=== PATIENT | female | born 1965 | race Caucasian/White ===

== ENCOUNTER 2019-10-29 13:00 | Inpatient (IN) | payer OTHER ==
[~2019-10-29] VITALS: Ht 154.9 cm; Wt 38.6 kg
--- NOTE | 2019-11-10 22:15 | Pre-op HX & Phy Repo 2 SIG ---
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 The patient has a past history of ulcerative colitis in 1986. She underwent a total abdominal colectomy with a pull-through procedure. In 1989, she underwent creation of a Mullen Continent Intestinal [place] as well as abdominal-perineal proctectomy. She developed recurrent fistulas and in 1998 underwent resection of her Mullen pouch with creation of a new Mullen continent ileostomy. In 2006, the Mullen pouch was repaired because of fistula involving the access segment and the pouch. The patient in recent years intubates 10 to 12 times a day, but has incontinence despite the frequent intubations. She has no difficulty inserting her 30-Frisian Medena catheter. Last year, she had bleeding from the pouch with intubation, blood and clots and hemoglobin of 5.0. She was transfused. She underwent a pouch endoscopy in September 2018 revealing no inflammation, but there was no evidence of a nipple valve. The patient underwent upper GI endoscopy in June 2019 revealing gastritis, but she was placed on no medications. The most recent hemoglobin was 7.9 in July 2019 with iron of 16 and ferritin of 5. Her local doctors are not able to care for her because of her Mullen Continent ileostomy. MEDICATIONS: Metoprolol for hypertension. Sodium bicarbonate. ALLERGIES: Sulfa, Pentothal, Floxin, but Cipro is okay and she tolerates it. OPERATIONS: In addition to the above, tonsillectomy. REVIEW OF SYSTEMS: The patient has hypertension and she states she has been told she has mild chronic renal failure. PHYSICAL EXAMINATION: GENERAL: The patient is 5 feet 1 inch, 95 pounds. [place] and will be examined upon arrival and dictated separately. IMPRESSION: 1. Malfunctioning Mullen Continent Intestinal [place] continent ileostomy with incontinence and bleeding. 2. History of ulcerative colitis. 3. History of gastritis. 4. Hypertension. 5. Mild chronic renal failure. 6. History of ulcerative colitis. 7. STATUS POST MULTIPLE ABDOMINAL OPERATIONS: 7.1. Total colectomy with pull-through procedure in 1986. 7.2. Creation of Mullen continent ileostomy and abdominal-perineal proctectomy in 1989. 7.3. Resection of recurring fistulas involving Mullen pouch with creation of new Mullen pouch in 1998. 7.4. Repair of Mullen continent ileostomy fistulas involving the pouch and access segment 2006. DISCUSSION: The patient will be admitted to undergo bowel prep, insertion of a dual lumen PICC line, intravenous hydration during her bowel prep, and she will undergo pouch endoscopy and be prepared for surgery. Most likely, surgery will involve revision of the existing pouch as this is her second pouch, with creation of a new valve and stoma. I will have a full discussion again in person with the patient when she arrives from out of town regarding the nature of the surgery, indications, alternatives, options, and risks. Imtiaz Mcconnell M.D. DR: TYE JOB#: [id number] CC: MERY
[2019-11-12] MEDS ORDERED: Heparin1,000 units/500ml Premix(Conc:2 units/ml) ONE (06:00)
[2019-11-12] MEDS ORDERED: Lidocaine 1% Plain 30 ml INJ ONE (06:00)
--- NOTE | 2019-11-12 06:15 | NUR ---
NURSE NOTES: Received pt from ED. Pt ambulatory, a&ox4, in room air. No s/s of acute distress & no c/o pain at this time. Oriented pt to hospital room. All questions answered. VSS. Skin intact. Pt belongings signed & accounted for. Will have pt sign consents for procedures. Bed in lowest position, call light within reach. Will continue to monitor.
[2019-11-12] MEDS ORDERED: METOPROLOL SUCC50 MG ORAL (06:27)
[2019-11-12] MEDS ORDERED: CALCITRIOL0.25 MCG PO (06:27)
[2019-11-12 06:45] VITALS: BP 131/74
[2019-11-12] MEDS ORDERED: Zolpidem 5mg tab ORAL PRN (06:45)
[2019-11-12] MEDS ORDERED: Heparin1,000 units/500ml Premix(Conc:2 units/ml) IV PRN (06:45)
[2019-11-12] MEDS ORDERED: Lidocaine 1% Plain 30 ml INJ PRN (06:45)
--- NOTE | 2019-11-12 07:12 | NUR ---
NURSE NOTES: Pt taken down via wheelchair for chest x-ray. Pt in stable condition.
[2019-11-12 07:28] LABS: ANION GAP 14 mmol/L (5-15); BLOOD UREA NITROGEN 20 mg/dL (7-18); CALCIUM 9.1 MG/DL (8.5-10.1); CARBON DIOXIDE 19 MMOL/L (21-32); CHLORIDE 105 MMOL/L (98-107); CREATININE 1.9 MG/DL (0.55-1.30); POTASSIUM 4.1 MMOL/L (3.5-5.1); SODIUM 138 MMOL/L (136-145)
[2019-11-12 07:30] LABS: BASOPHILS % (AUTO) 0.9 % (0.0-2.0); EOSINOPHILS % (AUTO) 1.8 % (0.0-3.0); HEMATOCRIT 28.2 % (37.0-47.0); HEMOGLOBIN 8.7 G/DL (12.0-16.0); LYMPHOCYTES % (AUTO) 24.5 % (20.0-45.0); MEAN CORPUSCULAR VOLUME 72 FL (80-99); MONOCYTES % (AUTO) 7.4 % (1.0-10.0); NEUTROPHILS % (AUTO) 65.4 % (45.0-75.0); PLATELET COUNT 234 K/UL (150-450); RED CELL DISTRIBUTION WIDTH 14.7 % (11.6-14.8)
--- NOTE | 2019-11-12 07:32 | NUR ---
NURSE NOTES: Pt is back from chest xray.
--- NOTE | 2019-11-12 07:35 | NUR ---
HAND-OFF: Report given to CHUCK Roper. Rounds done. Endorsed to AM shift to have pt sign all of the consents. Pt aware of today's procedure @ 1300
[2019-11-12 07:38] LABS: ALANINE AMINOTRANSFERASE 55 U/L (12-78); ALBUMIN 4.3 G/DL (3.4-5.0); ALBUMIN/GLOBULIN RATIO 0.8 (1.0-2.7); ALKALINE PHOSPHATASE 104 U/L (46-116); ASPARTATE AMINO TRANSFERASE 55 U/L (15-37); BILIRUBIN,TOTAL 2.4 MG/DL (0.2-1.0)
[2019-11-12 07:39] LABS: BILIRUBIN,DIRECT 0.4 MG/DL (0.0-0.3)
[2019-11-12 08:00] VITALS: BP 112/64
--- NOTE | 2019-11-12 08:00 | NUR ---
NURSE NOTES: Received report from Guillermina WOODS, pt is a/a/o x4 laying in bed with no signs of distress or other issues at this time. call light within reach, bed in lowest position, side rales up x2. I will f/u as needed. pt's at bed side. I will f/u as needed - RN will review new admission orders and will carryon as indicated by .
--- NOTE | 2019-11-12 10:45 | Diagnostic Imaging Report ---
Indication: Cough Technique: 2 views of the chest Comparison: none Findings: Lungs and pleural spaces are clear. Heart size is normal. Impression: No acute process
--- NOTE | 2019-11-12 11:31 | General Progress Note ---
Progress Note Progress Note H&P dictated. For Mullen pouch endoscopy this afternoon. Hgb 8.7 - will need 1 unit PRBC pre-op after PIC line inserted Imtiaz Mcconnell MD Nov 12, 2019 11:31
--- NOTE | 2019-11-12 11:34 | Pre-Procedure Note/Attestation ---
Pre-Procedure Note/Attestation Complete Prior to Procedure Planned Procedure: not applicable Procedure Narrative: Mullen continent ileostomy pouch endoscopy Indications for Procedure Pre-Operative Diagnosis: malfunctioning Mullen continent ileostomy Attestation I attest that I discussed the nature of the procedure; its benefits; risks and complications; and alternatives (and the risks and benefits of such alternatives ), prior to the procedure, with the patient (or the patient's legal insurance account representative). I attest that, if there was a reasonable possibility of needing a blood transfusion, the patient (or the patient's legal insurance account representative) was given the [facility] standardized written summary, pursuant to the [place] Blood Safety Act ([place] Health and Safety Code # 1645, as amended). I attest that I re-evaluated the patient just prior to the surgery and that there has been no change in the patient's H&P, except as documented below: none Imtiaz Mcconnell MD Nov 12, 2019 11:34
--- NOTE | 2019-11-12 11:47 | Anethesia Preoperative Eval ---
Anesthesia Pre-op PMH/ROS General Date of Evaluation: Nov 12, 2019 Time of Evaluation: 11:09 Anesthesiologist: Corie ASA Score: ASA 3 Mallampati Score Class I : Soft palate, uvula, fauces, pillars visible Class II: Soft palate, uvula, fauces visible Class III: Soft palate, base of uvula visible Class IV: Only hard plate visible Mallampati Classification: Class II Surgeon: Enedina Diagnosis: Malfunctiong Mullen Continent Ileostomy Surgical Procedure: Revison Mullen Continent Ileostomy Anesthesia History: none Family History: no anesthesia problems Allergies: Coded Allergies: CEFACLOR (Verified Allergy, Unknown, 11/12/19) OFLOXACIN (Verified Allergy, Unknown, 11/12/19) SULFA (SULFONAMIDE ANTIBIOTICS) (Verified Allergy, Unknown, 11/12/19) Uncoded Allergies: sodium pentothal (Allergy, Unknown, 11/12/19) Medications: see eMAR Patient NPO?: Yes Past Medical History Cardiovascular: Reports: HTN Gastrointestinal/Genitourinary: Reports: CRI, other - Ulcerative Colitis Hematology/Immune: Reports: anemia, other - Lymphohistiocytosis PSxH Narrative: 1. Malfunctioning Mullen Continent Intestinal [place] continent ileostomy with incontinence and bleeding. 2. History of ulcerative colitis. 3. History of gastritis. 4. Hypertension. 5. Mild chronic renal failure. 6. History of ulcerative colitis. 7. STATUS POST MULTIPLE ABDOMINAL OPERATIONS: 7.1. Total colectomy with pull-through procedure in 1986. 7.2. Creation of Mullen continent ileostomy and abdominal-perineal proctectomy in 1989. 7.3. Resection of recurring fistulas involving Mullen pouch with creation of new Mullen pouch in 1998. 7.4. Repair of Mullen continent ileostomy fistulas involving the pouch and access segment 2006. Anesthesia Pre-op Phys. Exam Physician Exam Last Vital Signs Date Time Temp Pulse Resp B/P (MAP) Pulse Ox O2 Delivery O2 Flow Rate FiO2 11/12/19 08:00 97.7 62 15 112/64 (80) 99 11/12/19 07:09 Room Air Constitutional: NAD Neurologic: CN 2-12 intact Cardiovascular: RRR Respiratory: CTA Gastrointestinal: S/NT/ND Airway Exam Mallampati Score: Class II MO: full ROM: full Teeth: missing, intact Anesthesia Pre-op A/P Labs Hematology Test 1/6/20 07:05 White Blood Count 8.0 K/UL (4.8-10.8) Red Blood Count 3.90 M/UL (4.20-5.40) L Hemoglobin 8.7 G/DL (12.0-16.0) L Hematocrit 28.2 % (37.0-47.0) L Mean Corpuscular Volume 72 FL (80-99) L Mean Corpuscular Hemoglobin 22.4 PG (27.0-31.0) L Mean Corpuscular Hemoglobin Concent 30.9 G/DL (32.0-36.0) L Red Cell Distribution Width 14.7 % (11.6-14.8) Platelet Count 234 K/UL (150-450) Mean Platelet Volume 6.3 FL (6.5-10.1) L Neutrophils (%) (Auto) 65.4 % (45.0-75.0) Lymphocytes (%) (Auto) 24.5 % (20.0-45.0) Monocytes (%) (Auto) 7.4 % (1.0-10.0) Eosinophils (%) (Auto) 1.8 % (0.0-3.0) Basophils (%) (Auto) 0.9 % (0.0-2.0) Coagulation Test 11/12/19 07:05 Prothrombin Time 11.1 SEC (9.30-11.50) Prothromb Time International Ratio 1.0 (0.9-1.1) Activated Partial Thromboplast Time 27 SEC (23-33) Chemistry Test 11/12/19 07:05 Sodium Level 138 MMOL/L (136-145) Potassium Level 4.1 MMOL/L (3.5-5.1) Chloride Level 105 MMOL/L (98-107) Carbon Dioxide Level 19 MMOL/L (21-32) L Anion Gap 14 mmol/L (5-15) Blood Urea Nitrogen 20 mg/dL (7-18) H Creatinine 1.9 MG/DL (0.55-1.30) H Estimat Glomerular Filtration Rate 27.5 mL/min (>60) Glucose Level 99 MG/DL (74-106) Calcium Level 9.1 MG/DL (8.5-10.1) Total Bilirubin 2.4 MG/DL (0.2-1.0) H Direct Bilirubin 0.4 MG/DL (0.0-0.3) H Aspartate Amino Transf (AST/SGOT) 55 U/L (15-37) H Alanine Aminotransferase (ALT/SGPT) 55 U/L (12-78) Alkaline Phosphatase 104 U/L (46-116) Total Protein 9.8 G/DL (6.4-8.2) H Albumin 4.3 G/DL (3.4-5.0) Globulin 5.5 g/dL Albumin/Globulin Ratio 0.8 (1.0-2.7) L Risk Assessment & Plan Assessment: ASA 3 Plan: GA Status Change Before Surgery: No Pre-Antibiotics Drug: Guy Bangura MD Nov 12, 2019 11:47
[2019-11-12 12:00] VITALS: BP 119/73
--- NOTE | 2019-11-12 12:04 | NUR ---
*-* NO INSURANCE INFORMATION INT [facility] UNABLE TO SEND CLINCALS OR REVIEWS *-*
[2019-11-12 12:28] LABS: APPEARANCE,URINE CLEAR; BILIRUBIN, URINE NEGATIVE (NEGATIVE); COLOR,URINE PALE YELLOW; GLUCOSE, URINE (UA) NEGATIVE (NEGATIVE); KETONES,URINE NEGATIVE (NEGATIVE); LEUKOCYTE ESTERASE ,URINE NEGATIVE (NEGATIVE); NITRITE,URINE NEGATIVE (NEGATIVE); PH,URINE 6 (4.5-8.0); PROTEIN,URINE NEGATIVE (NEGATIVE); UROBILINOGEN,URINE NORMAL MG/DL (0.0-1.0)
--- NOTE | 2019-11-12 13:21 | Brief Operative Note ---
Immediate Post Operative Note Operative Note Pre-op Diagnosis: malfunctioning Mullen continent ileostomy Procedure: Mullen pouch endoscopy Post-op Diagnosis: same Post-op Diagnosis: same as pre-op Findings: consistent w/pre-op dx studies Surgeon: bola Anesthesia: other - none Specimen: none Complications: none Condition: stable Fluids: none Estimated Blood Loss: none Drains: other - 28 muse to Mullen pouch Implant(s) used?: No Imtiaz Mcconnell MD Nov 12, 2019 13:21
--- NOTE | 2019-11-12 13:40 | NUR ---
RADIOLOGY NOTE: LEFT UPPER EXTREMITY PICC PLACED.
[2019-11-12] MEDS: Neomycin Sulfate 500mg Tab ORAL SCH ×3 (13:59→20:35)
--- NOTE | 2019-11-12 14:48 | Diagnostic Imaging Report ---
. Indications: Needs long-term IV access Technique: Ultrasound confirms patent compressible left basilic vein. Total sterile technique, including sterile probe cover and sterile gel, hat, mask, sterile gown, large sterile drape, and preparation with 2% chlorhexidine utilized. Local anesthesia with 1% lidocaine. Under real-time ultrasound guidance, puncture basilic vein using 21-gauge needle, documented and archived, passage 0.018 guidewire under direct fluoroscopy, which was used to determine appropriate catheter length, exchange for 4 Swedish peel-away sheath. 4 Swedish Bard dual-lumen power PICC cut to 39 cm. It was inserted through the peel-away sheath. Peel-away sheath and guidewire removed. Catheter fixed to the skin. Both catheter ports aspirated and flushed. Patient tolerated procedure well, without immediate complication. Digital radiograph documents satisfactory catheter tip position, at the cavoatrial junction. Total fluoroscopy time 9.7 seconds. Total dose area product [id number] mGym2 Total number of images: One Impression: Successful placement of left arm PICC under sonographic and fluoroscopic guidance, as described above.
--- NOTE | 2019-11-12 15:15 | Pre-op HX & Phy Repo 2 SIG ---
DATE OF ADMISSION: 11/12/2019 DATE OF EXAMINATION: 11/12/2019. The [place]. Please see previously dictated history. PHYSICAL EXAMINATION: GENERAL: She is well developed well and nourished, 5 feet 1 inch, 95 pounds. VITAL SIGNS: Within normal limits. HEENT: Within normal limits. LUNGS: Clear. HEART: Regular rhythm. BREASTS: Without masses. ABDOMEN: Soft. There are multiple scars including a wide, long midline scar. The stoma of her Mullen pouch is in the right groin area with surrounding subcutaneous ectatic veins giving the skin a bluish discoloration and consistent with her intermittent forceful bleeding coming out of the stoma. There is a small parastomal hernia, but no incisional hernia. PELVIC: Per primary care recently. RECTAL: Status post proctectomy. EXTREMITIES: Without edema. Pulses 2+ femoral to pedal bilaterally. NEUROLOGIC: Physiologic. IMPRESSION: 1. Malfunctioning Mullen continent intestinal [place] continent ileostomy with incontinence and stoma bleeding. 2. History of ulcerative colitis. 3. Hypertension. 4. Mild chronic renal failure. 5. History of gastritis. 6. STATUS POST MULTIPLE ABDOMINAL OPERATIONS: 6.1. Total colectomy with pull-through procedure in 1986. 6.2. Creation of Mullen continent ileostomy and abdominal-perineal proctectomy in 1989. 6.3. Resection of Mullen pouch due to recurring fistula with creation of a new Mullen continent ileostomy pouch in 1998. 6.4. Repair of Mullen continent ileostomy fistula involving the pouch and access segment in 2006. PLAN: The patient will undergo bowel prep, insertion of a dual lumen PICC line, intravenous hydration during her prep, pouch endoscopy and continuous drainage of her Mullen pouch leading to surgery. Hemoglobin of 8.7 will require one unit of blood transfusion preoperatively, as her hemoglobin has been as low as 5.9 in the past. I have had a full discussion with the patient regarding the nature of her condition, the nature of surgery, indications, alternatives, options, and risks. I have discussed the general risks of surgery including bleeding, infection, injury to adjacent structures or organs, hernia formation, bowel obstructions, deep vein thrombosis despite prophylaxis, etc. I have had a full discussion regarding the specific risks of Mullen pouch revision including recurrent fistula or slipped valve or other issues with the pouch structure or function, and the potential ultimately for conventional ileostomy which she has never had. All questions have been answered. She understands and agrees to proceed. Imtiaz Mcconnell M.D. DR: BARBARA JOB#: [id number] CC:
[2019-11-12 16:00] VITALS: BP 124/73
--- NOTE | 2019-11-12 16:00 | Procedure Note ---
DATE OF PROCEDURE: 11/12/2019 ENDOSCOPY PROCEDURE REPORT ENDOSCOPIST: Imtiaz Mcconnell M.D. PROCEDURE: Endoscopy. ANESTHESIA: None. SEDATION: None. PRE-ENDOSCOPIC DIAGNOSES: 1. Malfunctioning Mullen continent ileostomy with incontinence and bleeding from the stoma. 2. History of ulcerative colitis. 3. Status post proctocolectomy and Mullen pouch with resection of prior Mullen pouch due to fistula and revision of current Mullen pouch in the past because of fistula. POST-ENDOSCOPIC DIAGNOSIS: 1. Malfunctioning Mullen continent ileostomy with incontinence and bleeding from the stoma. 2. History of ulcerative colitis. 3. Status post proctocolectomy and Mullen pouch with resection of prior Mullen pouch due to fistula and revision of current Mullen pouch in the past because of fistula. ENDOSCOPY PERFORMED: Mullen continent ileostomy pouch endoscopy. FINDINGS: The endoscope was seen to enter the pouch adjacent to the base of the nipple valve indicating likely that there is a large fistula from the access segment directly into the pouch. The pouch itself was distensible and has no sign of inflammation. DESCRIPTION OF PROCEDURE: The patient was positioned supine in the GI lab without any anesthesia or sedation given or required. Using a GIF-P140 endoscope, the stoma in the right lower quadrant was entered. The pouch was distensible. Retroflexed revealed the above stated findings, withdrawal views confirmed them. After removing the endoscope, I readily inserted a 28-Tamazight Erazo catheter into the pouch, confirmed by irrigation and connected it to gravity drainage bag and taped it to the skin with a dressing over the stoma. She will be prepared for surgical revision and she tolerated the endoscopy well. Imtiaz Mcconnell M.D. DR: FOSTER JOB#: [id number] CC:
--- NOTE | 2019-11-12 17:17 | NUR ---
CASE MANAGEMENT: INITIAL REVIEW 54YR OLD FEMALE HERE FOR ELECTIVE SURGERY CC: MALFUNCTION OF NELSON ILEOSTOMY AND BLEEDING FROM STOMA SI: MALFUNCTION OF NELSON ILEOSTOMY AND BLEEDING FROM STOMA 97.3 73 15 131/74 96% ON RA H/H 8.7/28.2 BUN 20 CREAT 1.9 CO2 19 TBIL/DBIL 2.4/0.4 AST 55 T.PROTEIN 9.8 IS: IN SURGERY NOW \:3E MED SURG UNIT
[2019-11-12] MEDS: D5 1/2NS w/KCl 20mEq 1,000 ML IV SCH (19:05)
--- NOTE | 2019-11-12 19:45 | NUR ---
NURSE NOTES: Received a report from CHUCK Roper. Pt is in stable condition. AAOX4. Able to make needs known. On room air. at the bedside. No c/o pain/discomfort. PICC line 2 lumen on the L upper arm, is patent and intact. Ileostomy on the R side, is draining. Bed in lowest position. Bed alarm is on. Call light within reach. Will continue to monitor.
[2019-11-12 20:00] VITALS: BP 143/84
--- NOTE | 2019-11-12 20:02 | NUR ---
HAND-OFF: Report given to Amanda WOODS, pt in stable condition. - During my shift pt received one of PRBC with no signs of any adverse reaction. - consents are signed by PT I&O's Ileostomy: 600-40= 560ml urine: 300ml
[2019-11-12] MEDS: Metoprolol Succinate XL 50mg tab ORAL SCH (20:35)
[2019-11-12] MEDS: Dyna-Hex 2% Top Sol 2oz TOPIC SCH (20:35)
[2019-11-12 23:55] VITALS: BP 134/75
[2019-11-13] MEDS: Ampicillin/Sulbactam Sod 3 GM in NS 110 ML IVPB SCH ×2 (01:29→05:03)
[2019-11-13 04:00] VITALS: BP 125/77
[2019-11-13 05:50] LABS: BASOPHILS % (AUTO) 0.4 % (0.0-2.0); EOSINOPHILS % (AUTO) 1.6 % (0.0-3.0); HEMATOCRIT 27.1 % (37.0-47.0); HEMOGLOBIN 8.4 G/DL (12.0-16.0); LYMPHOCYTES % (AUTO) 17.4 % (20.0-45.0); MEAN CORPUSCULAR VOLUME 75 FL (80-99); MONOCYTES % (AUTO) 9.7 % (1.0-10.0); NEUTROPHILS % (AUTO) 70.9 % (45.0-75.0); PLATELET COUNT 157 K/UL (150-450); RED CELL DISTRIBUTION WIDTH 15.2 % (11.6-14.8); WHITE BLOOD COUNT 5.3 K/UL (4.8-10.8)
[2019-11-13 06:32] LABS: ALANINE AMINOTRANSFERASE 40 U/L (12-78); ALBUMIN 3.3 G/DL (3.4-5.0); ALBUMIN/GLOBULIN RATIO 0.8 (1.0-2.7); ALKALINE PHOSPHATASE 78 U/L (46-116); ANION GAP 13 mmol/L (5-15); ASPARTATE AMINO TRANSFERASE 44 U/L (15-37); BILIRUBIN,TOTAL 2.8 MG/DL (0.2-1.0); BLOOD UREA NITROGEN 19 mg/dL (7-18); CALCIUM 8.4 MG/DL (8.5-10.1); CARBON DIOXIDE 17 MMOL/L (21-32); CHLORIDE 110 MMOL/L (98-107); CREATININE 1.7 MG/DL (0.55-1.30); FERRITIN 8 NG/ML (8-388); POTASSIUM 3.6 MMOL/L (3.5-5.1); SODIUM 140 MMOL/L (136-145)
[2019-11-13 06:38] LABS: BILIRUBIN,DIRECT 0.3 MG/DL (0.0-0.3)
[2019-11-13 06:43] LABS: IRON 29 ug/dL (50-175)
--- NOTE | 2019-11-13 07:23 | NUR ---
HAND-OFF: Report given to CHUCK Roper.
--- NOTE | 2019-11-13 07:31 | NUR ---
NURSE NOTES: Received report from Amanda WOODS, pt a/a/o x4 laying in bed with no signs of distress or other issues at this time. Ileostomy draining to gravity, total geophysical prospecting surveyor out put: 360ml, total urine out put: 1200ml. plan to OR today for revision of BCIR. at bed side. call light within reach, bed in lowest position. side rales up x2.
[2019-11-13 08:00] VITALS: BP 123/72
[2019-11-13] MEDS: D5 1/2NS w/KCl 20mEq 1,000 ML IV SCH ×2 (08:55→20:23)
--- NOTE | 2019-11-13 09:26 | General Progress Note ---
Progress Note Progress Note AVSS Received 1 unit blood yesterday but this AM Hgb is lower 8.4. serum iron 29 and ferritin 8. B12 389; folic acid ok Albumin 3.3 BUN down 19 Cr down 1.7 Abdomen soft, Mullen pouch catheter draining well Imp: Severe anemia with severe iron deficiency and history recurrent stoma bleeding Plan: Transfuse second unit; start Venofer; postpone surgery to 11/15; start TPN; B12 x 1 clear liquid diet Imtiaz Mcconnell MD Nov 13, 2019 09:26
[2019-11-13] MEDS ORDERED: Vitamin B12 1000mcg/ml Inj IM SCH (09:30)
[2019-11-13] MEDS ORDERED: Heparin 5000 units/ml inj SUBQ SCH (09:30)
[2019-11-13] MEDS ORDERED: Iron Sucrose 200 MG in NS 110 ML IV SCH (10:00)
--- NOTE | 2019-11-13 11:07 | NUR ---
RD ASSESSMENT & RECOMMENDATIONS SEE CARE ACTIVITY FOR COMPLETE ASSESSMENT DAILY ESTIMATED NEEDS: Needs based on Underweight, pending surgery, CKD/ 44kg 30-35 kcals/kg 4488-8497 total kcals 1-1.5 g protein/kg 44-66 g total protein 30-35 mL/kg 3387-1397 total fluid mLs NUTRITION DIAGNOSIS: * Altered GI function R/T h/o UC, BCIR as evidenced by admitted w/ malfunctioning BICR w/ incontinence and stoma bleeding, surgery pending, w/ an order for TPN + CLD. CURRENT DIET:CLEAR LIQUID DIET PO DIET RECOMMENDATIONS: Diet per MD PARENTERAL NUTRITION RECOMMENDATIONS: D/AA Rate: 53 IL Rate: 7 Total Rate: 60 Volume: 1440 % Dextrose: 16 % AA: 5.0 Energy (kcals/kg): 1282 Protein (g/kg protein): 63.6 Nonprotein KCALS: 1028 GIR (mg CHO/kg/min): 3.2 % Fat KCALS: 26 NCP: N Ratio: 100.4 TPN Comment: * D16% AA 5.0% @ 53ml/hr + IL20% @ 7ml/hr -> total of 60ml/hr, all 3:1 * Start rate per MD * Will provide 97% est kcal/ 100% est prot needs ADDITIONAL RECOMMENDATIONS: * Standing wt for accurate CBW, weekly wt monitoring * Monitor LFTs and T bili closely w/ TPN -> AST (44) and T bili (2.8) already elevated prior to TPN initiation * Monitor BGs and lytes w/ TPN
--- NOTE | 2019-11-13 11:22 | NUR ---
*-* NO INSURANCE INFORMATION IN THE BAR UNABLE TO SEND CLINICALS OR REVIEWS *-*
[2019-11-13 12:00] VITALS: BP 135/74
--- NOTE | 2019-11-13 12:29 | NUR ---
CASE MANAGEMENT: REVIEW 11/13/2019 SI: MALFUNCTION OF NELSON ILEOSTOMY AND BLEEDING FROM STOMA 98.4 80 18 123/72 97% ON RA H/H 8.4/27.1 CL-110 CO2 17 CA+ 8.4 BUN 19 CREAT 1.7 FE 29 IS: IV FE SUCROSE X1 VIT B12 IM X1 HEPARIN SQ X1 IVF D5@75ML/HR IV FLAGYL Q6HR IV AMPICILLIN Q6HR NEOMYCIN PO TID ERYTHTOMYCIN PO TID TOPROL PO QHS \:3E MED SURG UNIT PLAN: TRANSFUSE 2ND UNIT PRBC POSTPONE SURG TILL 11/15/2019 START TPN CLEAR LIQ DIET
--- NOTE | 2019-11-13 13:28 | NUR ---
NURSE NOTES: Received order to transfuse 1 unit of PRBC. - Infusion started at 12:40. pts VS prior to start infusion: VS: Temp: 97.7, BP: 135/76, HR: 87. RN though patient of possible side effects of Blood transfusion. pt was able to verbalized understanding. - VS 15 min after transfusion: 97.8, BP: 138/78, HR:88. Patient stated that she is "feeling well, with no side effects notes until now". RN will continue to monitor. I will f/u as needed.
[2019-11-13 16:00] VITALS: BP 138/78
--- NOTE | 2019-11-13 16:00 | NUR ---
NURSE NOTES: blood transfusion finalized. VS: 98.5, 85, 18, 138/78, 97% RA. pt was able to tolerated with no signs of adverse reaction at this time. I will f/u as needed.
--- NOTE | 2019-11-13 17:30 | NUR ---
NURSE NOTES: During rounds pt complained of HERNANDEZ, RN will contact MD for orders. I will f/u as needed.
[2019-11-13] MEDS ORDERED: Acetaminophen 500mg (ES) tab ORAL PRN (18:00)
[2019-11-13 19:40] VITALS: BP 139/76
--- NOTE | 2019-11-13 19:50 | NUR ---
HAND-OFF: Report given to Amanda WOODS, pt in stable condition. - during my shift pt was able to ambulate around the room with steady gait. I&O's ileostomy: 600-90=769fv urine: 1300 ml intake: 708 ml
[2019-11-13] MEDS: Dyna-Hex 2% Top Sol 2oz TOPIC SCH (20:23)
[2019-11-13] MEDS: Metoprolol Succinate XL 50mg tab ORAL SCH (20:23)
[2019-11-13] MEDS: FAT EMULSION 20% IV SCH (20:25)
[2019-11-13] MEDS: TPN IV SCH (20:25)
[2019-11-13] MEDS ORDERED: Dextrose 10% 1,000 ML IV PRN (21:00)
[2019-11-14] VITALS: BP 131/74
[2019-11-14 04:00] VITALS: BP 133/77
--- NOTE | 2019-11-14 04:37 | NUR ---
HAND-OFF: Report given to CHUCK Perez.
--- NOTE | 2019-11-14 04:40 | NUR ---
NURSE NOTES: received report from CHUCK Patel. patient asleep. Breathing unlabored on room air without distress. No s/s of pain or discomfort noted at this time. Left upper arm PICC line site patent with clean and dry dressing intact. Right Ileostomy intact and draining. Bed placed at the lowest with brake and siderails up for safety. Call light within reach. Will continue to monitor the patient and provide care as ordered.
[2019-11-14 05:32] LABS: HEMATOCRIT 29.5 % (37.0-47.0); HEMOGLOBIN 9.3 G/DL (12.0-16.0); MEAN CORPUSCULAR VOLUME 76 FL (80-99); PLATELET COUNT 117 K/UL (150-450); WHITE BLOOD COUNT 3.3 K/UL (4.8-10.8)
[2019-11-14 05:46] LABS: ALANINE AMINOTRANSFERASE 32 U/L (12-78); ALBUMIN 2.8 G/DL (3.4-5.0); ALBUMIN/GLOBULIN RATIO 0.7 (1.0-2.7); ALKALINE PHOSPHATASE 66 U/L (46-116); ANION GAP 9 mmol/L (5-15); ASPARTATE AMINO TRANSFERASE 35 U/L (15-37); BILIRUBIN,DIRECT 0.2 MG/DL (0.0-0.3); BLOOD UREA NITROGEN 12 mg/dL (7-18); CALCIUM 7.9 MG/DL (8.5-10.1); CARBON DIOXIDE 19 MMOL/L (21-32); CHLORIDE 114 MMOL/L (98-107); CREATININE 1.5 MG/DL (0.55-1.30); POTASSIUM 4.3 MMOL/L (3.5-5.1); SODIUM 142 MMOL/L (136-145)
[2019-11-14] MEDS: NovoLOG Insulin Flexpen SUBQ SCH ×4 (06:00→18:00)
--- NOTE | 2019-11-14 06:30 | NUR ---
NURSE NOTES: abdominal dressing intact, dry, and clean. will continue to monitor.
--- NOTE | 2019-11-14 07:28 | NUR ---
HAND-OFF: Report given to CHUCK Roper. Patient in stable condition. Endorsed plan of care. Output for 12hr shift Ileostomy 525ml - 80ml flush = 445 ml Urine 1000 ml
--- NOTE | 2019-11-14 07:59 | NUR ---
NURSE NOTES: Received report from Minsu RN, pt a/a/o x4 laying in bed with no signs of distress or other issues at this time. ileostomy bag draining to gravity, total mine shifter out put: 445ml. Total urine: 1000ml. PICC line in place running TPN@60ml/hr. at bed side. call light within reach, bed in lowest position. side rales up x2. I will f/u as needed.
[2019-11-14 08:00] VITALS: BP 145/71
[2019-11-14] MEDS ORDERED: D5 1/2NS w/KCl 20mEq 1,000 ML IV SCH (08:00)
--- NOTE | 2019-11-14 10:00 | NUR ---
*-* NO INSURANCE INFORMATION IN THE BAR UNABLE TO SEND CLINICALS OR REVIEWS *-*
[2019-11-14 12:00] VITALS: BP 165/78
--- NOTE | 2019-11-14 15:07 | General Progress Note ---
Progress Note Progress Note AVSS Hgb 9.3 after IV hydration and 2 units PRBC. WBC 3300 Platelets 117,000 BU"N down 12 Cr down 1.5 albumin 2.8 Abdomen sof BCIR catheter draining well Imp. Malnutrition Severe anemia Malfunctioning Mullen Pouch with fistula to access segment/stoma Plan: Prepare for surgery tomorrow Full discussion with patient re possible need to resect her Mullen pouch and create conventional Ana ileostomy Imtiaz Mcconnell MD Nov 14, 2019 15:07
[2019-11-14 16:00] VITALS: BP 153/80
--- NOTE | 2019-11-14 19:30 | NUR ---
NURSE NOTES: Receive a report from CHUCK Roper. Round is done. Pt is awake and alert. No acute distress noted. No abdominal discomfort noted. Ileostomy is on RLQ and drained in a natural gravity with brownish drainage. Site kept clean with gauze dressing. TPN is running on AME via PICC. Noted discoloration around PICC and marked with pen to check. No pain or swelling noted. Pt is planning on surgery tomorrow. Call light within reach. Will continue to monitor.
--- NOTE | 2019-11-14 19:51 | NUR ---
HAND-OFF: Report given to Becky Courtney, pt in stable condition. - pt was able to walk around the room with steady gait. I&o's ileostomy: 325-828=115hj urine: 1050ml oral intake: 908ml Blood sugar: 91,110
[2019-11-14 20:00] VITALS: BP 144/83
[2019-11-14] MEDS: Metoprolol Succinate XL 50mg tab ORAL SCH (20:10)
[2019-11-14] MEDS: Dyna-Hex 2% Top Sol 2oz TOPIC SCH (20:10)
[2019-11-14] MEDS: TPN IV SCH (20:12)
[2019-11-14] MEDS: FAT EMULSION 20% IV SCH (20:12)
--- NOTE | 2019-11-14 21:00 | NUR ---
NURSE NOTES: Preop surgery education is done. Will be MNNPO. Will continue to monitor.
[2019-11-15] VITALS (26 sets, daily range): BP systolic 93–183; BP diastolic 50–92
[2019-11-15] MEDS: NovoLOG Insulin Flexpen SUBQ SCH ×4 (06:00→18:00)
--- NOTE | 2019-11-15 06:00 | NUR ---
NURSE NOTES: Denies any pain. Noted wet gauze around ileostomy catheter. Done checking ileostomy catheter with flushing and change dressing with 4x4 and ABD. Will follow up lab results. On MNNPO for surgery this afternoon. Will continue to monitor. 12hr output urine: 1350ml Ileostomy: 230ml
[2019-11-15 07:08] LABS: ALANINE AMINOTRANSFERASE 30 U/L (12-78); ALBUMIN 2.8 G/DL (3.4-5.0); ALBUMIN/GLOBULIN RATIO 0.7 (1.0-2.7); ALKALINE PHOSPHATASE 67 U/L (46-116); ANION GAP 12 mmol/L (5-15); ASPARTATE AMINO TRANSFERASE 36 U/L (15-37); BILIRUBIN,TOTAL 0.9 MG/DL (0.2-1.0); BLOOD UREA NITROGEN 16 mg/dL (7-18); CARBON DIOXIDE 19 MMOL/L (21-32); CHLORIDE 111 MMOL/L (98-107); CREATININE 1.4 MG/DL (0.55-1.30); SODIUM 142 MMOL/L (136-145)
[2019-11-15 07:11] LABS: BASOPHILS % (AUTO) 0.9 % (0.0-2.0); EOSINOPHILS % (AUTO) 3.2 % (0.0-3.0); HEMATOCRIT 29.7 % (37.0-47.0); HEMOGLOBIN 9.4 G/DL (12.0-16.0); LYMPHOCYTES % (AUTO) 25.1 % (20.0-45.0); MEAN CORPUSCULAR VOLUME 76 FL (80-99); MONOCYTES % (AUTO) 10.8 % (1.0-10.0); NEUTROPHILS % (AUTO) 60.1 % (45.0-75.0); PLATELET COUNT 119 K/UL (150-450); RED BLOOD COUNT 3.93 M/UL (4.20-5.40); RED CELL DISTRIBUTION WIDTH 15.3 % (11.6-14.8); WHITE BLOOD COUNT 3.5 K/UL (4.8-10.8)
--- NOTE | 2019-11-15 07:30 | NUR ---
HAND-OFF: Report given to CHUCK Costa.
--- NOTE | 2019-11-15 07:49 | NUR ---
NURSE NOTES: Pending surgery for this afternoon. Remains NPO . Denies discomfort and this time.
--- NOTE | 2019-11-15 08:38 | NUR ---
CASE MANAGEMENT: REVIEW 11/14/2019 SI: MALFUNCTION OF NELSON ILEOSTOMY AND BLEEDING FROM STOMA 97.6 81 21 165/78 97% ON RA WBC 3.3 H/H 9.3/29.5 PLT 119 CL-114 CO2 19 CREAT 1.5 CA+ 7.9 TBIL 2.0 IS: TPN Q24HR IV FE SUCROSE X1 TOPROL PO QHS TYLENOL PO Q6HR \:3E MED SURG UNIT PLAN: SEVERE ANEMIA SURGERY 11/15/2019
--- NOTE | 2019-11-15 08:40 | Pre-Procedure Note/Attestation ---
Pre-Procedure Note/Attestation Complete Prior to Procedure Planned Procedure: not applicable Procedure Narrative: revision of Mullen continent ileostomy Indications for Procedure Pre-Operative Diagnosis: malfunctioning Mullen continent ileostomy Attestation I attest that I discussed the nature of the procedure; its benefits; risks and complications; and alternatives (and the risks and benefits of such alternatives ), prior to the procedure, with the patient (or the patient's legal installation service representative). I attest that, if there was a reasonable possibility of needing a blood transfusion, the patient (or the patient's legal installation service representative) was given the [facility] standardized written summary, pursuant to the Miguelito Whetstone Blood Safety Act ([place] Health and Safety Code # 1645, as amended). I attest that I re-evaluated the patient just prior to the surgery and that there has been no change in the patient's H&P, except as documented below: none Imtiaz Mcconnell MD Nov 15, 2019 08:40
--- NOTE | 2019-11-15 09:32 | NUR ---
RD ASSESSMENT & RECOMMENDATIONS SEE CARE ACTIVITY FOR COMPLETE ASSESSMENT DAILY ESTIMATED NEEDS: Needs based on Underweight, pending surgery, CKD/ 44kg 30-35 kcals/kg 0343-8370 total kcals 1-2 g protein/kg 44-88 g total protein 30-35 mL/kg 0614-0415 total fluid mLs NUTRITION DIAGNOSIS: * Altered GI function R/T h/o UC, BCIR as evidenced by admitted w/ malfunctioning BICR w/ incontinence and stoma bleeding, pending surgery, now NPO, on TPN. CURRENT DIET:NPO PO DIET RECOMMENDATIONS: Diet per PARENTERAL NUTRITION RECOMMENDATIONS: D/AA Rate: 52 IL Rate: 8 Total Rate: 60 Volume: 1440 % Dextrose: 17 % AA: 5.3 Energy (kcals/kg): 1370 Protein (g/kg protein): 66 Nonprotein KCALS: 1105 GIR (mg CHO/kg/min): 3.3 % Fat KCALS: 28 NCP: N Ratio: 104.6 TPN Comment: * D17% AA 5.3% @ 52ml/hr + IL20% @ 8ml/hr -> total of 60ml/hr, all 3:1 * Will provide 100% est kcal/prot needs -> 31kcal/1.5g prot per kg actual body wt ADDITIONAL RECOMMENDATIONS: * Standing wt for accurate CBW, weekly wt monitoring * Monitor LFTs and T bili closely w/ TPN -> AST (44) and T bili (2.8) elevated prior to TPN initiation -> now wnl * Monitor BGs and lytes w/ TPN -> rec to check mag and phos
--- NOTE | 2019-11-15 09:40 | NUR ---
*-* INSURANCE *-* ALL CLINICALS AND REVIEWS HAVE BEEN FAXED TO: [facility]# [id number] (CONFIRMED) 5/DAYS APPROVED..ADMIT DATE: MARLEN: NEAL Kathleen FX: [phone] ...REVIEW/CLINICAL.
[2019-11-15] MEDS ORDERED: Heparin 5000 units/ml inj SUBQ SCH (11:00)
[2019-11-15] MEDS: Ampicillin/Sulbactam Sod 3 GM in NS 110 ML IVPB SCH ×2 (11:26→18:00)
--- NOTE | 2019-11-15 11:30 | NUR ---
NURSE NOTES: Dr Mcconnell phoned to verify if he wanted feature writer to precede with order for Heparin for post op prophylactics platelets are low , nearly half from 234 . Awaiting return phone call
[2019-11-15] MEDS ORDERED: NS Irrig 1000ml ONE ×2 (11:40→13:30)
--- NOTE | 2019-11-15 11:40 | NUR ---
NURSE NOTES: gave clearance to give Heparin here on floor. Pt informed that telegraphic typewriter operator spoke to Dr Mcconnell in regards to heparin gave instructions to give.
[2019-11-15] MEDS ORDERED: Ampicillin/Sulbactam Sod 3 GM in NS 110 ML IV SCH (12:00)
[2019-11-15] MEDS ORDERED: LR 1000ml 1,000 ML IVLG SCH (12:34)
[2019-11-15] MEDS ORDERED: fentaNYL 100 mcg/2 mL IV ONE (12:43)
[2019-11-15] MEDS ORDERED: Midazolam 2mg/2ml Inj ONE (12:43)
[2019-11-15] MEDS ORDERED: Lidocaine 1% MPF 10mg/ml 5ml ONE (12:45)
[2019-11-15] MEDS ORDERED: fentaNYL 100 mcg/2 mL IV PRN (12:45)
[2019-11-15] MEDS ORDERED: Lidocaine 1% Plain 30 ml INJ ONE (12:45)
[2019-11-15] MEDS ORDERED: Atropine Sulfate 0.4mg/ml inj IVP PRN (12:45)
[2019-11-15] MEDS ORDERED: HYDROcodone/Acetamin 5/325 tab ORAL PRN (12:45)
[2019-11-15] MEDS ORDERED: DiphenhydrAMINE 50mg/ml Inj IVP PRN ×3 (12:45→21:30)
[2019-11-15] MEDS ORDERED: Meperidine 50mg/ml Inj(FOR RIGORS ONLY) IVP PRN (12:45)
[2019-11-15] MEDS ORDERED: Labetalol 5mg/ml 20ml vial IV PRN (12:45)
[2019-11-15] MEDS ORDERED: Metoclopramide 10mg/2ml Inj IVP PRN (12:45)
[2019-11-15] MEDS ORDERED: HYDROcodone/Acetamin 7.5/325 tab ORAL PRN (12:45)
[2019-11-15] MEDS ORDERED: Hydromorphone 0.5mg/0.5ml inj IVP PRN (12:45)
[2019-11-15] MEDS ORDERED: Dexamethasone 4mg/ml vial ONE (12:45)
[2019-11-15] MEDS ORDERED: Ketorolac 30mg Inj IV PRN ×2 (12:45)
[2019-11-15] MEDS ORDERED: oxyCODONE HCL/Acetaminophen 5/325mg ORAL PRN (12:45)
[2019-11-15] MEDS ORDERED: LORazepam Inj 2mg/ml 1ml IV PRN (12:45)
[2019-11-15] MEDS ORDERED: Acetaminophen (Non formulary) 100 ML IV ONE (12:45)
[2019-11-15] MEDS ORDERED: Midazolam 2mg/2ml Inj IVP PRN (12:45)
[2019-11-15] MEDS ORDERED: Bacitracin 50000 Units Vial ONE (12:46)
[2019-11-15] MEDS ORDERED: NeoSporin Gu Irrig 1ml Amp IRRIG ONE (12:46)
[2019-11-15] MEDS ORDERED: Rocuronium Bromide 50mg/5ml Inj IV ONE (12:53)
[2019-11-15] MEDS ORDERED: LR 1000ml ONE (13:30)
[2019-11-15] MEDS ORDERED: Sterile Water Irrig 1000ml IRRIG ONE (13:30)
--- NOTE | 2019-11-15 14:06 | Immediate Post-Op Evaluation ---
Immediate Post-Op Evalulation Immediate Post-Op Evalulation Procedure: Patricia Mullen Continent Ileostomy Date of Evaluation: Nov 15, 2019 Time of Evaluation: 16:25 IV Fluids: 600 LR Blood Products: 0 Estimated Blood Loss: 100 Urinary Output: 0 Blood Pressure Systolic: 158 Blood Pressure Diastolic: 88 Pulse Rate: 91 Respiratory Rate: 16 O2 Sat by Pulse Oximetry: 100 Temperature (Fahrenheit): 97.6 Pain Score (1-10): 2 Nausea: No Vomiting: No Complications 0 Patient Status: awake, reacts, patent, extubated, none Hydration Status: adequate Dru mg Flagyl IV Given Within 1 Hr of Incision: Yes Time Given: 13:32 Guy Fontenot MD Nov 15, 2019 14:06
--- NOTE | 2019-11-15 14:16 | NUR ---
CASE MANAGEMENT: REVIEW 11/14/2019 SI: MALFUNCTION OF NELSON ILEOSTOMY AND BLEEDING FROM STOMA 98.3 93 20 107/63 95% ON RA WBC 3.5 H/H 9.4/29.7 PLT 119 CL-114 CO2 19 CREAT 1.4 CA+ 8.0 IS: IV FLAGYL Q6HR UNASYN Q6HR HEPARIN SQ X1 IV TPN Q24HR TOPROL PO QHS TYLENOL PO Q6HR \:3E MED SURG UNIT PLAN: SEVERE ANEMIA SURGERY TODAY FOR REVISION OF NELSON CONTINENT ILEOSTOMY Addendum: 11/16/19 at 1410 by JHONATAN NAILS LVN WBC 33.6 ABG: PH 6.7 pCO2 0 pO2 182.9 HCO3 0 ABG#2: pH 7.23 pO2 458.7 HCO3 15.3 PATIENT INTUBATED POST SURGERY; UNABLE TO AWAKE PATIENT
--- NOTE | 2019-11-15 15:07 | NUR ---
NURSE NOTES: Pt has not arrived from surgery. Went down roughly at 1245. remained in room. Pt informed that she will probably return with FC and MOLDING PRESS OPERATOR pump
[2019-11-15] MEDS ORDERED: Glycopyrrolate 0.2mg/ml 1ml Vial ONE (15:27)
[2019-11-15] MEDS ORDERED: Neostigmine 1mg/ml 10ml Inj ONE (15:27)
[2019-11-15] MEDS ORDERED: D5 1/4NS w/KCl 20mEq 1,000 ML IV SCH (16:11)
[2019-11-15] MEDS ORDERED: PCA Education Pamphlet MISC ONE (16:15)
[2019-11-15] MEDS ORDERED: PCA HYDROmorphone 1mg/ml 30 ML IV PRN ×2 (16:15→21:45)
[2019-11-15] MEDS ORDERED: HYDROmorphone 1mg/ml Carpuject SUBQ PRN (16:15)
[2019-11-15] MEDS ORDERED: Rate Change PCA 1 Each MISC PRN ×2 (16:15→21:30)
[2019-11-15] MEDS ORDERED: LORazepam 1mg tab SL PRN ×3 (16:15→21:30)
--- NOTE | 2019-11-15 16:18 | Brief Operative Note ---
Immediate Post Operative Note Operative Note Pre-op Diagnosis: malfunctioning Mullen continent ileostomy Procedure: resection of Mullen pouch with fistula and creation of Ana ileostomy Post-op Diagnosis: same Post-op Diagnosis: same as pre-op Findings: consistent w/pre-op dx studies Surgeon: bola Shelter Case Manager: eva Anesthesiologist: shara Anesthesia: general Specimen: yes - Mullen pouch Complications: none Condition: stable Fluids: 1 unit PRBC Estimated Blood Loss: volume - 100cc Drains: none Implant(s) used?: No Imtiaz Mcconnell MD Nov 15, 2019 16:18
--- NOTE | 2019-11-15 17:30 | NUR ---
1730-pt oral airway is out,shalow breathing rr of 30-50 saturating 98% on 6 liters via simple mask hr of 89 bp 157/72,right pupil is 4mm reactive to light, left pupil is 8mm less reactive to light,non reactive to pain stimuli,tongue is deviated to left side,notified DR. Olmedo. 1740-dr olmedo at bedside and gave reversal agent.
--- NOTE | 2019-11-15 17:46 | NUR ---
NURSE NOTES: Pt has not returned upon this writting. Dr Mcconnell seen informed property underwriter that pt will return with BCIR to drain Addendum: 11/15/19 at 1801 by Julissa Hanna RN error in entry pt did not have bcir procedure done , currently in recovery . Medical Administrative Technician spoke to recovery nurse ,
--- NOTE | 2019-11-15 18:00 | NUR ---
NURSE NOTES: Cuff Knitter phoned to recovery per Ras pt is not awake at this time , and nurse is waiting for pt to wake up before transferring back to unit. made aware of current status
[2019-11-15] MEDS: Naloxone 0.4mg/ml Inj IVP PRN ×3 (18:38→18:56)
[2019-11-15] MEDS ORDERED: PCA shift volume MISC SCH (19:00)
[2019-11-15] MEDS ORDERED: Flumazenil 0.1mg/ml 5ml Inj IV ONE (19:06)
--- NOTE | 2019-11-15 19:17 | NUR ---
NURSE NOTES: inquiring about status . High School Agriculture Teacher phoned down to recovery stated that pt is still sleeping and call will be placed to Dr Mcconnell per [facility] recovery nurse
[2019-11-15 19:19] LABS: HEMATOCRIT 41.2 % (37.0-47.0); HEMOGLOBIN 12.3 G/DL (12.0-16.0); MEAN CORPUSCULAR VOLUME 81 FL (80-99); PLATELET COUNT 260 K/UL (150-450); RED BLOOD COUNT 5.06 M/UL (4.20-5.40); RED CELL DISTRIBUTION WIDTH 14.9 % (11.6-14.8)
--- NOTE | 2019-11-15 19:33 | NUR ---
HAND-OFF: Report given to Koffi WOODS made aware that pt has not arrived from Recovery, senior technical writer spoke to Ras who stated call was placed to Dr Mcconnell for directions. Per report of recovery nurse , v/s have been stable. .
[2019-11-15 19:35] LABS: ANION GAP 3 mmol/L (5-15); BLOOD UREA NITROGEN 20 mg/dL (7-18); CALCIUM 7.6 MG/DL (8.5-10.1); CARBON DIOXIDE 29 MMOL/L (21-32); CHLORIDE 109 MMOL/L (98-107); CREATININE 1.7 MG/DL (0.55-1.30); SODIUM 141 MMOL/L (136-145)
[2019-11-15 19:39] LABS: POTASSIUM 6.2 MMOL/L (3.5-5.1)
[2019-11-15] MEDS ORDERED: FAT EMULSION 20% IV SCH ×4 (20:00)
[2019-11-15] MEDS ORDERED: TPN IV SCH ×4 (20:00)
[2019-11-15 20:11] LABS: HEMATOCRIT 41.5 % (37.0-47.0); HEMOGLOBIN 12.4 G/DL (12.0-16.0); MEAN CORPUSCULAR VOLUME 82 FL (80-99); PLATELET COUNT 281 K/UL (150-450); RED BLOOD COUNT 5.06 M/UL (4.20-5.40); RED CELL DISTRIBUTION WIDTH 15.2 % (11.6-14.8)
[2019-11-15 20:14] LABS: ANION GAP 1 mmol/L (5-15); BLOOD UREA NITROGEN 21 mg/dL (7-18); CALCIUM 7.7 MG/DL (8.5-10.1); CARBON DIOXIDE 30 MMOL/L (21-32); CHLORIDE 110 MMOL/L (98-107); CREATININE 1.8 MG/DL (0.55-1.30); SODIUM 140 MMOL/L (136-145)
[2019-11-15 20:18] LABS: POTASSIUM 6.5 MMOL/L (3.5-5.1)
[2019-11-15 20:19] LABS: BASOPHILS % (AUTO) 1.1 % (0.0-2.0); EOSINOPHILS % (AUTO) 0.6 % (0.0-3.0); LYMPHOCYTES % (AUTO) 15.1 % (20.0-45.0); MONOCYTES % (AUTO) 4.3 % (1.0-10.0); NEUTROPHILS % (AUTO) 78.9 % (45.0-75.0); WHITE BLOOD COUNT 33.6 K/UL (4.8-10.8)
[2019-11-15] MEDS ORDERED: Dextrose 10% 1,000 ML IV STA (20:26)
--- NOTE | 2019-11-15 20:40 | NUR ---
NURSE NOTES: Received report and pt from Eren Mancini RN from recovery. Pt's is obtunded at this time, non-verbal, unresponsive, unable to be aroused after sx, per CHUCK Jason, 2 doses of Narcan was given. Pt's agonal breathing with RR<10, SpO2 100% on Simple mask with 6L of O2. SR on hotel service supervisor. BP 119/49. HR 89. Afebrile. Bilateral pupils stay dilated. BS 293. Resp team was called. Noted ileostomy bag draining serous drainage, sx site dressing dry, no active bleeding at this time. LEFT arm PICC running D10W at 100ml/hr. Per CHUCK Mancini, results of current CBC, CMP was related to Dr Mcconnell. Noted Erazo 16Fr with 100ml of yellow urine. No belongings were transferred to ICU. Pt's at bedside. Dr Mcconnell was paged. Call light with reach. Bed in low and locked position. Will continue to monitor.
--- NOTE | 2019-11-15 20:47 | NUR ---
NURSE NOTES: Paged MD Mcconnell at this time, patient noted to be unarousable. Respirations <10 min. No ABG done on the patient. ABG ordered and MD Mcconnell ordered to all MD Freeman, he had just spoken to him 15 min ago. Orders read back and confirmed by MD. Addendum: 11/16/19 at 0216 by SAPPHIRE ESTEVEZ RN Wrong time entry: Message left for MD Mcconnell at this time. awaiting call back.
--- NOTE | 2019-11-15 20:51 | NUR ---
Late Entry: NURSE NOTES: MD Mcconnell called back. LANCE ordered and MD Mcconnell ordered to all MD Freeman, he had just spoken to him 15 min ago. Orders read back and confirmed by .
--- NOTE | 2019-11-15 20:52 | NUR ---
NURSE NOTES: Late entry: MD Freeman over head paged to ICU, Recovery Nurse called back. He left 5pm this afternoon.
--- NOTE | 2019-11-15 20:55 | NUR ---
NURSE NOTES: Spoke with 3E for MD Pete christopher, Nursing tube room supervisor Will call me back with number.
[2019-11-15] MEDS: Metoprolol Succinate XL 50mg tab ORAL SCH (21:00)
[2019-11-15] MEDS ORDERED: Dextrose 10% 1,000 ML IV PRN (21:00)
--- NOTE | 2019-11-15 21:05 | NUR ---
Late Entry: NURSE NOTES: Nursing power transformer repair supervisor called back with number for MD Freeman but no answer. Message left at this time.
--- NOTE | 2019-11-15 21:07 | NUR ---
Late entry: NURSE NOTES: Called ER Physician, Maggie with Critical ABG , Currently awaiting Pete to call back. Maggie said to get a hold of the anesthesia and he will be down stairs is anything.
--- NOTE | 2019-11-15 21:11 | NUR ---
Late entry: NURSE NOTES: Paged MD Mcconnell with critical ABG at this time. Pete not answering. Notified him the He needs to speak to ER MD to get patient intubated. Transferred call ER Maggie Daley.
--- NOTE | 2019-11-15 21:20 | NUR ---
NURSE NOTES: Dr. Mcconnell called, stated he already talked to Dr Elias ( [facility]), and to contact Dr Elias for orders.
[2019-11-15] MEDS ORDERED: Naloxone 0.4mg/ml Inj IVP PRN (21:30)
[2019-11-15] MEDS ORDERED: Dextrose 10% 1,000 ML IV SCH (21:30)
--- NOTE | 2019-11-15 21:45 | NUR ---
NURSE NOTES: Late Entry: Patient successfully intubated at this time. ER MD ordered propofol, chest xray and abg in an hour.
--- NOTE | 2019-11-15 22:15 | Operative Note - Dictated ---
DATE OF OPERATION: 11/15/2019 SURGEON: Imtiaz Mcconnell M.D. GAS CONTROLLER: Heber Bustillo M.D. ANESTHESIOLOGIST: Guy Fontenot M.D. TYPE OF ANESTHESIA: General endotracheal. PREOPERATIVE DIAGNOSES: 1. 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 2. History of ulcerative colitis. 3. STATUS POST MULTIPLE ABDOMINAL OPERATIONS: 3.1. Total colectomy with pull-through procedure in 1986. 3.2. Creation of Mullen continent ileostomy and abdominal-perineal proctectomy in 1989. 3.3. Resection of Mullen pouch with recurring fistula and creation of a new Mullen pouch in 1998. 3.4. Repair of Mullen continent ileostomy fistula involving the pouch and access segment in 2006. POSTOPERATIVE DIAGNOSES: 1. 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 2. History of ulcerative colitis. 3. STATUS POST MULTIPLE ABDOMINAL OPERATIONS: 3.1. Total colectomy with pull-through procedure in 1986. 3.2. Creation of Mullen continent ileostomy and abdominal-perineal proctectomy in 1989. 3.3. Resection of Mullen pouch with recurring fistula and creation of a new Mullen pouch in 1998. 3.4. Repair of Mullen continent ileostomy fistula involving the pouch and access segment in 2006. OPERATION PERFORMED: Laparotomy with resection of failed Mullen continent ileostomy and creation of Ana ileostomy. DESCRIPTION OF PROCEDURE: The patient was taken to the operating room and under general anesthesia with sequential compression device stockings and Erazo catheter in place, the patient was prepped and draped in usual fashion. Previous midline incision was reopened from below the umbilicus to the pubis. The stoma of the Mullen pouch was very low in the right lower quadrant in the groin area with surrounding varices subcutaneous that would spontaneously bleed in recurrent fashion. The midline incision was made taking down adhesions, which were mild to the anterior abdominal wall and interloop adhesions. The bowel was extremely friable and many vessels bled with minimal manipulation requiring cautery and use of the Thunderbeat electrosurgical device. A transversely oriented elliptical incision was made encompassing the stoma low in the right lower quadrant with the surrounding inflamed tissue and dissecting through the abdominal wall, the access segment was brought through the pouch into the abdomen. A 28-Faroese Erazo was placed through the stoma into the pouch and the afferent bowel manually occluded. The pouch was distended with 400 mL of saline with gross incontinence. Catheter was used to decompress the pouch. It was known from preoperative endoscopy that there was a large fistula from the stoma and access segment directly into the pouch bypassing the nipple valve. The pouch was opened with a pouch enterotomy and the above findings confirmed there was a fistula from the afferent bowel and the pouch to the access segment. It was clear that this could not be repaired and trying to create a new valve and stoma preserving this pouch, which was chronically inflamed, I did not feel was going to be successful. The patient has 10 to 12 feet of small bowel remaining. Uterus, tubes, and ovaries were normal. The right ureter was identified and protected. The left was avoided. The afferent bowel was divided just at the junction with the pouch with the CHETNA 55 and the mesentery divided using the Thunderbeat and #0 Vicryl ties. Specimen was given off the field for pathology. The abdomen was carefully inspected and irrigated and hemostasis carefully achieved running the entire small bowel. In an appropriate location in the upper portion of the right lower quadrant, a circular disc of skin was excised and with a cruciate incision in the fascia, a 1.5 to 2 fingerbreadth abdominal wall hiatus was created. The end of the ileum was brought through and the mesentery trimmed with the Thunderbeat for 4 to 5 cm. The fascia of the stoma site low in the right lower quadrant was closed with continuous #0 Prolene. A Betadine-soaked Ray-Leland was placed in the incision. The midline fascia was closed with continuous #1 looped PDS. The skin was closed with matthew. After antibiotic irrigation, the right lower quadrant prior stoma site was closed with interrupted vertical mattress 2-0 nylon sutures as well as matthew. Now, the stoma was primarily matured in traditional Ana fashion with interrupted 2-0 and 3-0 chromic leaving a very well-formed nipple bud. An ileostomy appliance was cut to fit and placed over the stoma followed by dry sterile dressings. Final sponge and needle counts were correct. The patient tolerated the procedure well and left the operating room in stable condition. Imtiaz Mcconnell M.D. DR: HAVEN JOB#: [id number] CC: MERY
[2019-11-15 22:20] LABS: HEMATOCRIT 38.9 % (37.0-47.0); MEAN CORPUSCULAR VOLUME 80 FL (80-99); PLATELET COUNT 204 K/UL (150-450); RED BLOOD COUNT 4.87 M/UL (4.20-5.40); RED CELL DISTRIBUTION WIDTH 14.5 % (11.6-14.8); WHITE BLOOD COUNT 21.1 K/UL (4.8-10.8)
--- NOTE | 2019-11-15 22:20 | Emergency Room Report ---
History of Present Illness General Source: Patient, Medical Record Present Illness Allergies: Coded Allergies: CEFACLOR (Verified Allergy, Unknown, 11/12/19) OFLOXACIN (Verified Allergy, Unknown, 11/12/19) SULFA (SULFONAMIDE ANTIBIOTICS) (Verified Allergy, Unknown, 11/12/19) Uncoded Allergies: sodium pentothal (Allergy, Unknown, 11/12/19) Nursing Documentation-PMH Hx Cardiac Problems: No Hx Cancer: No Hx Gastrointestinal Problems: Yes - Ulcerative Colitis Hx Neurological Problems: No Physical Exam Vital Signs Date Time Temp Pulse Resp B/P (MAP) Pulse Ox O2 Delivery O2 Flow Rate FiO2 11/12/19 06:45 97.3 73 15 131/74 (93) 96 11/12/19 07:09 Room Air 11/15/19 16:14 6 Procedures Intubation Intubation : Consent: Emergent Intubation Method: orotracheal Tube Size (cm): 7.5 Medications: Other - none Breath Sounds after Intubation: equal Intubation Complications: no complications Post Intubation Xray: Yes Attempts: One Patient Tolerated: Well Complications: None Progress I was called by ICU staff regarding this patient, there was report that the patient was in the ICU and had remained fairly unresponsive, ABG also showed concerning findings. Dr. rogers also contacted me in the ER, reported that the patient had decreased responsiveness throughout the postop procedure And at this time was being told by ICU regarding the patient's lack of responsiveness Dr Freeman from anesthesia paged, no response at time of note Upon arrival to the room patient has agonal respirations approximately 8/min Patient's pupils are fixed dilated approximately 5 to 6 mm no obvious reaction Patient's ABG appears concerning. significant acidosis After intubation patient is hyperventilated Intubation performed under direct visualization of the vocal cords EKG shows a sinus tach at 113 beats a minute Patient's potassium level was also elevated Pulmonary critical care has been contacted and orders being placed I did talk to the patient's notified him of the requirement for airway intubation at this time Medical Decision Making EKG Diagnostic Results Rate: tachycardiac Rhythm: other ST Segments: other - Nonspecific ST changes question increased T wave Chest X-Ray Diagnostic Results Chest X-Ray Diagnostic Results : Chest X-Ray Ordered: Yes # of Views/Limited/Complete: 1 View Indication: Shortness of Breath EP Interpretation: Yes Interpretation: no consolidation, no effusion, no pneumothorax, other - ET tube appropriately above saran Impression: Other Electronically Signed by: ET tube in place Last Vital Signs Date Time Temp Pulse Resp B/P (MAP) Pulse Ox O2 Delivery O2 Flow Rate FiO2 11/15/19 20:10 98.1 75 32 133/61 98 Simple Mask 6 Status: improved Disposition: ADMITTED INPATIENT Condition: Critical Referrals: NOT CHOSEN IPA/,REFERRING (PCP) Graham Branch DO Nov 15, 2019 22:20
[2019-11-15 22:21] LABS: BASOPHILS % (AUTO) 0.9 % (0.0-2.0); EOSINOPHILS % (AUTO) 0.2 % (0.0-3.0); LYMPHOCYTES % (AUTO) 5.2 % (20.0-45.0); MONOCYTES % (AUTO) 4.5 % (1.0-10.0); NEUTROPHILS % (AUTO) 89.2 % (45.0-75.0)
[2019-11-15 22:50] LABS: ALANINE AMINOTRANSFERASE 38 U/L (12-78); ALBUMIN 2.9 G/DL (3.4-5.0); ALBUMIN/GLOBULIN RATIO 0.7 (1.0-2.7); ALKALINE PHOSPHATASE 77 U/L (46-116); ANION GAP 12 mmol/L (5-15); ASPARTATE AMINO TRANSFERASE 54 U/L (15-37); BILIRUBIN,TOTAL 1.2 MG/DL (0.2-1.0); BLOOD UREA NITROGEN 23 mg/dL (7-18); CALCIUM 7.4 MG/DL (8.5-10.1); CARBON DIOXIDE 20 MMOL/L (21-32); CHLORIDE 107 MMOL/L (98-107); CREATININE 2.1 MG/DL (0.55-1.30); SODIUM 138 MMOL/L (136-145)
[2019-11-15 22:51] LABS: BILIRUBIN,DIRECT 0.7 MG/DL (0.0-0.3); POTASSIUM 6.3 MMOL/L (3.5-5.1)
--- NOTE | 2019-11-15 23:00 | NUR ---
NURSE NOTES: The results of ABG post intubation, current CBC, CMP, lactic were relayed to DR Elias. Dr. Elias wanted to hold TPN, change propofol to Fentanyl drip with goal at RASS -1, fluid to be changed to NS at 100ml/hr, 1 dose of Calcium gluconate. NPO. Continue with ETT7.5, 22LL, AC22, TV 500, PEEP5, FiO2 40%. Pt's able to move her arms at this time and regaining her consciousness. Bilateral soft wrists restraints applied for safety. Call light within reach. at bedside. Will continue to monitor.
--- NOTE | 2019-11-15 23:05 | Diagnostic Imaging Report ---
. Indication: Post intubation Technique: One view of the chest Comparison: 11/12/2019 Findings: There is a left arm PICC, tip projecting in good position at the level of the right atrium. There is an endotracheal tube in place, tip projecting in good position approximately 4 cm above the saran. The lungs and pleural spaces are clear. The heart size is normal Impression: Satisfactory endotracheal intubation No acute pulmonary process
[2019-11-15] MEDS ORDERED: Calcium Gluconate 1gm/10ml vial IVP ONE (23:30)
[2019-11-16] VITALS (46 sets, daily range): BP systolic 91–142; BP diastolic 6–92
--- NOTE | 2019-11-16 | NUR ---
NURSE NOTES: Pt's AOx 4 at this time, in no acute distress. VS stable. Continue with ETT 7.5, AC22, 22LL, TV500, P5, 40%. Will continue to monitor.
[2019-11-16] MEDS ORDERED: Dextrose 10% 1,000 ML IV PRN (00:15)
[2019-11-16] MEDS: Ampicillin/Sulbactam Sod 3 GM in NS 110 ML IVPB SCH ×5 (00:50→23:23)
--- NOTE | 2019-11-16 02:00 | NUR ---
NURSE NOTES: Pt's resting in bed, asleep, in no acute distress. VS stable. Will continue to monitor.
--- NOTE | 2019-11-16 04:00 | NUR ---
NURSE NOTES: Pt's resting in bed, asleep with eyes closed, easy to be aroused, RASS-1, in no acute distress. VS stable. Will continue to monitor.
[2019-11-16 05:26] LABS: HEMATOCRIT 30.3 % (37.0-47.0); HEMOGLOBIN 9.8 G/DL (12.0-16.0); MEAN CORPUSCULAR VOLUME 77 FL (80-99); PLATELET COUNT 102 K/UL (150-450); RED BLOOD COUNT 3.93 M/UL (4.20-5.40)
[2019-11-16] MEDS: NovoLOG Insulin Flexpen SUBQ SCH ×6 (06:00→23:31)
--- NOTE | 2019-11-16 06:00 | NUR ---
NURSE NOTES: Pt's resting in bed, asleep with eyes closed, easy to be aroused, RASS-1, in no acute distress. VS stable. Will continue to monitor.
[2019-11-16 06:02] LABS: ALANINE AMINOTRANSFERASE 32 U/L (12-78); ALBUMIN 2.4 G/DL (3.4-5.0); ALBUMIN/GLOBULIN RATIO 0.7 (1.0-2.7); ALKALINE PHOSPHATASE 56 U/L (46-116); ANION GAP 15 mmol/L (5-15); ASPARTATE AMINO TRANSFERASE 43 U/L (15-37); BLOOD UREA NITROGEN 27 mg/dL (7-18); CALCIUM 7.6 MG/DL (8.5-10.1); CARBON DIOXIDE 17 MMOL/L (21-32); CHLORIDE 110 MMOL/L (98-107); CREATININE 2.4 MG/DL (0.55-1.30); PHOSPHORUS 1.1 MG/DL (2.5-4.9); POTASSIUM 3.5 MMOL/L (3.5-5.1); SODIUM 142 MMOL/L (136-145)
[2019-11-16 06:15] LABS: BILIRUBIN,DIRECT 0.7 MG/DL (0.0-0.3)
[2019-11-16] MEDS: PCA shift volume MISC SCH ×2 (07:00→19:00)
--- NOTE | 2019-11-16 07:10 | NUR ---
HAND-OFF: Report given to CHUCK Shen.
--- NOTE | 2019-11-16 07:11 | NUR ---
NURSE NOTES: Received report and pt from CHUCK Sethi. Pt is observed laying in bed with her eyes open, able to track and follow commands, AOx4. Slightly sedated on Fentanyl 50mcg/hr, RASS -1. ETT7.5, 22cm at the lipline. AC 22, TV 500, PEEP 5, FiO2 40%. Ileostomy bag draining serous drainage, surgical site dressing dry, no bleeding noted. Left arm PICC running NS at 100ml/hr. Noted Erazo 16Fr intact and draining yellow urine to urometer. Pt's at bedside. Pt received and maintained on 2 point wrist restraints for safety, per MD order. Call light with reach. Bed locked and in lowest position. Will continue to monitor.
--- NOTE | 2019-11-16 07:50 | NUR ---
RESPIRATORY NOTE: Received pt on AC 22-500ml-40%FiO2- peep 5, saturated at 100%. Pt was intubated with 7.5@21cm lips line, secured by anchor fast. Pt is awke, alert, able to follow commands. Placed pt on CPAP PS 8 30%FiO2 per Dr. Elias's weaning order. Pt is tolerating well. ABG in 1 hour. Pt's is at bedside. RN Hermelinda made aware.
--- NOTE | 2019-11-16 08:00 | NUR ---
NURSE NOTES: Dr Elias notified of ABG results. Weaning initiated at this time. CiPAP 750 PS 8, FiO2 30%. Will repeat ABG in 1 hour.
[2019-11-16] MEDS ORDERED: Sodium Bicarbonate 50ml Carp IV ONE (10:00)
--- NOTE | 2019-11-16 10:00 | NUR ---
NURSE NOTES: Dr. Elias at bedside assessing pt. Updated him on pt;s current condition. New orders acknowledged and noted. Will continue to monitor.
--- NOTE | 2019-11-16 10:02 | NUR ---
Social Work This SW met with patient (with spouse, Imtiaz Neville: [phone]) currently at bedside who remains alert/oriented x3 (intubated). Brief emotional support provided to spouse and patient. Spouse explains they do not have an Advance Directive, do not want one at this time and requesting full code, full treatment. 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 Plans are for patient to discharge to home with spouse when medically stable. Spouse denied any history of substance abuse, nor mental health concerns. Noo there needs or concerns identified at this time; SW to follow as needed.
--- NOTE | 2019-11-16 10:30 | NUR ---
NURSE NOTES: Fentanyl decreased to 25mcg/hr as pt appeared too sedated, RASS -3. Suction and oral care completed. Will continue to monitor.
--- NOTE | 2019-11-16 10:46 | Pulmonolgy Critical Care Note ---
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 Plan: * Weaning on vent, extubate today * Electrolyte repletion * One amp bicarb given * Renal consult * Monitor H/H * Post-op care per surgery * Likely resume TPN today Respiratory: weaning trial Cardiac: continue to monitor HR/BP Renal: keep IV fluid Hematologic: monitor H/H Neurologic: keep patient comfortable Disposition: keep in ICU Time Spent (Minutes): other - 100 minutes cc time Critical Care - Objective Last 24 Hour Vital Signs Date Time Temp Pulse Resp B/P (MAP) Pulse Ox O2 Delivery O2 Flow Rate FiO2 11/16/19 09:00 106 19 113/63 (80) 100 11/16/19 09:00 22 Mechanical Ventilator 30 11/16/19 08:50 107 19 30 30 11/16/19 08:50 100 11/16/19 08:30 88 19 115/61 (79) 99 11/16/19 08:30 24 Mechanical Ventilator 30 11/16/19 08:00 98.2 103 26 121/64 (83) 100 11/16/19 08:00 30 11/16/19 08:00 22 Mechanical Ventilator 30 11/16/19 07:50 99 17 30 30 11/16/19 07:30 92 23 118/68 (85) 100 11/16/19 07:00 82 22 118/68 (85) 100 11/16/19 07:00 22 Mechanical Ventilator 11/16/19 06:39 40 11/16/19 06:30 80 22 117/65 (82) 100 11/16/19 06:00 22 Mechanical Ventilator 11/16/19 06:00 91 20 120/66 (84) 100 11/16/19 05:30 78 19 107/71 (83) 100 11/16/19 05:25 87 23 40 11/16/19 05:00 98.3 75 22 108/65 (79) 100 11/16/19 05:00 20 Mechanical Ventilator 11/16/19 04:30 73 22 107/62 (77) 100 11/16/19 04:00 73 22 100 11/16/19 04:00 22 Mechanical Ventilator 11/16/19 03:30 76 22 98/62 (74) 100 11/16/19 03:24 84 22 40 11/16/19 03:00 98.7 71 22 101/62 (75) 100 11/16/19 03:00 22 Mechanical Ventilator 11/16/19 02:30 69 22 95/62 (73) 100 11/16/19 02:00 72 22 121/50 (73) 100 11/16/19 02:00 20 Mechanical Ventilator 11/16/19 01:34 81 22 40 11/16/19 01:30 75 22 95/63 (74) 100 11/16/19 01:00 70 22 96/60 (72) 100 11/16/19 01:00 28 Mechanical Ventilator 11/16/19 00:30 69 22 91/63 (72) 100 11/16/19 00:00 28 Mechanical Ventilator 11/16/19 00:00 98.5 77 22 109/67 (81) 100 11/15/19 23:39 22 40 11/15/19 23:30 86 22 99/69 (79) 100 11/15/19 23:08 88 24 40 11/15/19 23:00 92 22 93/61 (72) 100 11/15/19 22:30 96 23 111/71 (84) 100 11/15/19 22:00 110 23 105/92 (96) 100 11/15/19 22:00 Mechanical Ventilator 11/15/19 22:00 40 11/15/19 21:50 151 23 100 Mechanical Ventilator 100 11/15/19 21:50 151 23 100 11/15/19 21:30 120 10 142/64 (90) 100 11/15/19 21:00 87 108/64 11/15/19 21:00 98.5 87 10 121/50 (73) 100 11/15/19 21:00 Simple Mask 6.0 11/15/19 20:10 98.1 75 32 133/61 98 Simple Mask 6 11/15/19 19:50 74 28 131/60 98 Simple Mask 6 11/15/19 19:30 75 30 133/61 98 Simple Mask 6 11/15/19 19:10 78 30 137/64 98 Simple Mask 6 11/15/19 18:50 80 28 137/63 97 Simple Mask 6 11/15/19 18:30 81 28 136/64 98 Simple Mask 6 11/15/19 18:10 83 28 136/65 99 Simple Mask 6 11/15/19 17:50 88 24 144/68 99 Simple Mask 6 11/15/19 17:35 87 26 147/69 99 Simple Mask 6 11/15/19 17:20 89 32 161/76 98 Simple Mask 6 11/15/19 17:00 67 30 174/81 96 Simple Mask 6 11/15/19 16:59 181/92 11/15/19 16:45 67 28 163/84 99 Simple Mask 6 11/15/19 16:35 66 24 149/84 99 Simple Mask 6 11/15/19 16:30 101 189/88 11/15/19 16:25 103 26 183/89 100 Simple Mask 6 11/15/19 16:20 99 26 169/88 100 Simple Mask 6 11/15/19 16:14 97.6 95 24 158/83 100 Simple Mask 6 11/15/19 16:12 91 16 100 11/15/19 12:00 98.3 93 20 107/63 (78) 95 Status: awake Condition: improving Lungs: clear Heart: HR/BP stable Abdomen: soft Extremities: no C/C/E Accucheck: 150 Critical Care - Subjective ROS Limited/Unobtainable: Yes Interval Events: HPI: 54 y/o female with CKD admitted with malfunctioning ileostomy s/p OR yesterday and was not responding after extubation despite reversal agents. Sent to ICU and noted on ABG with ?pH <6.7 with no CO2. Was emergently intubated and repeat blood gas more consistent with a metabolic acidosis. Worsening renal function overnight and oliguric. WBC had a significant rise but decreasing. Now alert on ventilator, PS. Condition: improving EKG Rhythm: Sinus Rhythm FI02: 30 Vent Support Breath Rate: 22 Vent Support Mode: CPAP Vent Tidal Volume: 500 Sputum Amount: Scant PEEP: 5.0 PIP: 14 I&O: Intake and Output 11/15/19 11/16/19 19:00 07:00 Intake Total 1410 ml 1803 ml Output Total 175 ml 440 ml Balance 1235 ml 1363 ml IV Total 1110 ml 1803 ml Blood Product 300 ml Output Urine Total 75 ml 320 ml Estimated Blood Loss 100 ml Other 120 ml ET-Tube: 7.5 ET Position: 22 Lyndon Elias MD Nov 16, 2019 10:46
[2019-11-16 10:49] LABS: CREATINE KINASE 81 U/L (26-308)
[2019-11-16] MEDS ORDERED: Sodium Phosphate 30 MM in NS 275 ML IVPB ONE (11:00)
--- NOTE | 2019-11-16 11:36 | General Progress Note ---
Progress Note Progress Note After surgery in PACU the patient never awakened or became responsive, but stable VS and O2 sat. Was seen by Dr. Fontenot anesthesiologist. After transfer to ICU she was hypoventilating and was intubated by ER MD. I called Dr. Elias for pulmonology/critical care consultation. Immediate post-op labs very abnormal. Now awake and alert, on ventilator, stable VS. Elevated Cr but Hgb okay Abdomen soft, mildly distended, incisions clean. Ileostomy stoma pink and well formed Imp: Prolonged response to anesthesia now intubated in ICU and improved Plan; Plans: per Pulmonary and Nephrology NPO Imtiaz Mcconnell MD Nov 16, 2019 11:36
[2019-11-16 12:48] LABS: APPEARANCE,URINE CLEAR; BILIRUBIN, URINE NEGATIVE (NEGATIVE); COLOR,URINE PALE YELLOW; GLUCOSE, URINE (UA) NEGATIVE (NEGATIVE); KETONES,URINE NEGATIVE (NEGATIVE); LEUKOCYTE ESTERASE ,URINE NEGATIVE (NEGATIVE); NITRITE,URINE NEGATIVE (NEGATIVE); PH,URINE 5 (4.5-8.0); PROTEIN,URINE 2+ (NEGATIVE); UROBILINOGEN,URINE NORMAL MG/DL (0.0-1.0)
--- NOTE | 2019-11-16 13:30 | NUR ---
NURSE NOTES: Pt appeared restless. Increased Fentanyl to 50mcg/hr.
--- NOTE | 2019-11-16 13:46 | NUR ---
CASE MANAGEMENT: REVIEW 11/16/2019 SI: POD# 1 RESECTION NELSON CONTINENT ILEOSTOMY AND CREATION OF QUINN ILEOSTOMY MALFUNCTION OF NELSON ILEOSTOMY AND BLEEDING FROM STOMA 98.2 103 26 121/64 100% ON MECHANICAL VENT WBC 14.0 H/H 9.8/30.3 PLT 102 CL-111 CO2 19 CREAT 1.4 CA+8.0 ABG: PH 7.275 pCO2 33.5 pO2 123.5 HCO3 15.2 IS: SODIUM-PHOS IV X1 IV [id number] IVF NS BOLUS X1 IV CALCIUM GLUCONATE X1 IV FLAGYL Q6HR UNASYN Q6HR IV FENTANYL CITRATE Q24HR \:TRANSFER TO ICU POST SURGERY INTUBATED FOR RESPIRATORY FAILURE \: ICU STATUS PLAN: NPO
[2019-11-16] MEDS: SODIUM PHOSPHATE IV SCH ×2 (15:30→18:13)
[2019-11-16] MEDS: D5NS IV SCH ×2 (15:30→18:13)
--- NOTE | 2019-11-16 15:45 | Consultation ---
DATE OF CONSULTATION: 11/16/2019 NEPHROLOGY CONSULTATION CONSULTING PHYSICIAN: Andrae Munguia M.D. REFERRING PHYSICIAN: Imtiaz Mcconnell M.D. REASON FOR CONSULTATION: Acute kidney injury, acidosis, malnutrition, dehydration. HISTORY OF PRESENT ILLNESS: The patient is a 54-year-old, lady with a long history of ulcerative colitis and history of multiple surgeries with a total colectomy, Mullen continent intestinal reservoir as well as abdominoperineal proctectomy. She has had multiple abdominal surgeries and now admitted for complications and is postop having ileostomy. 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 The details of the courses which I am not able to give right now but she has had some component of chronic kidney disease according to her that most of the kidney disease has been related to recurrent episodes of dehydration. Prior to this surgery, she would regularly have quite a bit of diarrhea through her ileostomy and she had a low albumin and moderate malnutrition prior to surgery. She also has had recurrent anemia, iron deficiency requiring transfusions. HOME MEDICATIONS: Include metoprolol and sodium bicarbonate. ALLERGIES: Sulfa, Pentothal, . PAST SURGICAL HISTORY: Multiple abdominal surgeries, tonsillectomy, and cataract surgery. SYSTEM REVIEW: HEAD, EYES, EARS, NOSE, AND THROAT: Vision and hearing is good. ENDOCRINE: No known diabetes or thyroid disease. PULMONARY: No chronic asthma, TB, shortness of breath. CARDIAC: No angina, KS. No history of arrhythmias or congestive heart failure. GASTROINTESTINAL: See history of present illness. No history of peptic ulcer disease. GENITOURINARY: No dysuria, hematuria, or kidney stones. NEUROLOGIC: No CVA, syncope, or seizures. MUSCULOSKELETAL: No history of inflammatory arthritis. PHYSICAL EXAMINATION: GENERAL: The patient is seen in the ICU. She is alert, intubated. VITAL SIGNS: Temperature 98.2, pulse 114, respirations 24, blood pressure 113/63. HEAD, EYES, EARS, NOSE, AND THROAT: There is no scleral icterus. Ocular motions intact in all directions. She is orally intubated. Mouth slightly dry. NECK: No adenopathy. LUNGS: Clear. HEART: Regular rhythm and tachycardic. No murmur. ABDOMEN: Soft, postoperative there is a ileostomy with a slight amount of stool. EXTREMITIES: No edema, cyanosis or clubbing. There is mild muscle wasting. NEUROLOGIC: She is alert, appears to be oriented. Cranial nerves are intact. No focal findings. PERTINENT LABORATORY DATA: Potassium was as high as 6.2 and 6.5 postop and 6.3 as well with creatinine to 2.1 11/15/2019. On sodium 142, potassium 3.5, chloride 110, CO2 17, BUN 27, creatinine 2.4, glucose 170. Lactic acid 2.6 and 1.6. Phosphorus 1.1. Calcium 7.6, magnesium 2.4, CK 81. IMPRESSION: The patient has had acute kidney injury likely prerenal. Urinary indices pending. She has some component of chronic kidney disease but it is not clear how much of this is dehydration versus underlying a kidney disease. She has had a major surgery and this is likely third spacing and needs large volumes of IV fluids. She has severely low phosphorus and this needs to be replaced urgently. She has also been on TPN preop and she will need nutritional support. PLAN: At this time, I will replace phosphorus. Hydrate her vigorously. Manage TPN and electrolytes. We will watch very closely in view of her comorbidities. Case was discussed in detail with Dr. Mcconnell. Andrae Munguia M.D. DR: Carla JOB#: [id number] CC:
--- NOTE | 2019-11-16 16:47 | NUR ---
*-* INSURANCE *-* ALL CLINICALS AND REVIEWS HAVE BEEN [facility]ED TO: [facility] [id number] (CONFIRMED) 5/DAYS APPROVED..ADMIT DATE: MARLEN: NEAL Kathleen FX: [phone] ...REVIEW/CLINICAL.
--- NOTE | 2019-11-16 16:55 | NUR ---
NURSE NOTES: Pt extubated with RT at bedside. Placed pt on 2L NC 28% FiO2 with EtCO2 monitor. No respiratory distress noted. O2Sat 100% noted on the monitor. Pt reports she is comfortable with no concerns voiced.
--- NOTE | 2019-11-16 16:55 | NUR ---
RESPIRATORY NOTE: Extubated per 's order. Placed pt on 2L NC 28%FiO2 with EtCO2 monitor, set up within 35-45 mmHg. Pt is awake, alert, no SOB or resp distress. Saturation 99%, RR 24bpm, no stridor heard upon extubation. Pt's and RN Hermelinda at bedside and aware. Will continue to monitor.
[2019-11-16 17:51] LABS: HEMATOCRIT 25.9 % (37.0-47.0); HEMOGLOBIN 8.2 G/DL (12.0-16.0); MEAN CORPUSCULAR VOLUME 78 FL (80-99); PLATELET COUNT 72 K/UL (150-450); RED BLOOD COUNT 3.31 M/UL (4.20-5.40); RED CELL DISTRIBUTION WIDTH 14.3 % (11.6-14.8); WHITE BLOOD COUNT 9.3 K/UL (4.8-10.8)
--- NOTE | 2019-11-16 18:00 | NUR ---
NURSE NOTES: Dilaudid removed from the pyxis, however, it was not given and was wasted with another RN d/t pt sleeping and no longer requiring pain medication.
[2019-11-16 18:12] LABS: ANION GAP 19 mmol/L (5-15); BLOOD UREA NITROGEN 28 mg/dL (7-18); CARBON DIOXIDE 16 MMOL/L (21-32); CHLORIDE 117 MMOL/L (98-107); CREATININE 2.8 MG/DL (0.55-1.30); POTASSIUM 3.3 MMOL/L (3.5-5.1); SODIUM 152 MMOL/L (136-145)
[2019-11-16 18:15] LABS: CALCIUM 5.8 MG/DL (8.5-10.1)
--- NOTE | 2019-11-16 19:20 | NUR ---
NURSE NOTES: Dr Mcconnell called and message left to follow up about restarting TPN and asking if pt can have ice chips, awaiting call back. Glucose lab draw was in the 500's, however, F/S was 168. Dr Munguia aware. Endorsed to next nurse.
[2019-11-16] MEDS: HYDROmorphone 1mg/ml Carpuject SUBQ PRN (19:21)
--- NOTE | 2019-11-16 19:21 | NUR ---
HAND-OFF: Report given to CHUCK Chavira.
--- NOTE | 2019-11-16 19:30 | NUR ---
NURSE NOTES: received report from Hermelinda WOODS. patient in bed awake,alert oriented x4, able to verbalized needs,fears and feelings to staff. On 2L oxygen via N/C satting 98%. HOB elevated. at bedside. Ileostomy bag intact, surgical dressing intact no bleeding. Erazo intact draining. Patient NPO requesting ice chips previous nurse left message to Dr. Mcconnell. No s/s of acute distress noted. denies pain at this time. Abdomen soft and non distended. Call light within easy reach. bed alarm on. bed locked and in low position. will continue plan of care.
[2019-11-16] MEDS: LORazepam 1mg tab SL PRN (19:56)
[2019-11-16] MEDS: Dyna-Hex 2% Top Sol 2oz TOPIC SCH (19:58)
[2019-11-16] MEDS: TPN IV SCH (20:00)
[2019-11-16] MEDS: FAT EMULSION 20% IV SCH (20:00)
[2019-11-16] MEDS: Metoprolol Succinate XL 50mg tab ORAL SCH (20:36)
[2019-11-16] MEDS: Insulin NPH SUBQ SCH (20:40)
[2019-11-16] MEDS: 1/2NS w/KCl 20mEq 1000ml 1,000 ML IV SCH (20:49)
--- NOTE | 2019-11-16 21:00 | NUR ---
NURSE NOTES: dr. Mcconnell called back per MD reveles to give ice chips, patient aware.
[2019-11-16] MEDS: Zolpidem 5mg tab ORAL PRN (23:23)
--- NOTE | 2019-11-16 23:30 | NUR ---
NURSE NOTES: patient blood glucose 60mg/dl dextrose 25ml given IVP. pqatient Addendum: 11/16/19 at 2341 by ALEJO RICHARDSON RN patient awake alert no s/s of hypoglycemia. denies any pain or discomfort. will recheck blood glucose. Complained of insomnia provided with TV, music, reposition and talk therapy not effective. Carmen given for insomnia. will continue to monitor patient.
--- NOTE | 2019-11-16 23:50 | NUR ---
NURSE NOTES: Rechecked Blood glucose 290mg/dl. patient in bed no s/s of acute distress noted.
[2019-11-17] VITALS (51 sets, daily range): BP systolic 124–171; BP diastolic 70–94
[2019-11-17] MEDS: HYDROmorphone 1mg/ml Carpuject SUBQ PRN (01:47)
--- NOTE | 2019-11-17 01:50 | NUR ---
patient complained of 8/10 abdominal pain reposition, pillow supoort and talk therapy provided not effective. Dilaudid 1mg IVP given. will continue to monitor patient.
[2019-11-17] MEDS: 1/2NS w/KCl 20mEq 1000ml 1,000 ML IV SCH ×4 (02:22→20:53)
--- NOTE | 2019-11-17 02:47 | NUR ---
NURSE NOTES: Patient in bed sleeping comfortably. no complain of pain or discomfort. no s/s of acute distress noted. no s/s of hypo/hyperglycemia. ileostomy bag intact draining. no fever. no n/v. no diarrhea. frequent visual checks continued. turned and repositioned. call light within easy reach. Will continue plan of care.
[2019-11-17] MEDS: NovoLOG Insulin Flexpen SUBQ SCH ×7 (03:00→20:51)
--- NOTE | 2019-11-17 04:45 | NUR ---
NURSE NOTES: AM care rendered. turned and repositioned. no s/s of hypo/hyperglycemia. complained of muscle spasm on abdomen repositioned patient and talk therapy provided not effective. Ativan 1mg SL given will continue to monitor patient.
[2019-11-17] MEDS: Ampicillin/Sulbactam Sod 3 GM in NS 110 ML IVPB SCH (05:28)
[2019-11-17 05:40] LABS: HEMATOCRIT 30.6 % (37.0-47.0); HEMOGLOBIN 9.6 G/DL (12.0-16.0); MEAN CORPUSCULAR VOLUME 78 FL (80-99); PLATELET COUNT 81 K/UL (150-450); RED BLOOD COUNT 3.93 M/UL (4.20-5.40); RED CELL DISTRIBUTION WIDTH 16.5 % (11.6-14.8); WHITE BLOOD COUNT 10.2 K/UL (4.8-10.8)
[2019-11-17 06:03] LABS: ALANINE AMINOTRANSFERASE 35 U/L (12-78); ALBUMIN 2.3 G/DL (3.4-5.0); ALBUMIN/GLOBULIN RATIO 0.6 (1.0-2.7); ALKALINE PHOSPHATASE 50 U/L (46-116); ANION GAP 14 mmol/L (5-15); ASPARTATE AMINO TRANSFERASE 44 U/L (15-37); BILIRUBIN,TOTAL 0.9 MG/DL (0.2-1.0); BLOOD UREA NITROGEN 29 mg/dL (7-18); CALCIUM 6.8 MG/DL (8.5-10.1); CARBON DIOXIDE 20 MMOL/L (21-32); CHLORIDE 115 MMOL/L (98-107); PHOSPHORUS 6.4 MG/DL (2.5-4.9); POTASSIUM 3.9 MMOL/L (3.5-5.1); SODIUM 149 MMOL/L (136-145)
--- NOTE | 2019-11-17 06:42 | NUR ---
NURSE NOTES: patient in bed sleeping comfortably. no s/s of acute distress noted. ST on surveillance system monitor HR 105. Left upper arm PICC line intact running 1/2 NS with LCL 20 mEq at 175cc/hr. Ileostomy output 30ml maroon color. no fever. no n/v. no diarrhea. call light within easy reach. will continue to monitor patient.
[2019-11-17] MEDS: PCA shift volume MISC SCH ×2 (07:00→19:00)
--- NOTE | 2019-11-17 07:15 | NUR ---
HAND-OFF: Report given to Hermelinda WOODS. Endorsed to follow TPN to Dr. Munguia. Patient in bed resting. no s/s of acute distress noted. no s/s of hypo/hyperglycemia. call light within easy reach. Denies nay pain or discomfort. will continue plan of care.
--- NOTE | 2019-11-17 07:16 | NUR ---
NURSE NOTES: Received report and pt from CHUCK Chavira. Pt is observed laying in bed, sleeping, opens eyes to voice, follow commands, AOx4. Pt is on 2L NC, O2Sat 98%. Sinus tachycardia on ekg monitor, HR 107. Ileostomy bag draining serous drainage, surgical site dressing dry, no bleeding noted. Left arm PICC running 1/2 NS with 20 mEq KCL at 175cc/hr. Noted Erazo 16Fr intact and draining yellow urine to urometer. Pt denies discomfort or pain at this time. No distress noted. Call light with reach. Bed locked and in lowest position. Will resume plan of care.
[2019-11-17] MEDS ORDERED: DiphenhydrAMINE 50mg/ml Inj IVP PRN (09:15)
[2019-11-17] MEDS ORDERED: Rate Change PCA 1 Each MISC PRN (09:15)
[2019-11-17] MEDS ORDERED: Naloxone 0.4mg/ml Inj IVP PRN (09:15)
[2019-11-17] MEDS ORDERED: PCA HYDROmorphone 1mg/ml 30 ML IV PRN (09:15)
--- NOTE | 2019-11-17 09:16 | NUR ---
NURSE NOTES: Dilaudid syringe in JERSEY KNITTER pump rescanned as Dr Mcconnell renewed JERSEY KNITTER order. Pt did not press the JERSEY KNITTER from the first scan until now. Volume remains the same.
--- NOTE | 2019-11-17 10:10 | General Progress Note ---
Progress Note Progress Note AVSS with tachycardia 106-122. sleepy but arousable - no dyspnea Abdomen soft, incisions clean with serous drainage from prior stoma site closure Ileostomy pink with serous drainage and flatus in bag WBC 10,200 Hgb 9.6 Platelets low 81,000 BUN 29 Cr 3.0 Urine 930cc Ileostomy 130 serous Imp: Ileus Pre-op severe anemia and malnutrition chronic renal failure with exacerbation Plan: TPN per Dr. Munguia NPO dilaudid CNA PCT with no basal infusion Imtiaz Mcconnell MD Nov 17, 2019 10:10
[2019-11-17] MEDS: TPN IV SCH (10:30)
[2019-11-17] MEDS: FAT EMULSION 20% IV SCH (10:30)
[2019-11-17] MEDS: PCA HYDROmorphone 1mg/ml 30 ML IV PRN (10:32)
--- NOTE | 2019-11-17 10:32 | NUR ---
NURSE NOTES: Dr. Mcconnell at bedside. Updated him on pt's current condition. New orders received and acknowledged. Abdominal dressing changed and ordered to be changed q12 hours and PRN. Incision with matthew in tact, looks clean with no drainage noted. Dilaudid syringe in JOINER HELPER pump rescanned as Dr Mcconnell put in new JOINER HELPER order. Pt did not press the JOINER HELPER from the first scan until now. Volume remains the same.
[2019-11-17] MEDS ORDERED: 1/2NS w/KCl 20mEq 1000ml 1,000 ML IV SCH (11:00)
--- NOTE | 2019-11-17 13:17 | NUR ---
NURSE NOTES: Pt weaned from vent from 1313 to this time, placed back on original vent settings d/t pt desatting and becoming tachypneic. Addendum: 11/17/19 at 1324 by Hermelinda Ortiz RN DOCUMENTED IN WRONG PATIENT'S CHART.
--- NOTE | 2019-11-17 13:17 | Nephrology Progress Note ---
Assessment/Plan Problem List: (1) Malnutrition of moderate degree (2) Diabetes (3) Hypopotassemia (4) Hypophosphatemia (5) Metabolic acidosis (6) Dehydration (7) ARIK (acute kidney injury) (8) Ulcerative colitis (9) Malfunction of tovar continent ileostomy Plan tpn and iv adjusted, serial lab, needs large voflume iv fluids Subjective ROS Limited/Unobtainable: Yes Objective Objective Last 24 Hour Vital Signs Date Time Temp Pulse Resp B/P (MAP) Pulse Ox O2 Delivery O2 Flow Rate FiO2 11/17/19 12:00 99.2 98 22 129/74 (92) 95 11/17/19 11:30 95 27 135/79 (97) 97 11/17/19 11:00 96 21 133/80 (97) 96 11/17/19 10:30 98 23 132/78 (96) 97 11/17/19 10:00 106 32 132/81 (98) 97 11/17/19 09:37 99 Nasal Cannula 2.0 28 11/17/19 09:34 97 20 99 Nasal Cannula 2.0 28 11/17/19 09:30 99 19 136/78 (97) 99 11/17/19 09:00 102 23 130/76 (94) 96 11/17/19 09:00 Nasal Cannula 2.0 11/17/19 08:30 102 22 135/75 (95) 98 11/17/19 08:00 99.0 105 18 127/82 (97) 99 11/17/19 07:30 106 20 131/79 (96) 99 11/17/19 07:00 106 18 132/78 (96) 98 11/17/19 06:30 98.0 115 19 139/81 (100) 96 11/17/19 06:00 122 21 144/75 (98) 97 11/17/19 05:30 116 21 124/78 (93) 96 11/17/19 05:00 108 19 127/75 (92) 97 11/17/19 04:30 120 22 146/84 (104) 96 11/17/19 04:00 98.2 110 16 131/82 (98) 97 11/17/19 04:00 Nasal Cannula 2.0 11/17/19 03:30 114 16 129/76 (93) 96 11/17/19 03:00 114 15 131/80 (97) 96 11/17/19 02:30 114 15 126/79 (95) 96 11/17/19 02:17 98.0 11/17/19 02:00 113 17 126/75 (92) 97 11/17/19 01:30 105 18 129/84 (99) 99 11/17/19 01:00 114 25 136/83 (100) 97 11/17/19 00:30 117 21 136/83 (100) 97 11/17/19 00:00 98.0 113 19 129/73 (91) 96 11/17/19 00:00 Nasal Cannula 2.0 11/16/19 23:30 113 20 119/73 (88) 97 11/16/19 23:00 119 24 123/71 (88) 97 11/16/19 22:30 110 14 117/73 (88) 98 11/16/19 22:00 115 13 118/66 (83) 98 11/16/19 21:30 115 16 117/68 (84) 98 11/16/19 21:00 120 21 122/69 (86) 98 11/16/19 20:36 122 128/74 11/16/19 20:30 119 18 117/68 (84) 98 11/16/19 20:00 Nasal Cannula 2.0 11/16/19 20:00 98.4 122 18 98 11/16/19 19:59 98 Nasal Cannula 28 11/16/19 19:58 114 16 98 Nasal Cannula 2.0 28 11/16/19 19:30 112 20 128/76 (93) 98 11/16/19 19:00 110 25 128/74 (92) 99 11/16/19 18:30 110 28 127/76 (93) 99 11/16/19 18:00 104 16 122/72 (89) 99 11/16/19 17:30 106 25 121/72 (88) 99 11/16/19 17:00 116 24 141/76 (97) 99 11/16/19 16:55 Nasal Cannula 2.0 28 11/16/19 16:48 20 Mechanical Ventilator 30 11/16/19 16:30 98.2 111 20 142/78 (99) 100 11/16/19 16:24 99 Mechanical Ventilator 30 11/16/19 16:00 116 23 142/6 (51) 99 11/16/19 16:00 Mechanical Ventilator 11/16/19 16:00 24 Mechanical Ventilator 30 11/16/19 15:30 109 23 136/74 (94) 99 11/16/19 15:00 15 Mechanical Ventilator 30 11/16/19 15:00 111 21 139/76 (97) 99 11/16/19 14:30 104 20 30 30 11/16/19 14:30 107 22 134/71 (92) 99 11/16/19 14:00 104 24 122/71 (88) 99 11/16/19 14:00 20 30 11/16/19 13:30 107 22 131/92 (105) 99 11/16/19 13:30 22 Mechanical Ventilator 30 Intake and Output 11/16/19 11/17/19 19:00 07:00 Intake Total 1634.583 ml 2198.25 ml Output Total 445 ml 675 ml Balance 1189.583 ml 1523.25 ml IV Total 1634.583 ml 2198.25 ml Output Urine Total 405 ml 615 ml Other 40 ml 60 ml Laboratory Tests 11/16/19 17:15: White Blood Count 9.3, Red Blood Count 3.31L, Hemoglobin 8.2L, Hematocrit 25.9L , Mean Corpuscular Volume 78L, Mean Corpuscular Hemoglobin 24.9L, Mean Corpuscular Hemoglobin Concent 31.8L, Red Cell Distribution Width 14.3, Platelet Count 72L, Mean Platelet Volume 7.0, Neutrophils (%) (Auto) , Lymphocytes (%) (Auto) , Monocytes (%) (Auto) , Eosinophils (%) (Auto) , Basophils (%) (Auto) , Differential Total Cells Counted 100, Neutrophils % ( Manual) 84H, Lymphocytes % (Manual) 12L, Monocytes % (Manual) 4, Eosinophils % ( Manual) 0, Basophils % (Manual) 0, Band Neutrophils 0, Platelet Estimate DecreasedL, Platelet Morphology Normal, Polychromasia 1+, Microcytosis 1+, Sodium Level 152#H, Potassium Level 3.3L, Chloride Level 117H, Carbon Dioxide Level 16L, Anion Gap 19H, Blood Urea Nitrogen 28H, Creatinine 2.8H, Estimat Glomerular Filtration Rate 17.5, Glucose Level 565#*H, Calcium Level 5.8#*L, Phosphorus Level 11.0H 11/17/19 04:40: White Blood Count 10.2, Red Blood Count 3.93L, Hemoglobin 9.6L, Hematocrit 30.6L , Mean Corpuscular Volume 78L, Mean Corpuscular Hemoglobin 24.5L, Mean Corpuscular Hemoglobin Concent 31.5L, Red Cell Distribution Width 16.5H, Platelet Count 81L, Mean Platelet Volume 8.8, Neutrophils (%) (Auto) , Lymphocytes (%) (Auto) , Monocytes (%) (Auto) , Eosinophils (%) (Auto) , Basophils (%) (Auto) , Differential Total Cells Counted 100, Neutrophils % ( Manual) 83H, Lymphocytes % (Manual) 9L, Monocytes % (Manual) 7, Eosinophils % ( Manual) 1, Basophils % (Manual) 0, Band Neutrophils 0, Platelet Estimate DecreasedL, Platelet Morphology Normal, Sodium Level 149H, Potassium Level 3.9, Chloride Level 115H, Carbon Dioxide Level 20L, Anion Gap 14, Blood Urea Nitrogen 29H, Creatinine 3.0H, Estimat Glomerular Filtration Rate 16.2, Glucose Level 98#, Calcium Level 6.8L, Phosphorus Level 6.4H, Anisocytosis 1+, Magnesium Level 1.9, Total Bilirubin 0.9, Aspartate Amino Transf (AST/SGOT) 44H , Alanine Aminotransferase (ALT/SGPT) 35, Alkaline Phosphatase 50, Total Protein 6.1L, Albumin 2.3L, Globulin 3.8, Albumin/Globulin Ratio 0.6L Height (Feet): 5 Height (Inches): 1.00 Weight (Pounds): 99 General Appearance: no apparent distress, lethargic EENT: normal ENT inspection Neck: normal alignment Cardiovascular: regular rhythm Respiratory/Chest: lungs clear Abdomen: soft Extremities: trace edema Andrae Munguia MD Nov 17, 2019 13:17
[2019-11-17] MEDS ORDERED: Rocuronium Bromide 50mg/5ml Inj IV ONE (14:14)
[2019-11-17] MEDS ORDERED: Etomidate 40mg/20ml Inj IV ONE (14:14)
[2019-11-17] MEDS ORDERED: NS 500ML ONE (16:01)
[2019-11-17] MEDS ORDERED: NS Irrig 1000ml ONE (16:01)
[2019-11-17] MEDS ORDERED: Tubing IV Secondary IV ONE (16:34)
[2019-11-17] MEDS ORDERED: NS 275ml ONE (16:34)
--- NOTE | 2019-11-17 17:00 | NUR ---
NURSE NOTES: Pts at bedside. Pt is drowsy, in and out of sleep, with periods of waking up asking for ice chips. Pt has been utilizing NET LEAD DEVELOPER and reports pain relief. No distress noted. Will continue to monitor.
--- NOTE | 2019-11-17 17:25 | Pulmonolgy Critical Care Note ---
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 Plan: * toelrating extubation * Electrolyte repletion * FU with renal recommendations * Monitor H/H * Post-op care per surgery * TPN * pain control, wound care * prn abg and cxr in am Respiratory: CXR, ABG Cardiac: continue to monitor HR/BP Infectious Disease: check cultures, continue antibiotics Endocrine: monitor blood sugar Prophylaxis: Protonix Disposition: keep in ICU Time Spent (Minutes): 40 Notes Reviewed: nutrition partner, other Discussed with: nurses Critical Care - Objective Last 24 Hour Vital Signs Date Time Temp Pulse Resp B/P (MAP) Pulse Ox O2 Delivery O2 Flow Rate FiO2 11/17/19 16:00 99.6 112 29 138/73 (94) 92 11/17/19 15:30 114 31 148/75 (99) 88 11/17/19 15:00 105 26 153/75 (101) 94 11/17/19 14:30 105 28 159/81 (107) 95 11/17/19 14:00 102 29 143/82 (102) 94 11/17/19 13:30 104 26 149/77 (101) 93 11/17/19 13:00 98 22 144/75 (98) 94 11/17/19 12:30 99 22 144/78 (100) 95 11/17/19 12:00 99.2 98 22 129/74 (92) 95 11/17/19 11:30 95 27 135/79 (97) 97 11/17/19 11:00 96 21 133/80 (97) 96 11/17/19 10:30 98 23 132/78 (96) 97 11/17/19 10:00 106 32 132/81 (98) 97 11/17/19 09:37 99 Nasal Cannula 2.0 28 11/17/19 09:34 97 20 99 Nasal Cannula 2.0 28 11/17/19 09:30 99 19 136/78 (97) 99 11/17/19 09:00 102 23 130/76 (94) 96 11/17/19 09:00 Nasal Cannula 2.0 11/17/19 08:30 102 22 135/75 (95) 98 11/17/19 08:00 99.0 105 18 127/82 (97) 99 11/17/19 07:30 106 20 131/79 (96) 99 11/17/19 07:00 106 18 132/78 (96) 98 11/17/19 06:30 98.0 115 19 139/81 (100) 96 11/17/19 06:00 122 21 144/75 (98) 97 11/17/19 05:30 116 21 124/78 (93) 96 11/17/19 05:00 108 19 127/75 (92) 97 11/17/19 04:30 120 22 146/84 (104) 96 11/17/19 04:00 98.2 110 16 131/82 (98) 97 11/17/19 04:00 Nasal Cannula 2.0 11/17/19 03:30 114 16 129/76 (93) 96 11/17/19 03:00 114 15 131/80 (97) 96 11/17/19 02:30 114 15 126/79 (95) 96 11/17/19 02:17 98.0 11/17/19 02:00 113 17 126/75 (92) 97 11/17/19 01:30 105 18 129/84 (99) 99 11/17/19 01:00 114 25 136/83 (100) 97 11/17/19 00:30 117 21 136/83 (100) 97 11/17/19 00:00 98.0 113 19 129/73 (91) 96 11/17/19 00:00 Nasal Cannula 2.0 11/16/19 23:30 113 20 119/73 (88) 97 11/16/19 23:00 119 24 123/71 (88) 97 11/16/19 22:30 110 14 117/73 (88) 98 11/16/19 22:00 115 13 118/66 (83) 98 11/16/19 21:30 115 16 117/68 (84) 98 11/16/19 21:00 120 21 122/69 (86) 98 11/16/19 20:36 122 128/74 11/16/19 20:30 119 18 117/68 (84) 98 11/16/19 20:00 Nasal Cannula 2.0 11/16/19 20:00 98.4 122 18 98 11/16/19 19:59 98 Nasal Cannula 28 11/16/19 19:58 114 16 98 Nasal Cannula 2.0 28 11/16/19 19:30 112 20 128/76 (93) 98 11/16/19 19:00 110 25 128/74 (92) 99 11/16/19 18:30 110 28 127/76 (93) 99 11/16/19 18:00 104 16 122/72 (89) 99 11/16/19 17:30 106 25 121/72 (88) 99 Status: awake Lungs: rhonchi Heart: HR/BP stable Abdomen: soft, other - tener Extremities: edema Accucheck: 147 Blood Sugars: BS controlled Critical Care - Subjective ROS Limited/Unobtainable: Yes Condition: improving FI02: 28 Vent Support Breath Rate: 22 Vent Support Mode: CPAP Vent Tidal Volume: 500 Sputum Amount: None PEEP: 5.0 PIP: 14 I&O: Intake and Output 11/16/19 11/17/19 19:00 07:00 Intake Total 1634.583 ml 2198.25 ml Output Total 445 ml 675 ml Balance 1189.583 ml 1523.25 ml IV Total 1634.583 ml 2198.25 ml Output Urine Total 405 ml 615 ml Other 40 ml 60 ml Subjective: BETTER TODAY toelrating exstubation on CERT OCCUPATIONAL THERAPY ASST for pain control TPN No bleeding psotivie uop no fever not getting oob ET-Tube: 7.5 ET Position: 22 Labs: Current Medications Medications (Trade) Dose Ordered Sig/Jose Rafael Route PRN Reason Start Time Stop Time Status Last Admin Dose Admin Acetaminophen (Tylenol) 650 mg Q4H PRN ORAL Mild Pain/Temp > 100.2 11/15/19 21:30 12/15/19 21:29 Albuterol/ Ipratropium (Albuterol/ Ipratropium) 3 ml Q4H PRN HHN Shortness of Breath 11/16/19 17:00 11/21/19 16:59 Ampicillin Sodium/ Sulbactam Sodium 3 gm/Sodium Chloride 110 ml @ 220 mls/hr Q12HR@0600,1800 IVPB 11/17/19 18:00 1/18/20 17:59 Chlorhexidine Gluconate ([place]-Hex 2%) 1 applic DAILY@2000 TOPIC 11/16/19 20:00 12/12/19 19:59 11/16/19 19:58 Dextrose 1,000 ml @ 100 mls/hr Q10H PRN IV TPN interrupted or not availab 11/16/19 00:15 12/16/19 00:14 Dextrose (Dextrose 50%) 25 ml Q30M PRN IV Hypoglycemia 11/15/19 21:30 12/13/19 09:29 11/16/19 23:31 Diphenhydramine HCl (Benadryl) 25 mg Q6H PRN IVP Itching/Pruritis 11/17/19 09:15 11/19/19 09:14 Fat Emulsion Intravenous 192 ml/Amino Acids/ Electrolytes/ Dextrose 2,192 ml @ 91.333 mls/ hr Q24H IV 11/16/19 20:00 12/16/19 19:59 11/17/19 10:30 Hydromorphone HCl 30 ml @ 0 mls/hr Q24H PRN IV For Pain 11/17/19 10:15 11/19/19 10:14 11/17/19 10:32 Hydromorphone HCl (Dilaudid) 1 mg Q4H PRN SUBQ Severe Breakthru Pain (>7) 11/15/19 21:30 11/22/19 21:29 11/17/19 01:47 Insulin Aspart (NovoLOG) Q3HR SUBQ 11/16/19 21:00 12/16/19 20:59 11/17/19 16:07 Insulin Human NPH (Humulin N) 12 units QHS SUBQ 11/16/19 21:00 12/16/19 20:59 11/16/19 20:40 Lorazepam (Ativan) 1 mg HSPRN PRN SL Sleep 11/15/19 21:30 11/22/19 21:29 11/17/19 04:46 Lorazepam (Ativan) 1 mg Q4H PRN SL Muscle Spasm 11/15/19 21:30 11/22/19 21:29 11/16/19 19:56 Metoprolol Succinate (Toprol XL) 50 mg BEDTIME ORAL 11/15/19 21:00 12/15/19 20:59 11/16/19 20:36 Metronidazole 100 ml @ 100 mls/hr Q6HR IVPB 11/16/19 00:00 11/22/19 11:59 11/17/19 11:46 Miscellaneous Medication (CERT OCCUPATIONAL THERAPY ASST Rate Change) 1 ea DAILYPRN PRN MISC rate change 11/17/19 09:15 11/19/19 09:14 Miscellaneous Medication (CERT OCCUPATIONAL THERAPY ASST shift volume) 1 ea Q12HR@0700,1900 MISC 11/17/19 19:00 11/19/19 18:59 Naloxone HCl (Narcan) 0.1 mg Q1M PRN IVP RR<10/min OR SBP<90 mmHg 11/17/19 09:15 11/19/19 09:14 Ondansetron HCl (Zofran) 4 mg Q4H PRN IVP Nausea & Vomiting 11/15/19 21:30 12/12/19 21:29 Phytonadione (Vitamin K) 10 mg ONCE A WEEK SUBQ 11/20/19 09:00 12/20/19 08:59 Sodium 1,000 ml @ 125 mls/hr Q8H IV 11/17/19 13:16 12/17/19 13:15 11/17/19 13:30 Zolpidem Tartrate (Ambien) 5 mg HSPRN PRN ORAL Insomnia 11/15/19 21:30 11/22/19 21:29 11/16/19 23:23 Laboratory Tests Test 11/17/19 04:40 11/17/19 17:20 White Blood Count 10.2 K/UL (4.8-10.8) Red Blood Count 3.93 M/UL (4.20-5.40) L Hemoglobin 9.6 G/DL (12.0-16.0) L Hematocrit 30.6 % (37.0-47.0) L Mean Corpuscular Volume 78 FL (80-99) L Mean Corpuscular Hemoglobin 24.5 PG (27.0-31.0) L Mean Corpuscular Hemoglobin Concent 31.5 G/DL (32.0-36.0) L Red Cell Distribution Width 16.5 % (11.6-14.8) H Platelet Count 81 K/UL (150-450) L Mean Platelet Volume 8.8 FL (6.5-10.1) Neutrophils (%) (Auto) % (45.0-75.0) Lymphocytes (%) (Auto) % (20.0-45.0) Monocytes (%) (Auto) % (1.0-10.0) Eosinophils (%) (Auto) % (0.0-3.0) Basophils (%) (Auto) % (0.0-2.0) Differential Total Cells Counted 100 Neutrophils % (Manual) 83 % (45-75) H Lymphocytes % (Manual) 9 % (20-45) L Monocytes % (Manual) 7 % (1-10) Eosinophils % (Manual) 1 % (0-3) Basophils % (Manual) 0 % (0-2) Band Neutrophils 0 % (0-8) Platelet Estimate Decreased L Platelet Morphology Normal Anisocytosis 1+ Sodium Level 149 MMOL/L (136-145) H Pending Potassium Level 3.9 MMOL/L (3.5-5.1) Pending Chloride Level 115 MMOL/L (98-107) H Pending Carbon Dioxide Level 20 MMOL/L (21-32) L Pending Anion Gap 14 mmol/L (5-15) Blood Urea Nitrogen 29 mg/dL (7-18) H Pending Creatinine 3.0 MG/DL (0.55-1.30) H Pending Estimat Glomerular Filtration Rate 16.2 mL/min (>60) Pending Glucose Level 98 MG/DL (74-106) # Pending Calcium Level 6.8 MG/DL (8.5-10.1) L Pending Phosphorus Level 6.4 MG/DL (2.5-4.9) H Magnesium Level 1.9 MG/DL (1.8-2.4) Total Bilirubin 0.9 MG/DL (0.2-1.0) Aspartate Amino Transf (AST/SGOT) 44 U/L (15-37) H Alanine Aminotransferase (ALT/SGPT) 35 U/L (12-78) Alkaline Phosphatase 50 U/L (46-116) Total Protein 6.1 G/DL (6.4-8.2) L Albumin 2.3 G/DL (3.4-5.0) L Globulin 3.8 g/dL Albumin/Globulin Ratio 0.6 (1.0-2.7) L Loida Neri DO Nov 17, 2019 17:25
[2019-11-17 18:11] LABS: ANION GAP 14 mmol/L (5-15); BLOOD UREA NITROGEN 32 mg/dL (7-18); CALCIUM 6.9 MG/DL (8.5-10.1); CARBON DIOXIDE 18 MMOL/L (21-32); CHLORIDE 116 MMOL/L (98-107); CREATININE 3.2 MG/DL (0.55-1.30); POTASSIUM 3.9 MMOL/L (3.5-5.1); SODIUM 148 MMOL/L (136-145)
[2019-11-17] MEDS: Unasyn 3gm/NS 110ml IVPB SCH ×2 (18:29)
--- NOTE | 2019-11-17 19:30 | NUR ---
NURSE NOTES: received report from Hermelinda WOODS. patient in bed resting ,alert oriented x4, able to verbalized needs,fears and feelings to staff. On 4L oxygen via N/C satting 96%.[id number]. HOB elevated. at bedside. Ileostomy bag intact, surgical dressing intact no bleeding. Erazo intact draining. Patient NPO except ice chips and meds. No s/s of acute distress noted. denies pain at this time. patient on PROJECT CONSTRUCTION MANAGER Dilaudid, patient teaching provided regarding PROJECT CONSTRUCTION MANAGER explained the importance v/s risk and benefits verbalize understanding. TPN running 91.333, 1/2 NS with KCL 20 mEq at 125cc running on left upper arm PICC line. dressing intact. no s/s of hypo/hyperglycemia. Temp 99.8 axillary cooling measure provided. Abdomen soft and non distended. Call light within easy reach. bed alarm on. bed locked and in low position. will continue plan of care.
--- NOTE | 2019-11-17 19:30 | NUR ---
HAND-OFF: Report given to CHUCK Chavira.
[2019-11-17] MEDS: Dyna-Hex 2% Top Sol 2oz TOPIC SCH (20:51)
[2019-11-17] MEDS: Metoprolol Succinate XL 50mg tab ORAL SCH (20:52)
[2019-11-17] MEDS: Insulin NPH SUBQ SCH (21:18)
--- NOTE | 2019-11-17 21:30 | NUR ---
NURSE NOTES: patient in bed resting. no s/s of acute distress noted. Repositioned patient in bed. at bedside. patient able to press ANIMAL NUTRITION TEACHER pump button. no s/s of hypo/hyperglycemia. Call light within easy reach. will continue plan of care.
[2019-11-18] VITALS (52 sets, daily range): BP systolic 118–202; BP diastolic 66–129
[2019-11-18] MEDS: Zolpidem 5mg tab ORAL PRN (00:17)
[2019-11-18] MEDS: LORazepam 1mg tab SL PRN (00:17)
[2019-11-18] MEDS: NovoLOG Insulin Flexpen SUBQ SCH ×9 (00:23→23:48)
--- NOTE | 2019-11-18 00:24 | NUR ---
NURSE NOTES: Patient complained of muscle spasm on abdomen and insomnia repositioned, pillow support, TV and talk therapy provided not effective. Ambien and Ativan given will continue to monitor.
--- NOTE | 2019-11-18 02:27 | NUR ---
NURSE NOTES: patient in bed sleeping comfortably. no s/s of acute distress noted. Repositioned patient in bed. cooling measure continue. patient able to press RED CAP pump button. no s/s of hypo/hyperglycemia. Call light within easy reach. will continue plan of care.
--- NOTE | 2019-11-18 04:00 | NUR ---
NURSE NOTES: am care provided. comfort measure provided, no fever, no n/v. no s/s of acute distress noted. dressing intact on right abdomen. ileostomy bag intact draining with dark green soft lose stool, patient passing gas on ileostomy bag. call light within easy reach. will continue plan of care.
[2019-11-18] MEDS: 1/2NS w/KCl 20mEq 1000ml 1,000 ML IV SCH ×2 (05:15→13:25)
[2019-11-18] MEDS: Unasyn 3gm/NS 110ml IVPB SCH ×4 (05:16→18:13)
--- NOTE | 2019-11-18 06:00 | NUR ---
NURSE NOTES: patient in bed awake,alert able to verbalize needs to staff. patient with 250cc ileostomy bag total output dark green color. blood glucose 126mg/dl will give insulin per sliding scale. HOB elevated. call light within easy reach. TPN running at 91.333/hr, patient able to press button for CIVIL ENGINEERING TEACHER pump. Will continue plan of care.
[2019-11-18] MEDS: PCA shift volume MISC SCH ×2 (07:04→19:23)
[2019-11-18] MEDS: Albuterol/Ipratropium 3ml neb HHN PRN ×4 (07:09→14:10)
--- NOTE | 2019-11-18 07:12 | NUR ---
HAND-OFF: Report given to Hermelinda WOODS.
--- NOTE | 2019-11-18 07:13 | NUR ---
NURSE NOTES: Received report and pt from CHUCK Chavira. Pt is observed laying in bed, sleeping, drowsy, however, opens eyes to voice, follow commands, AOx4. Pt is on 2L NC, O2Sat 97%. NSR on laboratory monitor, HR 91. Ileostomy bag draining mucous like green fluid. Mid lower abdominal surgical site dressing dry, no bleeding noted. Left arm double lumen PICC running 1/2 NS with 20 mEq KCL at 125cc/hr. Pt is also receiving TPN running @ 91.333mL/hr. Erazo 16Fr intact and draining yellow urine to urometer. Pt denies discomfort or pain at this time. Pt received and maintained on a Dilaudid CULTURE MEDIA LABORATORY ASSISTANT pump; 25.7mL remaining in syringe at change of shift. No distress noted. Call light within reach. Bed locked and in lowest position. Will resume plan of care.
[2019-11-18 08:02] LABS: HEMATOCRIT 32.6 % (37.0-47.0); HEMOGLOBIN 10.1 G/DL (12.0-16.0); MEAN CORPUSCULAR VOLUME 80 FL (80-99); PLATELET COUNT 85 K/UL (150-450); RED BLOOD COUNT 4.07 M/UL (4.20-5.40); RED CELL DISTRIBUTION WIDTH 18.3 % (11.6-14.8); WHITE BLOOD COUNT 15.2 K/UL (4.8-10.8)
--- NOTE | 2019-11-18 08:15 | NUR ---
NURSE NOTES: Pt deep suctioned d/t audible rhonchi/rales and shallow respirations. Pt O2Sat 96%. No respiratory distress noted.
[2019-11-18 08:36] LABS: ALANINE AMINOTRANSFERASE 29 U/L (12-78); ALBUMIN 2.1 G/DL (3.4-5.0); ALBUMIN/GLOBULIN RATIO 0.5 (1.0-2.7); ALKALINE PHOSPHATASE 53 U/L (46-116); ANION GAP 15 mmol/L (5-15); ASPARTATE AMINO TRANSFERASE 34 U/L (15-37); BILIRUBIN,TOTAL 0.7 MG/DL (0.2-1.0); BLOOD UREA NITROGEN 33 mg/dL (7-18); CALCIUM 6.9 MG/DL (8.5-10.1); CARBON DIOXIDE 16 MMOL/L (21-32); CHLORIDE 114 MMOL/L (98-107); CREATININE 3.1 MG/DL (0.55-1.30); PHOSPHORUS 4.6 MG/DL (2.5-4.9); POTASSIUM 4.1 MMOL/L (3.5-5.1); SODIUM 145 MMOL/L (136-145)
[2019-11-18] MEDS ORDERED: Naloxone 0.4mg/ml Inj IVP PRN (08:59)
[2019-11-18] MEDS ORDERED: Rate Change PCA 1 Each MISC PRN (09:00)
--- NOTE | 2019-11-18 09:12 | NUR ---
NURSE NOTES: Dr. Mcconnell at bedside assessing pt. Changed abdominal dressing. Updated him on pt's current condition. Left message for Dr. Barba in regards to pt's breathing. Dr Mcconnell was concerned that pt was having some shallowed labored breathing. O2Sat 96%. Will continue to monitor.
[2019-11-18] MEDS ORDERED: DiphenhydrAMINE 50mg/ml Inj IVP PRN (09:15)
--- NOTE | 2019-11-18 09:15 | General Progress Note ---
Progress Note Progress Note T max 100.4 VS stable with decreased tachycardia but has labored breathing and more sputum Abdomen is distended, incisions are clean, stoma pink Urine 2069 Ileostomy 330 WBC up 15,200 Hgb stable 10.1 Platelets up 85,000 BUN 33 Cr down 3.1 Albumin 2.1 Imp: Ileus Respiratory insufficiency Acute on chronic renal insufficiency but good urine output Plan; NPO TPN and IV fluids per Dr. Munguia D/C Flagyl - continue Unasyn started pre-op Pulmonary re dyspnea STAT CXR Imtiaz Mcconnell MD Nov 18, 2019 09:15
--- NOTE | 2019-11-18 09:51 | NUR ---
RD ASSESSMENT & RECOMMENDATIONS SEE CARE ACTIVITY FOR COMPLETE ASSESSMENT DAILY ESTIMATED NEEDS: Needs based on Underweight, pending surgery, CKD/ 44kg 30-35 kcals/kg 5121-0449 total kcals 1-2 g protein/kg 44-88 g total protein 30-35 mL/kg 1108-9121 total fluid mLs NUTRITION DIAGNOSIS: * Altered GI function R/T h/o UC, BCIR as evidenced by admitted w/ malfunctioning BICR w/ incontinence and stoma bleeding, s/p BCIR takedown w/ creation of conventional Ana ileo, intubated now s/p extubation, NPO, on TPN. CURRENT DIET:NPO PARENTERAL NUTRITION RECOMMENDATIONS: D/AA Rate: 55 IL Rate: 8 Total Rate: 63 Volume: 1512 % Dextrose: 17 % AA: 5.3 Energy (kcals/kg): 1427 Protein (g/kg protein): 70 Nonprotein KCALS: 1147 GIR (mg CHO/kg/min): 3.5 % Fat KCALS: 27 NCP: N Ratio: 102:1 TPN Comment: * Recommend: D17% AA 5.3% @ 55ml/hr + IL20% @ 8ml/hr -> total of 63ml/hr, all 3:1 * Will provide 100% est kcal/prot needs -> 32kcal/1.6g prot per kg actual body wt ------ Per MD notes, pt requires large volume for clinical status. Should current TPN volume remain the same, rec the following formulary to better meet est needs: D12% + AA 4.25% @83ml/hr with IL 20% @8ml/hr-All 3:1. TPN to provide total of 1540 kcal(35kcal/kg), 85g pro (1.9g/kg), GIR lowered to 3.8, IL 25%. -------- ADDITIONAL RECOMMENDATIONS: * Standing wt for accurate CBW, weekly wt monitoring * Monitor LFTs and T bili closely w/ TPN -> AST (44) and T bili (2.8) elevated prior to TPN initiation -> now wnl * Monitor BGs and lytes w/ TPN -> rec to check mag and phos
--- NOTE | 2019-11-18 10:30 | NUR ---
NURSE NOTES: Pt's SBP in the 170's. Awaiting call back from Dr. Munguia.
--- NOTE | 2019-11-18 10:32 | Diagnostic Imaging Report ---
EXAM: XR Chest, 1 View CLINICAL HISTORY: COPD TECHNIQUE: Frontal view of the chest. COMPARISON: Chest radiograph on 11/15/2019 FINDINGS: Hardware: Interval removal of the endotracheal tube. Stable left-sided PICC line which terminates in the region of the right atrium. Lungs/pleura: Increased bilateral pleural effusions and pulmonary edema. Component of infectious/inflammatory process is not excluded. Heart/mediastinum: Mild enlargement of the cardiac silhouette. Soft tissues: Unremarkable. Bones: No acute fracture. Upper abdomen: Normal. IMPRESSION: 1. Increased bilateral pleural effusions and pulmonary edema. Component of infectious/inflammatory process is not excluded. 2. Interval removal of the endotracheal tube. Stable left-sided PICC line which terminates in the region of the right atrium.
[2019-11-18] MEDS: TPN IV SCH ×2 (11:34→20:17)
[2019-11-18] MEDS: FAT EMULSION 20% IV SCH ×2 (11:34→20:17)
[2019-11-18] MEDS: PCA HYDROmorphone 1mg/ml 30 ML IV PRN (11:52)
--- NOTE | 2019-11-18 11:52 | NUR ---
NURSE NOTES: Dilaudid syringe and tubing changed. New volume is 27.8- after priming tubing. Will waste 25.7 in previous syringe with pharmacy.
--- NOTE | 2019-11-18 12:00 | NUR ---
NURSE NOTES: Temp 100.8. Cooling measures initiated. Will continue to monitor.
--- NOTE | 2019-11-18 13:33 | Nephrology Progress Note ---
Assessment/Plan Problem List: (1) Malnutrition of moderate degree (2) Diabetes (3) Hypopotassemia (4) Hypophosphatemia (5) Metabolic acidosis (6) Dehydration (7) RAIK (acute kidney injury) (8) Ulcerative colitis (9) Malfunction of tovar continent ileostomy (10) CHF (congestive heart failure) Plan tpn reviewed and iv stopped serial lab, lasix for chf, close monitoring Subjective ROS Limited/Unobtainable: Yes Objective Objective Last 24 Hour Vital Signs Date Time Temp Pulse Resp B/P (MAP) Pulse Ox O2 Delivery O2 Flow Rate FiO2 11/18/19 13:00 114 32 163/92 (115) 96 11/18/19 12:30 105 27 140/86 (104) 96 11/18/19 12:19 104 11/18/19 12:00 Nasal Cannula 2.0 11/18/19 12:00 100.8 108 30 156/88 (110) 96 11/18/19 11:52 112 25 96 11/18/19 11:30 113 36 160/83 (108) 96 11/18/19 11:23 112 27 96 Nasal Cannula 3.0 32 97 30 95 11/18/19 11:00 111 30 176/91 (119) 92 11/18/19 10:30 97 28 177/95 (122) 94 11/18/19 10:00 115 30 177/95 (122) 93 11/18/19 09:30 112 27 177/85 (115) 93 11/18/19 09:00 91 26 157/81 (106) 94 11/18/19 09:00 Nasal Cannula 2.0 11/18/19 08:30 93 23 157/66 (96) 94 11/18/19 08:00 91 21 95 11/18/19 08:00 99.2 92 24 150/79 (102) 96 11/18/19 07:30 100 30 160/78 (105) 93 11/18/19 07:27 110 11/18/19 07:19 91 22 95 Nasal Cannula 3.0 32 94 24 94 11/18/19 07:09 94 Nasal Cannula 2.0 28 11/18/19 07:09 94 24 94 Nasal Cannula 2.0 28 11/18/19 07:08 91 25 150/81 (104) 94 11/18/19 06:30 100 30 176/88 (117) 94 11/18/19 06:00 88 23 147/85 (105) 96 11/18/19 05:30 89 22 135/72 (93) 95 11/18/19 05:00 88 21 136/75 (95) 96 11/18/19 04:30 86 19 136/66 (89) 93 11/18/19 04:00 91 26 94 11/18/19 04:00 Nasal Cannula 2.0 Nasal Cannula 2.0 11/18/19 04:00 89 11/18/19 04:00 97.8 94 21 147/71 (96) 94 11/18/19 03:30 87 21 133/70 (91) 94 11/18/19 03:00 89 20 133/73 (93) 95 11/18/19 02:30 88 21 137/76 (96) 91 11/18/19 02:00 91 21 139/72 (94) 94 11/18/19 01:30 90 21 145/77 (99) 96 11/18/19 01:00 93 25 147/72 (97) 95 11/18/19 00:30 94 28 151/79 (103) 94 11/18/19 00:06 99.9 110 36 150/129 (136) 89 11/18/19 00:06 99.9 11/18/19 00:00 Nasal Cannula 2.0 Nasal Cannula 2.0 11/18/19 00:00 109 30 94 11/18/19 00:00 100 11/17/19 23:35 100.4 11/17/19 22:30 99 26 141/75 (97) 91 11/17/19 22:00 103 25 141/81 (101) 94 11/17/19 21:30 106 28 140/76 (97) 94 11/17/19 21:00 111 31 151/77 (101) 91 11/17/19 20:59 95 Nasal Cannula 2.0 28 11/17/19 20:59 102 19 95 Nasal Cannula 2.0 28 11/17/19 20:52 111 144/79 11/17/19 20:30 117 33 144/79 (100) 92 11/17/19 20:00 Nasal Cannula 2.0 Nasal Cannula 2.0 11/17/19 20:00 99.8 109 24 146/75 (98) 94 11/17/19 20:00 113 11/17/19 19:30 111 25 159/74 (102) 93 11/17/19 19:00 111 24 94 11/17/19 19:00 114 33 171/81 (111) 92 11/17/19 18:30 115 31 157/94 (115) 91 11/17/19 18:00 109 23 157/78 (104) 94 11/17/19 17:30 111 27 146/70 (95) 94 11/17/19 17:00 111 29 164/70 (101) 91 11/17/19 16:30 106 24 152/75 (100) 94 11/17/19 16:00 110 24 94 11/17/19 16:00 99.6 112 29 138/73 (94) 92 11/17/19 16:00 111 11/17/19 16:00 Nasal Cannula 2.0 Nasal Cannula 2.0 11/17/19 15:30 114 31 148/75 (99) 88 11/17/19 15:00 105 26 153/75 (101) 94 11/17/19 14:30 105 28 159/81 (107) 95 11/17/19 14:00 102 29 143/82 (102) 94 Intake and Output 11/17/19 11/18/19 19:00 07:00 Intake Total 2350.474 ml 3092.596 ml Output Total 905 ml 1485 ml Balance 1445.474 ml 1607.596 ml IV Total 2350.474 ml 3092.596 ml Output Urine Total 855 ml 1235 ml Other 50 ml 250 ml # Bowel Movements 2 Laboratory Tests 11/17/19 17:20: Sodium Level 148H, Potassium Level 3.9, Chloride Level 116H, Carbon Dioxide Level 18L, Anion Gap 14, Blood Urea Nitrogen 32H, Creatinine 3.2H, Estimat Glomerular Filtration Rate 15.1, Glucose Level 173H, Calcium Level 6.9L 11/18/19 06:50: Sodium Level 145, Potassium Level 4.1, Chloride Level 114H, Carbon Dioxide Level 16L, Anion Gap 15, Blood Urea Nitrogen 33H, Creatinine 3.1H, Estimat Glomerular Filtration Rate 15.6, Glucose Level 163H, Calcium Level 6.9L, White Blood Count 15.2H, Red Blood Count 4.07L, Hemoglobin 10.1L, Hematocrit 32.6L, Mean Corpuscular Volume 80, Mean Corpuscular Hemoglobin 24.8L, Mean Corpuscular Hemoglobin Concent 31.1L, Red Cell Distribution Width 18.3H, Platelet Count 85L , Mean Platelet Volume 8.2, Neutrophils (%) (Auto) , Lymphocytes (%) (Auto) , Monocytes (%) (Auto) , Eosinophils (%) (Auto) , Basophils (%) (Auto) , Differential Total Cells Counted 100, Neutrophils % (Manual) 81H, Lymphocytes % (Manual) 9L, Monocytes % (Manual) 9, Eosinophils % (Manual) 1, Basophils % ( Manual) 0, Band Neutrophils 0, Platelet Estimate DecreasedL, Platelet Morphology Normal, Hypochromasia 1+, Anisocytosis 1+, Phosphorus Level 4.6, Magnesium Level 1.8, Total Bilirubin 0.7, Aspartate Amino Transf (AST/SGOT) 34, Alanine Aminotransferase (ALT/SGPT) 29, Alkaline Phosphatase 53, Total Protein 6.3L, Albumin 2.1L, Globulin 4.2, Albumin/Globulin Ratio 0.5L 11/18/19 09:41: Arterial Blood pH 7.252L, Arterial Blood Partial Pressure CO2 32.9L, Arterial Blood Partial Pressure O2 66.1L, Arterial Blood HCO3 14.2*L, Arterial Blood Oxygen Saturation 91.1L, Arterial Blood Base Excess -11.9*L, Fernie Test Positive Height (Feet): 5 Height (Inches): 1.00 Weight (Pounds): 99 General Appearance: moderate distress EENT: normal ENT inspection Neck: normal alignment Cardiovascular: tachycardia Respiratory/Chest: respiratory distress, accessory muscle use Abdomen: non tender Extremities: no edema Neurologic: bacteriology technician II-XII grossly normal Andrae Munguia MD Nov 18, 2019 13:33
--- NOTE | 2019-11-18 13:45 | NUR ---
NURSE NOTES: Dr Munguia at bedside assessing pt. Updated him with pt's current condition. Informed him of increased B/P, Fever, and Tachypnea with low oxygen saturation. New orders received and acknowledged.
--- NOTE | 2019-11-18 14:00 | NUR ---
NURSE NOTES: Pt observed with labored breathing, using accessory muscles with Oxygen saturation down to 85%. Dr Harrington on the unit, ordered for BiPAP 15/5, 100%. Pt remained tachypneic in the 30's however O2Sat went up to 100%. Administered 80MG Lasix, as per Dr. Munguia. ABG ordered for 30 mins. at bedside. Will continue to monitor.
[2019-11-18] MEDS: Enalaprilat 2.5mg/2ml Inj IV SCH ×3 (14:20→23:47)
--- NOTE | 2019-11-18 14:29 | Pulmonolgy Critical Care Note ---
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 * Thrombocytopenia Plan: * Placed on BiPAP 10/11 ---> repeat ABG 30 minutes ---> may need to intubation * Optimize pulmonary hygiene/mobilize as tolerated * RTC and PRN DUOnebs + mucomyst + CPT * Abx: Unasyn * Monitor volumes and renal function, IVF held, IV lasix started by renal * Monitor H/H and platelets * Post-op care per surgery * TPN * pain control, wound care * DVT Px: SCD Disposition: keep in ICU Time Spent (Minutes): 60 Notes Reviewed: elevating grader operator, surgery Discussed with: RN, RT Critical Care - Objective Last 24 Hour Vital Signs Date Time Temp Pulse Resp B/P (MAP) Pulse Ox O2 Delivery O2 Flow Rate FiO2 11/18/19 13:00 114 32 163/92 (115) 96 11/18/19 12:30 105 27 140/86 (104) 96 11/18/19 12:19 104 11/18/19 12:00 Nasal Cannula 2.0 11/18/19 12:00 100.8 108 30 156/88 (110) 96 11/18/19 11:52 112 25 96 11/18/19 11:30 113 36 160/83 (108) 96 11/18/19 11:23 112 27 96 Nasal Cannula 3.0 32 97 30 95 11/18/19 11:00 111 30 176/91 (119) 92 11/18/19 10:30 97 28 177/95 (122) 94 11/18/19 10:00 115 30 177/95 (122) 93 11/18/19 09:30 112 27 177/85 (115) 93 11/18/19 09:00 91 26 157/81 (106) 94 11/18/19 09:00 Nasal Cannula 2.0 11/18/19 08:30 93 23 157/66 (96) 94 11/18/19 08:00 91 21 95 11/18/19 08:00 99.2 92 24 150/79 (102) 96 11/18/19 07:30 100 30 160/78 (105) 93 11/18/19 07:27 110 11/18/19 07:19 91 22 95 Nasal Cannula 3.0 32 94 24 94 11/18/19 07:09 94 Nasal Cannula 2.0 28 11/18/19 07:09 94 24 94 Nasal Cannula 2.0 28 11/18/19 07:08 91 25 150/81 (104) 94 11/18/19 06:30 100 30 176/88 (117) 94 11/18/19 06:00 88 23 147/85 (105) 96 11/18/19 05:30 89 22 135/72 (93) 95 11/18/19 05:00 88 21 136/75 (95) 96 11/18/19 04:30 86 19 136/66 (89) 93 11/18/19 04:00 91 26 94 11/18/19 04:00 Nasal Cannula 2.0 Nasal Cannula 2.0 11/18/19 04:00 89 11/18/19 04:00 97.8 94 21 147/71 (96) 94 11/18/19 03:30 87 21 133/70 (91) 94 11/18/19 03:00 89 20 133/73 (93) 95 11/18/19 02:30 88 21 137/76 (96) 91 11/18/19 02:00 91 21 139/72 (94) 94 11/18/19 01:30 90 21 145/77 (99) 96 11/18/19 01:00 93 25 147/72 (97) 95 11/18/19 00:30 94 28 151/79 (103) 94 11/18/19 00:06 99.9 110 36 150/129 (136) 89 11/18/19 00:06 99.9 11/18/19 00:00 Nasal Cannula 2.0 Nasal Cannula 2.0 11/18/19 00:00 109 30 94 11/18/19 00:00 100 11/17/19 23:35 100.4 11/17/19 22:30 99 26 141/75 (97) 91 11/17/19 22:00 103 25 141/81 (101) 94 11/17/19 21:30 106 28 140/76 (97) 94 11/17/19 21:00 111 31 151/77 (101) 91 11/17/19 20:59 95 Nasal Cannula 2.0 28 11/17/19 20:59 102 19 95 Nasal Cannula 2.0 28 11/17/19 20:52 111 144/79 11/17/19 20:30 117 33 144/79 (100) 92 11/17/19 20:00 Nasal Cannula 2.0 Nasal Cannula 2.0 11/17/19 20:00 99.8 109 24 146/75 (98) 94 11/17/19 20:00 113 11/17/19 19:30 111 25 159/74 (102) 93 11/17/19 19:00 111 24 94 11/17/19 19:00 114 33 171/81 (111) 92 11/17/19 18:30 115 31 157/94 (115) 91 11/17/19 18:00 109 23 157/78 (104) 94 11/17/19 17:30 111 27 146/70 (95) 94 11/17/19 17:00 111 29 164/70 (101) 91 11/17/19 16:30 106 24 152/75 (100) 94 11/17/19 16:00 110 24 94 11/17/19 16:00 99.6 112 29 138/73 (94) 92 11/17/19 16:00 111 11/17/19 16:00 Nasal Cannula 2.0 Nasal Cannula 2.0 11/17/19 15:30 114 31 148/75 (99) 88 11/17/19 15:00 105 26 153/75 (101) 94 11/17/19 14:30 105 28 159/81 (107) 95 Status: obtunded Condition: critical HEENT: atraumatic, normocephalic Neck: full ROM Lungs: rales, rhonchi Heart: HR/BP unstable Abdomen: soft, non-tender, other - wound dressed, + ileostomy Extremities: edema - 1+ Accucheck: 126 Blood Sugars: BS controlled Critical Care - Subjective ROS Limited/Unobtainable: Yes ICU Day: 4 Intubation Day: extubated Interval Events: Inc WOB and rhonchi with thick secretions tachycardic and tachypneic, BP elevated, less responsive Called by CHEMICAL INSPECTOR to assess, placed on BiPAP by ks D/W extensively @ bedside IVF held by land, just given lasix 80 IV x 1 7.25/32/60// WCT 15, Plt 85 Condition: critical IV Access: PICC - LUE EKG Rhythm: Sinus Tachycardia FI02: 28 Vent Support Breath Rate: 22 Vent Support Mode: CPAP Vent Tidal Volume: 500 Sputum Amount: Moderate PEEP: 5.0 PIP: 14 Secretions: Thick creamy moderate Fluids: SLIV Drips: TPN I&O: Intake and Output 11/17/19 11/18/19 19:00 07:00 Intake Total 2350.474 ml 3092.596 ml Output Total 905 ml 1485 ml Balance 1445.474 ml 1607.596 ml IV Total 2350.474 ml 3092.596 ml Output Urine Total 855 ml 1235 ml Other 50 ml 250 ml # Bowel Movements 2 CXR: B PVC and edema ET-Tube: 7.5 ET Position: 22 Labs: Laboratory Tests Test 11/17/19 17:20 11/18/19 06:50 11/18/19 09:41 Sodium Level 148 MMOL/L (136-145) H 145 MMOL/L (136-145) Potassium Level 3.9 MMOL/L (3.5-5.1) 4.1 MMOL/L (3.5-5.1) Chloride Level 116 MMOL/L (98-107) H 114 MMOL/L (98-107) H Carbon Dioxide Level 18 MMOL/L (21-32) L 16 MMOL/L (21-32) L Anion Gap 14 mmol/L (5-15) 15 mmol/L (5-15) Blood Urea Nitrogen 32 mg/dL (7-18) H 33 mg/dL (7-18) H Creatinine 3.2 MG/DL (0.55-1.30) H 3.1 MG/DL (0.55-1.30) H Estimat Glomerular Filtration Rate 15.1 mL/min (>60) 15.6 mL/min (>60) Glucose Level 173 MG/DL (74-106) H 163 MG/DL (74-106) H Calcium Level 6.9 MG/DL (8.5-10.1) L 6.9 MG/DL (8.5-10.1) L White Blood Count 15.2 K/UL (4.8-10.8) H Red Blood Count 4.07 M/UL (4.20-5.40) L Hemoglobin 10.1 G/DL (12.0-16.0) L Hematocrit 32.6 % (37.0-47.0) L Mean Corpuscular Volume 80 FL (80-99) Mean Corpuscular Hemoglobin 24.8 PG (27.0-31.0) L Mean Corpuscular Hemoglobin Concent 31.1 G/DL (32.0-36.0) L Red Cell Distribution Width 18.3 % (11.6-14.8) H Platelet Count 85 K/UL (150-450) L Mean Platelet Volume 8.2 FL (6.5-10.1) Neutrophils (%) (Auto) % (45.0-75.0) Lymphocytes (%) (Auto) % (20.0-45.0) Monocytes (%) (Auto) % (1.0-10.0) Eosinophils (%) (Auto) % (0.0-3.0) Basophils (%) (Auto) % (0.0-2.0) Differential Total Cells Counted 100 Neutrophils % (Manual) 81 % (45-75) H Lymphocytes % (Manual) 9 % (20-45) L Monocytes % (Manual) 9 % (1-10) Eosinophils % (Manual) 1 % (0-3) Basophils % (Manual) 0 % (0-2) Band Neutrophils 0 % (0-8) Platelet Estimate Decreased L Platelet Morphology Normal Hypochromasia 1+ Anisocytosis 1+ Phosphorus Level 4.6 MG/DL (2.5-4.9) Magnesium Level 1.8 MG/DL (1.8-2.4) Total Bilirubin 0.7 MG/DL (0.2-1.0) Aspartate Amino Transf (AST/SGOT) 34 U/L (15-37) Alanine Aminotransferase (ALT/SGPT) 29 U/L (12-78) Alkaline Phosphatase 53 U/L (46-116) Total Protein 6.3 G/DL (6.4-8.2) L Albumin 2.1 G/DL (3.4-5.0) L Globulin 4.2 g/dL Albumin/Globulin Ratio 0.5 (1.0-2.7) L Arterial Blood pH 7.252 (7.350-7.450) Arterial Blood Partial Pressure CO2 32.9 mmHg (35.0-45.0) L Arterial Blood Partial Pressure O2 66.1 mmHg (75.0-100.0) L Arterial Blood HCO3 14.2 mmol/L (22.0-26.0) *L Arterial Blood Oxygen Saturation 91.1 % (95-100) L Arterial Blood Base Excess -11.9 (-2-2) *L Fernie Test Positive David Harrington MD Nov 18, 2019 14:29
[2019-11-18] MEDS ORDERED: FAT EMULSION 20% IV SCH (14:30)
[2019-11-18] MEDS ORDERED: TPN IV SCH (14:30)
[2019-11-18] MEDS ORDERED: Albuterol/Ipratropium 3ml neb HHN SCH (15:00)
[2019-11-18] MEDS: Nitroglycerin Patch 0.2mg/hr TDERMAL SCH (16:00)
--- NOTE | 2019-11-18 16:00 | NUR ---
NURSE NOTES: remains at bedside. Pt is tolerating BiPAP well, O2Sat 100%. Pt still remains tachypneic in the 30's, at time in the 40's. Will continue to monitor.
[2019-11-18] MEDS ORDERED: NS 275ml ONE (17:36)
[2019-11-18 17:46] LABS: HEMOGLOBIN 9.8 G/DL (12.0-16.0); MEAN CORPUSCULAR VOLUME 79 FL (80-99); PLATELET COUNT 76 K/UL (150-450); RED BLOOD COUNT 3.94 M/UL (4.20-5.40); RED CELL DISTRIBUTION WIDTH 15.8 % (11.6-14.8); WHITE BLOOD COUNT 11.3 K/UL (4.8-10.8)
--- NOTE | 2019-11-18 18:00 | NUR ---
NURSE NOTES: Temp currently 101.5. Ice packs applied and fan on. Abdomen is pink and hot to the touch. Changed surgical wound dressing, as there was a scant amount of drainage. Pt cleaned and repositioned. Will continue to monitor.
--- NOTE | 2019-11-18 18:30 | NUR ---
NURSE NOTES: Message left for Dr. Mcconnell to update him on pt's current condition. Awaiting call back.
[2019-11-18 18:44] LABS: ANION GAP 15 mmol/L (5-15); BLOOD UREA NITROGEN 36 mg/dL (7-18); CALCIUM 7.5 MG/DL (8.5-10.1); CARBON DIOXIDE 18 MMOL/L (21-32); CHLORIDE 113 MMOL/L (98-107); CREATININE 3.1 MG/DL (0.55-1.30); SODIUM 146 MMOL/L (136-145)
[2019-11-18] MEDS: Acetylcysteine 20% Soln 4ml HHN SCH (18:58)
[2019-11-18] MEDS: Albuterol/Ipratropium 3ml neb HHN SCH (18:58)
--- NOTE | 2019-11-18 19:28 | NUR ---
HAND-OFF: Report given to CHUCK Thayer. Remaining volume in Dilaudid BRICK OFF BEARER syringe is 27.0
--- NOTE | 2019-11-18 19:29 | NUR ---
NURSE NOTES: Endorsement received from CHUCK Shen. Patient drowsy. Opens eyes spontaneously, verbalize needs, follows commands. On BiPAP 15/5 60%. Tachypneic and tachycardic. HR 130s-140s, RR 40s. FiO2 increased to 100% c/o RT. Connected to ETCO2 monitor, CO2 between 8-14. Left upper arm PICC. On TPN 40 ml/hr and MARINE FIRER dilaudid. Received 27 ml volume. Right lower quadrant ileostomy. With greenish liquid output. No leak from the drainable pouch. Surrounding skin normal in color. Dressing at midlower quadrant dry and intact. Erazo catheter in place. SCDs on. Head of bed elevated. Bed locked and in low position. Bed alarm on. MARINE FIRER control held by patient. Call light within reach. Reminded patient to use MARINE FIRER for pain and call light for assistance, verbalized understanding.
[2019-11-18] MEDS: Dyna-Hex 2% Top Sol 2oz TOPIC SCH (20:17)
--- NOTE | 2019-11-18 20:30 | NUR ---
NURSE NOTES: Called Dr. Harrington, updated him of patient's current vital signs. Heart rate 120s-125, BP 154/83, RR 27, Sats 100%. Informed him that patient has as metoprolol PO scheduled tonight and ABG done in the afternoon with Bicarb 14.8. Received new order to hold the PO dose of metoprolol for tonight and give Metoprolol IV 5mg times 1 dose.
[2019-11-18] MEDS ORDERED: Metoprolol Tartrate 5mg/5ml Inj IVP SCH (21:00)
[2019-11-18] MEDS: Metoprolol Succinate XL 50mg tab ORAL SCH (21:00)
[2019-11-18] MEDS: Insulin NPH SUBQ SCH (21:40)
--- NOTE | 2019-11-18 22:00 | NUR ---
NURSE NOTES: Patient asleep. HR improving- 107 beats/min. RR at 20s.
[2019-11-19] VITALS (45 sets, daily range): BP systolic 91–165; BP diastolic 55–100
--- NOTE | 2019-11-19 | NUR ---
NURSE NOTES: Dressing at abdomen dry and intact. Temp 100.5. Cooling measures initiated.
[2019-11-19] MEDS: Albuterol/Ipratropium 3ml neb HHN SCH ×4 (01:05→19:29)
[2019-11-19] MEDS: Acetylcysteine 20% Soln 4ml HHN SCH ×4 (01:05→19:29)
--- NOTE | 2019-11-19 02:00 | NUR ---
NURSE NOTES: Patient asleep. Appears comfortable. DURALUMIN MECHANIC button held by patient.
--- NOTE | 2019-11-19 03:00 | NUR ---
NURSE NOTES: Temp 101.5. Cool sponge bath done. Cooling blanket applied. Patient does not have opening at the anus, applied temperature probe on the inguinal.
[2019-11-19] MEDS: NovoLOG Insulin Flexpen SUBQ SCH ×7 (03:33→21:28)
--- NOTE | 2019-11-19 04:00 | NUR ---
NURSE NOTES: Dressing at abdominal surgical site done. [place] intact. Dressing with scant serosanguineous discharge.
[2019-11-19] MEDS: Unasyn 3gm/NS 110ml IVPB SCH ×4 (05:35→18:57)
[2019-11-19] MEDS: Enalaprilat 2.5mg/2ml Inj IV SCH ×2 (05:35→11:16)
[2019-11-19 06:40] LABS: HEMATOCRIT 36.7 % (37.0-47.0); HEMOGLOBIN 11.5 G/DL (12.0-16.0); MEAN CORPUSCULAR VOLUME 79 FL (80-99); PLATELET COUNT 93 K/UL (150-450); RED BLOOD COUNT 4.63 M/UL (4.20-5.40); RED CELL DISTRIBUTION WIDTH 19.2 % (11.6-14.8); WHITE BLOOD COUNT 11.1 K/UL (4.8-10.8)
[2019-11-19] MEDS: PCA shift volume MISC SCH ×2 (07:00→19:00)
--- NOTE | 2019-11-19 07:00 | NUR ---
RESPIRATORY NOTES: Received Patient on BIPAP 15/5 PS +10 FIO2 60%. Patient currently on Facial mask, tape in place no redness or skin breakdown noted. Patient alert and awake. BIPAP alarms are on and audible. BIPAP plugged into red outlet. Will continue to monitor throughout the day.
[2019-11-19 07:08] LABS: ALANINE AMINOTRANSFERASE 31 U/L (12-78); ALBUMIN 2.3 G/DL (3.4-5.0); ALBUMIN/GLOBULIN RATIO 0.5 (1.0-2.7); ALKALINE PHOSPHATASE 61 U/L (46-116); ANION GAP 15 mmol/L (5-15); ASPARTATE AMINO TRANSFERASE 32 U/L (15-37); BILIRUBIN,TOTAL 1.2 MG/DL (0.2-1.0); BLOOD UREA NITROGEN 42 mg/dL (7-18); CALCIUM 7.8 MG/DL (8.5-10.1); CARBON DIOXIDE 24 MMOL/L (21-32); CHLORIDE 110 MMOL/L (98-107); CREATININE 3.5 MG/DL (0.55-1.30); POTASSIUM 3.4 MMOL/L (3.5-5.1); SODIUM 149 MMOL/L (136-145)
[2019-11-19 07:10] LABS: BILIRUBIN,DIRECT 0.5 MG/DL (0.0-0.3)
--- NOTE | 2019-11-19 07:15 | NUR ---
NURSE NOTES: RECEIVED PT, DROWSY , AROUSABLE TO NAME, CURRENTLY ON BIPAP 15/5 FIO2 60%, SPO2 100%, RR 24. ST ON BRIM POUNCER; HR 116. BP STABLE. 99.3 TEMP. COOLING MEASURES APPLIED. NPO MAINTAINED. S/P RESECTION OF NELSON POUCH W/FISTULA AND CREATION OF QUINN ILEOSTOMY. SARAH BETH INTACT AND DRY FROM SARAH BETH ON LOWER ABD. ILEOSTOMY DRAINING GREENISH WATERY STOOL. TPN RUNNING @40ML/HR AND PICKED EDGE SEWING MACHINE OPERATOR PUMP RUNNING VIA AME PICC. F/C DRAINING COPIOUS STRAW COLORED URINE. BED LOCKED, ALARMED AND IN LOWEST POSITION.
--- NOTE | 2019-11-19 07:43 | NUR ---
HAND-OFF: Report given to Grisel Bonilla DETECTIVE INVESTIGATOR volume of 25.8ml.
--- NOTE | 2019-11-19 09:25 | General Progress Note ---
Progress Note Progress Note Awake and responsive on Bipap. Discussed with Dr. Elias - she is improving overnight but has pulmonary edema, worsening BUN and Cr but good volume urine output, metabolic acidosis improving Abdomen still distended but softer, less erythema, incisions clean with scant drainage Ileostomy pink with bilious enteric fluid output + flatus Imp: Critically ill but improving Plan: continue npo plans per Dr. Elias and Imtiaz Fermin MD Nov 19, 2019 09:25
--- NOTE | 2019-11-19 09:26 | NUR ---
NURSE NOTES: RECEIVED ORDERS FOR ABG, CMP AND CXR TOMORROW AM. REMOVE BIPAP AND PLACE PT ON 2LNC AND SEE HOW SHE TOLERATES, IF TACHYPNEIC, DRAW ABG PER DR. OCHOA. RECEIVED ORDERS FOR 10MEQ KCL IVPB X3 PER DR. AMBROCIO. BMP AT 0700 TODAY AND REPORT RESULTS.
--- NOTE | 2019-11-19 09:38 | Pulmonolgy Critical Care Note ---
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 Plan: * Trial off BiPAP, repeat ABG in AM or if any respiratory distress * Electrolyte repletion, renal consult appreciated * Monitor bicarb level * Monitor renal function * Monitor H/H * Repeat CXR in AM * Post-op care per surgery * Cont TPN Respiratory: monitor respiratory rate Cardiac: continue to monitor HR/BP Renal: check electrolytes Hematologic: monitor H/H Neurologic: keep patient comfortable Disposition: keep in ICU Time Spent (Minutes): 40 Discussed with: nurses, consultants Critical Care - Objective Last 24 Hour Vital Signs Date Time Temp Pulse Resp B/P (MAP) Pulse Ox O2 Delivery O2 Flow Rate FiO2 11/19/19 09:06 118 21 98 Facial 60 11/19/19 08:09 100 Bi-Pap 100 11/19/19 08:00 116 30 99 11/19/19 07:28 120 18 100 Facial 60 11/19/19 07:00 120 28 141/83 (102) 99 11/19/19 06:30 119 32 134/84 (101) 99 11/19/19 06:00 146 21 141/81 (101) 99 11/19/19 05:35 130/93 11/19/19 05:30 144 21 130/93 (105) 99 11/19/19 05:10 151 27 100 Facial 60 11/19/19 05:00 100.5 144 21 130/93 (105) 99 11/19/19 04:30 155 32 165/100 (121) 99 11/19/19 04:00 112 11/19/19 04:00 60 11/19/19 04:00 Bi-pap 11/19/19 04:00 150 30 99 11/19/19 04:00 142 25 141/84 (103) 100 11/19/19 03:30 118 30 137/76 (96) 98 11/19/19 03:12 127 44 99 Facial 60 11/19/19 03:00 101.5 131 42 162/86 (111) 99 11/19/19 02:30 119 26 142/85 (104) 97 11/19/19 02:00 109 26 126/76 (93) 97 11/19/19 01:30 111 28 135/80 (98) 98 11/19/19 01:20 108 26 99 Bi-Pap 60 11/19/19 01:05 113 26 99 Facial 60 Bi-Pap 60 11/19/19 01:00 105 27 133/79 (97) 98 11/19/19 00:55 104 27 134/82 (99) 99 11/19/19 00:30 104 26 133/78 (96) 99 11/19/19 00:00 60 11/19/19 00:00 104 20 99 11/19/19 00:00 105 11/19/19 00:00 100.5 118 26 146/78 (100) 99 11/19/19 00:00 Bi-pap 11/18/19 23:47 130/78 11/18/19 23:30 102 25 126/78 (94) 99 11/18/19 23:00 104 23 118/73 (88) 100 11/18/19 22:42 107 24 100 Facial 60 11/18/19 22:30 106 26 127/72 (90) 100 11/18/19 22:00 107 26 128/68 (88) 100 11/18/19 21:31 120 153/90 11/18/19 21:30 119 37 134/81 (98) 100 11/18/19 21:00 110 39 153/90 (111) 100 11/18/19 21:00 121 153/90 11/18/19 21:00 80 11/18/19 20:43 117 27 100 Facial 80 11/18/19 20:30 118 28 152/85 (107) 100 11/18/19 20:00 99.2 112 28 154/83 (106) 100 11/18/19 20:00 Bi-pap 11/18/19 20:00 100 11/18/19 20:00 120 11/18/19 19:30 123 31 138/87 (104) 100 11/18/19 19:00 131 33 159/101 (120) 100 11/18/19 19:00 130 40 100 11/18/19 18:55 100 Bi-Pap 100 11/18/19 18:55 133 38 100 Facial 100 11/18/19 18:49 128 39 169/93 (118) 100 11/18/19 18:41 163/103 11/18/19 18:30 131 39 163/103 (123) 100 11/18/19 18:02 100 11/18/19 18:00 101.5 128 37 169/86 (113) 100 11/18/19 17:30 126 38 156/90 (112) 99 11/18/19 17:07 125 38 97 Facial 60 11/18/19 17:00 117 29 138/74 (95) 100 11/18/19 17:00 60 11/18/19 16:30 117 28 138/82 (100) 100 11/18/19 16:00 117 27 127/78 (94) 100 11/18/19 16:00 118 25 100 11/18/19 16:00 138/82 11/18/19 16:00 100 11/18/19 16:00 Bi-pap 11/18/19 15:58 118 11/18/19 15:30 112 24 100 11/18/19 15:00 130 28 129/77 (94) 100 11/18/19 14:30 140 49 128/75 (92) 100 11/18/19 14:20 177/105 11/18/19 14:20 142 35 100 Facial 100 133 33 100 Bi-Pap 100 11/18/19 14:09 119 35 177/105 (129) 100 11/18/19 14:00 121 30 194/104 (134) 92 11/18/19 14:00 100 11/18/19 13:33 116 28 164/109 (127) 91 11/18/19 13:30 114 29 202/100 (134) 93 11/18/19 13:00 114 32 163/92 (115) 96 11/18/19 12:30 105 27 140/86 (104) 96 11/18/19 12:19 104 11/18/19 12:00 Nasal Cannula 2.0 11/18/19 12:00 100.8 108 30 156/88 (110) 96 11/18/19 11:52 112 25 96 11/18/19 11:30 113 36 160/83 (108) 96 11/18/19 11:23 112 27 96 Nasal Cannula 3.0 32 97 30 95 11/18/19 11:00 111 30 176/91 (119) 92 11/18/19 10:30 97 28 177/95 (122) 94 11/18/19 10:00 115 30 177/95 (122) 93 Status: awake Condition: improving HEENT: normocephalic Neck: full ROM Lungs: clear Heart: HR/BP stable Abdomen: distended Extremities: no C/C/E Micro: Microbiology Date/Time Source Procedure Growth Status 11/18/19 17:34 Indwelling Cath Urine Culture - Preliminary NO GROWTH Resulted Accucheck: 120 Critical Care - Subjective ROS Limited/Unobtainable: Yes Interval Events: Tachypnea needing BiPAP. HR was elevated, improved but still elevated. Cr worse. Putting out urine. EKG Rhythm: Sinus Tachycardia FI02: 60 Vent Support Breath Rate: 22 Vent Support Mode: BiLevel Vent Tidal Volume: 500 Sputum Amount: None PEEP: 5.0 PIP: 14 I&O: Intake and Output 11/18/19 11/19/19 19:00 07:00 Intake Total 2047.835 ml 590.8 ml Output Total 2870 ml 4190 ml Balance -822.165 ml -3599.2 ml IV Total 2047.835 ml 590.8 ml Output Urine Total 2810 ml 3950 ml Other 60 ml 240 ml ET-Tube: 7.5 ET Position: 22 Lyndon Elias MD Nov 19, 2019 09:38
--- NOTE | 2019-11-19 11:02 | NUR ---
NURSE NOTES: REMOVED BIPAP PER DR. OCHOA AND PLACED PT ON 3LNC. ASSISTED PT TO BRUSH TEETH. NEW IV PLACED ON LH22G, PATENT AND ASYMPTOMATIC.
--- NOTE | 2019-11-19 13:59 | NUR ---
NURSE NOTES: TOLERATING 2LNC WELL, SPO2 97%, RR 22. HR IS 103. PT RESTING WITH EYES CLOSED, AROUSABLE TO NAME AND TOUCH.
[2019-11-19] MEDS: Nitroglycerin Patch 0.2mg/hr TDERMAL SCH (15:14)
--- NOTE | 2019-11-19 15:21 | NUR ---
NURSE NOTES: No signs of distress. at bedside.
[2019-11-19] MEDS: PCA HYDROmorphone 1mg/ml 30 ML IV PRN (15:38)
--- NOTE | 2019-11-19 16:14 | Nephrology Progress Note ---
Assessment/Plan Problem List: (1) Malnutrition of moderate degree (2) Diabetes (3) Hypopotassemia (4) Hypophosphatemia (5) Metabolic acidosis (6) Dehydration (7) ARIK (acute kidney injury) (8) Ulcerative colitis (9) Malfunction of tovar continent ileostomy (10) CHF (congestive heart failure) Plan tpn reviewed and iv stopped serial lab, lasix for chf, close monitoring, replete K, mobilize Subjective Constitutional: Reports: weakness HEENT: Reports: no symptoms Genitourinary: Reports: no symptoms Neurologic/Psychiatric: Reports: no symptoms Subjective less dyspnea Objective Objective Last 24 Hour Vital Signs Date Time Temp Pulse Resp B/P (MAP) Pulse Ox O2 Delivery O2 Flow Rate FiO2 11/19/19 15:14 93/57 11/19/19 14:43 113 20 98/57 (71) 95 11/19/19 14:30 119 22 91/57 (68) 95 11/19/19 14:00 111 19 102/58 (73) 96 11/19/19 13:30 109 31 97/60 (72) 97 11/19/19 13:00 105 15 104/61 (75) 99 11/19/19 12:30 116 25 107/64 (78) 99 11/19/19 12:00 105 20 99 11/19/19 12:00 3.0 11/19/19 12:00 98.6 103 21 95/61 (72) 99 11/19/19 12:00 Nasal Cannula 3.0 11/19/19 11:30 98.2 113 25 104/64 (77) 98 11/19/19 11:16 109/71 11/19/19 11:00 110 24 109/71 (84) 99 11/19/19 10:30 105 29 109/68 (82) 99 11/19/19 10:00 110 22 102/67 (79) 100 11/19/19 09:30 116 26 130/79 (96) 100 11/19/19 09:06 118 21 98 Facial 60 11/19/19 09:00 114 26 121/72 (88) 100 11/19/19 08:30 118 26 119/78 (92) 100 11/19/19 08:09 100 Bi-Pap 100 11/19/19 08:00 108 1/13/20 08:00 116 30 99 11/19/19 08:00 60 11/19/19 08:00 117 34 129/73 (91) 100 11/19/19 08:00 Bi-pap 11/19/19 07:30 99.3 120 34 124/69 (87) 100 11/19/19 07:28 120 18 100 Facial 60 11/19/19 07:00 120 28 141/83 (102) 99 11/19/19 06:30 119 32 134/84 (101) 99 11/19/19 06:00 146 21 141/81 (101) 99 11/19/19 05:35 130/93 11/19/19 05:30 144 21 130/93 (105) 99 11/19/19 05:10 151 27 100 Facial 60 11/19/19 05:00 100.5 144 21 130/93 (105) 99 11/19/19 04:30 155 32 165/100 (121) 99 11/19/19 04:00 112 11/19/19 04:00 60 11/19/19 04:00 Bi-pap 11/19/19 04:00 150 30 99 11/19/19 04:00 142 25 141/84 (103) 100 11/19/19 03:30 118 30 137/76 (96) 98 11/19/19 03:12 127 44 99 Facial 60 11/19/19 03:00 101.5 131 42 162/86 (111) 99 11/19/19 02:30 119 26 142/85 (104) 97 11/19/19 02:00 109 26 126/76 (93) 97 11/19/19 01:30 111 28 135/80 (98) 98 11/19/19 01:20 108 26 99 Bi-Pap 60 11/19/19 01:05 113 26 99 Facial 60 Bi-Pap 60 11/19/19 01:00 105 27 133/79 (97) 98 11/19/19 00:55 104 27 134/82 (99) 99 11/19/19 00:30 104 26 133/78 (96) 99 11/19/19 00:00 60 11/19/19 00:00 104 20 99 11/19/19 00:00 105 11/19/19 00:00 100.5 118 26 146/78 (100) 99 1/13/20 00:00 Bi-pap 11/18/19 23:47 130/78 11/18/19 23:30 102 25 126/78 (94) 99 11/18/19 23:00 104 23 118/73 (88) 100 11/18/19 22:42 107 24 100 Facial 60 11/18/19 22:30 106 26 127/72 (90) 100 11/18/19 22:00 107 26 128/68 (88) 100 11/18/19 21:31 120 153/90 11/18/19 21:30 119 37 134/81 (98) 100 11/18/19 21:00 110 39 153/90 (111) 100 11/18/19 21:00 121 153/90 11/18/19 21:00 80 11/18/19 20:43 117 27 100 Facial 80 11/18/19 20:30 118 28 152/85 (107) 100 11/18/19 20:00 99.2 112 28 154/83 (106) 100 11/18/19 20:00 Bi-pap 11/18/19 20:00 100 11/18/19 20:00 120 11/18/19 19:30 123 31 138/87 (104) 100 11/18/19 19:00 131 33 159/101 (120) 100 11/18/19 19:00 130 40 100 11/18/19 18:55 100 Bi-Pap 100 11/18/19 18:55 133 38 100 Facial 100 11/18/19 18:49 128 39 169/93 (118) 100 11/18/19 18:41 163/103 11/18/19 18:30 131 39 163/103 (123) 100 11/18/19 18:02 100 11/18/19 18:00 101.5 128 37 169/86 (113) 100 11/18/19 17:30 126 38 156/90 (112) 99 11/18/19 17:07 125 38 97 Facial 60 11/18/19 17:00 117 29 138/74 (95) 100 11/18/19 17:00 60 11/18/19 16:30 117 28 138/82 (100) 100 Intake and Output 11/18/19 11/19/19 19:00 07:00 Intake Total 2047.835 ml 590.8 ml Output Total 2870 ml 4190 ml Balance -822.165 ml -3599.2 ml IV Total 2047.835 ml 590.8 ml Output Urine Total 2810 ml 3950 ml Other 60 ml 240 ml Laboratory Tests 11/18/19 17:05: White Blood Count 11.3H, Red Blood Count 3.94L, Hemoglobin 9.8L, Hematocrit 31.0L, Mean Corpuscular Volume 79L, Mean Corpuscular Hemoglobin 24.8L, Mean Corpuscular Hemoglobin Concent 31.5L, Red Cell Distribution Width 15.8H, Platelet Count 76L, Mean Platelet Volume 9.5, Neutrophils (%) (Auto) , Lymphocytes (%) (Auto) , Monocytes (%) (Auto) , Eosinophils (%) (Auto) , Basophils (%) (Auto) , Differential Total Cells Counted 100, Neutrophils % ( Manual) 89H, Lymphocytes % (Manual) 6L, Monocytes % (Manual) 5, Eosinophils % ( Manual) 0, Basophils % (Manual) 0, Band Neutrophils 0, Platelet Estimate DecreasedL, Platelet Morphology Normal, Hypochromasia 1+, Anisocytosis 1+, Sodium Level 146H, Potassium Level 4.0, Chloride Level 113H, Carbon Dioxide Level 18L, Anion Gap 15, Blood Urea Nitrogen 36H, Creatinine 3.1H, Estimat Glomerular Filtration Rate 15.6, Glucose Level 150H, Calcium Level 7.5L, Troponin I 0.159H 11/19/19 05:42: White Blood Count 11.1H, Red Blood Count 4.63, Hemoglobin 11.5L, Hematocrit 36.7L, Mean Corpuscular Volume 79L, Mean Corpuscular Hemoglobin 24.9L, Mean Corpuscular Hemoglobin Concent 31.5L, Red Cell Distribution Width 19.2H, Platelet Count 93L, Mean Platelet Volume 9.1, Neutrophils (%) (Auto) , Lymphocytes (%) (Auto) , Monocytes (%) (Auto) , Eosinophils (%) (Auto) , Basophils (%) (Auto) , Differential Total Cells Counted 100, Neutrophils % ( Manual) 84H, Lymphocytes % (Manual) 5L, Monocytes % (Manual) 11H, Eosinophils % (Manual) 0, Basophils % (Manual) 0, Band Neutrophils 0, Platelet Estimate DecreasedL, Platelet Morphology Normal, Anisocytosis 1+, Sodium Level 149H, Potassium Level 3.4L, Chloride Level 110H, Carbon Dioxide Level 24, Anion Gap 15 , Blood Urea Nitrogen 42H, Creatinine 3.5H, Estimat Glomerular Filtration Rate 13.6, Glucose Level 124H, Calcium Level 7.8L, Troponin I 0.095H, Phosphorus Level 4.7, Total Bilirubin 1.2H, Direct Bilirubin 0.5H, Aspartate Amino Transf ( AST/SGOT) 32, Alanine Aminotransferase (ALT/SGPT) 31, Alkaline Phosphatase 61, Total Protein 7.1, Albumin 2.3L, Globulin 4.8, Albumin/Globulin Ratio 0.5L Height (Feet): 5 Height (Inches): 1.00 Weight (Pounds): 97 General Appearance: no apparent distress, other - thin EENT: normal ENT inspection Neck: normal alignment Cardiovascular: normal rate, regular rhythm Respiratory/Chest: normal breath sounds, decreased breath sounds Abdomen: non tender Neurologic: ornamental plaster sticker II-XII grossly normal Andrae Munguia MD Nov 19, 2019 16:14
[2019-11-19 17:40] LABS: ANION GAP 12 mmol/L (5-15); BLOOD UREA NITROGEN 50 mg/dL (7-18); CALCIUM 7.4 MG/DL (8.5-10.1); CARBON DIOXIDE 27 MMOL/L (21-32); CHLORIDE 110 MMOL/L (98-107); CREATININE 3.4 MG/DL (0.55-1.30); POTASSIUM 3.2 MMOL/L (3.5-5.1); SODIUM 149 MMOL/L (136-145)
--- NOTE | 2019-11-19 17:40 | NUR ---
NURSE NOTES: notified Dr. Munguia of BMP results, received order for kcl 10meq x4 ivpb and decrease lasix to 40mg, same frequency.
--- NOTE | 2019-11-19 18:05 | NUR ---
CASE MANAGEMENT: REVIEW 11/17/2019 SI: POD# 2 RESECTION NELSON CONTINENT ILEOSTOMY AND CREATION OF QUINN ILEOSTOMY MALFUNCTION OF NELSON ILEOSTOMY AND BLEEDING FROM STOMA 99.0 105 18 127/82 99% ON NC 2L H/H 9.6/30.6 PLT 81 NA+149 CL-116 CO2 18 BUN 32 CREAT 3.2 BG 173 CA+ 6.8 PHOS 6.4 IS: TPN Q24HR IVF D5@30ML/HR IV BAG MAKING MACHINE TENDER BID IV AMPICILLIN BID \:TRANSFER TO ICU POST SURGERY INTUBATED FOR RESPIRATORY FAILURE \: ICU STATUS PLAN: NPO TPN BAG MAKING MACHINE TENDER DILAUDID CASE MANAGEMENT: REVIEW 11/18/2019 SI: POD# 3 RESECTION NELSON CONTINENT ILEOSTOMY AND CREATION OF QUINN ILEOSTOMY MALFUNCTION OF NELSON ILEOSTOMY AND BLEEDING FROM STOMA 101.5 128 36 150/129 89% ON NC 2L TROP 0.159 NA+ 146CL 114 CO2 16 BUN 36 CREAT 3.1 BG 163 CA+ 6.9 WBC 15.2 H/H 9.8/31 PLT 76 IS: IV LOPRESSOR X1 TPN Q24HR IVF D5@30ML/HR IV BAG MAKING MACHINE TENDER BID IV AMPICILLIN BID \:TRANSFER TO ICU POST SURGERY INTUBATED FOR RESPIRATORY FAILURE \: ICU STATUS PLAN: NPO CONT TPN AND IVF STAT CXR CASE MANAGEMENT: REVIEW 11/19/2019 SI: POD# 3 RESECTION NELSON CONTINENT ILEOSTOMY AND CREATION OF QUINN ILEOSTOMY MALFUNCTION OF NELSON ILEOSTOMY AND BLEEDING FROM STOMA 101.5 131 42 162/86 99% ON FACIAL TROP 0.095 NA+149 K+ 3.2 CL- 110 BUN 50 CREAT 3.4 BG 126 CA+ 7.4 WBC 11.1 PLT 93 H/H IS: KCL IV X1 IV KCL X3 BAGS TPN Q24HR IVF D5@30ML/HR IV BAG MAKING MACHINE TENDER BID IV AMPICILLIN BID \:TRANSFER TO ICU POST SURGERY INTUBATED FOR RESPIRATORY FAILURE \: ICU STATUS PLAN: CONT NPO
--- NOTE | 2019-11-19 19:30 | NUR ---
NURSE NOTES: Received pt awake and alert, watching tv at this time, denies of any discomfort. at bedside, encouraged to ask question, for ICU protocol and set up. Pts abdominal drsg dry and intact, ileostomy to drain with greenish liquid coming out, approximately 150ml.Pt 0n 02 at 2l/nc resp even and spont. No SOB noted 02 sat >95%, tco2 monitor on the 30s range. ST on the monitor , Bp stable at this time afebrile.. Pt NPO at this time , oral care done, On TPN at 40ml/hr.infusing to AME PICC line. Will change PICC line drsg in am.. Erazo to gravity with lg amt of yellowish urine. Monitor I and O, monitor lytes. pt on Dilauded CERTIFIED HYPERBARIC TECHNOLOGIST for pain as needed, and claimed that shes comfortable with it. Call light and CERTIFIED HYPERBARIC TECHNOLOGIST press button within reach siderails up x2. Bed alarms on. Placed on fall precaution. Will continue to monitor.
--- NOTE | 2019-11-19 19:37 | NUR ---
NURSE NOTES: Remaining volume in CHEMICAL TESTER pump=27.5ml. Emptied gcvukpnys=451vm greenish mucous. total urine output 2600ml. Changed dressing on abdomen, dry and no drainage noted.
[2019-11-19] MEDS: FAT EMULSION 20% IV SCH (20:19)
[2019-11-19] MEDS: TPN IV SCH (20:19)
[2019-11-19] MEDS: Dyna-Hex 2% Top Sol 2oz TOPIC SCH (20:20)
--- NOTE | 2019-11-19 21:00 | NUR ---
NURSE NOTES: Blood sugar 114- with coverage. pls see Emar.
[2019-11-19] MEDS: Metoprolol Succinate XL 50mg tab ORAL SCH (21:26)
[2019-11-19] MEDS: Insulin NPH SUBQ SCH (21:27)
--- NOTE | 2019-11-19 22:15 | NUR ---
NURSE NOTES: Pt press pain WHARF TENDER HEAD button tdue to pain scale of 5.
[2019-11-20] VITALS (32 sets, daily range): BP systolic 90–117; BP diastolic 53–70
[2019-11-20] MEDS: NovoLOG Insulin Flexpen SUBQ SCH ×7 (00:16→18:00)
[2019-11-20] MEDS: Albuterol/Ipratropium 3ml neb HHN SCH ×4 (01:04→19:00)
[2019-11-20] MEDS: Acetylcysteine 20% Soln 4ml HHN SCH ×4 (01:05→19:00)
[2019-11-20] MEDS: Zolpidem 5mg tab ORAL PRN (01:41)
--- NOTE | 2019-11-20 01:41 | NUR ---
NURSE NOTES: Ambien 5mg PO was given due to pts inability to sleep, per pts request.
--- NOTE | 2019-11-20 02:30 | NUR ---
NURSE NOTES: Sleeping well at this time. No discomfort noted.
--- NOTE | 2019-11-20 04:00 | NUR ---
NURSE NOTES: Complete bath with bed changed was done.
[2019-11-20 05:32] LABS: HEMATOCRIT 32.8 % (37.0-47.0); HEMOGLOBIN 10.7 G/DL (12.0-16.0); MEAN CORPUSCULAR VOLUME 77 FL (80-99); PLATELET COUNT 92 K/UL (150-450); RED BLOOD COUNT 4.23 M/UL (4.20-5.40); RED CELL DISTRIBUTION WIDTH 18.5 % (11.6-14.8); WHITE BLOOD COUNT 7.9 K/UL (4.8-10.8)
[2019-11-20] MEDS: Unasyn 3gm/NS 110ml IVPB SCH ×2 (05:43)
[2019-11-20 05:49] LABS: ALANINE AMINOTRANSFERASE 23 U/L (12-78); ALBUMIN/GLOBULIN RATIO 0.4 (1.0-2.7); ALKALINE PHOSPHATASE 56 U/L (46-116); ANION GAP 15 mmol/L (5-15); ASPARTATE AMINO TRANSFERASE 27 U/L (15-37); BILIRUBIN,TOTAL 0.9 MG/DL (0.2-1.0); BLOOD UREA NITROGEN 60 mg/dL (7-18); CALCIUM 7.4 MG/DL (8.5-10.1); CARBON DIOXIDE 27 MMOL/L (21-32); CHLORIDE 108 MMOL/L (98-107); CREATININE 3.7 MG/DL (0.55-1.30); POTASSIUM 3.3 MMOL/L (3.5-5.1); SODIUM 150 MMOL/L (136-145)
[2019-11-20 05:55] LABS: PHOSPHORUS 5.2 MG/DL (2.5-4.9)
--- NOTE | 2019-11-20 06:00 | NUR ---
NURSE NOTES: Ileostomy 110 ml greenish mucoid output. lower abdominal drsg was changed.
--- NOTE | 2019-11-20 07:00 | NUR ---
NURSE NOTES: Comfortable this am. vss
[2019-11-20] MEDS: PCA shift volume MISC SCH ×2 (07:11→19:30)
--- NOTE | 2019-11-20 07:29 | NUR ---
HAND-OFF: Report given to Hermelinda WOODS .
--- NOTE | 2019-11-20 07:30 | NUR ---
NURSE NOTES: Received report and pt from CHUCK Swan. Pt is observed laying in bed, sleeping, drowsy, however, opens eyes to voice, follows commands, AOx4. Pt is on 2L NC, O2Sat 98%. NSR on monitor technician, HR 92. Ileostomy bag draining green liquid. Mid lower abdominal surgical site dressing dry, no bleeding noted. Left arm double lumen PICC with TPN running @ 40mL/hr. Pt also has a Left hand #22g IV, intact and patent. Erazo 16Fr intact and draining light yellow urine to urometer. Pt received and maintained on a Dilaudid PROGRAM ENGAGEMENT DIRECTOR pump; 26.7mL remaining in syringe at change of shift. Pt denies discomfort or pain at this time and verbalized understanding to push PROGRAM ENGAGEMENT DIRECTOR if in pain. No distress noted. Call light within reach. Bed locked and in lowest position. Will resume plan of care.
--- NOTE | 2019-11-20 07:52 | NUR ---
LATE ENTRY from 11/18/2019 NURSE NOTES: Dr. Harrington ordered pt to be put on BiPAP 10/11 100% d/t SOB, tachypnea and tachycardia.
--- NOTE | 2019-11-20 08:43 | Diagnostic Imaging Report ---
Indication: Shortness of breath Technique: One view of the chest Comparison: 11/18/2019 Findings: Improved but persistent bilateral pleural effusions and bilateral interstitial and airspace infiltrates versus edema. Heart size is normal. Left arm PICC remains Impression: Improved but persistent bilateral pleural effusions and interstitial and airspace infiltrates versus edema, over 2 days.
[2019-11-20] MEDS ORDERED: Phytonadione 10 mg/mL 1ml amp SUBQ SCH ×3 (09:00)
[2019-11-20] MEDS ORDERED: NS 275ml ONE (09:35)
--- NOTE | 2019-11-20 11:12 | NUR ---
RD ASSESSMENT & RECOMMENDATIONS SEE CARE ACTIVITY FOR COMPLETE ASSESSMENT DAILY ESTIMATED NEEDS: Needs based on Underweight, pending surgery, CKD/ 44kg 30-35 kcals/kg 8722-7276 total kcals 1-2 g protein/kg 44-88 g total protein 30-35 mL/kg 0137-3527 total fluid mLs NUTRITION DIAGNOSIS: * Altered GI function R/T h/o UC, BCIR as evidenced by admitted w/ malfunctioning BICR w/ incontinence and stoma bleeding, s/p BCIR takedown w/ creation of conventional Ana ileo, intubated now s/p extubation, NPO, on TPN. PARENTERAL NUTRITION RECOMMENDATIONS: D/AA Rate: 55 IL Rate: 8 Total Rate: 63 Volume: 1512 % Dextrose: 17 % AA: 5.3 Energy (kcals/kg): 1427 Protein (g/kg protein): 70 Nonprotein KCALS: 1147 GIR (mg CHO/kg/min): 3.5 % Fat KCALS: 27 NCP: N Ratio: 102:1 TPN Comment: * D17% AA 5.3% @ 55ml/hr + IL20% @ 8ml/hr -> total of 63ml/hr, all 3:1 * Will provide 100% est kcal/prot needs -> 32kcal/1.6g prot per kg actual body wt ------ Per MD notes, pt requires large volume for clinical status. Should current TPN volume remain the same (2192ml/day, 91.333ml/hr), rec the following formulary to better meet est needs: D12% + AA 4.25% @83ml/hr w/ IL 20% @8ml/hr--> All 3:1. TPN to provide total of 1540 kcal(35kcal/kg), 85g pro (1.9g/kg), GIR lowered to 3.8, IL 25%. ---- (11/20/19) TPN now lowered to 40ml/hr as per MD orders, per pharmacy MD states no changes to current TPN formulary. Current TPN provides est 43.8% of original formula: now 860 kcal, 46g pro, 149g dextrose, IL @20% total kcal. ADDITIONAL RECOMMENDATIONS: * Standing wt for accurate CBW, weekly wt monitoring * Monitor LFTs and T bili closely w/ TPN * TPN recs as above * Monitor BGs and lytes w/ TPN -> improved BG; K mg low, phos elev
--- NOTE | 2019-11-20 11:32 | Pulmonolgy Critical Care Note ---
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 Plan: * Wean oxygen as tolerated * Electrolyte repletion, renal consult appreciated * Monitor bicarb level * Monitor renal function * Monitor H/H * Post-op care per surgery * Cont TPN Cardiac: continue to monitor HR/BP Renal: F/U I&O Neurologic: keep patient comfortable Time Spent (Minutes): 40 - cc Discussed with: nurses Critical Care - Objective Last 24 Hour Vital Signs Date Time Temp Pulse Resp B/P (MAP) Pulse Ox O2 Delivery O2 Flow Rate FiO2 11/20/19 11:00 105 28 106/63 (77) 90 11/20/19 10:30 109 19 117/60 (79) 84 11/20/19 10:00 94 19 93/63 (73) 98 11/20/19 09:00 96 18 94/55 (68) 97 11/20/19 08:30 103 20 101/58 (72) 99 11/20/19 08:00 99.6 97 21 91/59 (70) 97 11/20/19 08:00 112 25 98 11/20/19 08:00 Nasal Cannula 2.0 11/20/19 07:33 100 Nasal Cannula 3.0 32 11/20/19 07:28 107 11/20/19 07:00 108 18 110/65 (80) 97 11/20/19 06:00 106 18 97/62 (74) 97 11/20/19 05:00 101 25 103/62 (76) 98 11/20/19 04:00 Nasal Cannula 2.0 11/20/19 04:00 96 11/20/19 04:00 97.7 98 20 93/55 (68) 98 11/20/19 04:00 98 19 97 11/20/19 03:00 97 22 104/59 (74) 98 11/20/19 02:00 100 20 95/53 (67) 97 11/20/19 01:05 104 26 100 Nasal Cannula 2.0 28 98 28 98 11/20/19 01:00 99.6 109 25 106/64 (78) 97 11/20/19 00:00 99.6 105 23 102/60 (74) 98 11/20/19 00:00 120 26 99 11/20/19 00:00 Nasal Cannula 2.0 11/20/19 00:00 109 11/19/19 23:00 112 20 99/56 (70) 98 11/19/19 22:00 122 24 115/63 (80) 98 11/19/19 21:26 114 137/118 11/19/19 21:00 123 25 137/70 (92) 98 11/19/19 20:00 Nasal Cannula 2.0 11/19/19 20:00 98.9 120 25 96/62 (73) 97 11/19/19 20:00 120 25 99 11/19/19 19:54 100 Nasal Cannula 3.0 32 11/19/19 19:00 122 24 108/66 (80) 96 11/19/19 18:30 123 36 95/58 (70) 93 11/19/19 18:00 98.6 113 22 92/58 (69) 94 11/19/19 17:30 112 17 98/59 (72) 97 11/19/19 17:00 112 18 99/55 (70) 97 11/19/19 16:30 113 23 92/59 (70) 99 11/19/19 16:08 98.6 11/19/19 16:00 3.0 11/19/19 16:00 99.1 121 30 105/62 (76) 98 11/19/19 16:00 123 11/19/19 16:00 116 20 99 11/19/19 16:00 115 18 99 11/19/19 16:00 Nasal Cannula 3.0 11/19/19 15:30 121 27 105/60 (75) 94 11/19/19 15:14 93/57 11/19/19 15:00 114 21 93/57 (69) 95 11/19/19 14:43 113 20 98/57 (71) 95 11/19/19 14:30 119 22 91/57 (68) 95 11/19/19 14:00 111 19 102/58 (73) 96 11/19/19 13:30 109 31 97/60 (72) 97 11/19/19 13:00 105 15 104/61 (75) 99 11/19/19 12:30 116 25 107/64 (78) 99 11/19/19 12:00 119 11/19/19 12:00 105 20 99 11/19/19 12:00 3.0 11/19/19 12:00 98.6 103 21 95/61 (72) 99 11/19/19 12:00 Nasal Cannula 3.0 Status: awake Condition: improving HEENT: normocephalic Neck: full ROM Lungs: rales Heart: HR/BP stable Abdomen: other - tender Extremities: no C/C/E Micro: Microbiology Date/Time Source Procedure Growth Status 11/18/19 17:15 Blood Blood Culture - Preliminary NO GROWTH AFTER 24 HOURS Resulted 11/18/19 17:10 Blood Blood Culture - Preliminary NO GROWTH AFTER 24 HOURS Resulted 11/18/19 17:34 Indwelling Cath Urine Culture - Preliminary NO GROWTH AFTER 24 HOURS Resulted Accucheck: 123 Critical Care - Subjective ROS Limited/Unobtainable: No Interval Events: Remains on nasal cannula. Breathing stable. Rising Cr, making good urine. Lasix stopped. Taking TPN. Abdomen still operator helper. FI02: 32 Vent Support Breath Rate: 22 Vent Support Mode: BiLevel Vent Tidal Volume: 500 Sputum Amount: None PEEP: 5.0 PIP: 14 I&O: Intake and Output 11/19/19 11/20/19 19:00 07:00 Intake Total 480.8 ml 790 ml Output Total 2490 ml 2320 ml Balance -2009.2 ml -1530 ml IV Total 480.8 ml 790 ml Output Urine Total 2250 ml 2210 ml Other 240 ml 110 ml ET-Tube: 7.5 ET Position: 22 Lyndon Elias MD Nov 20, 2019 11:32
--- NOTE | 2019-11-20 11:57 | General Progress Note ---
Progress Note Progress Note Afebrile. Much improved breathing now on nasal cannula only. Feels much better Abdomen still distended but soft, ileostomy functioning Cr still high but good urine output Imp: Stabilizing respiratory insufficiency and ARIK Plan; continue npo d/c Imtiaz Amado MD Nov 20, 2019 11:56
--- NOTE | 2019-11-20 12:00 | NUR ---
NURSE NOTES: Dr Mcconnell at bedside assessing pt. Updated him on pt's current condition. Abdominal dressing changed, noted to have some redness around incision; however, no drainage noted. Current temp 98.7. No distress noted. Will continue to monitor.
--- NOTE | 2019-11-20 14:00 | NUR ---
NURSE NOTES: Pt turned and repositioned. Pt denies any concerns at this time. Pt remains drowsy but is more awake. No distress noted.
[2019-11-20] MEDS: PCA HYDROmorphone 1mg/ml 30 ML IV PRN (15:51)
[2019-11-20] MEDS: Nitroglycerin Patch 0.2mg/hr TDERMAL SCH (16:00)
--- NOTE | 2019-11-20 16:00 | NUR ---
NURSE NOTES: Left hand IV removed due to pt feeling pain when flushed. No distress noted. 2L NC O2Sat 98%. Pt is more awake, conversing with at bedside. Will continue to monitor.
[2019-11-20 18:04] LABS: ANION GAP 13 mmol/L (5-15); BLOOD UREA NITROGEN 67 mg/dL (7-18); CALCIUM 7.4 MG/DL (8.5-10.1); CARBON DIOXIDE 31 MMOL/L (21-32); CHLORIDE 105 MMOL/L (98-107); CREATININE 3.5 MG/DL (0.55-1.30); POTASSIUM 3.4 MMOL/L (3.5-5.1); SODIUM 148 MMOL/L (136-145)
--- NOTE | 2019-11-20 19:05 | Nephrology Progress Note ---
Assessment/Plan Problem List: (1) Malnutrition of moderate degree (2) Diabetes (3) Hypopotassemia (4) Hypophosphatemia (5) Metabolic acidosis (6) Dehydration (7) ARIK (acute kidney injury) (8) Ulcerative colitis (9) Malfunction of tovar continent ileostomy (10) CHF (congestive heart failure) Plan tpn reviewed and iv stopped serial lab, lasix for chf,had good diuresis and reduce dose, close monitoring, replete K, mobilize Subjective Constitutional: Reports: weakness HEENT: Reports: no symptoms Genitourinary: Reports: no symptoms Neurologic/Psychiatric: Reports: no symptoms Subjective less dyspnea Objective Objective Last 24 Hour Vital Signs Date Time Temp Pulse Resp B/P (MAP) Pulse Ox O2 Delivery O2 Flow Rate FiO2 11/20/19 17:00 107 25 111/61 (78) 96 11/20/19 16:30 96 22 101/60 (74) 97 11/20/19 16:00 100 22 96 11/20/19 16:00 Nasal Cannula 2.0 11/20/19 16:00 95/57 11/20/19 16:00 98.5 98 21 95/57 (70) 97 11/20/19 15:55 88 21 99 11/20/19 15:34 107 11/20/19 15:30 106 31 101/68 (79) 95 11/20/19 15:00 99 26 98/68 (78) 99 11/20/19 14:00 99 27 108/70 (83) 98 11/20/19 13:00 96 19 95/63 (74) 100 11/20/19 12:00 88 21 99 11/20/19 12:00 98.7 98 25 100/60 (73) 99 11/20/19 12:00 Nasal Cannula 2.0 11/20/19 11:24 89 11/20/19 11:00 105 28 106/63 (77) 90 11/20/19 10:30 109 19 117/60 (79) 84 11/20/19 10:00 94 19 93/63 (73) 98 11/20/19 09:00 96 18 94/55 (68) 97 11/20/19 08:30 103 20 101/58 (72) 99 11/20/19 08:00 99.6 97 21 91/59 (70) 97 11/20/19 08:00 112 25 98 11/20/19 08:00 Nasal Cannula 2.0 11/20/19 07:33 100 Nasal Cannula 3.0 32 11/20/19 07:28 107 11/20/19 07:00 108 18 110/65 (80) 97 11/20/19 06:00 106 18 97/62 (74) 97 11/20/19 05:00 101 25 103/62 (76) 98 11/20/19 04:00 Nasal Cannula 2.0 11/20/19 04:00 96 11/20/19 04:00 97.7 98 20 93/55 (68) 98 11/20/19 04:00 98 19 97 11/20/19 03:00 97 22 104/59 (74) 98 11/20/19 02:00 100 20 95/53 (67) 97 11/20/19 01:05 104 26 100 Nasal Cannula 2.0 28 98 28 98 11/20/19 01:00 99.6 109 25 106/64 (78) 97 11/20/19 00:00 99.6 105 23 102/60 (74) 98 11/20/19 00:00 120 26 99 11/20/19 00:00 Nasal Cannula 2.0 11/20/19 00:00 109 11/19/19 23:00 112 20 99/56 (70) 98 11/19/19 22:00 122 24 115/63 (80) 98 11/19/19 21:26 114 137/118 11/19/19 21:00 123 25 137/70 (92) 98 11/19/19 20:00 Nasal Cannula 2.0 11/19/19 20:00 98.9 120 25 96/62 (73) 97 11/19/19 20:00 120 25 99 11/19/19 19:54 100 Nasal Cannula 3.0 32 Intake and Output 11/19/19 11/20/19 19:00 07:00 Intake Total 480.8 ml 790 ml Output Total 2490 ml 2320 ml Balance -2009.2 ml -1530 ml IV Total 480.8 ml 790 ml Output Urine Total 2250 ml 2210 ml Other 240 ml 110 ml Laboratory Tests 11/20/19 03:31: White Blood Count 7.9, Red Blood Count 4.23, Hemoglobin 10.7L, Hematocrit 32.8L , Mean Corpuscular Volume 77L, Mean Corpuscular Hemoglobin 25.2L, Mean Corpuscular Hemoglobin Concent 32.5, Red Cell Distribution Width 18.5H, Platelet Count 92L, Mean Platelet Volume 12.3H, Neutrophils (%) (Auto) , Lymphocytes (%) (Auto) , Monocytes (%) (Auto) , Eosinophils (%) (Auto) , Basophils (%) (Auto) , Differential Total Cells Counted 100, Neutrophils % ( Manual) 76H, Lymphocytes % (Manual) 12L, Monocytes % (Manual) 10, Eosinophils % (Manual) 2, Basophils % (Manual) 0, Band Neutrophils 0, Platelet Estimate DecreasedL, Platelet Morphology Normal, Hypochromasia 1+, Anisocytosis 2+, Microcytosis 1+, Sodium Level 150H, Potassium Level 3.3L, Chloride Level 108H, Carbon Dioxide Level 27, Anion Gap 15, Blood Urea Nitrogen 60H, Creatinine 3.7H , Estimat Glomerular Filtration Rate 12.7, Glucose Level 116H, Calcium Level 7.4L, Phosphorus Level 5.2H, Magnesium Level 1.5L, Total Bilirubin 0.9, Aspartate Amino Transf (AST/SGOT) 27, Alanine Aminotransferase (ALT/SGPT) 23, Alkaline Phosphatase 56, Total Protein 6.5, Albumin 2.0L, Globulin 4.5, Albumin/ Globulin Ratio 0.4L 11/20/19 08:35: Arterial Blood pH 7.461H, Arterial Blood Partial Pressure CO2 44.7, Arterial Blood Partial Pressure O2 72.1L, Arterial Blood HCO3 31.1H, Arterial Blood Oxygen Saturation 94.3L, Arterial Blood Base Excess 6.6H, Fernie Test Positive 11/20/19 17:25: Sodium Level 148H, Potassium Level 3.4L, Chloride Level 105, Carbon Dioxide Level 31, Anion Gap 13, Blood Urea Nitrogen 67H, Creatinine 3.5H, Estimat Glomerular Filtration Rate 13.6, Glucose Level 120H, Calcium Level 7.4L Height (Feet): 5 Height (Inches): 1.00 Weight (Pounds): 93 General Appearance: no apparent distress, alert EENT: normal ENT inspection Neck: normal alignment Cardiovascular: normal rate Respiratory/Chest: decreased breath sounds Abdomen: soft Extremities: no edema Neurologic: embroiderer hand II-XII grossly normal Andrae Munguia MD Nov 20, 2019 19:05
--- NOTE | 2019-11-20 19:20 | NUR ---
HAND-OFF: Report given to CHUCK Light. 27.4mL remaining in Dilaudid syringe at shift change.
[2019-11-20] MEDS ORDERED: Naloxone 0.4mg/ml Inj IVP PRN (19:30)
[2019-11-20] MEDS ORDERED: Rate Change PCA 1 Each MISC PRN (19:30)
--- NOTE | 2019-11-20 19:40 | NUR ---
NURSE NOTES: LE: PATIENT ALERT, ORIENTED X4, DENIED PAIN OR SOB AT THIS TIME, RESPIRATION REGULAR, TACHYPNEA 25-28/MIN NOTED, ON O2 2LPM VIA NC, O2 SATURATION OVER 97% NOTED, ET CO2 LEVEL HEART RATE 100'S/MIN SINUS MMHG NOTED, TACHYCARDIA, ABDOMEN SOFT, ABDOMINAL SX AREA, CLEAN AND DRIED GAUZE DRESSING STATUS, ILEOSTOMY BAG TO RIGHT SIDE ABDOMEN, INTACT AND GREENISH STOOL OUTED, NO N/V NOTED, F/C INTACT AND PATENT, YELLOW URINE OUTED, PICC LINE TO LEFT UPPER ARM, INTACT AND PATENT, ONGOING TPN AT 40ML/HR AND DILAUDID TERRAZZO TILE MAKER VIA PICC LINE, PATIENT ABLE TO USE TERRAZZO TILE MAKER PUMP CONTROLLER BUTTON, ON BED ALARM AND LOCKED, ON P200 BED, CALL LIGHT WITHIN REACH, WILL CONTINUE TO MONITOR. PT'S AT BEDSIDE.
[2019-11-20] MEDS: Dyna-Hex 2% Top Sol 2oz TOPIC SCH (19:55)
[2019-11-20] MEDS: TPN IV SCH (19:58)
[2019-11-20] MEDS: FAT EMULSION 20% IV SCH (19:58)
[2019-11-20] MEDS: Metoprolol Succinate XL 50mg tab ORAL SCH (21:00)
[2019-11-20] MEDS: Insulin NPH SUBQ SCH (21:12)
--- NOTE | 2019-11-20 22:22 | NUR ---
NURSE NOTES: PATIENT CALM, EMPTED OUT ILEOSTOMY BAG, GREENISH LIQUID STOOL 50ML OUTED AT 2200PM. NO COMPLAINED ABDOMINAL PAIN STATUS AT THIS TIME.
[2019-11-21] VITALS (19 sets, daily range): BP systolic 90–129; BP diastolic 22–79
--- NOTE | 2019-11-21 00:13 | NUR ---
NURSE NOTES: PATIENT ASLEEP STATUS, NO PAIN OR DISTRESS NOTED AT THIS TIME.
[2019-11-21] MEDS: Acetylcysteine 20% Soln 4ml HHN SCH ×4 (01:00→19:00)
[2019-11-21] MEDS: Albuterol/Ipratropium 3ml neb HHN SCH ×4 (01:00→19:00)
--- NOTE | 2019-11-21 02:08 | NUR ---
NURSE NOTES: PATIENT SLEEPING STATUS, NO SOB OR DISTRESS NOTED AT THIS TIME.
--- NOTE | 2019-11-21 03:40 | NUR ---
NURSE NOTES: ONGOING TPN AT 40ML/HR AND DILAUDID CURATOR OF COLLECTIONS PAIN MANAGEMENT VIA PICC LINE, NO ACUTE DISTRESS NOTED AT THIS TIME.
[2019-11-21 04:48] LABS: HEMATOCRIT 30.2 % (37.0-47.0); HEMOGLOBIN 9.8 G/DL (12.0-16.0); MEAN CORPUSCULAR VOLUME 78 FL (80-99); PLATELET COUNT 80 K/UL (150-450); RED BLOOD COUNT 3.87 M/UL (4.20-5.40); RED CELL DISTRIBUTION WIDTH 18.9 % (11.6-14.8); WHITE BLOOD COUNT 7.9 K/UL (4.8-10.8)
--- NOTE | 2019-11-21 05:17 | NUR ---
NURSE NOTES: PATIENT AWOKE, DENIED PAIN AT THIS TIME, WANTED MORNING CARE LATER.
[2019-11-21 05:20] LABS: ALANINE AMINOTRANSFERASE 19 U/L (12-78); ALBUMIN 1.9 G/DL (3.4-5.0); ALBUMIN/GLOBULIN RATIO 0.4 (1.0-2.7); ALKALINE PHOSPHATASE 57 U/L (46-116); ANION GAP 10 mmol/L (5-15); ASPARTATE AMINO TRANSFERASE 36 U/L (15-37); BILIRUBIN,TOTAL 0.8 MG/DL (0.2-1.0); BLOOD UREA NITROGEN 69 mg/dL (7-18); CALCIUM 7.5 MG/DL (8.5-10.1); CARBON DIOXIDE 29 MMOL/L (21-32); CHLORIDE 105 MMOL/L (98-107); CREATININE 3.1 MG/DL (0.55-1.30); POTASSIUM 3.8 MMOL/L (3.5-5.1); SODIUM 144 MMOL/L (136-145)
[2019-11-21] MEDS: NovoLOG Insulin Flexpen SUBQ SCH ×5 (05:37→23:49)
--- NOTE | 2019-11-21 06:38 | NUR ---
NURSE NOTES: NO ACUTE DISTRESS NOTED AT THIS SHIFT.
[2019-11-21] MEDS: PCA shift volume MISC SCH ×2 (07:09→19:00)
--- NOTE | 2019-11-21 07:10 | NUR ---
HAND-OFF: Report given to CHUCK IQBAL.
--- NOTE | 2019-11-21 07:11 | NUR ---
NURSE NOTES: Received report and pt from CHUCK Light. Pt is observed laying in bed, AOx4, drowsy, opens eyes to voice. Pt is on 2L NC, O2Sat 98%. NSR on director cardiac, HR 99. Mid lower abdominal surgical site dressing dry, no bleeding noted. Ileostomy bag draining green liquid. Left arm double lumen PICC with TPN running @ 40mL/hr. Erazo 16Fr intact and draining light yellow urine to urometer. Pt received and maintained on a Dilaudid COMMUNITY EDUCATOR pump; 25.4mL remaining in syringe at change of shift. Pt denies discomfort or pain at this time and verbalized understanding to push COMMUNITY EDUCATOR if/when in pain. No distress noted. Call light within reach. Bed locked and in lowest position. Will resume plan of care.
[2019-11-21] MEDS ORDERED: Rate Change PCA 1 Each MISC PRN (08:00)
[2019-11-21] MEDS ORDERED: LORazepam 1mg tab SL PRN ×3 (08:00→13:30)
--- NOTE | 2019-11-21 08:16 | General Progress Note ---
Progress Note Progress Note AVSS mIld tachycarda. Feels much improved asking to be transferred to [facility] Abdomen less distended, soft, non-tender. Incisions clean Urine 2565 Ileostomy 225 BUN up 69 Cr down 3.1 Albumin 1.9 Imp: Improved Plan: transfer to [facility] clear liquid diet continue Erazo WOCN re new ileostomy education and care PT mobility protocol Imtiaz Mcconnell MD Nov 21, 2019 08:16
[2019-11-21] MEDS ORDERED: TPN IV SCH ×7 (08:41→20:00)
[2019-11-21] MEDS ORDERED: FAT EMULSION 20% IV SCH ×7 (08:41→20:00)
[2019-11-21] MEDS ORDERED: PCA HYDROmorphone 1mg/ml 30 ML IV PRN ×2 (09:00→11:08)
[2019-11-21] MEDS ORDERED: HYDROmorphone 1mg/ml Carpuject SUBQ PRN ×2 (09:30→13:30)
[2019-11-21] MEDS ORDERED: Dextrose 10% 1,000 ML IV PRN (10:15)
[2019-11-21] MEDS ORDERED: Naloxone 0.4mg/ml Inj IVP PRN (10:16)
--- NOTE | 2019-11-21 10:30 | NUR ---
NURSE NOTES: rec'd from icu via bed. awake./alert. pain scale 5/10.on SEWAGE PLANT ATTENDANT DILAUDID. tpn infusing. ILEOSTOMY BAG IN PLACE DRAINING GREEN LIQUID OUTPUT. IN NO ACUTE DISTRESS.
--- NOTE | 2019-11-21 10:30 | NUR ---
TRANSFER TO FLOOR: Patient transferred to 3E room 305, per Dr. Mcconnell. Report given to CHUCK Ya. Belongings form signed and medication given to Bhakti. at bedside at the time of transfer.
[2019-11-21] MEDS: TPN IV SCH ×2 (11:15→12:03)
[2019-11-21] MEDS: FAT EMULSION 20% IV SCH ×2 (11:15→12:03)
[2019-11-21] MEDS ORDERED: Albuterol/Ipratropium 3ml neb HHN PRN (13:00)
--- NOTE | 2019-11-21 13:10 | NUR ---
CASE MANAGEMENT: REVIEW 11/20/2019 SI: POD# 4 RESECTION NELSON CONTINENT ILEOSTOMY AND CREATION OF QUINN ILEOSTOMY MALFUNCTION OF NELSON ILEOSTOMY AND BLEEDING FROM STOMA 99.7 109 22 108/65 95% ON 2L NC NA+150 K+3.3 CL 108 BUN 60 CREAT 3.7 CA+ 7.4 PHOS 5.2 MG 1.5 PLT 92 H/H 10.7/32.8 ABG: pH 7.461 pO2 72.1 HCO3 31.1 O2 SAT 94.3 IS: TPN Q24HR \:TRANSFER TO ICU POST SURGERY \: ICU STATUS PLAN: BLOOD CX- PENDING CASE MANAGEMENT: REVIEW 11/21/2019 SI: POD# 5 RESECTION NELSON CONTINENT ILEOSTOMY AND CREATION OF QUINN ILEOSTOMY MALFUNCTION OF NELSON ILEOSTOMY AND BLEEDING FROM STOMA 97.1 102 106/61 99% ON 2L NC H/H 9.8/30.2 BUN 69 CREAT 3.1 CA+ 7.5 PHOS 5.1 IS: KCL IV X1 IV KCL X3 BAGS TPN Q24HR IVF D5@30ML/HR IV MANAGER GROCERY BID IV AMPICILLIN BID TRANSFER TO MED SURG PLAN: CONT NPO
--- NOTE | 2019-11-21 13:40 | NUR ---
NURSE NOTES: OPTIFOAM DRESSING TO RT HEEL, RT HIP AND SACRAL AREA DRY AND INTACT. Addendum: 11/21/19 at 3 by JJ RASMUSSEN RN disregard above notation. incorrect pt.
--- NOTE | 2019-11-21 14:28 | Pulmonology Progress Note ---
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 Tolerating clears. Improved labs. Allergies: Coded Allergies: CEFACLOR (Verified Allergy, Unknown, 11/12/19) OFLOXACIN (Verified Allergy, Unknown, 11/12/19) SULFA (SULFONAMIDE ANTIBIOTICS) (Verified Allergy, Unknown, 11/12/19) Uncoded Allergies: sodium pentothal (Allergy, Unknown, 11/12/19) Objective Last 24 Hour Vital Signs Date Time Temp Pulse Resp B/P (MAP) Pulse Ox O2 Delivery O2 Flow Rate FiO2 11/21/19 11:58 109 18 94 11/21/19 11:57 98.7 109 18 121/72 (88) 94 11/21/19 10:00 102 23 115/67 (83) 97 11/21/19 09:00 104 23 114/67 (83) 98 11/21/19 08:30 100 26 113/64 (80) 97 11/21/19 08:00 96 19 99 11/21/19 08:00 Nasal Cannula 2.0 11/21/19 08:00 97.1 102 21 106/61 (76) 95 11/21/19 07:45 95 11/21/19 07:35 100 Nasal Cannula 3.0 32 11/21/19 07:00 112 21 122/64 (83) 93 11/21/19 06:00 99 16 93/60 (71) 99 11/21/19 05:00 102 24 105/66 (79) 96 11/21/19 04:30 102 22 102/63 (76) 96 11/21/19 04:00 100 11/21/19 04:00 99.3 100 23 97/60 (72) 95 11/21/19 04:00 100 23 95 11/21/19 04:00 Nasal Cannula 2.0 11/21/19 03:00 104 16 90/55 (67) 96 11/21/19 02:00 105 14 91/59 (70) 98 11/21/19 01:00 101 21 104/60 (75) 95 11/21/19 00:00 98.1 113 21 109/79 (89) 93 11/21/19 00:00 113 11/21/19 00:00 Nasal Cannula 2.0 11/21/19 00:00 113 21 93 11/20/19 23:30 105 20 97/60 (72) 97 11/20/19 23:00 99 15 98/61 (73) 97 11/20/19 22:30 94 18 92/58 (69) 96 11/20/19 22:00 99 17 93/61 (72) 90 11/20/19 21:01 102 26 100/61 (74) 98 11/20/19 21:00 100 30 99/63 (75) 98 11/20/19 21:00 107 99/61 11/20/19 20:00 99.7 109 22 108/65 (79) 95 11/20/19 20:00 Nasal Cannula 2.0 11/20/19 19:45 100 Nasal Cannula 3.0 32 11/20/19 19:35 105 11/20/19 19:00 111 25 102/63 (76) 95 11/20/19 19:00 105 20 97 11/20/19 18:00 96 17 90/61 (71) 97 11/20/19 17:00 107 25 111/61 (78) 96 11/20/19 16:30 96 22 101/60 (74) 97 11/20/19 16:00 100 22 96 11/20/19 16:00 Nasal Cannula 2.0 11/20/19 16:00 95/57 11/20/19 16:00 98.5 98 21 95/57 (70) 97 11/20/19 15:55 88 21 99 11/20/19 15:34 107 11/20/19 15:30 106 31 101/68 (79) 95 11/20/19 15:00 99 26 98/68 (78) 99 Intake and Output 11/20/19 11/21/19 19:00 07:00 Intake Total 680 ml 780 ml Output Total 1595 ml 1090 ml Balance -915 ml -310 ml IV Total 680 ml 780 ml Output Urine Total 1510 ml 940 ml Stool Total 100 ml Other 85 ml 50 ml General Appearance: no acute distress HEENT: PERRL Respiratory/Chest: lungs clear Cardiovascular: normal rate Abdomen: non distended Extremities: no edema Microbiology Date/Time Source Procedure Growth Status 11/18/19 17:15 Blood Blood Culture - Preliminary NO GROWTH AFTER 48 HOURS Resulted 11/18/19 17:10 Blood Blood Culture - Preliminary NO GROWTH AFTER 48 HOURS Resulted 11/18/19 17:34 Indwelling Cath Urine Culture - Final NO GROWTH AFTER 48 HOURS Complete Laboratory Tests 11/20/19 17:25: Sodium Level 148H, Potassium Level 3.4L, Chloride Level 105, Carbon Dioxide Level 31, Anion Gap 13, Blood Urea Nitrogen 67H, Creatinine 3.5H, Estimat Glomerular Filtration Rate 13.6, Glucose Level 120H, Calcium Level 7.4L 11/21/19 04:10: Sodium Level 144, Potassium Level 3.8, Chloride Level 105, Carbon Dioxide Level 29, Anion Gap 10, Blood Urea Nitrogen 69H, Creatinine 3.1H, Estimat Glomerular Filtration Rate 15.6, Glucose Level 105, Calcium Level 7.5L, White Blood Count 7.9, Red Blood Count 3.87L, Hemoglobin 9.8L, Hematocrit 30.2L, Mean Corpuscular Volume 78L, Mean Corpuscular Hemoglobin 25.2L, Mean Corpuscular Hemoglobin Concent 32.4, Red Cell Distribution Width 18.9H, Platelet Count 80L, Mean Platelet Volume 11.5H, Neutrophils (%) (Auto) , Lymphocytes (%) (Auto) , Monocytes (%) (Auto) , Eosinophils (%) (Auto) , Basophils (%) (Auto) , Phosphorus Level 5.1H, Total Bilirubin 0.8, Aspartate Amino Transf (AST/SGOT) 36 , Alanine Aminotransferase (ALT/SGPT) 19, Alkaline Phosphatase 57, Total Protein 6.2L, Albumin 1.9L, Globulin 4.3, Albumin/Globulin Ratio 0.4L Current Medications Medications (Trade) Dose Ordered Sig/Jose Rafael Route PRN Reason Start Time Stop Time Status Last Admin Dose Admin Acetaminophen (Tylenol) 650 mg Q4H PRN ORAL Mild Pain/Temp > 100.2 11/21/19 13:30 12/15/19 21:29 Acetylcysteine (Mucomyst) 200 mg Q6HRT HHN 11/21/19 13:00 12/18/19 18:59 Albuterol/ Ipratropium (Albuterol/ Ipratropium) 3 ml Q4H PRN HHN Shortness of Breath 11/21/19 13:00 11/21/19 16:59 Albuterol/ Ipratropium (Albuterol/ Ipratropium) 3 ml Q6HRT HHN 11/21/19 13:00 11/23/19 18:59 Chlorhexidine Gluconate ([place]-Hex 2%) 1 applic DAILY@2000 TOPIC 11/21/19 20:00 12/12/19 19:59 Dextrose 1,000 ml @ 100 mls/hr Q10H PRN IV TPN interrupted or not availab 11/21/19 10:15 12/16/19 00:14 Dextrose (Dextrose 50%) 25 ml Q30M PRN IV Hypoglycemia 11/21/19 10:30 12/13/19 09:29 Dextrose (Dextrose 50%) 50 ml Q30M PRN IV Hypoglycemia 11/21/19 10:30 12/20/19 19:29 Fat Emulsion Intravenous 192 ml/Amino Acids/ Electrolytes/ Dextrose 2,192 ml @ 83 mls/hr Q24H IV 11/21/19 11:15 11/21/19 19:59 11/21/19 12:03 Fat Emulsion Intravenous 192 ml/Amino Acids/ Electrolytes/ Dextrose 2,192 ml @ 83 mls/hr Q24H IV 11/21/19 20:00 11/23/19 19:59 Hydromorphone HCl 30 ml @ 0 mls/hr Q24H PRN IV For Pain 11/21/19 11:08 11/23/19 08:59 Hydromorphone HCl (Dilaudid) 1 mg Q4H PRN SUBQ Severe Breakthru Pain (>7) 11/21/19 13:30 11/28/19 09:29 Insulin Aspart (NovoLOG) EVERY 6 HOURS SUBQ 11/21/19 12:00 12/16/19 20:59 Insulin Human NPH (Humulin N) 12 units QHS SUBQ 11/21/19 21:00 12/16/19 20:59 Lorazepam (Ativan) 1 mg HSPRN PRN SL Sleep 11/22/19 08:00 11/28/19 07:59 Lorazepam (Ativan) 1 mg Q4H PRN SL Muscle Spasm 11/21/19 13:30 11/28/19 09:29 Metoprolol Succinate (Toprol XL) 50 mg BEDTIME ORAL 11/21/19 21:00 12/15/19 20:59 Miscellaneous Medication (SLIP COVER MAKER Rate Change) 1 ea DAILYPRN PRN MISC rate change 11/22/19 08:00 11/23/19 07:59 Miscellaneous Medication (SLIP COVER MAKER shift volume) 1 ea Q12HR@0700,1900 MISC 11/21/19 19:00 11/23/19 18:59 Naloxone HCl (Narcan) 0.1 mg Q1M PRN IVP RR<10/min OR SBP<90 mmHg 11/21/19 10:16 12/20/19 19:29 Nitroglycerin (Ntg) 1 patch Q24H TDERMAL 11/21/19 16:00 12/18/19 15:59 Ondansetron HCl (Zofran) 4 mg Q4H PRN IVP Nausea & Vomiting 11/21/19 13:30 12/12/19 21:29 Phytonadione (Vitamin K) 10 mg ONCE A WEEK SUBQ 11/27/19 09:00 12/20/19 08:59 Lyndon Elias MD Nov 21, 2019 14:28
--- NOTE | 2019-11-21 16:30 | NUR ---
NURSE NOTES: [facility] RE PT TEACHING CARE OF NEW ILEOSTOMY.
[2019-11-21] MEDS: Nitroglycerin Patch 0.2mg/hr TDERMAL SCH (17:02)
--- NOTE | 2019-11-21 17:58 | Nephrology Progress Note ---
Assessment/Plan Problem List: (1) Malnutrition of moderate degree (2) Diabetes (3) Hypopotassemia (4) Hypophosphatemia (5) Metabolic acidosis (6) Dehydration (7) ARIK (acute kidney injury) (8) Ulcerative colitis (9) Malfunction of tovar continent ileostomy (10) CHF (congestive heart failure) Plan tpn reviewed and iv stopped serial lab, lasix for chf,had good diuresis and stopped, close monitoring, creatinine trending lower tpn to cycle over 18hr/day , mobilize Subjective Constitutional: Reports: weakness HEENT: Reports: no symptoms Genitourinary: Reports: no symptoms Neurologic/Psychiatric: Reports: no symptoms Subjective no dyspnea Objective Objective Last 24 Hour Vital Signs Date Time Temp Pulse Resp B/P (MAP) Pulse Ox O2 Delivery O2 Flow Rate FiO2 11/21/19 17:02 129/51 11/21/19 17:02 98.7 11/21/19 16:30 119 20 93 11/21/19 16:00 119 20 93 11/21/19 16:00 99.5 119 20 129/51 (77) 93 11/21/19 11:58 109 18 94 11/21/19 11:57 98.7 109 18 121/72 (88) 94 11/21/19 10:00 102 23 115/67 (83) 97 11/21/19 09:00 104 23 114/67 (83) 98 11/21/19 08:30 100 26 113/64 (80) 97 11/21/19 08:00 96 19 99 11/21/19 08:00 Nasal Cannula 2.0 11/21/19 08:00 97.1 102 21 106/61 (76) 95 11/21/19 07:45 95 11/21/19 07:35 100 Nasal Cannula 3.0 32 11/21/19 07:00 112 21 122/64 (83) 93 11/21/19 06:00 99 16 93/60 (71) 99 11/21/19 05:00 102 24 105/66 (79) 96 11/21/19 04:30 102 22 102/63 (76) 96 11/21/19 04:00 100 11/21/19 04:00 99.3 100 23 97/60 (72) 95 11/21/19 04:00 100 23 95 11/21/19 04:00 Nasal Cannula 2.0 11/21/19 03:00 104 16 90/55 (67) 96 11/21/19 02:00 105 14 91/59 (70) 98 11/21/19 01:00 101 21 104/60 (75) 95 11/21/19 00:00 98.1 113 21 109/79 (89) 93 11/21/19 00:00 113 11/21/19 00:00 Nasal Cannula 2.0 11/21/19 00:00 113 21 93 11/20/19 23:30 105 20 97/60 (72) 97 11/20/19 23:00 99 15 98/61 (73) 97 11/20/19 22:30 94 18 92/58 (69) 96 11/20/19 22:00 99 17 93/61 (72) 90 11/20/19 21:01 102 26 100/61 (74) 98 11/20/19 21:00 100 30 99/63 (75) 98 11/20/19 21:00 107 99/61 11/20/19 20:00 99.7 109 22 108/65 (79) 95 11/20/19 20:00 Nasal Cannula 2.0 11/20/19 19:45 100 Nasal Cannula 3.0 32 11/20/19 19:35 105 11/20/19 19:00 111 25 102/63 (76) 95 11/20/19 19:00 105 20 97 11/20/19 18:00 96 17 90/61 (71) 97 Intake and Output 11/20/19 11/21/19 19:00 07:00 Intake Total 680 ml 780 ml Output Total 1595 ml 1090 ml Balance -915 ml -310 ml IV Total 680 ml 780 ml Output Urine Total 1510 ml 940 ml Stool Total 100 ml Other 85 ml 50 ml Laboratory Tests 11/21/19 04:10: White Blood Count 7.9, Red Blood Count 3.87L, Hemoglobin 9.8L, Hematocrit 30.2L , Mean Corpuscular Volume 78L, Mean Corpuscular Hemoglobin 25.2L, Mean Corpuscular Hemoglobin Concent 32.4, Red Cell Distribution Width 18.9H, Platelet Count 80L, Mean Platelet Volume 11.5H, Neutrophils (%) (Auto) , Lymphocytes (%) (Auto) , Monocytes (%) (Auto) , Eosinophils (%) (Auto) , Basophils (%) (Auto) , Sodium Level 144, Potassium Level 3.8, Chloride Level 105 , Carbon Dioxide Level 29, Anion Gap 10, Blood Urea Nitrogen 69H, Creatinine 3.1H, Estimat Glomerular Filtration Rate 15.6, Glucose Level 105, Calcium Level 7.5L, Phosphorus Level 5.1H, Total Bilirubin 0.8, Aspartate Amino Transf (AST/ SGOT) 36, Alanine Aminotransferase (ALT/SGPT) 19, Alkaline Phosphatase 57, Total Protein 6.2L, Albumin 1.9L, Globulin 4.3, Albumin/Globulin Ratio 0.4L Height (Feet): 5 Height (Inches): 1.00 Weight (Pounds): 85 General Appearance: no apparent distress, other - thin EENT: normal ENT inspection Neck: normal alignment Cardiovascular: regular rhythm, tachycardia Respiratory/Chest: lungs clear Abdomen: soft Extremities: no edema Neurologic: washer repairman II-XII grossly normal Andrae Munguia MD Nov 21, 2019 17:58
[2019-11-21] MEDS ORDERED: PCA shift volume MISC SCH (19:00)
--- NOTE | 2019-11-21 19:00 | NUR ---
NURSE NOTES: AWAKE /ALERT. IN NO DISTRESS.
--- NOTE | 2019-11-21 19:16 | NUR ---
HAND-OFF: Report given to OH RN.
--- NOTE | 2019-11-21 19:30 | NUR ---
NURSE NOTES: Receive a report from CHUCK Ya. Round is done. Pt is awake and alert. No acute distress noted. Breathing is even and non labored. On O2 2L NC. Ileostomy bag is attached without leaking and stoma is red. Surgical site gauze is clear and dry. On CLINICAL INFORMATICS MANAGER pump for pain management and pain level is 4/10. TPN is running via PICC on AME. PICC site is clear. No discoloration noted. Yellowish urine patent via muse catheter. On SCDs. Call light within reach. Will continue to monitor.
[2019-11-21] MEDS: Dyna-Hex 2% Top Sol 2oz TOPIC SCH (20:57)
[2019-11-21] MEDS ORDERED: Insulin NPH SUBQ SCH ×2 (21:00)
[2019-11-21] MEDS: Metoprolol Succinate XL 50mg tab ORAL SCH (21:31)
--- NOTE | 2019-11-21 23:45 | NUR ---
NURSE NOTES: BT checked as 100.5F. No chilling or febrile sensation. Skin is warm to touch. Provide Tylenol 650mg prn as ordered with ice bag. CN made aware. Will continue to monitor.
[2019-11-22] VITALS: BP 101/58
--- NOTE | 2019-11-22 00:45 | NUR ---
NURSE NOTES: Rechecked BT: 99.8F. Will continue to monitor.
[2019-11-22] MEDS: Acetylcysteine 20% Soln 4ml HHN SCH ×4 (01:34→19:07)
[2019-11-22] MEDS: Albuterol/Ipratropium 3ml neb HHN SCH ×4 (01:34→19:07)
[2019-11-22 04:00] VITALS: BP 92/56
[2019-11-22] MEDS: NovoLOG Insulin Flexpen SUBQ SCH ×3 (05:49→17:24)
--- NOTE | 2019-11-22 06:00 | NUR ---
NURSE NOTES: No acute distress noted. Surgery site dressing kept clean and intact. Pain is tolerating with GRAND SCRIBE pump as 3/10. Will continue to monitor. 12hr output Urine: 1140ml Ana Ileostomy: 145ml
[2019-11-22 06:33] LABS: HEMATOCRIT 28.6 % (37.0-47.0); HEMOGLOBIN 9.2 G/DL (12.0-16.0); MEAN CORPUSCULAR VOLUME 78 FL (80-99); PLATELET COUNT 88 K/UL (150-450); RED BLOOD COUNT 3.65 M/UL (4.20-5.40); RED CELL DISTRIBUTION WIDTH 18.8 % (11.6-14.8); WHITE BLOOD COUNT 6.6 K/UL (4.8-10.8)
[2019-11-22] MEDS: PCA shift volume MISC SCH ×2 (07:00→19:00)
[2019-11-22 07:14] LABS: ALANINE AMINOTRANSFERASE 21 U/L (12-78); ALBUMIN 1.7 G/DL (3.4-5.0); ALBUMIN/GLOBULIN RATIO 0.4 (1.0-2.7); ALKALINE PHOSPHATASE 59 U/L (46-116); ANION GAP 12 mmol/L (5-15); ASPARTATE AMINO TRANSFERASE 36 U/L (15-37); BILIRUBIN,TOTAL 0.7 MG/DL (0.2-1.0); BLOOD UREA NITROGEN 68 mg/dL (7-18); CALCIUM 7.3 MG/DL (8.5-10.1); CARBON DIOXIDE 25 MMOL/L (21-32); CHLORIDE 104 MMOL/L (98-107); CREATININE 2.3 MG/DL (0.55-1.30); PHOSPHORUS 5.3 MG/DL (2.5-4.9); POTASSIUM 3.2 MMOL/L (3.5-5.1); SODIUM 141 MMOL/L (136-145)
--- NOTE | 2019-11-22 07:30 | NUR ---
HAND-OFF: Report given to CHUCK Roper. Round is done.
[2019-11-22 08:00] VITALS: BP 93/56
[2019-11-22] MEDS ORDERED: LORazepam 1mg tab SL PRN (08:00)
[2019-11-22] MEDS ORDERED: Rate Change PCA 1 Each MISC PRN (08:00)
--- NOTE | 2019-11-22 08:00 | NUR ---
NURSE NOTES: Received report from Becky RN, pt a/a/o x4 laying in bed with no signs of distress or other issues at this time. surgical dressing dry and intact. PICC line in the left upper arm running TPN @121ml/hr, SHOW HOST OR HOSTESS Dilaudid. and TKO@10ml/hr. Conventional Butler ileostomy in place, over night output: 145ml. Erazo cath in place draining to gravity, total night worker out put: 1140ml. call light within reach, bed in lowest position, side rales up x2. pt's at bedside, I will f/u as needed.
--- NOTE | 2019-11-22 08:55 | Pulmonology Progress Note ---
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 Tolerating clear liquids. Less oxygen Allergies: Coded Allergies: CEFACLOR (Verified Allergy, Unknown, 11/12/19) OFLOXACIN (Verified Allergy, Unknown, 11/12/19) SULFA (SULFONAMIDE ANTIBIOTICS) (Verified Allergy, Unknown, 11/12/19) Uncoded Allergies: sodium pentothal (Allergy, Unknown, 11/12/19) Objective Last 24 Hour Vital Signs Date Time Temp Pulse Resp B/P (MAP) Pulse Ox O2 Delivery O2 Flow Rate FiO2 11/22/19 07:05 100 Nasal Cannula 3.0 32 11/22/19 04:00 98.2 100 25 92/56 (68) 96 11/22/19 04:00 100 25 96 11/22/19 01:39 96 22 100 Nasal Cannula 2.0 28 94 22 98 11/22/19 00:45 99.8 11/22/19 00:45 99.8 11/22/19 00:00 100 23 93 11/21/19 23:45 100.5 102 23 101/58 (72) 93 11/21/19 21:31 120 110/65 11/21/19 21:00 Nasal Cannula 2.0 11/21/19 20:00 120 24 92 11/21/19 20:00 99.8 120 24 110/65 (80) 92 11/21/19 19:42 100 Nasal Cannula 3.0 32 11/21/19 17:02 129/51 11/21/19 17:02 98.7 11/21/19 16:30 119 20 93 11/21/19 16:00 119 20 93 11/21/19 16:00 99.5 119 20 129/51 (77) 93 11/21/19 11:58 109 18 94 11/21/19 11:57 98.7 109 18 121/72 (88) 94 11/21/19 10:00 102 23 115/67 (83) 97 11/21/19 09:00 104 23 114/67 (83) 98 Intake and Output 11/21/19 11/22/19 19:00 07:00 Intake Total 1289.73 ml 316 ml Output Total 915 ml 1285 ml Balance 374.73 ml -969 ml Intake Oral 590 ml 150 ml IV Total 699.73 ml 166 ml Output Urine Total 690 ml 1140 ml Other 225 ml 145 ml General Appearance: no acute distress HEENT: mucous membranes moist Respiratory/Chest: lungs clear Cardiovascular: normal rate Abdomen: distended Extremities: no edema Neurologic/Psychiatric: alert Laboratory Tests 11/22/19 05:05: White Blood Count 6.6, Red Blood Count 3.65L, Hemoglobin 9.2L, Hematocrit 28.6L , Mean Corpuscular Volume 78L, Mean Corpuscular Hemoglobin 25.1L, Mean Corpuscular Hemoglobin Concent 32.0, Red Cell Distribution Width 18.8H, Platelet Count 88L, Mean Platelet Volume 11.4H, Neutrophils (%) (Auto) , Lymphocytes (%) (Auto) , Monocytes (%) (Auto) , Eosinophils (%) (Auto) , Basophils (%) (Auto) , Sodium Level 141, Potassium Level 3.2L, Chloride Level 104, Carbon Dioxide Level 25, Anion Gap 12, Blood Urea Nitrogen 68H, Creatinine 2.3H, Estimat Glomerular Filtration Rate 22.0, Glucose Level 137H, Calcium Level 7.3L, Phosphorus Level 5.3H, Magnesium Level 1.6L, Total Bilirubin 0.7, Aspartate Amino Transf (AST/SGOT) 36, Alanine Aminotransferase (ALT/SGPT) 21, Alkaline Phosphatase 59, Total Protein 6.0L, Albumin 1.7L, Globulin 4.3, Albumin /Globulin Ratio 0.4L Current Medications Medications (Trade) Dose Ordered Sig/Jose Rafael Route PRN Reason Start Time Stop Time Status Last Admin Dose Admin Acetaminophen (Tylenol) 650 mg Q4H PRN ORAL Mild Pain/Temp > 100.2 11/21/19 13:30 12/15/19 21:29 11/21/19 23:47 Acetylcysteine (Mucomyst) 200 mg Q6HRT HHN 11/21/19 13:00 12/18/19 18:59 11/22/19 01:34 Albuterol/ Ipratropium (Albuterol/ Ipratropium) 3 ml Q6HRT HHN 11/21/19 13:00 11/23/19 18:59 11/22/19 01:34 Chlorhexidine Gluconate (Africa-Hex 2%) 1 applic DAILY@2000 TOPIC 11/21/19 20:00 12/12/19 19:59 11/21/19 20:57 Dextrose 1,000 ml @ 100 mls/hr Q10H PRN IV TPN interrupted or not availab 11/21/19 10:15 12/16/19 00:14 Dextrose (Dextrose 50%) 25 ml Q30M PRN IV Hypoglycemia 11/21/19 10:30 12/13/19 09:29 Dextrose (Dextrose 50%) 50 ml Q30M PRN IV Hypoglycemia 11/21/19 10:30 12/20/19 19:29 Fat Emulsion Intravenous 192 ml/Amino Acids/ Electrolytes/ Dextrose 2,192 ml @ 121 mls/hr Q24H IV 11/21/19 20:00 12/21/19 19:59 11/21/19 20:57 Hydromorphone HCl 30 ml @ 0 mls/hr Q24H PRN IV For Pain 11/21/19 11:08 11/23/19 08:59 11/21/19 16:30 Hydromorphone HCl (Dilaudid) 1 mg Q4H PRN SUBQ Severe Breakthru Pain (>7) 11/21/19 13:30 11/28/19 09:29 Insulin Aspart (NovoLOG) EVERY 6 HOURS SUBQ 11/21/19 12:00 12/16/19 20:59 11/22/19 05:49 Insulin Human NPH (Humulin N) 8 units QHS SUBQ 11/21/19 21:00 12/21/19 20:59 11/21/19 21:27 Lorazepam (Ativan) 1 mg HSPRN PRN SL Sleep 11/22/19 08:00 11/28/19 07:59 Lorazepam (Ativan) 1 mg Q4H PRN SL Muscle Spasm 11/21/19 13:30 11/28/19 09:29 Metoprolol Succinate (Toprol XL) 50 mg BEDTIME ORAL 11/21/19 21:00 2/8/20 20:59 11/21/19 21:31 Miscellaneous Medication (MANUFACTURING PROJECT ENGINEER Rate Change) 1 ea DAILYPRN PRN MISC rate change 11/22/19 08:00 11/23/19 07:59 Miscellaneous Medication (MANUFACTURING PROJECT ENGINEER shift volume) 1 ea Q12HR@0700,1900 MISC 11/21/19 19:00 11/23/19 18:59 11/22/19 07:00 Naloxone HCl (Narcan) 0.1 mg Q1M PRN IVP RR<10/min OR SBP<90 mmHg 11/21/19 10:16 12/20/19 19:29 Nitroglycerin (Ntg) 1 patch Q24H TDERMAL 11/21/19 16:00 12/18/19 15:59 11/21/19 17:02 Ondansetron HCl (Zofran) 4 mg Q4H PRN IVP Nausea & Vomiting 11/21/19 13:30 12/12/19 21:29 Phytonadione (Vitamin K) 10 mg ONCE A WEEK SUBQ 11/27/19 09:00 12/20/19 08:59 Lyndon Elias MD Nov 22, 2019 08:55
--- NOTE | 2019-11-22 11:20 | General Progress Note ---
Progress Note Progress Note T 100.5 Tolerated 900cc clear liquids. Out of bed with PT mobility protocol Abdomen still distended but not tympanitic. Incisions clean Urine 1545 Ileostomy 355 WBC 6600 Hgb 9.2 Platelets up 88,000 BUN still up 68 Cr down 2.3 albumin 1.7 Imp: Resolving ileus Plan: KUB XRay re possible bowel distention TPN per Dr. Ezra Cole of [facility] to see regarding fever and management Imtiaz Mcconnell MD Nov 22, 2019 11:20
[2019-11-22 12:00] VITALS: BP_SYST 105; BP_SYST 98; BP_DIAS 60; BP_DIAS 69
--- NOTE | 2019-11-22 12:52 | NUR ---
CASE MANAGEMENT: REVIEW 11/22/2019 SI: POD# 6 RESECTION NELSON CONTINENT ILEOSTOMY AND CREATION OF QUINN ILEOSTOMY MALFUNCTION OF NELSON ILEOSTOMY AND BLEEDING FROM STOMA 98.2 98 20 93/56 90% ON 2L NC H/H 9.2/28.6 PLT 88 K+ 3.2 BUN 68 CREAT 2.3 BG 137 CA+ 7.3 PHOS 5.3 MG 1.6 IS: ORTHOTICS ASSISTANT DILAUDID BID TPN Q24HR NTG TD Q24HR TOPROL XL PO QHS IV AMPICILLIN BID MUCOMYST HHN Q6HR ALBUTEROL HHN Q6HR NOVOLOG SQ Q6HR HUMULIN SQ QHS \: 3E MED SURG UNIT PLAN: ABD X-RAY- RE BOWEL DISTENTION BL CX -PENDING ID CONSULT FOR FEVER
--- NOTE | 2019-11-22 14:24 | NUR ---
P.T Note: late entry 1030 P.T evaluation completed and tx initiated. Please refer to P.T evaluation for current functional status and POC.
--- NOTE | 2019-11-22 14:30 | Diagnostic Imaging Report ---
Indication: Abdominal distention Technique: Supine view of the abdomen Comparison: none Findings: There are midline and right lower quadrant skin matthew and midline pelvic surgical clips and matthew. There is a right lower quadrant ileostomy noted. Moderately dilated small bowel loops are noted throughout the abdomen and pelvis. There is possible splenomegaly Impression: Dilated small bowel loops. Most likely postoperative ileus given history of recent surgery. Possibility of small bowel obstruction should also be considered. Images reviewed in person with Dr. Mcconnell
[2019-11-22] MEDS: Spironolactone 50mg tab ORAL SCH ×2 (14:49→20:00)
[2019-11-22] MEDS ORDERED: NS 500ML ONE (14:58)
--- NOTE | 2019-11-22 15:51 | NUR ---
*-* INSURANCE *-* ALL CLINICALS AND REVIEWS HAVE BEEN FAXED TO: [facility] REF# [id number] MARLEN:CARYL FX: [phone] P; [phone]
[2019-11-22 16:00] VITALS: BP_SYST 105; BP_SYST 98; BP_DIAS 60; BP_DIAS 69
--- NOTE | 2019-11-22 16:02 | Infectious Diseases Prog Note ---
Assessment/Plan Assessment/Plan Full consult dictated: A) s/p laparotomy with resection of failed Mullen continent ileostomy and creation of Ana ileostomy. post-operative fevers and leukocytosis ? infection, ? sepsis pmh noted allergies - cefaclor, ofloxacin, sulfa P) observation for now monitor labs and temperatures recent cultures negative and chest x-ray negative d/w Dr. Mcconnell thank you Subjective Allergies: Coded Allergies: CEFACLOR (Verified Allergy, Unknown, 11/12/19) OFLOXACIN (Verified Allergy, Unknown, 11/12/19) SULFA (SULFONAMIDE ANTIBIOTICS) (Verified Allergy, Unknown, 11/12/19) Uncoded Allergies: sodium pentothal (Allergy, Unknown, 11/12/19) Objective Vital Signs Last 24 Hour Vital Signs Date Time Temp Pulse Resp B/P (MAP) Pulse Ox O2 Delivery O2 Flow Rate FiO2 11/22/19 11:40 92 20 100 Nasal Cannula 2.0 28 91 20 98 11/22/19 09:00 Nasal Cannula 2.0 11/22/19 08:00 98.2 98 20 93/56 (68) 90 11/22/19 08:00 98 20 90 11/22/19 07:05 100 Nasal Cannula 3.0 32 11/22/19 04:00 98.2 100 25 92/56 (68) 96 11/22/19 04:00 100 25 96 11/22/19 01:39 96 22 100 Nasal Cannula 2.0 28 94 22 98 11/22/19 00:45 99.8 11/22/19 00:45 99.8 11/22/19 00:00 100 23 93 11/21/19 23:45 100.5 102 23 101/58 (72) 93 11/21/19 21:31 120 110/65 11/21/19 21:00 Nasal Cannula 2.0 11/21/19 20:00 120 24 92 11/21/19 20:00 99.8 120 24 110/65 (80) 92 11/21/19 19:42 100 Nasal Cannula 3.0 32 11/21/19 17:02 129/51 11/21/19 17:02 98.7 11/21/19 16:30 119 20 93 11/21/19 16:00 119 20 93 11/21/19 16:00 99.5 119 20 129/51 (77) 93 Height (Feet): 5 Height (Inches): 1.00 Weight (Pounds): 85 Laboratory Tests Test 11/22/19 05:05 White Blood Count 6.6 K/UL (4.8-10.8) Red Blood Count 3.65 M/UL (4.20-5.40) L Hemoglobin 9.2 G/DL (12.0-16.0) L Hematocrit 28.6 % (37.0-47.0) L Mean Corpuscular Volume 78 FL (80-99) L Mean Corpuscular Hemoglobin 25.1 PG (27.0-31.0) L Mean Corpuscular Hemoglobin Concent 32.0 G/DL (32.0-36.0) Red Cell Distribution Width 18.8 % (11.6-14.8) H Platelet Count 88 K/UL (150-450) L Mean Platelet Volume 11.4 FL (6.5-10.1) H Neutrophils (%) (Auto) % (45.0-75.0) Lymphocytes (%) (Auto) % (20.0-45.0) Monocytes (%) (Auto) % (1.0-10.0) Eosinophils (%) (Auto) % (0.0-3.0) Basophils (%) (Auto) % (0.0-2.0) Sodium Level 141 MMOL/L (136-145) Potassium Level 3.2 MMOL/L (3.5-5.1) L Chloride Level 104 MMOL/L (98-107) Carbon Dioxide Level 25 MMOL/L (21-32) Anion Gap 12 mmol/L (5-15) Blood Urea Nitrogen 68 mg/dL (7-18) H Creatinine 2.3 MG/DL (0.55-1.30) H Estimat Glomerular Filtration Rate 22.0 mL/min (>60) Glucose Level 137 MG/DL (74-106) H Calcium Level 7.3 MG/DL (8.5-10.1) L Phosphorus Level 5.3 MG/DL (2.5-4.9) H Magnesium Level 1.6 MG/DL (1.8-2.4) L Total Bilirubin 0.7 MG/DL (0.2-1.0) Aspartate Amino Transf (AST/SGOT) 36 U/L (15-37) Alanine Aminotransferase (ALT/SGPT) 21 U/L (12-78) Alkaline Phosphatase 59 U/L (46-116) Total Protein 6.0 G/DL (6.4-8.2) L Albumin 1.7 G/DL (3.4-5.0) L Globulin 4.3 g/dL Albumin/Globulin Ratio 0.4 (1.0-2.7) L Current Medications Medications (Trade) Dose Ordered Sig/Jose Rafael Route PRN Reason Start Time Stop Time Status Last Admin Dose Admin Acetaminophen (Tylenol) 650 mg Q4H PRN ORAL Mild Pain/Temp > 100.2 11/21/19 13:30 12/15/19 21:29 11/21/19 23:47 Acetylcysteine (Mucomyst) 200 mg Q6HRT [facility] 11/21/19 13:00 12/18/19 18:59 11/22/19 11:32 Albuterol/ Ipratropium (Albuterol/ Ipratropium) 3 ml Q6HRT [facility] 11/21/19 13:00 11/23/19 18:59 11/22/19 11:32 Chlorhexidine Gluconate ([place]-Hex 2%) 1 applic DAILY@2000 TOPIC 11/21/19 20:00 12/12/19 19:59 11/21/19 20:57 Dextrose 1,000 ml @ 100 mls/hr Q10H PRN IV TPN interrupted or not availab 11/21/19 10:15 12/16/19 00:14 Dextrose (Dextrose 50%) 25 ml Q30M PRN IV Hypoglycemia 11/21/19 10:30 12/13/19 09:29 Dextrose (Dextrose 50%) 50 ml Q30M PRN IV Hypoglycemia 11/21/19 10:30 12/20/19 19:29 Fat Emulsion Intravenous 192 ml/Amino Acids/ Electrolytes/ Dextrose 2,192 ml @ 121 mls/hr Q24H IV 11/21/19 20:00 11/22/19 19:59 11/21/19 20:57 Fat Emulsion Intravenous 192 ml/Amino Acids/ Electrolytes/ Dextrose 2,192 ml @ 121 mls/hr Q24H IV 11/22/19 20:00 12/22/19 19:59 Hydromorphone HCl 30 ml @ 0 mls/hr Q24H PRN IV For Pain 11/21/19 11:08 11/23/19 08:59 11/21/19 16:30 Hydromorphone HCl (Dilaudid) 1 mg Q4H PRN SUBQ Severe Breakthru Pain (>7) 11/21/19 13:30 11/28/19 09:29 Insulin Aspart (NovoLOG) EVERY 6 HOURS SUBQ 11/21/19 12:00 12/16/19 20:59 11/22/19 12:41 Insulin Human NPH (Humulin N) 8 units QHS SUBQ 11/21/19 21:00 12/21/19 20:59 11/21/19 21:27 Lorazepam (Ativan) 1 mg HSPRN PRN SL Sleep 11/22/19 08:00 11/28/19 07:59 Lorazepam (Ativan) 1 mg Q4H PRN SL Muscle Spasm 11/21/19 13:30 11/28/19 09:29 Metoprolol Succinate (Toprol XL) 50 mg BEDTIME ORAL 11/21/19 21:00 12/15/19 20:59 11/21/19 21:31 Miscellaneous Medication (AUTOMATION MECHANIC Rate Change) 1 ea DAILYPRN PRN MISC rate change 11/22/19 08:00 11/23/19 07:59 Miscellaneous Medication (AUTOMATION MECHANIC shift volume) 1 ea Q12HR@0700,1900 MISC 11/21/19 19:00 11/23/19 18:59 11/22/19 07:00 Naloxone HCl (Narcan) 0.1 mg Q1M PRN IVP RR<10/min OR SBP<90 mmHg 11/21/19 10:16 12/20/19 19:29 Nitroglycerin (Ntg) 1 patch Q24H TDERMAL 11/21/19 16:00 12/18/19 15:59 11/21/19 17:02 Ondansetron HCl (Zofran) 4 mg Q4H PRN IVP Nausea & Vomiting 11/21/19 13:30 12/12/19 21:29 11/22/19 14:50 Phytonadione (Vitamin K) 10 mg ONCE A WEEK SUBQ 11/27/19 09:00 12/20/19 08:59 Potassium Chloride 40 meq/ Dextrose 1,020 ml @ 30 mls/hr Q24H IV 11/22/19 16:00 11/22/19 20:00 Potassium Chloride 40 meq/ Dextrose 1,020 ml @ 30 mls/hr Q24H IV 11/23/19 14:00 11/23/19 20:00 Spironolactone (Aldactone) 100 mg BID@1430,2000 ORAL 11/22/19 14:30 11/22/19 20:01 11/22/19 14:49 Dee Cole MD Nov 22, 2019 16:02
[2019-11-22] MEDS: Nitroglycerin Patch 0.2mg/hr TDERMAL SCH (16:21)
--- NOTE | 2019-11-22 19:50 | NUR ---
HAND-OFF: Report given to suellen Courtney, pt in stable condition. - During my shift pt complained of nausea. Zofran given as per MD orders. I&O's ileostomy: 200ml Urine: 1050ml intake: 711ml 25% for B,L,D.
--- NOTE | 2019-11-22 19:57 | Nephrology Progress Note ---
Assessment/Plan Problem List: (1) Malnutrition of moderate degree (2) Diabetes (3) Hypopotassemia (4) Hypophosphatemia (5) Metabolic acidosis (6) Dehydration (7) ARIK (acute kidney injury) (8) Ulcerative colitis (9) Malfunction of tovar continent ileostomy (10) CHF (congestive heart failure) Plan tpn reviewed and iv stopped serial lab, lasix for chf,had good diuresis and stopped, close monitoring, creatinine trending lower tpn to cycle over 18hr/day , mobilize, gradual neg fluid balance, low K given aldactone, clears starting, increased Mg in tpn Subjective Constitutional: Reports: weakness HEENT: Reports: no symptoms Genitourinary: Reports: no symptoms Neurologic/Psychiatric: Reports: no symptoms Subjective no dyspnea Objective Objective Last 24 Hour Vital Signs Date Time Temp Pulse Resp B/P (MAP) Pulse Ox O2 Delivery O2 Flow Rate FiO2 11/22/19 19:10 98 20 100 Nasal Cannula 2.0 28 100 18 94 11/22/19 19:10 100 Nasal Cannula 3.0 32 11/22/19 16:21 105/69 11/22/19 16:00 98.3 104 18 98/60 (73) 97 11/22/19 16:00 110 18 97 11/22/19 12:00 98.3 110 20 105/69 (81) 97 11/22/19 12:00 104 18 90 11/22/19 11:40 92 20 100 Nasal Cannula 2.0 28 91 20 98 11/22/19 09:00 Nasal Cannula 2.0 11/22/19 08:00 98.2 98 20 93/56 (68) 90 11/22/19 08:00 98 20 90 11/22/19 07:05 100 Nasal Cannula 3.0 32 11/22/19 04:00 98.2 100 25 92/56 (68) 96 11/22/19 04:00 100 25 96 11/22/19 01:39 96 22 100 Nasal Cannula 2.0 28 94 22 98 11/22/19 00:45 99.8 11/22/19 00:45 99.8 11/22/19 00:00 100 23 93 11/21/19 23:45 100.5 102 23 101/58 (72) 93 11/21/19 21:31 120 110/65 11/21/19 21:00 Nasal Cannula 2.0 11/21/19 20:00 120 24 92 11/21/19 20:00 99.8 120 24 110/65 (80) 92 Intake and Output 11/21/19 11/22/19 19:00 07:00 Intake Total 1289.73 ml 316 ml Output Total 915 ml 1285 ml Balance 374.73 ml -969 ml Intake Oral 590 ml 150 ml IV Total 699.73 ml 166 ml Output Urine Total 690 ml 1140 ml Other 225 ml 145 ml Laboratory Tests 11/22/19 05:05: White Blood Count 6.6, Red Blood Count 3.65L, Hemoglobin 9.2L, Hematocrit 28.6L , Mean Corpuscular Volume 78L, Mean Corpuscular Hemoglobin 25.1L, Mean Corpuscular Hemoglobin Concent 32.0, Red Cell Distribution Width 18.8H, Platelet Count 88L, Mean Platelet Volume 11.4H, Neutrophils (%) (Auto) , Lymphocytes (%) (Auto) , Monocytes (%) (Auto) , Eosinophils (%) (Auto) , Basophils (%) (Auto) , Sodium Level 141, Potassium Level 3.2L, Chloride Level 104, Carbon Dioxide Level 25, Anion Gap 12, Blood Urea Nitrogen 68H, Creatinine 2.3H, Estimat Glomerular Filtration Rate 22.0, Glucose Level 137H, Calcium Level 7.3L, Phosphorus Level 5.3H, Magnesium Level 1.6L, Total Bilirubin 0.7, Aspartate Amino Transf (AST/SGOT) 36, Alanine Aminotransferase (ALT/SGPT) 21, Alkaline Phosphatase 59, Total Protein 6.0L, Albumin 1.7L, Globulin 4.3, Albumin /Globulin Ratio 0.4L Height (Feet): 5 Height (Inches): 1.00 Weight (Pounds): 85 General Appearance: no apparent distress, alert EENT: normal ENT inspection Neck: normal alignment Cardiovascular: normal rate, regular rhythm Respiratory/Chest: lungs clear Abdomen: soft Extremities: no edema Neurologic: medical sales consultant II-XII grossly normal Andrae Munguia MD Nov 22, 2019 19:57
[2019-11-22 20:00] VITALS: BP 94/62
[2019-11-22] MEDS ORDERED: FAT EMULSION 20% IV SCH (20:00)
[2019-11-22] MEDS ORDERED: TPN IV SCH (20:00)
[2019-11-22] MEDS: Dyna-Hex 2% Top Sol 2oz TOPIC SCH (20:10)
[2019-11-22] MEDS: Metoprolol Succinate XL 50mg tab ORAL SCH (21:00)
--- NOTE | 2019-11-22 22:15 | Consultation ---
DATE OF CONSULTATION: 11/22/2019 INFECTIOUS DISEASE CONSULTATION CONSULTING PHYSICIAN: Dee Cole M.D. ATTENDING PHYSICIAN: Imtiaz Mcconnell M.D. REFERRING PHYSICIAN: Imtiaz Mcconnell M.D. REASON FOR CONSULTATION: Fevers, elevated white count, rule out sepsis. CHIEF COMPLAINT: The patient's chief complaint coming in to the hospital is malfunction of Mullen continent ileostomy. HISTORY OF PRESENT ILLNESS: This is a 54-year-old female, who comes in to [facility] and the patient had a malfunctioning Mullen continent ileostomy. On November 15, 2019, the patient had resection of the malfunctioning or failed Mullen continent ileostomy and creation of Ana ileostomy. The patient postoperatively went to the ICU, was intubated, but now is extubated, and has been transferred to the third floor. The patient was noted to have postoperative fevers and elevated white count. There is a concern that the patient could have infection or sepsis. The patient's fevers have improved. She had a T-max temperature of 100.5 yesterday and previous to that, she had temperatures on December 06, 2019 of 101.5. However, recent blood and urine cultures were negative and chest x-ray showed improved process including improved infiltrates or edema. Infectious Disease consultation was requested for further management of this patient with fevers and elevated white count. Case was discussed with Dr. Mcconnell, the patient, and the patient's . MAR was noted. Orders were noted. Notes and records were reviewed. REVIEW OF SYSTEMS: The patient has generalized fatigue. No focal weakness. No significant shortness of breath.HEAD AND NECK: No head pain or neck pain. CARDIAC: No chest pain. GASTROINTESTINAL: Mild abdominal discomfort. No nausea or vomiting. GENITOURINARY: She has a Erazo. PULMONARY: No significant congestion or shortness of breath or mild secretions. She does have a cough. SKIN: No rash. EXTREMITIES: No pain. NEUROLOGIC: No seizures. Generalized fatigue. No focal weakness. Currently, no fever. She did have fevers earlier on November 21, 2019 and on November 19, 2019. PAST MEDICAL HISTORY: The patient's past medical history includes the following. The patient has a past medical history of Mullen continent ileostomy, failed ileostomy status post resection and she is status post Ana ileostomy. Other past medical history includes multiple abdominal surgeries and other past medical history includes history of hypertension. She has history of ulcerative colitis and chronic liver failure cell. She has other past medical history of hypertension, osteoarthritis, chronic renal failure, gastritis, ulcerative colitis requiring a Mullen continent ileostomy again status post resection with Ana ileostomy creation. MEDICATIONS: Upon reviewing the MAR, she is on the following medications. She is on potassium. She is on Aldactone, spironolactone, and lorazepam. She is on pain medications. She is on metoprolol. She is on nitroglycerin as needed, acetaminophen, hydromorphone, and lorazepam. She is on Zofran. She is on Mucomyst. Outside medications were noted and reconciliated. ALLERGIES: Include cefaclor, ofloxacin, sulfa, and Pentothal. She says she has tolerated Cipro in the past. SOCIAL HISTORY: Negative for smoking, alcohol, or drug abuse. FAMILY HISTORY: Noncontributory. PHYSICAL EXAMINATION: VITAL SIGNS: Temperature is 98.2 currently, pulse rate is 98, respiratory rate 20, blood pressure 93/56, and saturation 100% on 3 liters nasal cannula, now on 2 liters and she is saturating 100%. As discussed earlier, T-max on November 21, 2019 was 100.5 and T-max on November 19, 2019 was as high as 101.5. Also, her respiratory rate has been as high as 25 and pulse rate has been as high as 100. GENERAL: She is alert, responsive, and seems to be oriented. HEAD AND NECK: Oral exam, no thrush. Eye exam, no icterus. Normocephalic. Neck is supple. HEART: Regular. No gallop or murmur. ABDOMEN: Soft. Positive bowel sounds. Nontender. LUNGS: Clear bilaterally. No rhonchi or rales. SKIN: No rash or dermatitis. MUSCULOSKELETAL: No effusion. Legs are without cellulitis. PERIPHERAL VASCULAR: No cyanosis. GENITOURINARY: She has a Erazo. Urine is clear. LINE SITES: She has a PICC line. There is no cellulitis. NEUROLOGIC: Intact and nonfocal. Alert and oriented x3. LABORATORY DATA: White count 6.6 and hemoglobin 9.2. White count several days ago was 11.3 and white count has been as high as 33.6. I think this is right after the operation, day after that was 14 and 21.1. Creatinine is 2.3. LFTs noted. On November 16, 2019 it looks like the UA had 0 to 2 white cells. CULTURES: On November 18, 2019, blood and urine cultures were negative. Chest x-ray shows improved effusions and interstitial airspace disease, infiltrates versus edema on November 20, 2019. ASSESSMENT AND PLAN: 1. The patient is status post laparotomy with resection of failed Mullen continent ileostomy and creation of Ana ileostomy. The patient has been having postoperative fevers, leukocytosis, and SIRS. No obvious source of infection or sepsis at this time. Very recent blood and urine cultures from November 18, 2019 were negative. UA was benign and chest x-ray from November 20, 2019 showed improved infiltrates. She still does have a cough She also has a PICC line, but blood cultures were negative. At this time, I would favor observation/with multiple antibiotic allergies and we will try to avoid nephrotoxic medications such as status. We will continue to observe the patient's laboratories including white cell count because of history of leukocytosis and also monitor temperatures because of recent fevers. Again, continue to observe and monitor for any evidence of sepsis or infection and then consider starting antibiotics. We will check chest x-ray because of persistent cough. 2. 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 3. Chronic kidney failure with elevated creatinine. 4. Hypertension. 5. Blood pressure treatment per primary care team. 6. History of ulcerative colitis. 7. History of multiple abdominal surgeries. 8. History of gastritis. 9. Anemia. Continue treatment per primary care consultants. 10. Allergies to cefaclor, ofloxacin, sulfa, and sodium Pentothal. 11. Social history is negative. 12. Family history is noncontributory. 13. MAR is noted. 14. Case was discussed with RN. 15. Case was discussed with Dr. Mcconnell. 16. Case was discussed with the patient and the patient's . Dee Cole M.D. DR: SIXTO JOB#: [id number] CC:
--- NOTE | 2019-11-22 23:01 | Consultation ---
DATE OF CONSULTATION: 11/22/2019 NOTE: CANCELED DICTATION INFECTIOUS DISEASE CONSULTATION Dee Cole M.D. DR: NEVAEH JOB#: [id number] CC:
[2019-11-22] MEDS ORDERED: Spironolactone 50mg tab ORAL SCH (23:30)
[2019-11-23] VITALS: BP 102/64
--- NOTE | 2019-11-23 | NUR ---
NURSE NOTES: Pt is awake, AOX4 and verbaly able to needs known. surgical dressing dry and intact. PICC line in the left upper arm running TPN @121ml/hr, TAKER DOWN Dilaudid. Conventional [place] ileostomy in place. Erazo cath in place draining to gravity. Call light within reach, bed in lowest position. Will continue to monitor the pt
[2019-11-23] MEDS: NovoLOG Insulin Flexpen SUBQ SCH ×4 (00:08→17:34)
[2019-11-23] MEDS: Acetylcysteine 20% Soln 4ml HHN SCH ×4 (01:00→19:00)
[2019-11-23] MEDS: Albuterol/Ipratropium 3ml neb HHN SCH ×3 (01:00→13:00)
[2019-11-23 04:00] VITALS: BP 104/62
[2019-11-23 06:43] LABS: BASOPHILS % (AUTO) 0.5 % (0.0-2.0); EOSINOPHILS % (AUTO) 1.6 % (0.0-3.0); HEMATOCRIT 30.1 % (37.0-47.0); HEMOGLOBIN 9.7 G/DL (12.0-16.0); LYMPHOCYTES % (AUTO) 11.7 % (20.0-45.0); MEAN CORPUSCULAR VOLUME 79 FL (80-99); MONOCYTES % (AUTO) 7.8 % (1.0-10.0); NEUTROPHILS % (AUTO) 78.3 % (45.0-75.0); PLATELET COUNT 112 K/UL (150-450); RED BLOOD COUNT 3.81 M/UL (4.20-5.40); RED CELL DISTRIBUTION WIDTH 19.5 % (11.6-14.8); WHITE BLOOD COUNT 9.5 K/UL (4.8-10.8)
[2019-11-23 07:15] LABS: ALANINE AMINOTRANSFERASE 22 U/L (12-78); ALBUMIN 1.8 G/DL (3.4-5.0); ALBUMIN/GLOBULIN RATIO 0.4 (1.0-2.7); ALKALINE PHOSPHATASE 72 U/L (46-116); ANION GAP 12 mmol/L (5-15); ASPARTATE AMINO TRANSFERASE 39 U/L (15-37); BILIRUBIN,TOTAL 0.6 MG/DL (0.2-1.0); BLOOD UREA NITROGEN 64 mg/dL (7-18); CALCIUM 7.8 MG/DL (8.5-10.1); CARBON DIOXIDE 23 MMOL/L (21-32); CHLORIDE 105 MMOL/L (98-107); PHOSPHORUS 4.8 MG/DL (2.5-4.9); POTASSIUM 3.9 MMOL/L (3.5-5.1); SODIUM 140 MMOL/L (136-145)
--- NOTE | 2019-11-23 07:26 | NUR ---
HAND-OFF: Report given to CHUCK Roper.
[2019-11-23] MEDS: PCA shift volume MISC SCH ×2 (07:29→19:07)
--- NOTE | 2019-11-23 07:41 | NUR ---
NURSE NOTES: Received report from Rogelio RN, pt a/a/o x4 lying in bed with no signs of distress or other issues at this time. Surgical dressing c/d/i. conventional Ana ileostomy draining well, night filler out put: 190ml, Erazo cath in place, draining well total night filler out put: 1100ml. PICC line in place running SCIENTIFIC PROCESS OPERATOR Dilaudid and IVF. at bedside, call light within reach, bed in lowest position, side rales up x2. I will f/u as needed.
[2019-11-23 08:00] VITALS: BP 109/67
--- NOTE | 2019-11-23 08:51 | Nephrology Progress Note ---
Assessment/Plan Problem List: (1) Malnutrition of moderate degree (2) Diabetes (3) Hypopotassemia (4) Hypophosphatemia (5) Metabolic acidosis (6) Dehydration (7) ARIK (acute kidney injury) (8) Ulcerative colitis (9) Malfunction of tovar continent ileostomy (10) CHF (congestive heart failure) Plan tpn reviewed serial lab, lasix for chf,had good diuresis and stopped, close monitoring, creatinine trending lower tpn to cycle over 18hr/day, mobilize, gradual neg fluid balance, low K corrected , clears starting, increased Mg in tpn , ileus d/w dr plaza, pleural effusions from low albumin likely will slowly resolve Subjective Constitutional: Reports: weakness HEENT: Reports: no symptoms Neurologic/Psychiatric: Reports: no symptoms Subjective no dyspnea, mod nausea Objective Objective Last 24 Hour Vital Signs Date Time Temp Pulse Resp B/P (MAP) Pulse Ox O2 Delivery O2 Flow Rate FiO2 11/23/19 08:06 100 Nasal Cannula 3.0 32 11/23/19 04:00 108 18 96 11/23/19 04:00 98.4 108 18 104/62 (76) 96 11/23/19 00:00 110 18 97 11/23/19 00:00 98.1 110 18 102/64 (77) 97 11/22/19 21:00 120 100/64 11/22/19 21:00 120 100/64 11/22/19 21:00 Nasal Cannula 2.0 11/22/19 20:00 120 18 96 11/22/19 20:00 98.2 120 18 94/62 (73) 97 11/22/19 19:10 98 20 100 Nasal Cannula 2.0 28 100 18 94 11/22/19 19:10 100 Nasal Cannula 3.0 32 11/22/19 16:21 105/69 11/22/19 16:00 98.3 104 18 98/60 (73) 97 11/22/19 16:00 110 18 97 11/22/19 12:00 98.3 110 20 105/69 (81) 97 11/22/19 12:00 104 18 90 11/22/19 11:40 92 20 100 Nasal Cannula 2.0 28 91 20 98 11/22/19 09:00 Nasal Cannula 2.0 Intake and Output 11/22/19 11/23/19 19:00 07:00 Intake Total 1410 ml Output Total 1100 ml Balance 310 ml Intake Oral 200 ml IV Total 1210 ml Output Urine Total 1100 ml Laboratory Tests 11/23/19 05:00: White Blood Count 9.5, Red Blood Count 3.81L, Hemoglobin 9.7L, Hematocrit 30.1L , Mean Corpuscular Volume 79L, Mean Corpuscular Hemoglobin 25.5L, Mean Corpuscular Hemoglobin Concent 32.4, Red Cell Distribution Width 19.5H, Platelet Count 112L, Mean Platelet Volume 10.1, Neutrophils (%) (Auto) 78.3H, Lymphocytes (%) (Auto) 11.7L, Monocytes (%) (Auto) 7.8, Eosinophils (%) (Auto) 1.6, Basophils (%) (Auto) 0.5, Sodium Level 140, Potassium Level 3.9, Chloride Level 105, Carbon Dioxide Level 23, Anion Gap 12, Blood Urea Nitrogen 64H, Creatinine 2.0H, Estimat Glomerular Filtration Rate 25.9, Glucose Level 148H, Calcium Level 7.8L, Phosphorus Level 4.8, Magnesium Level 1.9, Total Bilirubin 0.6, Aspartate Amino Transf (AST/SGOT) 39H, Alanine Aminotransferase (ALT/SGPT) 22, Alkaline Phosphatase 72, Total Protein 6.3L, Albumin 1.8L, Globulin 4.5, Albumin/Globulin Ratio 0.4L Height (Feet): 5 Height (Inches): 1.00 Weight (Pounds): 85 General Appearance: no apparent distress, alert EENT: normal ENT inspection Neck: normal alignment Cardiovascular: normal rate, regular rhythm, tachycardia Respiratory/Chest: lungs clear, decreased breath sounds Abdomen: soft, other - some gas and liquid stool in bag Extremities: no edema Neurologic: mangle catcher II-XII grossly normal, no motor/sensory deficits Andrae Munguia MD Nov 23, 2019 08:51
--- NOTE | 2019-11-23 09:07 | General Progress Note ---
Progress Note Progress Note Afebrile VSS with tachycardia. Per Nephrology getting cycled TPN 121cc / hour 18 out of 24 hours Now having increased nausea and some emesis Abdomen distended, incisions clean Urine 0 Ileostomy 390 + flatus KUB - dilated small bowel loope Imp: Ileus likely due to surgery plus extremely low albumin Plan: npo TPN and IV fluids per Dr. Munguia mobilize Imtiaz Mcconnell MD Nov 23, 2019 09:07
[2019-11-23] MEDS: Spironolactone 50mg tab ORAL SCH ×2 (09:17→20:30)
--- NOTE | 2019-11-23 10:09 | NUR ---
RADIOLOGY DEPT., CHEST X-RAY DONE.-P.DYE
--- NOTE | 2019-11-23 10:18 | Diagnostic Imaging Report ---
Indication: Shortness of breath Technique: One view of the chest Comparison: 11/20/2019 Findings: Left-sided pleural fluid appears improved. Left sided hazy perihilar and basilar opacity appears improved. Infiltrates on the right appear unchanged. Generalized interstitial disease appears unchanged. Left arm PICC is again demonstrated. Impression: Somewhat improved left-sided pleural effusion and perihilar and basilar opacity. Otherwise stable findings as described
[2019-11-23] MEDS ORDERED: PCA HYDROmorphone 1mg/ml 30 ML IV PRN (11:00)
[2019-11-23 12:00] VITALS: BP 105/71
[2019-11-23] MEDS: Nystatin Susp 500,000 units/5ml ORAL SCH ×2 (12:28→17:10)
[2019-11-23] MEDS: TransDerm Scop 1.5mg/72HR Patch TDERMAL SCH (12:29)
--- NOTE | 2019-11-23 13:15 | NUR ---
RD ASSESSMENT & RECOMMENDATIONS SEE CARE ACTIVITY FOR COMPLETE ASSESSMENT DAILY ESTIMATED NEEDS: Needs based on Underweight, pending surgery, CKD/ 44kg 30-35 kcals/kg 3363-1941 total kcals 1-2 g protein/kg 44-88 g total protein 30-35 mL/kg 2006-0390 total fluid mLs NUTRITION DIAGNOSIS: * Altered GI function R/T h/o UC, BCIR as evidenced by admitted w/ malfunctioning BICR w/ incontinence and stoma bleeding, s/p BCIR takedown w/ creation of conventional Ana ileo, intubated now s/p extubation, on TPN, started on clears. CURRENT TPN PER MD ORDERS: Providing est 127% in excess of kcal, 119% in excess est pro needs GIR>5 PO DIET RECOMMENDATIONS: Diet per MD, now on clears PARENTERAL NUTRITION RECOMMENDATIONS: D/AA Rate: 55 IL Rate: 8 Total Rate: 63 Volume: 1512 % Dextrose: 17 % AA: 5.3 Energy (kcals/kg): 1427 Protein (g/kg protein): 70 Nonprotein KCALS: 1147 GIR (mg CHO/kg/min): 3.5 % Fat KCALS: 27 NCP: N Ratio: 102:1 TPN Comment: * D17% AA 5.3% @ 55ml/hr + IL20% @ 8ml/hr -> total of 63ml/hr, all 3:1 * Will provide 100% est kcal/prot needs -> 32kcal/1.6g prot per kg actual body wt -- ADDITIONAL RECOMMENDATIONS: * Standing wt for accurate CBW, weekly wt monitoring * Monitor LFTs and T bili closely w/ TPN, AST now up * TPN recs as above * Monitor BGs and lytes w/ TPN -> improved BG; lytes wnl
--- NOTE | 2019-11-23 14:17 | Pulmonology Progress Note ---
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 NPO now. Labs improved. No fevers Allergies: Coded Allergies: CEFACLOR (Verified Allergy, Unknown, 11/12/19) OFLOXACIN (Verified Allergy, Unknown, 11/12/19) SULFA (SULFONAMIDE ANTIBIOTICS) (Verified Allergy, Unknown, 11/12/19) Uncoded Allergies: sodium pentothal (Allergy, Unknown, 11/12/19) Objective Last 24 Hour Vital Signs Date Time Temp Pulse Resp B/P (MAP) Pulse Ox O2 Delivery O2 Flow Rate FiO2 11/23/19 12:00 97.8 100 18 105/71 (82) 90 11/23/19 12:00 100 18 90 11/23/19 09:00 Nasal Cannula 2.0 11/23/19 08:06 100 Nasal Cannula 3.0 32 11/23/19 08:00 98.2 94 18 109/67 (81) 90 11/23/19 08:00 94 18 90 11/23/19 04:00 108 18 96 11/23/19 04:00 98.4 108 18 104/62 (76) 96 11/23/19 00:00 110 18 97 11/23/19 00:00 98.1 110 18 102/64 (77) 97 11/22/19 21:00 120 100/64 11/22/19 21:00 120 100/64 11/22/19 21:00 Nasal Cannula 2.0 11/22/19 20:00 120 18 96 11/22/19 20:00 98.2 120 18 94/62 (73) 97 11/22/19 19:10 98 20 100 Nasal Cannula 2.0 28 100 18 94 11/22/19 19:10 100 Nasal Cannula 3.0 32 11/22/19 16:21 105/69 11/22/19 16:00 98.3 104 18 98/60 (73) 97 11/22/19 16:00 110 18 97 Intake and Output 11/22/19 11/23/19 19:00 07:00 Intake Total 1410 ml Output Total 1100 ml Balance 310 ml Intake Oral 200 ml IV Total 1210 ml Output Urine Total 1100 ml General Appearance: no acute distress HEENT: mucous membranes moist Respiratory/Chest: lungs clear Cardiovascular: normal rate Abdomen: non distended Extremities: no edema Neurologic/Psychiatric: alert Laboratory Tests 11/23/19 05:00: White Blood Count 9.5, Red Blood Count 3.81L, Hemoglobin 9.7L, Hematocrit 30.1L , Mean Corpuscular Volume 79L, Mean Corpuscular Hemoglobin 25.5L, Mean Corpuscular Hemoglobin Concent 32.4, Red Cell Distribution Width 19.5H, Platelet Count 112L, Mean Platelet Volume 10.1, Neutrophils (%) (Auto) 78.3H, Lymphocytes (%) (Auto) 11.7L, Monocytes (%) (Auto) 7.8, Eosinophils (%) (Auto) 1.6, Basophils (%) (Auto) 0.5, Sodium Level 140, Potassium Level 3.9, Chloride Level 105, Carbon Dioxide Level 23, Anion Gap 12, Blood Urea Nitrogen 64H, Creatinine 2.0H, Estimat Glomerular Filtration Rate 25.9, Glucose Level 148H, Calcium Level 7.8L, Phosphorus Level 4.8, Magnesium Level 1.9, Total Bilirubin 0.6, Aspartate Amino Transf (AST/SGOT) 39H, Alanine Aminotransferase (ALT/SGPT) 22, Alkaline Phosphatase 72, Total Protein 6.3L, Albumin 1.8L, Globulin 4.5, Albumin/Globulin Ratio 0.4L Current Medications Medications (Trade) Dose Ordered Sig/Jose Rafael Route PRN Reason Start Time Stop Time Status Last Admin Dose Admin Acetaminophen (Tylenol) 650 mg Q4H PRN ORAL Mild Pain/Temp > 100.2 11/21/19 13:30 12/15/19 21:29 11/21/19 23:47 Acetylcysteine (Mucomyst) 200 mg Q6HRT HHN 11/21/19 13:00 12/18/19 18:59 11/22/19 19:07 Albuterol/ Ipratropium (Albuterol/ Ipratropium) 3 ml Q6HRT HHN 11/21/19 13:00 11/23/19 18:59 11/22/19 19:07 Chlorhexidine Gluconate ([place]-Hex 2%) 1 applic DAILY@2000 TOPIC 11/21/19 20:00 12/12/19 19:59 11/22/19 20:10 Dextrose 1,000 ml @ 100 mls/hr Q10H PRN IV TPN interrupted or not availab 11/21/19 10:15 12/16/19 00:14 Dextrose (Dextrose 50%) 25 ml Q30M PRN IV Hypoglycemia 11/21/19 10:30 12/13/19 09:29 Dextrose (Dextrose 50%) 50 ml Q30M PRN IV Hypoglycemia 11/21/19 10:30 12/20/19 19:29 Fat Emulsion Intravenous 192 ml/Amino Acids/ Electrolytes/ Dextrose 2,192 ml @ 121 mls/hr Q24H IV 11/22/19 20:00 11/23/19 19:59 11/22/19 20:19 Fat Emulsion Intravenous 250 ml/Amino Acids/ Electrolytes/ Dextrose 1,750 ml @ 97.2 mls/hr Q24H IV 11/23/19 20:00 12/23/19 19:59 Hydromorphone HCl 30 ml @ 0 mls/hr Q24H PRN IV For Pain 11/23/19 11:00 11/25/19 10:59 Hydromorphone HCl (Dilaudid) 1 mg Q4H PRN SUBQ Severe Breakthru Pain (>7) 11/21/19 13:30 11/28/19 09:29 Insulin Aspart (NovoLOG) EVERY 6 HOURS SUBQ 11/21/19 12:00 12/16/19 20:59 11/23/19 12:29 Iron Sucrose 100 mg/Sodium Chloride 60 ml @ 240 mls/hr BEDTIME IV 11/23/19 21:00 11/27/19 21:14 Lorazepam (Ativan) 1 mg HSPRN PRN SL Sleep 11/22/19 08:00 11/28/19 07:59 Lorazepam (Ativan) 1 mg Q4H PRN SL Muscle Spasm 11/21/19 13:30 11/28/19 09:29 Metoprolol Succinate (Toprol XL) 50 mg BEDTIME ORAL 11/21/19 21:00 12/15/19 20:59 11/22/19 21:00 Miscellaneous Medication (FOREST PRODUCTS TEACHER shift volume) 1 ea Q12HR@0700,1900 MISC 11/23/19 19:00 11/25/19 18:59 Naloxone HCl (Narcan) 0.1 mg Q1M PRN IVP RR<10/min OR SBP<90 mmHg 11/21/19 10:16 12/20/19 19:29 Nitroglycerin (Ntg) 1 patch Q24H TDERMAL 11/21/19 16:00 12/18/19 15:59 11/22/19 16:21 Nystatin (Nystatin) 5 ml TID ORAL 11/23/19 13:00 11/30/19 12:59 11/23/19 12:28 Ondansetron HCl (Zofran) 4 mg Q4H PRN IVP Nausea & Vomiting 11/21/19 13:30 12/12/19 21:29 11/23/19 09:17 Phytonadione (Vitamin K) 10 mg ONCE A WEEK SUBQ 11/27/19 09:00 12/20/19 08:59 Potassium Chloride 40 meq/ Dextrose 1,020 ml @ 30 mls/hr Q24H IV 11/23/19 14:00 11/23/19 20:00 Scopolamine (TransDerm Scop 1.5mg/72HR Patch) 1.5 mg Q72H TDERMAL 11/23/19 13:00 12/23/19 12:59 11/23/19 12:29 Spironolactone (Aldactone) 50 mg EVERY 12 HOURS ORAL 11/23/19 09:00 12/23/19 08:59 11/23/19 09:17 Lyndon Elias MD Nov 23, 2019 14:17
--- NOTE | 2019-11-23 15:02 | NUR ---
CASE MANAGEMENT: REVIEW 11/23/2019 SI: POD# 6 RESECTION NELSON CONTINENT ILEOSTOMY AND CREATION OF QUINN ILEOSTOMY MALFUNCTION OF NELSON ILEOSTOMY AND BLEEDING FROM STOMA 97.8 100 18 105/71 90% ON 2L NC H/H 9.7/30.1 PLT 112 BUN 64 CREAT 2.0 BG 148 CA+ 7.8 IS: TPN Q24HR ALDACTONE PO BID NTG TD Q24HR IV ZOFRAN Q4HR/PRN NOVOLOG SQ Q6HR NATY-HEX TP QD \: 3E MED SURG UNIT PLAN: NPO CONT TPN AND IVF AMBULATE PATIENT
[2019-11-23 16:00] VITALS: BP 105/69
[2019-11-23] MEDS: Nitroglycerin Patch 0.2mg/hr TDERMAL SCH (17:10)
--- NOTE | 2019-11-23 17:20 | NUR ---
NURSE NOTES:EDUCATION ON CARE OF OSTOMY. Pt's ileostomy pouch draining well. Ileostomy bag changed today. Pt expressed.Pt wearing two piece system but expressed desire to try One-piece to to see which system would be better option for her. Pt. educated on proper skin cleansing around stoma . Instructed to use tepid water and mild soap and to avoid using hot water, perfumed base soaps, or wipes. Instructed on application of Skin barrier wipes around stoma. Application of Reji's ring around stoma, measuring size of stoma and using measuring guide to customize fit of pouch. Pt and spouse encouraged to voice any concerns, and all concerns were addressed. Pt expressed feeling nervous and overwhelmed. Emotional support provided and reassured with continue education and pt's participation process would become easier. Pt agreed and stated with support of spouse's support would adjust. Will continue to educate and encourage participation in ostomy care.
--- NOTE | 2019-11-23 19:39 | NUR ---
HAND-OFF: Report given to Nissa WOODS, pt in stable condition. - during my shift pt was able to walk in the room with physical therapy x1. - During my shift Ana ileostomy bag was changed by Yumiko speech and language specialist, she also thought patient and how to care for Ana ileostomy. Reinforced teaching is needed. - During my shift pt REFUSED HHN TX. I&O's Ileostomy: 225ml Erazo cath: 1950ml Blood sugar: 145, 91. intake: NPO.
--- NOTE | 2019-11-23 19:41 | NUR ---
NURSE NOTES: Received report from CHUCK Roper. Rounding done with outgoing nurse. patient is awake, a/o x4, verbally responsive and able to know her needs. Breathing is even and unlabored by NC 2L/min. Surgical dressing on abdomen is C/D/I. PICC line on AME is intact. Checked RISK ENGINEER Dilaudid. [place] ileostomy in place. Erazo cath in place draining to gravity. Bed is on alarm, locked, and lowest position. Call light within reach. Will continue to monitor.
[2019-11-23 20:00] VITALS: BP 106/65
[2019-11-23] MEDS: Dyna-Hex 2% Top Sol 2oz TOPIC SCH (20:27)
[2019-11-23] MEDS: Iron Sucrose 100 MG in NS 55 ML IV SCH (20:27)
[2019-11-23] MEDS: FAT EMULSION 20% IV SCH (20:29)
[2019-11-23] MEDS: TPN IV SCH (20:29)
[2019-11-23] MEDS: Metoprolol Succinate XL 50mg tab ORAL SCH (20:31)
--- NOTE | 2019-11-23 20:59 | NUR ---
NURSE NOTES: Patient had vomiting 250ml with light greenish color at 2053. Given Zofran 4mg at 2058, prn.
--- NOTE | 2019-11-23 21:15 | NUR ---
NURSE NOTES: Patient vital sign is stable. Patient stated vomiting and nausea is relieved at this time. Will continue to monitor.
[2019-11-24] VITALS: BP 119/68
[2019-11-24] MEDS: NovoLOG Insulin Flexpen SUBQ SCH ×4 (00:43→18:00)
[2019-11-24] MEDS: Acetylcysteine 20% Soln 4ml HHN SCH ×4 (00:54→19:52)
[2019-11-24 04:00] VITALS: BP 137/82
--- NOTE | 2019-11-24 05:46 | NUR ---
NURSE NOTES: leaked the joão ileostomy bag. Dressing changed.
[2019-11-24 06:38] LABS: BASOPHILS % (AUTO) 0.4 % (0.0-2.0); EOSINOPHILS % (AUTO) 1.3 % (0.0-3.0); HEMATOCRIT 29.9 % (37.0-47.0); HEMOGLOBIN 9.8 G/DL (12.0-16.0); LYMPHOCYTES % (AUTO) 9.5 % (20.0-45.0); MEAN CORPUSCULAR VOLUME 78 FL (80-99); MONOCYTES % (AUTO) 6.5 % (1.0-10.0); NEUTROPHILS % (AUTO) 82.3 % (45.0-75.0); PLATELET COUNT 179 K/UL (150-450); RED BLOOD COUNT 3.85 M/UL (4.20-5.40); RED CELL DISTRIBUTION WIDTH 18.8 % (11.6-14.8); WHITE BLOOD COUNT 9.4 K/UL (4.8-10.8)
[2019-11-24 07:11] LABS: ALANINE AMINOTRANSFERASE 30 U/L (12-78); ALBUMIN/GLOBULIN RATIO 0.4 (1.0-2.7); ALKALINE PHOSPHATASE 101 U/L (46-116); ANION GAP 12 mmol/L (5-15); ASPARTATE AMINO TRANSFERASE 52 U/L (15-37); BILIRUBIN,TOTAL 0.7 MG/DL (0.2-1.0); BLOOD UREA NITROGEN 61 mg/dL (7-18); CALCIUM 8.3 MG/DL (8.5-10.1); CARBON DIOXIDE 24 MMOL/L (21-32); CHLORIDE 106 MMOL/L (98-107); CREATININE 2.1 MG/DL (0.55-1.30); POTASSIUM 4.7 MMOL/L (3.5-5.1); SODIUM 142 MMOL/L (136-145)
--- NOTE | 2019-11-24 07:47 | NUR ---
HAND-OFF: Report given to Vy WOODS. Patient in stable condition.
[2019-11-24] MEDS: PCA shift volume MISC SCH ×2 (07:49→19:10)
--- NOTE | 2019-11-24 07:50 | NUR ---
NURSE NOTES: Patient is in bed awake and able to verbalize needs. Stable. Denies pain at this time. Patient's breathing is even and unlabored. Ileo bag intact, liquid brown output noted. F/C intact and draining yellow urine. Patient instructed to use call light for assistance, verbalized understanding. PICC flushed and running AUTO OVERHAULER dilaudid as ordered and TPN. All needs met at this time. WIll continue to monitor.
[2019-11-24 08:00] VITALS: BP 140/85
[2019-11-24] MEDS: Nystatin Susp 500,000 units/5ml ORAL SCH ×3 (08:14→18:21)
[2019-11-24] MEDS: Spironolactone 50mg tab ORAL SCH ×2 (08:14→20:27)
--- NOTE | 2019-11-24 09:45 | General Progress Note ---
Progress Note Progress Note AVSS Able to ambulate in hallways with walker Had emesis last night Abdomen remains distended, soft, incisions clean, stoma edematous Urine 2275 Ileostomy output increased 725 emesis 250 WBC 9400 Hgb stable 9.8 Platelets up 179,000 BUN 61 Cr 2.1 (was 1.9 on admission) albumin up 2.0 Imp: Ileus Severe malnutrition (present on admission pre-op) Plan; continue npo, TPN Imtiaz Mcconnell MD Nov 24, 2019 09:45
--- NOTE | 2019-11-24 10:33 | Nephrology Progress Note ---
Assessment/Plan Problem List: (1) Malnutrition of moderate degree (2) Diabetes (3) Hypopotassemia (4) Hypophosphatemia (5) Metabolic acidosis (6) Dehydration (7) ARIK (acute kidney injury) (8) Ulcerative colitis (9) Malfunction of tovar continent ileostomy (10) CHF (congestive heart failure) Plan tpn reviewed serial lab, lasix for chf,had good diuresis and stopped, close monitoring, creatinine trending lower tpn to cycle over 18hr/day, mobilize, gradual neg fluid balance, low K corrected , clears starting, increased Mg in tpn , ileus d/w dr plaza, pleural effusions from low albumin likely will slowly resolve Subjective HEENT: Reports: no symptoms Genitourinary: Reports: no symptoms Neurologic/Psychiatric: Reports: no symptoms Subjective no dyspnea, less postop pain Objective Objective Last 24 Hour Vital Signs Date Time Temp Pulse Resp B/P (MAP) Pulse Ox O2 Delivery O2 Flow Rate FiO2 11/24/19 08:00 118 23 98 11/24/19 08:00 98.3 118 23 140/85 (103) 98 11/24/19 07:45 94 Nasal Cannula 3.0 32 11/24/19 07:45 106 18 96 Nasal Cannula 2.0 28 104 18 94 11/24/19 04:00 96 18 91 11/24/19 04:00 98.3 96 19 137/82 (100) 91 11/24/19 00:00 102 18 91 11/24/19 00:00 98.3 102 18 119/68 (85) 91 11/23/19 21:00 Nasal Cannula 2.0 11/23/19 20:31 107 106/65 11/23/19 20:00 107 18 92 11/23/19 20:00 98.7 107 18 106/65 (79) 92 11/23/19 19:53 100 Nasal Cannula 3.0 32 11/23/19 19:51 90 23 95 11/23/19 17:10 105/69 11/23/19 16:00 98.1 104 18 105/69 (81) 90 11/23/19 16:00 104 18 90 11/23/19 12:00 97.8 100 18 105/71 (82) 90 11/23/19 12:00 100 18 90 Intake and Output 11/23/19 11/24/19 18:59 06:59 Intake Total 1358 ml 1032.0 ml Output Total 2175 ml 1325 ml Balance -817 ml -293.0 ml Intake Oral 30 ml IV Total 1032.0 ml Other 1328 ml Output Urine Total 1950 ml 825 ml Other 225 ml 500 ml Laboratory Tests 11/24/19 05:45: White Blood Count 9.4, Red Blood Count 3.85L, Hemoglobin 9.8L, Hematocrit 29.9L , Mean Corpuscular Volume 78L, Mean Corpuscular Hemoglobin 25.5L, Mean Corpuscular Hemoglobin Concent 32.8, Red Cell Distribution Width 18.8H, Platelet Count 179#, Mean Platelet Volume 10.5H, Neutrophils (%) (Auto) 82.3H, Lymphocytes (%) (Auto) 9.5L, Monocytes (%) (Auto) 6.5, Eosinophils (%) (Auto) 1.3, Basophils (%) (Auto) 0.4, Sodium Level 142, Potassium Level 4.7, Chloride Level 106, Carbon Dioxide Level 24, Anion Gap 12, Blood Urea Nitrogen 61H, Creatinine 2.1H, Estimat Glomerular Filtration Rate 24.5, Glucose Level 125H, Calcium Level 8.3L, Total Bilirubin 0.7, Aspartate Amino Transf (AST/SGOT) 52H, Alanine Aminotransferase (ALT/SGPT) 30, Alkaline Phosphatase 101, Total Protein 7.0, Albumin 2.0L, Globulin 5.0, Albumin/Globulin Ratio 0.4L Height (Feet): 5 Height (Inches): 1.00 Weight (Pounds): 85 General Appearance: no apparent distress EENT: normal ENT inspection Neck: normal alignment Cardiovascular: normal rate, tachycardia Respiratory/Chest: lungs clear Abdomen: soft Extremities: no edema Neurologic: principal java software engineer II-XII grossly normal Andrae Munguia MD Nov 24, 2019 10:33
[2019-11-24] MEDS ORDERED: PCA HYDROmorphone 1mg/ml 30 ML IV PRN (11:00)
[2019-11-24 12:00] VITALS: BP 127/74
--- NOTE | 2019-11-24 13:19 | Pulmonology Progress Note ---
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 Breathing stable. passing gas Cardiovascular: Reports: no symptoms Gastrointestinal/Abdominal: Reports: nausea, vomiting Genitourinary: Reports: no symptoms Neurologic: Reports: no symptoms Musculoskeletal: Reports: no symptoms Allergies: Coded Allergies: CEFACLOR (Verified Allergy, Unknown, 11/12/19) OFLOXACIN (Verified Allergy, Unknown, 11/12/19) SULFA (SULFONAMIDE ANTIBIOTICS) (Verified Allergy, Unknown, 11/12/19) Uncoded Allergies: sodium pentothal (Allergy, Unknown, 11/12/19) Objective Last 24 Hour Vital Signs Date Time Temp Pulse Resp B/P (MAP) Pulse Ox O2 Delivery O2 Flow Rate FiO2 11/24/19 12:00 113 20 95 11/24/19 12:00 98.0 113 20 127/74 (91) 95 11/24/19 09:00 Nasal Cannula 2.0 11/24/19 08:00 118 23 98 11/24/19 08:00 98.3 118 23 140/85 (103) 98 11/24/19 07:45 94 Nasal Cannula 3.0 32 11/24/19 07:45 106 18 96 Nasal Cannula 2.0 28 104 18 94 11/24/19 04:00 96 18 91 11/24/19 04:00 98.3 96 19 137/82 (100) 91 11/24/19 00:00 102 18 91 11/24/19 00:00 98.3 102 18 119/68 (85) 91 11/23/19 21:00 Nasal Cannula 2.0 11/23/19 20:31 107 106/65 11/23/19 20:00 107 18 92 11/23/19 20:00 98.7 107 18 106/65 (79) 92 11/23/19 19:53 100 Nasal Cannula 3.0 32 11/23/19 19:51 90 23 95 11/23/19 17:10 105/69 11/23/19 16:00 98.1 104 18 105/69 (81) 90 11/23/19 16:00 104 18 90 Intake and Output 11/23/19 11/24/19 18:59 06:59 Intake Total 1358 ml 1032.0 ml Output Total 2175 ml 1325 ml Balance -817 ml -293.0 ml Intake Oral 30 ml IV Total 1032.0 ml Other 1328 ml Output Urine Total 1950 ml 825 ml Other 225 ml 500 ml General Appearance: no acute distress HEENT: mucous membranes moist Respiratory/Chest: lungs clear Cardiovascular: normal rate Abdomen: hyperactive bowel sounds Extremities: no edema Laboratory Tests 11/24/19 05:45: White Blood Count 9.4, Red Blood Count 3.85L, Hemoglobin 9.8L, Hematocrit 29.9L , Mean Corpuscular Volume 78L, Mean Corpuscular Hemoglobin 25.5L, Mean Corpuscular Hemoglobin Concent 32.8, Red Cell Distribution Width 18.8H, Platelet Count 179#, Mean Platelet Volume 10.5H, Neutrophils (%) (Auto) 82.3H, Lymphocytes (%) (Auto) 9.5L, Monocytes (%) (Auto) 6.5, Eosinophils (%) (Auto) 1.3, Basophils (%) (Auto) 0.4, Sodium Level 142, Potassium Level 4.7, Chloride Level 106, Carbon Dioxide Level 24, Anion Gap 12, Blood Urea Nitrogen 61H, Creatinine 2.1H, Estimat Glomerular Filtration Rate 24.5, Glucose Level 125H, Calcium Level 8.3L, Total Bilirubin 0.7, Aspartate Amino Transf (AST/SGOT) 52H, Alanine Aminotransferase (ALT/SGPT) 30, Alkaline Phosphatase 101, Total Protein 7.0, Albumin 2.0L, Globulin 5.0, Albumin/Globulin Ratio 0.4L Current Medications Medications (Trade) Dose Ordered Sig/Jose Rafael Route PRN Reason Start Time Stop Time Status Last Admin Dose Admin Acetaminophen (Tylenol) 650 mg Q4H PRN ORAL Mild Pain/Temp > 100.2 11/21/19 13:30 12/15/19 21:29 11/21/19 23:47 Acetylcysteine (Mucomyst) 200 mg Q6HRT HHN 11/21/19 13:00 12/18/19 18:59 11/24/19 07:43 Albuterol/ Ipratropium (Albuterol/ Ipratropium) 3 ml Q6HRT HHN 11/24/19 13:00 11/29/19 12:59 Chlorhexidine Gluconate ([place]-Hex 2%) 1 applic DAILY@2000 TOPIC 11/21/19 20:00 12/12/19 19:59 11/23/19 20:27 Dextrose 1,000 ml @ 100 mls/hr Q10H PRN IV TPN interrupted or not availab 11/21/19 10:15 12/16/19 00:14 Dextrose (Dextrose 50%) 25 ml Q30M PRN IV Hypoglycemia 11/21/19 10:30 12/13/19 09:29 Dextrose (Dextrose 50%) 50 ml Q30M PRN IV Hypoglycemia 11/21/19 10:30 12/20/19 19:29 Fat Emulsion Intravenous 250 ml/Amino Acids/ Electrolytes/ Dextrose 1,750 ml @ 97.2 mls/hr Q24H IV 11/23/19 20:00 12/23/19 19:59 11/23/19 20:29 Hydromorphone HCl 30 ml @ 0 mls/hr Q24H PRN IV For Pain 11/24/19 11:00 11/26/19 10:59 Hydromorphone HCl (Dilaudid) 1 mg Q4H PRN SUBQ Severe Breakthru Pain (>7) 11/21/19 13:30 11/28/19 09:29 Insulin Aspart (NovoLOG) EVERY 6 HOURS SUBQ 11/21/19 12:00 12/16/19 20:59 11/24/19 12:01 Iron Sucrose 100 mg/Sodium Chloride 60 ml @ 240 mls/hr BEDTIME IV 11/23/19 21:00 11/27/19 21:14 11/23/19 20:27 Lorazepam (Ativan) 1 mg HSPRN PRN SL Sleep 11/22/19 08:00 11/28/19 07:59 Lorazepam (Ativan) 1 mg Q4H PRN SL Muscle Spasm 11/21/19 13:30 11/28/19 09:29 Metoprolol Succinate (Toprol XL) 50 mg BEDTIME ORAL 11/21/19 21:00 12/15/19 20:59 11/22/19 21:00 Miscellaneous Medication (AEROSOL LINE OPERATOR shift volume) 1 ea Q12HR@0700,1900 MISC 11/24/19 19:00 11/26/19 18:59 Naloxone HCl (Narcan) 0.1 mg Q1M PRN IVP RR<10/min OR SBP<90 mmHg 11/21/19 10:16 12/20/19 19:29 Nitroglycerin (Ntg) 1 patch Q24H TDERMAL 11/21/19 16:00 12/18/19 15:59 11/23/19 17:10 Nystatin (Nystatin) 5 ml TID ORAL 11/23/19 13:00 11/30/19 12:59 11/24/19 13:13 Ondansetron HCl (Zofran) 4 mg Q4H PRN IVP Nausea & Vomiting 11/21/19 13:30 12/12/19 21:29 11/24/19 04:21 Phytonadione (Vitamin K) 10 mg ONCE A WEEK SUBQ 11/27/19 09:00 12/20/19 08:59 Potassium Chloride 40 meq/ Dextrose 1,020 ml @ 30 mls/hr Q24H IV 11/24/19 14:00 11/24/19 20:00 Scopolamine (TransDerm Scop 1.5mg/72HR Patch) 1.5 mg Q72H TDERMAL 11/23/19 13:00 12/23/19 12:59 11/23/19 12:29 Spironolactone (Aldactone) 50 mg EVERY 12 HOURS ORAL 11/23/19 09:00 12/23/19 08:59 11/24/19 08:14 Lyndon Elias MD Nov 24, 2019 13:19
[2019-11-24] MEDS: Albuterol/Ipratropium 3ml neb HHN SCH ×2 (14:39→19:52)
[2019-11-24] MEDS: Nitroglycerin Patch 0.2mg/hr TDERMAL SCH (15:33)
[2019-11-24 16:00] VITALS: BP 125/85
--- NOTE | 2019-11-24 17:01 | Infectious Diseases Prog Note ---
Assessment/Plan Assessment/Plan ASSESSMENT AND PLAN: 1. fevers, hx leukocytosis, doubt sepsis - fevers and leukocytosis resolved - clinically stable, off antibiotics - monitor labs and temperatures - d/w RN, patient and 2. 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 3. Chronic kidney failure with elevated creatinine. 4. Hypertension. 5. Blood pressure treatment per primary care team. 6. History of ulcerative colitis. 7. History of multiple abdominal surgeries. 8. History of gastritis. 9. Anemia. Continue treatment per primary care consultants. 10. Allergies to cefaclor, ofloxacin, sulfa, and sodium Pentothal. 11. Social history is negative. 12. Family history is noncontributory. 13. MAR is noted. 14. Case was discussed with RN. 15. Case was discussed with Dr. Mcconnell. 16. Case was discussed with the patient and Subjective Constitutional: Denies: fever HEENT: Denies: congestion Respiratory: Denies: shortness of breath Cardiovascular: Denies: chest pain Gastrointestinal/Abdominal: Denies: nausea, vomiting, diarrhea Genitourinary: Reports: other - no muse Neurologic: Denies: headache Psychiatric: Denies: depression Skin: Denies: rash Hematologic: Denies: bleeding Musculoskeletal: Denies: pain Allergies: Coded Allergies: CEFACLOR (Verified Allergy, Unknown, 11/12/19) OFLOXACIN (Verified Allergy, Unknown, 11/12/19) SULFA (SULFONAMIDE ANTIBIOTICS) (Verified Allergy, Unknown, 11/12/19) Uncoded Allergies: sodium pentothal (Allergy, Unknown, 11/12/19) Objective Vital Signs Last 24 Hour Vital Signs Date Time Temp Pulse Resp B/P (MAP) Pulse Ox O2 Delivery O2 Flow Rate FiO2 11/24/19 16:00 97.5 122 19 125/85 (98) 94 11/24/19 16:00 122 19 94 11/24/19 15:33 125/85 11/24/19 14:39 107 20 99 Nasal Cannula 21 112 20 93 11/24/19 12:00 113 20 95 11/24/19 12:00 98.0 113 20 127/74 (91) 95 11/24/19 09:00 Nasal Cannula 2.0 11/24/19 08:00 118 23 98 11/24/19 08:00 98.3 118 23 140/85 (103) 98 11/24/19 07:45 94 Nasal Cannula 3.0 32 11/24/19 07:45 106 18 96 Nasal Cannula 2.0 28 104 18 94 11/24/19 04:00 96 18 91 11/24/19 04:00 98.3 96 19 137/82 (100) 91 11/24/19 00:00 102 18 91 11/24/19 00:00 98.3 102 18 119/68 (85) 91 11/23/19 21:00 Nasal Cannula 2.0 11/23/19 20:31 107 106/65 11/23/19 20:00 107 18 92 11/23/19 20:00 98.7 107 18 106/65 (79) 92 11/23/19 19:53 100 Nasal Cannula 3.0 32 11/23/19 19:51 90 23 95 11/23/19 17:10 105/69 Height (Feet): 5 Height (Inches): 1.00 Weight (Pounds): 85 General Appearance: no acute distress HEENT: normocephalic, atraumatic, anicteric Respiratory/Chest: lungs clear, normal breath sounds, no respiratory distress, no accessory muscle use Cardiovascular: normal rate, regular rhythm Abdomen: normal bowel sounds, soft, non tender, no organomegaly, non distended Genitourinary: other - + muse Extremities: no cyanosis Skin: no rash Neurologic/Psychiatric: dope and fabric worker II-XII grossly normal, alert, oriented x 3, responsive Lymphatic: no neck adenopathy Musculoskeletal: no effusion Objective Chest x-ray - 11/23/19 - Procedure: XRAY Chest 1v Indication: Shortness of breath Technique: One view of the chest Comparison: 11/20/2019 Findings: Left-sided pleural fluid appears improved. Left sided hazy perihilar and basilar opacity appears improved. Infiltrates on the right appear unchanged. Generalized interstitial disease appears unchanged. Left arm PICC is again demonstrated. Impression: Somewhat improved left-sided pleural effusion and perihilar and basilar opacity. Otherwise stable findings as described Microbiology Date/Time Source Procedure Growth Status 11/18/19 17:15 Blood Blood Culture - Final NO GROWTH AFTER 5 DAYS Complete 11/18/19 17:34 Indwelling Cath Urine Culture - Final NO GROWTH AFTER 48 HOURS Complete Laboratory Tests Test 11/24/19 05:45 White Blood Count 9.4 K/UL (4.8-10.8) Red Blood Count 3.85 M/UL (4.20-5.40) L Hemoglobin 9.8 G/DL (12.0-16.0) L Hematocrit 29.9 % (37.0-47.0) L Mean Corpuscular Volume 78 FL (80-99) L Mean Corpuscular Hemoglobin 25.5 PG (27.0-31.0) L Mean Corpuscular Hemoglobin Concent 32.8 G/DL (32.0-36.0) Red Cell Distribution Width 18.8 % (11.6-14.8) H Platelet Count 179 K/UL (150-450) # Mean Platelet Volume 10.5 FL (6.5-10.1) H Neutrophils (%) (Auto) 82.3 % (45.0-75.0) H Lymphocytes (%) (Auto) 9.5 % (20.0-45.0) L Monocytes (%) (Auto) 6.5 % (1.0-10.0) Eosinophils (%) (Auto) 1.3 % (0.0-3.0) Basophils (%) (Auto) 0.4 % (0.0-2.0) Sodium Level 142 MMOL/L (136-145) Potassium Level 4.7 MMOL/L (3.5-5.1) Chloride Level 106 MMOL/L (98-107) Carbon Dioxide Level 24 MMOL/L (21-32) Anion Gap 12 mmol/L (5-15) Blood Urea Nitrogen 61 mg/dL (7-18) H Creatinine 2.1 MG/DL (0.55-1.30) H Estimat Glomerular Filtration Rate 24.5 mL/min (>60) Glucose Level 125 MG/DL (74-106) H Calcium Level 8.3 MG/DL (8.5-10.1) L Total Bilirubin 0.7 MG/DL (0.2-1.0) Aspartate Amino Transf (AST/SGOT) 52 U/L (15-37) H Alanine Aminotransferase (ALT/SGPT) 30 U/L (12-78) Alkaline Phosphatase 101 U/L (46-116) Total Protein 7.0 G/DL (6.4-8.2) Albumin 2.0 G/DL (3.4-5.0) L Globulin 5.0 g/dL Albumin/Globulin Ratio 0.4 (1.0-2.7) L Current Medications Medications (Trade) Dose Ordered Sig/Jose Rafael Route PRN Reason Start Time Stop Time Status Last Admin Dose Admin Acetaminophen (Tylenol) 650 mg Q4H PRN ORAL Mild Pain/Temp > 100.2 11/21/19 13:30 12/15/19 21:29 11/21/19 23:47 Acetylcysteine (Mucomyst) 200 mg Q6HRT N 11/21/19 13:00 12/18/19 18:59 11/24/19 14:39 Albuterol/ Ipratropium (Albuterol/ Ipratropium) 3 ml Q6HRT N 11/24/19 13:00 11/29/19 12:59 11/24/19 14:39 Chlorhexidine Gluconate ([place]-Hex 2%) 1 applic DAILY@2000 TOPIC 11/21/19 20:00 12/12/19 19:59 11/23/19 20:27 Dextrose 1,000 ml @ 100 mls/hr Q10H PRN IV TPN interrupted or not availab 11/21/19 10:15 12/16/19 00:14 Dextrose (Dextrose 50%) 25 ml Q30M PRN IV Hypoglycemia 11/21/19 10:30 12/13/19 09:29 Dextrose (Dextrose 50%) 50 ml Q30M PRN IV Hypoglycemia 11/21/19 10:30 12/20/19 19:29 Fat Emulsion Intravenous 250 ml/Amino Acids/ Electrolytes/ Dextrose 1,750 ml @ 97.2 mls/hr Q24H IV 11/23/19 20:00 12/23/19 19:59 11/23/19 20:29 Hydromorphone HCl 30 ml @ 0 mls/hr Q24H PRN IV For Pain 11/24/19 11:00 11/26/19 10:59 Hydromorphone HCl (Dilaudid) 1 mg Q4H PRN SUBQ Severe Breakthru Pain (>7) 11/21/19 13:30 11/28/19 09:29 Insulin Aspart (NovoLOG) EVERY 6 HOURS SUBQ 11/21/19 12:00 12/16/19 20:59 11/24/19 12:01 Iron Sucrose 100 mg/Sodium Chloride 60 ml @ 240 mls/hr BEDTIME IV 11/23/19 21:00 11/27/19 21:14 11/23/19 20:27 Lorazepam (Ativan) 1 mg HSPRN PRN SL Sleep 11/22/19 08:00 11/28/19 07:59 Lorazepam (Ativan) 1 mg Q4H PRN SL Muscle Spasm 11/21/19 13:30 11/28/19 09:29 Metoprolol Succinate (Toprol XL) 50 mg BEDTIME ORAL 11/21/19 21:00 12/15/19 20:59 11/22/19 21:00 Miscellaneous Medication (CONTRACT NEGOTIATION MANAGER shift volume) 1 ea Q12HR@0700,1900 MISC 11/24/19 19:00 11/26/19 18:59 Naloxone HCl (Narcan) 0.1 mg Q1M PRN IVP RR<10/min OR SBP<90 mmHg 11/21/19 10:16 12/20/19 19:29 Nitroglycerin (Ntg) 1 patch Q24H TDERMAL 11/21/19 16:00 12/18/19 15:59 11/24/19 15:33 Nystatin (Nystatin) 5 ml TID ORAL 11/23/19 13:00 11/30/19 12:59 11/24/19 13:13 Ondansetron HCl (Zofran) 4 mg Q4H PRN IVP Nausea & Vomiting 11/21/19 13:30 12/12/19 21:29 11/24/19 04:21 Phytonadione (Vitamin K) 10 mg ONCE A WEEK SUBQ 11/27/19 09:00 12/20/19 08:59 Potassium Chloride 40 meq/ Dextrose 1,020 ml @ 30 mls/hr Q24H IV 11/24/19 14:00 11/24/19 20:00 11/24/19 15:28 Scopolamine (TransDerm Scop 1.5mg/72HR Patch) 1.5 mg Q72H TDERMAL 11/23/19 13:00 12/23/19 12:59 11/23/19 12:29 Spironolactone (Aldactone) 50 mg EVERY 12 HOURS ORAL 11/23/19 09:00 12/23/19 08:59 11/24/19 08:14 Dee Cole MD Nov 24, 2019 17:01
--- NOTE | 2019-11-24 18:54 | NUR ---
NURSE NOTES: Ileostomy bag in place, draining and intact. No leaking noted today. Ileo bag emptied throughout shift. 225cc brown output noted. UO: 2000cc yellow urine emptied from muse. No c/o nausea or vomiting. Patient ambulated x2 during shift. Patient able to transfer from bed to sitting up in chair independently. PICC running FLAT CLOTHIER and D5W+40KCL after TPN completed, PICC site clean, skin is discolored. Surgical dressing c/d/i.
--- NOTE | 2019-11-24 19:00 | NUR ---
NURSE NOTES: Received report from CHUCK Mcclellan.Pt is wake a/ox4, breaths even, and regular and unlabored at 2 L via NC. Pt has a brook ileo and Erazo catheter in place patent and and draining. Pt has an AME Picc inserted on the ,with i.v fluids running patent and asymptomatic .Pt deinies any pain, will continue to monitor
--- NOTE | 2019-11-24 19:00 | NUR ---
HAND-OFF: Report given to Maral WOODS. patient is stable.
[2019-11-24 20:00] VITALS: BP 123/79
[2019-11-24] MEDS: Iron Sucrose 100 MG in NS 55 ML IV SCH (20:24)
[2019-11-24] MEDS: Dyna-Hex 2% Top Sol 2oz TOPIC SCH (20:24)
[2019-11-24] MEDS: Metoprolol Succinate XL 50mg tab ORAL SCH (20:25)
[2019-11-24] MEDS: FAT EMULSION 20% IV SCH (20:35)
[2019-11-24] MEDS: TPN IV SCH (20:35)
[2019-11-25] VITALS: BP 121/77
[2019-11-25] MEDS: NovoLOG Insulin Flexpen SUBQ SCH ×4 (00:56→16:28)
[2019-11-25] MEDS: Acetylcysteine 20% Soln 4ml HHN SCH ×4 (01:00→19:00)
[2019-11-25] MEDS: Albuterol/Ipratropium 3ml neb HHN SCH ×4 (01:00→19:00)
[2019-11-25 04:00] VITALS: BP 133/75
[2019-11-25 06:33] LABS: BASOPHILS % (AUTO) 0.6 % (0.0-2.0); EOSINOPHILS % (AUTO) 1.2 % (0.0-3.0); HEMATOCRIT 29.7 % (37.0-47.0); HEMOGLOBIN 9.7 G/DL (12.0-16.0); LYMPHOCYTES % (AUTO) 9.7 % (20.0-45.0); MEAN CORPUSCULAR VOLUME 78 FL (80-99); MONOCYTES % (AUTO) 5.2 % (1.0-10.0); NEUTROPHILS % (AUTO) 83.3 % (45.0-75.0); PLATELET COUNT 278 K/UL (150-450); RED BLOOD COUNT 3.78 M/UL (4.20-5.40); RED CELL DISTRIBUTION WIDTH 19.3 % (11.6-14.8); WHITE BLOOD COUNT 10.1 K/UL (4.8-10.8)
[2019-11-25 07:00] LABS: ALANINE AMINOTRANSFERASE 40 U/L (12-78); ALBUMIN 2.1 G/DL (3.4-5.0); ALBUMIN/GLOBULIN RATIO 0.4 (1.0-2.7); ALKALINE PHOSPHATASE 125 U/L (46-116); ANION GAP 9 mmol/L (5-15); ASPARTATE AMINO TRANSFERASE 62 U/L (15-37); BILIRUBIN,TOTAL 0.7 MG/DL (0.2-1.0); BLOOD UREA NITROGEN 54 mg/dL (7-18); CALCIUM 8.4 MG/DL (8.5-10.1); CARBON DIOXIDE 26 MMOL/L (21-32); CHLORIDE 105 MMOL/L (98-107); CREATININE 2.1 MG/DL (0.55-1.30); PHOSPHORUS 3.8 MG/DL (2.5-4.9); POTASSIUM 5.2 MMOL/L (3.5-5.1); SODIUM 140 MMOL/L (136-145)
[2019-11-25] MEDS: PCA shift volume MISC SCH ×2 (07:15→19:10)
--- NOTE | 2019-11-25 07:50 | NUR ---
NURSE NOTES: AWAKE/ALERT. NO C/O PAIN. IN NO DISTRESS.
[2019-11-25 08:00] VITALS: BP 131/76
--- NOTE | 2019-11-25 08:00 | NUR ---
NURSE NOTES: Called and left msg for md regarding patient taking half the tab of Tegretol Addendum: 11/25/19 at 0802 by Maral Beltran RN Wrong patient , msg left in error
--- NOTE | 2019-11-25 08:02 | NUR ---
HAND-OFF: Report given to CHUCK Brown
[2019-11-25] MEDS: Nystatin Susp 500,000 units/5ml ORAL SCH ×3 (09:13→17:44)
[2019-11-25] MEDS: Spironolactone 50mg tab ORAL SCH (09:14)
[2019-11-25] MEDS ORDERED: Naloxone 0.4mg/ml Inj IVP PRN (09:52)
[2019-11-25] MEDS ORDERED: PCA HYDROmorphone 1mg/ml 30 ML IV PRN (09:55)
--- NOTE | 2019-11-25 09:56 | General Progress Note ---
Progress Note Progress Note AVSS No further emesis. Ambulates in hallways Mild tachycardia UN down 54 Cr 2.1 (was 1.9 on admission with lowest 1.4) Abdomen still mildly distended with KUB showing dilated small bowel loops. Incision clean, Stoma with edema, pink Urine 3000cc Ileostomy 725cc Imp: slowly resolving ileus Plan; may need CT scan abd+pelvis to r/o intra-abdominal seroma, etc continue npo and Erazo Imtiaz Mcconnell MD Nov 25, 2019 09:56
[2019-11-25] MEDS ORDERED: Rate Change PCA 1 Each MISC PRN (10:00)
--- NOTE | 2019-11-25 10:09 | Nephrology Progress Note ---
Assessment/Plan Problem List: (1) Malnutrition of moderate degree (2) Diabetes (3) Hypopotassemia (4) Hypophosphatemia (5) Metabolic acidosis (6) Dehydration (7) ARIK (acute kidney injury) (8) Ulcerative colitis (9) Malfunction of tovar continent ileostomy (10) CHF (congestive heart failure) Plan tpn reviewed serial lab, lasix for chf,had good diuresis , close monitoring, creatinine trending lower tpn to cycle over 18hr/day, mobilize, gradual neg fluid balance, low K corrected , now mild high stop aldactone, clears stopped npo, increased Mg in tpn , ileus d/w dr plaza, pleural effusions from low albumin likely will slowly resolve Subjective Constitutional: Reports: weakness HEENT: Reports: no symptoms Genitourinary: Reports: no symptoms Neurologic/Psychiatric: Reports: no symptoms Subjective no dyspnea, less postop pain Objective Objective Last 24 Hour Vital Signs Date Time Temp Pulse Resp B/P (MAP) Pulse Ox O2 Delivery O2 Flow Rate FiO2 11/25/19 08:00 102 18 98 11/25/19 08:00 98.1 102 18 131/76 (94) 98 11/25/19 07:51 94 Nasal Cannula 3.0 32 11/25/19 04:00 105 18 95 11/25/19 04:00 97.6 105 18 133/75 (94) 95 11/25/19 00:00 115 17 94 11/25/19 00:00 98.9 115 17 121/77 (92) 94 11/24/19 21:00 Nasal Cannula 2.0 11/24/19 20:25 115 123/79 11/24/19 20:01 93 Nasal Cannula 3.0 32 11/24/19 20:00 115 17 93 11/24/19 20:00 98.8 115 17 123/79 (94) 93 11/24/19 19:52 107 20 99 Nasal Cannula 3.0 32 107 20 93 11/24/19 16:00 97.5 122 19 125/85 (98) 94 11/24/19 16:00 122 19 94 11/24/19 15:33 125/85 11/24/19 14:39 107 20 99 Nasal Cannula 21 112 20 93 11/24/19 12:00 113 20 95 11/24/19 12:00 98.0 113 20 127/74 (91) 95 Intake and Output 11/24/19 11/25/19 19:00 07:00 Intake Total 867.6 ml 1166.4 ml Output Total 2225 ml Balance -1357.4 ml 1166.4 ml IV Total 867.6 ml 1166.4 ml Output Urine Total 2000 ml Other 225 ml Laboratory Tests 11/25/19 04:50: White Blood Count 10.1, Red Blood Count 3.78L, Hemoglobin 9.7L, Hematocrit 29.7L , Mean Corpuscular Volume 78L, Mean Corpuscular Hemoglobin 25.6L, Mean Corpuscular Hemoglobin Concent 32.6, Red Cell Distribution Width 19.3H, Platelet Count 278#, Mean Platelet Volume 10.0, Neutrophils (%) (Auto) 83.3H, Lymphocytes (%) (Auto) 9.7L, Monocytes (%) (Auto) 5.2, Eosinophils (%) (Auto) 1.2, Basophils (%) (Auto) 0.6, Sodium Level 140, Potassium Level 5.2H, Chloride Level 105, Carbon Dioxide Level 26, Anion Gap 9, Blood Urea Nitrogen 54H, Creatinine 2.1H, Estimat Glomerular Filtration Rate 24.5, Glucose Level 117H, Calcium Level 8.4L, Phosphorus Level 3.8, Magnesium Level 2.2, Total Bilirubin 0.7, Aspartate Amino Transf (AST/SGOT) 62H, Alanine Aminotransferase (ALT/SGPT) 40, Alkaline Phosphatase 125H, Total Protein 7.5, Albumin 2.1L, Globulin 5.4, Albumin/Globulin Ratio 0.4L Height (Feet): 5 Height (Inches): 1.00 Weight (Pounds): 85 General Appearance: no apparent distress, alert EENT: normal ENT inspection Neck: normal alignment Cardiovascular: normal rate Respiratory/Chest: lungs clear Abdomen: distended Extremities: no edema Neurologic: hospital sales representative II-XII grossly normal Andrae Munguia MD Nov 25, 2019 10:09
--- NOTE | 2019-11-25 10:21 | NUR ---
NURSE NOTES: OOB, AMBULATED OUT IN THE [place] WITH P.T.TOLERATED.
[2019-11-25 12:00] VITALS: BP 123/76
--- NOTE | 2019-11-25 13:20 | Pulmonology Progress Note ---
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 Plan: * Monitor on room air * Electrolyte repletion, renal consult appreciated * Monitor renal function * Monitor H/H * Post-op care per surgery * Cont TPN * NPO for now Subjective ROS Limited/Unobtainable: No Interval Events: tolerating room air. Walked and sat in chair. Abdomen feels better Constitutional: Reports: no symptoms Respiratory: Reports: no symptoms Cardiovascular: Reports: no symptoms Psychiatric: Reports: no symptoms Musculoskeletal: Reports: no symptoms Allergies: Coded Allergies: CEFACLOR (Verified Allergy, Unknown, 11/12/19) OFLOXACIN (Verified Allergy, Unknown, 11/12/19) SULFA (SULFONAMIDE ANTIBIOTICS) (Verified Allergy, Unknown, 11/12/19) Uncoded Allergies: sodium pentothal (Allergy, Unknown, 11/12/19) Objective Last 24 Hour Vital Signs Date Time Temp Pulse Resp B/P (MAP) Pulse Ox O2 Delivery O2 Flow Rate FiO2 11/25/19 12:00 98.1 99 18 123/76 (92) 99 11/25/19 12:00 99 18 99 11/25/19 09:00 Nasal Cannula 2.0 11/25/19 08:00 102 18 98 11/25/19 08:00 98.1 102 18 131/76 (94) 98 11/25/19 07:51 94 Nasal Cannula 3.0 32 11/25/19 04:00 105 18 95 11/25/19 04:00 97.6 105 18 133/75 (94) 95 11/25/19 00:00 115 17 94 11/25/19 00:00 98.9 115 17 121/77 (92) 94 11/24/19 21:00 Nasal Cannula 2.0 11/24/19 20:25 115 123/79 11/24/19 20:01 93 Nasal Cannula 3.0 32 11/24/19 20:00 115 17 93 11/24/19 20:00 98.8 115 17 123/79 (94) 93 11/24/19 19:52 107 20 99 Nasal Cannula 3.0 32 107 20 93 11/24/19 16:00 97.5 122 19 125/85 (98) 94 11/24/19 16:00 122 19 94 11/24/19 15:33 125/85 11/24/19 14:39 107 20 99 Nasal Cannula 21 112 20 93 Intake and Output 11/24/19 11/25/19 19:00 07:00 Intake Total 867.6 ml 1166.4 ml Output Total 2225 ml Balance -1357.4 ml 1166.4 ml IV Total 867.6 ml 1166.4 ml Output Urine Total 2000 ml Other 225 ml General Appearance: no acute distress HEENT: mucous membranes moist Respiratory/Chest: lungs clear Cardiovascular: normal rate Abdomen: distended Extremities: no edema Laboratory Tests 11/25/19 04:50: White Blood Count 10.1, Red Blood Count 3.78L, Hemoglobin 9.7L, Hematocrit 29.7L , Mean Corpuscular Volume 78L, Mean Corpuscular Hemoglobin 25.6L, Mean Corpuscular Hemoglobin Concent 32.6, Red Cell Distribution Width 19.3H, Platelet Count 278#, Mean Platelet Volume 10.0, Neutrophils (%) (Auto) 83.3H, Lymphocytes (%) (Auto) 9.7L, Monocytes (%) (Auto) 5.2, Eosinophils (%) (Auto) 1.2, Basophils (%) (Auto) 0.6, Sodium Level 140, Potassium Level 5.2H, Chloride Level 105, Carbon Dioxide Level 26, Anion Gap 9, Blood Urea Nitrogen 54H, Creatinine 2.1H, Estimat Glomerular Filtration Rate 24.5, Glucose Level 117H, Calcium Level 8.4L, Phosphorus Level 3.8, Magnesium Level 2.2, Total Bilirubin 0.7, Aspartate Amino Transf (AST/SGOT) 62H, Alanine Aminotransferase (ALT/SGPT) 40, Alkaline Phosphatase 125H, Total Protein 7.5, Albumin 2.1L, Globulin 5.4, Albumin/Globulin Ratio 0.4L Current Medications Medications (Trade) Dose Ordered Sig/Jose Rafael Route PRN Reason Start Time Stop Time Status Last Admin Dose Admin Acetaminophen (Tylenol) 650 mg Q4H PRN ORAL Mild Pain/Temp > 100.2 11/21/19 13:30 12/15/19 21:29 11/21/19 23:47 Acetylcysteine (Mucomyst) 200 mg Q6HRT HHN 11/21/19 13:00 12/18/19 18:59 11/24/19 19:52 Albuterol/ Ipratropium (Albuterol/ Ipratropium) 3 ml Q6HRT HHN 11/24/19 13:00 11/29/19 12:59 11/24/19 19:52 Chlorhexidine Gluconate ([place]-Hex 2%) 1 applic DAILY@2000 TOPIC 11/21/19 20:00 12/12/19 19:59 11/24/19 20:24 Dextrose 1,000 ml @ 30 mls/hr Q24H IV 11/25/19 14:00 11/25/19 20:00 Dextrose 1,000 ml @ 100 mls/hr Q10H PRN IV TPN interrupted or not availab 11/21/19 10:15 12/16/19 00:14 Dextrose (Dextrose 50%) 25 ml Q30M PRN IV Hypoglycemia 11/21/19 10:30 12/13/19 09:29 Dextrose (Dextrose 50%) 50 ml Q30M PRN IV Hypoglycemia 11/21/19 10:30 12/20/19 19:29 Fat Emulsion Intravenous 250 ml/Amino Acids/ Electrolytes/ Dextrose 1,750 ml @ 97.2 mls/hr Q24H IV 11/23/19 20:00 12/23/19 19:59 11/24/19 20:35 Hydromorphone HCl 30 ml @ 0 mls/hr Q24H PRN IV For Pain 11/25/19 09:55 11/27/19 09:54 Hydromorphone HCl (Dilaudid) 1 mg Q4H PRN SUBQ Severe Breakthru Pain (>7) 11/21/19 13:30 11/28/19 09:29 Insulin Aspart (NovoLOG) EVERY 6 HOURS SUBQ 11/21/19 12:00 12/16/19 20:59 11/25/19 11:46 Iron Sucrose 100 mg/Sodium Chloride 60 ml @ 240 mls/hr BEDTIME IV 11/23/19 21:00 11/27/19 21:14 11/24/19 20:24 Metoprolol Succinate (Toprol XL) 50 mg BEDTIME ORAL 11/21/19 21:00 12/15/19 20:59 11/24/19 20:25 Miscellaneous Medication (COMBATANT DIVER OFFICER Rate Change) 1 ea DAILY PRN MISC COMBATANT DIVER OFFICER RATE CHANGE 11/25/19 10:00 11/27/19 09:59 Miscellaneous Medication (COMBATANT DIVER OFFICER shift volume) 1 ea Q12HR@0700,1900 MISC 11/25/19 19:00 11/27/19 18:59 Naloxone HCl (Narcan) 0.1 mg Q1M PRN IVP RR<10/min OR SBP<90 mmHg 11/25/19 09:52 12/24/19 19:04 Nitroglycerin (Ntg) 1 patch Q24H TDERMAL 11/21/19 16:00 12/18/19 15:59 11/24/19 15:33 Nystatin (Nystatin) 5 ml TID ORAL 11/23/19 13:00 11/30/19 12:59 11/25/19 12:32 Ondansetron HCl (Zofran) 4 mg Q4H PRN IVP Nausea & Vomiting 11/21/19 13:30 12/12/19 21:29 11/24/19 04:21 Phytonadione (Vitamin K) 10 mg ONCE A WEEK SUBQ 11/27/19 09:00 12/20/19 08:59 Scopolamine (TransDerm Scop 1.5mg/72HR Patch) 1.5 mg Q72H TDERMAL 11/23/19 13:00 12/23/19 12:59 11/23/19 12:29 Temazepam (RestoriL) 7.5 mg HSPRN PRN ORAL Insomnia 11/25/19 10:00 12/02/19 09:59 Lyndon Elias MD Nov 25, 2019 13:20
[2019-11-25] MEDS ORDERED: Tubing IV Secondary IV ONE ×2 (15:48→15:53)
[2019-11-25] MEDS ORDERED: NS 275ml ONE (15:53)
[2019-11-25 16:00] VITALS: BP 124/78
[2019-11-25] MEDS: Nitroglycerin Patch 0.2mg/hr TDERMAL SCH (16:31)
--- NOTE | 2019-11-25 19:00 | NUR ---
NURSE NOTES: resting in bed . in no distress.
--- NOTE | 2019-11-25 19:11 | NUR ---
HAND-OFF: Report given to adi baird. Addendum: 11/25/19 at 1921 by JJ RASMUSSEN RN report given to conrado baird
--- NOTE | 2019-11-25 19:54 | NUR ---
NURSES NOTE: Met pt in bed, awake, A/OX4, able to express needs. Denies pain currently. No outward s/s of distress noted. Breathing pattern is even and unlabored on RA. IV L forearm patent, no signs of infiltration/infection. All due meds will be given. Bed at lowest level, call light within reach. Pt will continue to be monitored. Addendum: 11/25/19 at 1956 by Mariella Del Toro RN PICC line MARLYN patent, no s/s of infection.
[2019-11-25 20:00] VITALS: BP 133/85
[2019-11-25] MEDS: Dyna-Hex 2% Top Sol 2oz TOPIC SCH (20:54)
[2019-11-25] MEDS: Iron Sucrose 100 MG in NS 55 ML IV SCH (20:54)
[2019-11-25] MEDS: Metoprolol Succinate XL 50mg tab ORAL SCH (20:55)
[2019-11-25] MEDS: FAT EMULSION 20% IV SCH (20:56)
[2019-11-25] MEDS: TPN IV SCH (20:56)
[2019-11-26] VITALS: BP_SYST 115; BP_SYST 133; BP_DIAS 69; BP_DIAS 85
[2019-11-26] MEDS: Acetylcysteine 20% Soln 4ml HHN SCH ×4 (01:00→19:00)
[2019-11-26] MEDS: Albuterol/Ipratropium 3ml neb HHN SCH ×4 (01:00→19:00)
[2019-11-26 04:00] VITALS: BP 125/73
[2019-11-26] MEDS: NovoLOG Insulin Flexpen SUBQ SCH ×4 (06:07→18:00)
[2019-11-26] MEDS: PCA shift volume MISC SCH (07:00)
--- NOTE | 2019-11-26 07:53 | NUR ---
NURSES NOTE: ILEO OUTPUT: 300CC URINE: 575 CC
--- NOTE | 2019-11-26 07:53 | NUR ---
HAND OFF: Report given to Charge nurse. Pt in stable condition.
[2019-11-26 08:00] VITALS: BP 113/69
--- NOTE | 2019-11-26 09:30 | NUR ---
NURSE NOTES: Patient is in bed awake and able to verbalize needs. Stable. Denies pain or SOB. Patient able to ambulate with assistance. Surgical site c/d/i. Ileo bag intact. PICC running IVF and RAW SILK GRADER as ordered. Patient is in bed in locked and lowest position with call light within reach. Will continue to monitor.
[2019-11-26] MEDS: Nystatin Susp 500,000 units/5ml ORAL SCH ×3 (09:55→18:28)
[2019-11-26 12:00] VITALS: BP 126/78
[2019-11-26] MEDS: TransDerm Scop 1.5mg/72HR Patch TDERMAL SCH (12:06)
--- NOTE | 2019-11-26 12:38 | Pulmonology Progress Note ---
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 No nausea. Allergies: Coded Allergies: CEFACLOR (Verified Allergy, Unknown, 11/12/19) OFLOXACIN (Verified Allergy, Unknown, 11/12/19) SULFA (SULFONAMIDE ANTIBIOTICS) (Verified Allergy, Unknown, 11/12/19) Uncoded Allergies: sodium pentothal (Allergy, Unknown, 11/12/19) All Systems: reviewed and negative except above Objective Last 24 Hour Vital Signs Date Time Temp Pulse Resp B/P (MAP) Pulse Ox O2 Delivery O2 Flow Rate FiO2 11/26/19 09:00 Nasal Cannula 2.0 11/26/19 08:11 84 20 99 Room Air 21 79 20 99 11/26/19 08:10 99 Room Air 21 11/26/19 08:00 97.4 73 14 113/69 (84) 98 11/26/19 04:00 97.9 85 19 125/73 (90) 98 11/26/19 04:00 85 19 98 11/26/19 00:00 121 18 96 11/26/19 00:00 97.6 89 19 115/69 (84) 94 11/25/19 21:00 Nasal Cannula 2.0 11/25/19 20:55 120 133/85 11/25/19 20:00 121 18 96 11/25/19 20:00 97.8 120 18 133/85 (101) 96 11/25/19 19:53 94 Room Air 21 11/25/19 16:31 124/78 11/25/19 16:00 99.0 109 18 124/78 (93) 97 11/25/19 16:00 109 18 99 Intake and Output 11/25/19 11/26/19 19:00 07:00 Intake Total 830.4 ml Output Total 2415 ml 875 ml Balance -1584.6 ml -875 ml IV Total 830.4 ml Output Urine Total 1750 ml 575 ml Other 665 ml 300 ml General Appearance: no acute distress HEENT: mucous membranes moist Respiratory/Chest: lungs clear Cardiovascular: normal rate, regular rhythm Abdomen: normal bowel sounds Extremities: no edema Neurologic/Psychiatric: oriented x 3 Current Medications Medications (Trade) Dose Ordered Sig/Jose Rafael Route PRN Reason Start Time Stop Time Status Last Admin Dose Admin Acetaminophen (Tylenol) 650 mg Q4H PRN ORAL Mild Pain/Temp > 100.2 11/21/19 13:30 12/15/19 21:29 11/26/19 05:57 Acetylcysteine (Mucomyst) 200 mg Q6HRT N 11/21/19 13:00 12/18/19 18:59 11/26/19 08:13 Albuterol/ Ipratropium (Albuterol/ Ipratropium) 3 ml Q6HRT [facility] 11/24/19 13:00 11/29/19 12:59 11/26/19 08:13 Chlorhexidine Gluconate ([place]-Hex 2%) 1 applic DAILY@2000 TOPIC 11/21/19 20:00 12/12/19 19:59 11/25/19 20:54 Dextrose 1,000 ml @ 30 mls/hr Q24H IV 11/26/19 14:00 11/26/19 20:00 Dextrose 1,000 ml @ 100 mls/hr Q10H PRN IV TPN interrupted or not availab 11/21/19 10:15 12/16/19 00:14 Dextrose (Dextrose 50%) 25 ml Q30M PRN IV Hypoglycemia 11/21/19 10:30 12/13/19 09:29 Dextrose (Dextrose 50%) 50 ml Q30M PRN IV Hypoglycemia 11/21/19 10:30 12/20/19 19:29 Fat Emulsion Intravenous 250 ml/Amino Acids/ Electrolytes/ Dextrose 1,750 ml @ 97.2 mls/hr Q24H IV 11/23/19 20:00 12/23/19 19:59 11/25/19 20:56 Hydromorphone HCl 30 ml @ 0 mls/hr Q24H PRN IV For Pain 11/25/19 09:55 11/27/19 09:54 11/26/19 05:56 Hydromorphone HCl (Dilaudid) 1 mg Q4H PRN SUBQ Severe Breakthru Pain (>7) 11/21/19 13:30 11/28/19 09:29 Insulin Aspart (NovoLOG) EVERY 6 HOURS SUBQ 11/21/19 12:00 12/16/19 20:59 11/26/19 12:06 Iron Sucrose 100 mg/Sodium Chloride 60 ml @ 240 mls/hr BEDTIME IV 11/23/19 21:00 11/27/19 21:14 11/25/19 20:54 Metoprolol Succinate (Toprol XL) 50 mg BEDTIME ORAL 11/21/19 21:00 12/15/19 20:59 11/25/19 20:55 Miscellaneous Medication (STAFF COUNSELOR Rate Change) 1 ea DAILY PRN MISC STAFF COUNSELOR RATE CHANGE 11/25/19 10:00 11/27/19 09:59 Miscellaneous Medication (STAFF COUNSELOR shift volume) 1 ea Q12HR@0700,1900 MISC 11/25/19 19:00 11/27/19 18:59 11/26/19 07:00 Naloxone HCl (Narcan) 0.1 mg Q1M PRN IVP RR<10/min OR SBP<90 mmHg 11/25/19 09:52 12/24/19 19:04 Nitroglycerin (Ntg) 1 patch Q24H TDERMAL 11/21/19 16:00 12/18/19 15:59 11/25/19 16:31 Nystatin (Nystatin) 5 ml TID ORAL 11/23/19 13:00 11/30/19 12:59 11/26/19 12:06 Ondansetron HCl (Zofran) 4 mg Q4H PRN IVP Nausea & Vomiting 11/21/19 13:30 12/12/19 21:29 11/24/19 04:21 Phytonadione (Vitamin K) 10 mg ONCE A WEEK SUBQ 11/27/19 09:00 12/20/19 08:59 Scopolamine (TransDerm Scop 1.5mg/72HR Patch) 1.5 mg Q72H TDERMAL 11/23/19 13:00 12/23/19 12:59 11/26/19 12:06 Temazepam (RestoriL) 7.5 mg HSPRN PRN ORAL Insomnia 11/25/19 10:00 12/02/19 09:59 Lyndon Elias MD Nov 26, 2019 12:38
--- NOTE | 2019-11-26 14:39 | NUR ---
CASE MANAGEMENT: REVIEW 11/24/2019 SI: POD# 7 RESECTION NELSON CONTINENT ILEOSTOMY AND CREATION OF QUINN ILEOSTOMY MALFUNCTION OF NELSON ILEOSTOMY AND BLEEDING FROM STOMA 98.8 115 17 123/79 93% ON 2L NC BUN 61 CREAT 2.1 CA+ 8.3 H/H 9.7/29.7 IS: TPN Q24HR ENTRY LEVEL ELECTRICIAN DILAUDID BID ALDACTONE PO BID NTG TD Q24HR IV VENOFER X5 BAGS NOVOLOG SQ Q6HR NATY-HEX TP QD ALBUTEROL HHN Q6HR MUCOMYST [id number] \: 3E MED SURG UNIT PLAN: CONT NPO CONT TPN CASE MANAGEMENT: REVIEW 11/25/2019 SI: POD# 8 RESECTION NELSON CONTINENT ILEOSTOMY AND CREATION OF QUINN ILEOSTOMY MALFUNCTION OF NELSON ILEOSTOMY AND BLEEDING FROM STOMA 98.9 115 17 121/77 94% ON 2L NC H/H 9.7/29.7 K+5.2 BUN 54 CREAT 2.1 CA+ 8.4 IS: TPN Q24HR ENTRY LEVEL ELECTRICIAN DILAUDID BID ALDACTONE PO BID NTG TD Q24HR IV VENOFER X5 BAGS NOVOLOG SQ Q6HR NATY-HEX TP QD ALBUTEROL HHN Q6HR MUCOMYST [id number] \: 3E MED SURG UNIT PLAN: MAY NEED CT ABD PEL TO R/O INTRA-ABD SEROMA CONT NPO CONT AGOSTO CASE MANAGEMENT: REVIEW 11/26/2019 SI: POD# 9 RESECTION NELSON CONTINENT ILEOSTOMY AND CREATION OF QUINN ILEOSTOMY MALFUNCTION OF NELSON ILEOSTOMY AND BLEEDING FROM STOMA 98.0 93 14 126/78 98% ON 2L NC IS: TPN Q24HR ENTRY LEVEL ELECTRICIAN DILAUDID BID ALDACTONE PO BID NTG TD Q24HR IV VENOFER X5 BAGS NOVOLOG SQ Q6HR NATY-HEX TP QD ALBUTEROL HHN Q6HR MUCOMYST [id number] \: 3E MED SURG UNIT
[2019-11-26] MEDS ORDERED: HYDROmorphone 1mg/ml Carpuject SUBQ PRN (15:00)
[2019-11-26] MEDS ORDERED: Rate Change PCA 1 Each MISC PRN (15:00)
[2019-11-26] MEDS ORDERED: PCA HYDROmorphone 1mg/ml 30 ML IV PRN (15:00)
[2019-11-26] MEDS ORDERED: HYDROcodone/Acetamin 5/325 tab ORAL PRN (15:10)
--- NOTE | 2019-11-26 15:10 | General Progress Note ---
Progress Note Progress Note AVSS with tachycardia improved 90s Ambulates well Abdomen soft, non-distended, healing well. 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
--- NOTE | 2019-11-26 15:15 | NUR ---
*-* INSURANCE *-* ALL CLINICALS AND REVIEWS HAVE BEEN FAXED TO: [facility] REF# [id number] MARLEN:CARYL FX: [phone] P; [phone]
--- NOTE | 2019-11-26 15:30 | NUR ---
NURSE NOTES: SURGICAL PRODUCT SALES CONSULTANT dilaudid syringe 27.7 wasted with [facility] pharmacist.
--- NOTE | 2019-11-26 15:49 | Nephrology Progress Note ---
Assessment/Plan Problem List: (1) Malnutrition of moderate degree (2) Diabetes (3) Hypopotassemia (4) Hypophosphatemia (5) Metabolic acidosis (6) Dehydration (7) ARIK (acute kidney injury) (8) Ulcerative colitis (9) Malfunction of tovar continent ileostomy (10) CHF (congestive heart failure) Plan tpn reviewed serial lab, lasix for chf,had good diuresis , close monitoring, creatinine trending lower tpn to cycle over 18hr/day, mobilize, gradual neg fluid balance, low K corrected , now mild high stop aldactone, clears restarting increased Mg in tpn , ileus d/w dr plaza, pleural effusions from low albumin likely will slowly resolve Subjective Constitutional: Reports: weakness HEENT: Reports: no symptoms Genitourinary: Reports: no symptoms Neurologic/Psychiatric: Reports: no symptoms Subjective no dyspnea, less postop pain Objective Objective Last 24 Hour Vital Signs Date Time Temp Pulse Resp B/P (MAP) Pulse Ox O2 Delivery O2 Flow Rate FiO2 11/26/19 13:46 91 20 99 Room Air 21 89 20 98 11/26/19 12:00 98.0 93 14 126/78 (94) 98 11/26/19 12:00 93 14 98 11/26/19 09:00 Nasal Cannula 2.0 11/26/19 08:11 84 20 99 Room Air 21 79 20 99 11/26/19 08:10 99 Room Air 21 11/26/19 08:00 97.4 73 14 113/69 (84) 98 11/26/19 04:00 97.9 85 19 125/73 (90) 98 11/26/19 04:00 85 19 98 11/26/19 00:00 121 18 96 11/26/19 00:00 97.6 89 19 115/69 (84) 94 11/25/19 21:00 Nasal Cannula 2.0 11/25/19 20:55 120 133/85 11/25/19 20:00 121 18 96 11/25/19 20:00 97.8 120 18 133/85 (101) 96 11/25/19 19:53 94 Room Air 21 11/25/19 16:31 124/78 11/25/19 16:00 99.0 109 18 124/78 (93) 97 1/19/20 16:00 109 18 99 Intake and Output 11/25/19 11/26/19 19:00 07:00 Intake Total 830.4 ml Output Total 2415 ml 875 ml Balance -1584.6 ml -875 ml IV Total 830.4 ml Output Urine Total 1750 ml 575 ml Other 665 ml 300 ml Height (Feet): 5 Height (Inches): 1.00 Weight (Pounds): 85 General Appearance: no apparent distress EENT: normal ENT inspection Neck: normal alignment Cardiovascular: regular rhythm, tachycardia Respiratory/Chest: lungs clear Abdomen: soft Extremities: no edema Neurologic: field placement director II-XII grossly normal Andrae Munguia MD Nov 26, 2019 15:49
[2019-11-26 16:00] VITALS: BP 131/84
--- NOTE | 2019-11-26 16:00 | NUR ---
NURSE NOTES: Ileo bag changed by wound care nurse Yumiko.
[2019-11-26] MEDS: Nitroglycerin Patch 0.2mg/hr TDERMAL SCH (16:54)
--- NOTE | 2019-11-26 16:56 | Infectious Diseases Prog Note ---
Assessment/Plan Assessment/Plan ASSESSMENT AND PLAN: 1. fevers, hx leukocytosis, doubt sepsis - fevers and leukocytosis resolved - clinically stable, off antibiotics - monitor labs and temperatures - d/w RN, patient and - will sign off, call if any questions or re-evaluation - thank you 2. 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 3. Chronic kidney failure with elevated creatinine. 4. Hypertension. 5. Blood pressure treatment per primary care team. 6. History of ulcerative colitis. 7. History of multiple abdominal surgeries. 8. History of gastritis. 9. Anemia. Continue treatment per primary care consultants. 10. Allergies to cefaclor, ofloxacin, sulfa, and sodium Pentothal. 11. Social history is negative. 12. Family history is noncontributory. 13. MAR is noted. 14. Case was discussed with RN. 15. Case was discussed with Dr. Mcconnell. 16. Case was discussed with the patient and Subjective Constitutional: Reports: fatigue, other - feels better ; Denies: fever HEENT: Denies: congestion Respiratory: Denies: shortness of breath Cardiovascular: Denies: chest pain Gastrointestinal/Abdominal: Reports: other - no sig abdominal pain ; Denies: nausea, vomiting Genitourinary: Reports: other - no muse ; Denies: hematuria, frequency Neurologic: Denies: headache Psychiatric: Denies: depression Skin: Denies: rash Hematologic: Denies: bleeding Musculoskeletal: Reports: pain - controlled Allergies: Coded Allergies: CEFACLOR (Verified Allergy, Unknown, 11/12/19) OFLOXACIN (Verified Allergy, Unknown, 11/12/19) SULFA (SULFONAMIDE ANTIBIOTICS) (Verified Allergy, Unknown, 11/12/19) Uncoded Allergies: sodium pentothal (Allergy, Unknown, 11/12/19) Objective Vital Signs Last 24 Hour Vital Signs Date Time Temp Pulse Resp B/P (MAP) Pulse Ox O2 Delivery O2 Flow Rate FiO2 11/26/19 13:46 91 20 99 Room Air 21 89 20 98 11/26/19 12:00 98.0 93 14 126/78 (94) 98 11/26/19 12:00 93 14 98 11/26/19 09:00 Nasal Cannula 2.0 11/26/19 08:11 84 20 99 Room Air 21 79 20 99 11/26/19 08:10 99 Room Air 21 11/26/19 08:00 97.4 73 14 113/69 (84) 98 11/26/19 04:00 97.9 85 19 125/73 (90) 98 11/26/19 04:00 85 19 98 11/26/19 00:00 121 18 96 11/26/19 00:00 97.6 89 19 115/69 (84) 94 11/25/19 21:00 Nasal Cannula 2.0 11/25/19 20:55 120 133/85 11/25/19 20:00 121 18 96 11/25/19 20:00 97.8 120 18 133/85 (101) 96 11/25/19 19:53 94 Room Air 21 Height (Feet): 5 Height (Inches): 1.00 Weight (Pounds): 85 General Appearance: no acute distress HEENT: normocephalic, atraumatic, anicteric, mucous membranes moist Respiratory/Chest: lungs clear, normal breath sounds, no respiratory distress, no accessory muscle use Cardiovascular: normal rate, regular rhythm, no gallop/murmur, no JVD Abdomen: normal bowel sounds, soft, non tender, no organomegaly, non distended Genitourinary: other - no muse Extremities: no cyanosis Skin: no rash Neurologic/Psychiatric: income tax expert II-XII grossly normal, alert, oriented x 3, responsive Lymphatic: no neck adenopathy Musculoskeletal: no effusion Objective Chest x-ray - 11/23/19 - Procedure: XRAY Chest 1v Indication: Shortness of breath Technique: One view of the chest Comparison: 11/20/2019 Findings: Left-sided pleural fluid appears improved. Left sided hazy perihilar and basilar opacity appears improved. Infiltrates on the right appear unchanged. Generalized interstitial disease appears unchanged. Left arm PICC is again demonstrated. Impression: Somewhat improved left-sided pleural effusion and perihilar and basilar opacity. Otherwise stable findings as described Microbiology Date/Time Source Procedure Growth Status 11/18/19 17:15 Blood Blood Culture - Final NO GROWTH AFTER 5 DAYS Complete 11/18/19 17:34 Indwelling Cath Urine Culture - Final NO GROWTH AFTER 48 HOURS Complete Labs Test 11/24/19 05:45 11/25/19 04:50 White Blood Count 9.4 K/UL (4.8-10.8) 10.1 K/UL (4.8-10.8) Red Blood Count 3.85 M/UL (4.20-5.40) 3.78 M/UL (4.20-5.40) Hemoglobin 9.8 G/DL (12.0-16.0) 9.7 G/DL (12.0-16.0) Hematocrit 29.9 % (37.0-47.0) 29.7 % (37.0-47.0) Mean Corpuscular Volume 78 FL (80-99) 78 FL (80-99) Mean Corpuscular Hemoglobin 25.5 PG (27.0-31.0) 25.6 PG (27.0-31.0) Mean Corpuscular Hemoglobin Concent 32.8 G/DL (32.0-36.0) 32.6 G/DL (32.0-36.0) Red Cell Distribution Width 18.8 % (11.6-14.8) 19.3 % (11.6-14.8) Platelet Count 179 K/UL (150-450) 278 K/UL (150-450) Mean Platelet Volume 10.5 FL (6.5-10.1) 10.0 FL (6.5-10.1) Neutrophils (%) (Auto) 82.3 % (45.0-75.0) 83.3 % (45.0-75.0) Lymphocytes (%) (Auto) 9.5 % (20.0-45.0) 9.7 % (20.0-45.0) Monocytes (%) (Auto) 6.5 % (1.0-10.0) 5.2 % (1.0-10.0) Eosinophils (%) (Auto) 1.3 % (0.0-3.0) 1.2 % (0.0-3.0) Basophils (%) (Auto) 0.4 % (0.0-2.0) 0.6 % (0.0-2.0) Sodium Level 142 MMOL/L (136-145) 140 MMOL/L (136-145) Potassium Level 4.7 MMOL/L (3.5-5.1) 5.2 MMOL/L (3.5-5.1) Chloride Level 106 MMOL/L (98-107) 105 MMOL/L (98-107) Carbon Dioxide Level 24 MMOL/L (21-32) 26 MMOL/L (21-32) Anion Gap 12 mmol/L (5-15) 9 mmol/L (5-15) Blood Urea Nitrogen 61 mg/dL (7-18) 54 mg/dL (7-18) Creatinine 2.1 MG/DL (0.55-1.30) 2.1 MG/DL (0.55-1.30) Estimat Glomerular Filtration Rate 24.5 mL/min (>60) 24.5 mL/min (>60) Glucose Level 125 MG/DL (74-106) 117 MG/DL (74-106) Calcium Level 8.3 MG/DL (8.5-10.1) 8.4 MG/DL (8.5-10.1) Total Bilirubin 0.7 MG/DL (0.2-1.0) 0.7 MG/DL (0.2-1.0) Aspartate Amino Transf (AST/SGOT) 52 U/L (15-37) 62 U/L (15-37) Alanine Aminotransferase (ALT/SGPT) 30 U/L (12-78) 40 U/L (12-78) Alkaline Phosphatase 101 U/L (46-116) 125 U/L (46-116) Total Protein 7.0 G/DL (6.4-8.2) 7.5 G/DL (6.4-8.2) Albumin 2.0 G/DL (3.4-5.0) 2.1 G/DL (3.4-5.0) Globulin 5.0 g/dL 5.4 g/dL Albumin/Globulin Ratio 0.4 (1.0-2.7) 0.4 (1.0-2.7) Phosphorus Level 3.8 MG/DL (2.5-4.9) Magnesium Level 2.2 MG/DL (1.8-2.4) Current Medications Medications (Trade) Dose Ordered Sig/Jose Rafael Route PRN Reason Start Time Stop Time Status Last Admin Dose Admin Acetaminophen (Tylenol) 650 mg Q4H PRN ORAL Mild Pain/Temp > 100.2 11/26/19 15:15 12/26/19 15:14 Acetaminophen/ Hydrocodone Bitart ([place] 5/325) 1 tab Q4H PRN ORAL Moderate Pain (Pain Scale 4-6) 11/26/19 15:10 12/03/19 15:09 Acetylcysteine (Mucomyst) 200 mg Q6HRT N 11/21/19 13:00 12/18/19 18:59 11/26/19 13:48 Albuterol/ Ipratropium (Albuterol/ Ipratropium) 3 ml Q6HRT HHN 11/24/19 13:00 11/29/19 12:59 11/26/19 13:49 Chlorhexidine Gluconate ([place]-Hex 2%) 1 applic DAILY@2000 TOPIC 11/21/19 20:00 12/12/19 19:59 11/25/19 20:54 Dextrose 180 ml @ 30 mls/hr Q24H IV 11/27/19 14:00 12/27/19 13:59 Dextrose 1,000 ml @ 30 mls/hr Q24H IV 11/26/19 14:00 11/26/19 20:00 Dextrose 1,000 ml @ 100 mls/hr Q10H PRN IV TPN interrupted or not availab 11/21/19 10:15 12/16/19 00:14 Dextrose (Dextrose 50%) 25 ml Q30M PRN IV Hypoglycemia 11/21/19 10:30 12/13/19 09:29 Dextrose (Dextrose 50%) 50 ml Q30M PRN IV Hypoglycemia 11/21/19 10:30 12/20/19 19:29 Fat Emulsion Intravenous 250 ml/Amino Acids/ Electrolytes/ Dextrose 1,750 ml @ 97.2 mls/hr Q24H IV 11/23/19 20:00 12/23/19 19:59 11/25/19 20:56 Hydromorphone HCl (Dilaudid) 1 mg Q4H PRN SUBQ Severe Breakthru Pain (>7) 11/26/19 15:00 12/03/19 14:59 Insulin Aspart (NovoLOG) EVERY 6 HOURS SUBQ 11/21/19 12:00 12/16/19 20:59 11/26/19 12:06 Iron Sucrose 100 mg/Sodium Chloride 60 ml @ 240 mls/hr BEDTIME IV 11/23/19 21:00 11/27/19 21:14 11/25/19 20:54 Metoprolol Succinate (Toprol XL) 50 mg BEDTIME ORAL 11/21/19 21:00 12/15/19 20:59 11/25/19 20:55 Nitroglycerin (Ntg) 1 patch Q24H TDERMAL 11/21/19 16:00 12/18/19 15:59 11/25/19 16:31 Nystatin (Nystatin) 5 ml TID ORAL 11/23/19 13:00 11/30/19 12:59 11/26/19 12:06 Ondansetron HCl (Zofran) 4 mg Q4H PRN IVP Nausea & Vomiting 11/21/19 13:30 12/12/19 21:29 11/24/19 04:21 Phytonadione (Vitamin K) 10 mg ONCE A WEEK SUBQ 11/27/19 09:00 12/20/19 08:59 Temazepam (RestoriL) 7.5 mg HSPRN PRN ORAL Insomnia 11/25/19 10:00 12/02/19 09:59 Dee Cole MD Nov 26, 2019 16:56
--- NOTE | 2019-11-26 18:00 | NUR ---
NURSE NOTES: Patient had 50% clear liquid diet for dinner. Tolerated well. no c/o nausea or vomiting. No abdominal cramping or distension noted. Patient does not complain of any pain at this time.
[2019-11-26] MEDS ORDERED: PCA shift volume MISC SCH (19:00)
--- NOTE | 2019-11-26 19:04 | NUR ---
NURSE NOTES: ileo output: 150cc brown liquid output noted. UO: 1050cc yellow urine. Patient does not complain of pain at this time. GARAGE HELPER d/c today as ordered. No n/v noted during shift.
[2019-11-26] MEDS ORDERED: Tubing IV Secondary IV ONE ×2 (19:27→19:28)
[2019-11-26] MEDS ORDERED: NS 275ml ONE ×2 (19:27→19:28)
--- NOTE | 2019-11-26 19:35 | NUR ---
NURSE NOTES: Received report from CHUCK Mcclellan. Pt is awake, lying semi-figueroa's; comfortably resting. No signs of acute distress noted. Pt reports pain of 6/10 in the abdomen. AOx4; able to make needs known. Checked IV site, lines, and rates; patent and running. No bleeding, erythema, or infiltration noted. Bed at lowest position. Brakes on. Siderails up x2. Call light within reach. Will continue to monitor.
[2019-11-26 20:00] VITALS: BP 106/71
[2019-11-26] MEDS: Dyna-Hex 2% Top Sol 2oz TOPIC SCH (20:12)
[2019-11-26] MEDS: TPN IV SCH (20:26)
[2019-11-26] MEDS: FAT EMULSION 20% IV SCH (20:26)
[2019-11-26] MEDS: Metoprolol Succinate XL 50mg tab ORAL SCH (21:00)
[2019-11-26] MEDS: Iron Sucrose 100 MG in NS 55 ML IV SCH (21:50)
[2019-11-27] VITALS: BP 102/69
[2019-11-27] MEDS: Acetylcysteine 20% Soln 4ml HHN SCH ×4 (01:00→19:00)
[2019-11-27] MEDS: Albuterol/Ipratropium 3ml neb HHN SCH ×4 (01:00→19:00)
[2019-11-27 04:00] VITALS: BP 143/90
[2019-11-27] MEDS: NovoLOG Insulin Flexpen SUBQ SCH ×4 (06:00→23:44)
--- NOTE | 2019-11-27 06:00 | NUR ---
NURSE NOTES: Pt's 0600 blood sugar is 64. Pt is asymptomatic. Gave orange juice. Will recheck blood sugar in 15 minutes.
--- NOTE | 2019-11-27 06:26 | NUR ---
NURSE NOTES: Rechecked pt's blood sugar after giving orange juice. Pt's blood sugar is 132 and asymptomatic. Will continue to monitor.
[2019-11-27 06:27] LABS: BASOPHILS % (AUTO) 0.5 % (0.0-2.0); EOSINOPHILS % (AUTO) 1.6 % (0.0-3.0); HEMOGLOBIN 9.2 G/DL (12.0-16.0); LYMPHOCYTES % (AUTO) 10.2 % (20.0-45.0); MEAN CORPUSCULAR VOLUME 80 FL (80-99); MONOCYTES % (AUTO) 8.4 % (1.0-10.0); NEUTROPHILS % (AUTO) 79.3 % (45.0-75.0); PLATELET COUNT 377 K/UL (150-450); RED BLOOD COUNT 3.65 M/UL (4.20-5.40); RED CELL DISTRIBUTION WIDTH 20.7 % (11.6-14.8); WHITE BLOOD COUNT 9.9 K/UL (4.8-10.8)
[2019-11-27 06:50] LABS: ALANINE AMINOTRANSFERASE 48 U/L (12-78); ALBUMIN 2.2 G/DL (3.4-5.0); ALBUMIN/GLOBULIN RATIO 0.4 (1.0-2.7); ALKALINE PHOSPHATASE 142 U/L (46-116); ANION GAP 12 mmol/L (5-15); ASPARTATE AMINO TRANSFERASE 54 U/L (15-37); BILIRUBIN,TOTAL 0.7 MG/DL (0.2-1.0); BLOOD UREA NITROGEN 56 mg/dL (7-18); CALCIUM 8.1 MG/DL (8.5-10.1); CARBON DIOXIDE 22 MMOL/L (21-32); CHLORIDE 105 MMOL/L (98-107); CREATININE 1.9 MG/DL (0.55-1.30); POTASSIUM 5.2 MMOL/L (3.5-5.1); SODIUM 139 MMOL/L (136-145)
--- NOTE | 2019-11-27 07:30 | NUR ---
NURSE NOTES: WALKING ROUNDS DONE WITH OUTGOING RN. PATIENT AOX4 IN BED.DENIES PAIN. ASSESSMENT DONE. QUESTIONS ANSWERED, NEEDS MET A THIS TIME. DISCUSSED PLAN OF CARE FOR THE DAY. VERBALIZED UNDERSTANDING. BED IN LOW AND LOCKED POSITION. CALL LIGHT WITHIN REACH.
--- NOTE | 2019-11-27 07:35 | NUR ---
HAND-OFF: Report given to CHUCK Santiago. Pt is awake and in stable condition. Plan of care endorsed.
[2019-11-27 08:00] VITALS: BP 131/85
--- NOTE | 2019-11-27 08:49 | General Progress Note ---
Progress Note Progress Note AVSS Tolerated small amount of clear liquids last night Abdomen soft, healing nicely, stoma stable urine 1924 Ileostomy 535 BUN down 56 Cr down 1.9 albumin 2.2 Imp: Slowly improving Plan: continue clear liquids today, continue TPN d/c Imtiaz Whitman MD Nov 27, 2019 08:49
[2019-11-27] MEDS ORDERED: Phytonadione 10 mg/mL 1ml amp SUBQ SCH (09:00)
[2019-11-27] MEDS: Nystatin Susp 500,000 units/5ml ORAL SCH ×3 (09:48→17:04)
--- NOTE | 2019-11-27 11:10 | NUR ---
RD ASSESSMENT & RECOMMENDATIONS SEE CARE ACTIVITY FOR COMPLETE ASSESSMENT DAILY ESTIMATED NEEDS: Needs based on Underweight, pending surgery, CKD/ 44kg 30-35 kcals/kg 0419-4531 total kcals 1-2 g protein/kg 44-88 g total protein 30-35 mL/kg 6944-2318 total fluid mLs NUTRITION DIAGNOSIS: * Altered GI function R/T h/o UC, BCIR as evidenced by admitted w/ malfunctioning BICR w/ incontinence and stoma bleeding, s/p BCIR takedown w/ creation of conventional Ana ileo, intubated now s/p extubation, on TPN, started on clears. CURRENT DIET:CLD PO DIET RECOMMENDATIONS: Diet per MD PARENTERAL NUTRITION RECOMMENDATIONS: D/AA Rate: 55 IL Rate: 8 Total Rate: 63 Volume: 1512 % Dextrose: 17 % AA: 5.3 Energy (kcals/kg): 1427 Protein (g/kg protein): 70 Nonprotein KCALS: 1147 GIR (mg CHO/kg/min): 3.5 % Fat KCALS: 27 NCP: N Ratio: 102:1 TPN Comment: * D17% AA 5.3% @ 55ml/hr + IL20% @ 8ml/hr -> total of 63ml/hr, all 3:1 * Will provide 100% est kcal/prot needs -> 32kcal/1.6g prot per kg actual body wt ADDITIONAL RECOMMENDATIONS: * Standing wt for accurate CBW, weekly wt monitoring * Monitor LFTs and T bili closely w/ TPN, AST now up * TPN recs as above * Monitor BGs and lytes w/ TPN -> monitor for hypoglycemia (BG 64 on 11/27 am) -> K and phos elevated, consider lowering K and phos in TPN
--- NOTE | 2019-11-27 11:42 | NUR ---
PT NOTE Attempted earlier to see patient for PT treatment, patient requesting to rest. Returned to see patient and patient sleeping, requesting not to wake patient. Patient's states they will walk later. Eva WOODS notified.
[2019-11-27 12:00] VITALS: BP 137/81
--- NOTE | 2019-11-27 12:43 | NUR ---
CASE MANAGEMENT: REVIEW 11/27/2019 SI: POD# 10 RESECTION NELSON CONTINENT ILEOSTOMY AND CREATION OF QUINN ILEOSTOMY MALFUNCTION OF NELSON ILEOSTOMY AND BLEEDING FROM STOMA 98.7 119 16 137/81 94% ON RA H/H 9.2/29.0 K+5.2 BUN 56 CREAT 1.9 CA+ 8.1 PHOS 5.8 IS: TPN Q24HR NTG TD Q24HR IV VENOFER X5 BAGS NOVOLOG SQ Q6HR NATY-HEX TP QD ALBUTEROL HHN Q6HR MUCOMYST [id number] VIT K SQ QWK \: 3E MED SURG UNIT PLAN: CONT CLEARS CONT TPN DC AGOSTO
[2019-11-27] MEDS: DEXTROSE IV SCH (14:03)
--- NOTE | 2019-11-27 14:10 | NUR ---
*-* INSURANCE *-* ALL CLINICALS AND REVIEWS HAVE BEEN FAXED TO: [facility] REF# [id number] MARLEN:CARYL FX: [phone] P; [phone]
[2019-11-27 16:00] VITALS: BP 145/88
[2019-11-27] MEDS ORDERED: Cathflo Alteplase 2mg Inj INJ SCH (16:00)
[2019-11-27] MEDS: Nitroglycerin Patch 0.2mg/hr TDERMAL SCH (17:05)
--- NOTE | 2019-11-27 17:51 | Pulmonology Progress Note ---
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 No abdominal pain. Breathing stable Allergies: Coded Allergies: CEFACLOR (Verified Allergy, Unknown, 11/12/19) OFLOXACIN (Verified Allergy, Unknown, 11/12/19) SULFA (SULFONAMIDE ANTIBIOTICS) (Verified Allergy, Unknown, 11/12/19) Uncoded Allergies: sodium pentothal (Allergy, Unknown, 11/12/19) All Systems: reviewed and negative except above Objective Last 24 Hour Vital Signs Date Time Temp Pulse Resp B/P (MAP) Pulse Ox O2 Delivery O2 Flow Rate FiO2 11/27/19 17:05 145/88 11/27/19 16:00 98.6 116 15 145/88 (107) 96 11/27/19 12:00 98.7 119 16 137/81 (99) 94 11/27/19 09:00 Room Air 11/27/19 08:00 98.4 115 15 131/85 (100) 94 11/27/19 07:30 94 Room Air 21 11/27/19 04:00 98.1 108 20 143/90 (107) 93 11/27/19 01:28 97 Room Air 21 11/27/19 00:00 99.0 109 20 102/69 (80) 94 11/26/19 21:00 117 106/71 11/26/19 21:00 Room Air 11/26/19 20:00 98.3 117 16 106/71 (83) 94 Intake and Output 11/26/19 11/27/19 19:00 07:00 Intake Total 740.4 ml 1459.2 ml Output Total 1200 ml 1260 ml Balance -459.6 ml 199.2 ml Intake Oral 300 ml IV Total 740.4 ml 1159.2 ml Output Urine Total 1050 ml 875 ml Other 150 ml 385 ml General Appearance: no acute distress HEENT: mucous membranes moist Respiratory/Chest: lungs clear Cardiovascular: normal rate Abdomen: soft, non tender, non distended Extremities: no edema Neurologic/Psychiatric: oriented x 3 Laboratory Tests 11/27/19 05:30: White Blood Count 9.9, Red Blood Count 3.65L, Hemoglobin 9.2L, Hematocrit 29.0L , Mean Corpuscular Volume 80, Mean Corpuscular Hemoglobin 25.3L, Mean Corpuscular Hemoglobin Concent 31.7L, Red Cell Distribution Width 20.7H, Platelet Count 377, Mean Platelet Volume 8.9, Neutrophils (%) (Auto) 79.3H, Lymphocytes (%) (Auto) 10.2L, Monocytes (%) (Auto) 8.4, Eosinophils (%) (Auto) 1.6, Basophils (%) (Auto) 0.5, Sodium Level 139, Potassium Level 5.2H, Chloride Level 105, Carbon Dioxide Level 22, Anion Gap 12, Blood Urea Nitrogen 56H, Creatinine 1.9H, Estimat Glomerular Filtration Rate 27.5, Glucose Level 85, Calcium Level 8.1L, Phosphorus Level 5.8H, Magnesium Level 2.2, Total Bilirubin 0.7, Aspartate Amino Transf (AST/SGOT) 54H, Alanine Aminotransferase (ALT/SGPT) 48, Alkaline Phosphatase 142H, Total Protein 7.5, Albumin 2.2L, Globulin 5.3, Albumin/Globulin Ratio 0.4L Current Medications Medications (Trade) Dose Ordered Sig/Jose Rafael Route PRN Reason Start Time Stop Time Status Last Admin Dose Admin Acetaminophen (Tylenol) 650 mg Q4H PRN ORAL Mild Pain/Temp > 100.2 11/26/19 15:15 12/26/19 15:14 Acetaminophen/ Hydrocodone Bitart ([place] 5/325) 1 tab Q4H PRN ORAL Moderate Pain (Pain Scale 4-6) 11/26/19 15:10 12/03/19 15:09 11/26/19 20:14 Acetylcysteine (Mucomyst) 200 mg Q6HRT [facility] 11/21/19 13:00 12/18/19 18:59 11/26/19 13:48 Albuterol/ Ipratropium (Albuterol/ Ipratropium) 3 ml Q6HRT N 11/24/19 13:00 11/29/19 12:59 11/26/19 13:49 Alteplase, Recombinant (Cathflo) 2 mg ONCE INJ 11/27/19 16:00 11/27/19 18:00 11/27/19 17:05 Chlorhexidine Gluconate ([place]-Hex 2%) 1 applic DAILY@2000 TOPIC 11/21/19 20:00 12/12/19 19:59 11/26/19 20:12 Dextrose 180 ml @ 30 mls/hr Q24H IV 11/27/19 14:00 12/27/19 13:59 11/27/19 14:03 Dextrose 1,000 ml @ 100 mls/hr Q10H PRN IV TPN interrupted or not availab 11/21/19 10:15 12/16/19 00:14 Dextrose (Dextrose 50%) 25 ml Q30M PRN IV Hypoglycemia 11/21/19 10:30 12/13/19 09:29 Dextrose (Dextrose 50%) 50 ml Q30M PRN IV Hypoglycemia 11/21/19 10:30 12/20/19 19:29 Fat Emulsion Intravenous 250 ml/Amino Acids/ Electrolytes/ Dextrose 1,750 ml @ 97.2 mls/hr Q24H IV 11/23/19 20:00 11/27/19 19:59 11/26/19 20:26 Fat Emulsion Intravenous 250 ml/Amino Acids/ Electrolytes/ Dextrose 1,750 ml @ 97.2 mls/hr Q24H IV 11/27/19 20:00 12/27/19 19:59 Hydromorphone HCl (Dilaudid) 1 mg Q4H PRN SUBQ Severe Breakthru Pain (>7) 11/26/19 15:00 12/03/19 14:59 Insulin Aspart (NovoLOG) EVERY 6 HOURS SUBQ 11/21/19 12:00 12/16/19 20:59 11/27/19 11:27 Iron Sucrose 100 mg/Sodium Chloride 60 ml @ 240 mls/hr BEDTIME IV 11/23/19 21:00 11/27/19 21:14 11/26/19 21:50 Metoprolol Succinate (Toprol XL) 50 mg BEDTIME ORAL 11/21/19 21:00 12/15/19 20:59 11/25/19 20:55 Nitroglycerin (Ntg) 1 patch Q24H TDERMAL 11/21/19 16:00 12/18/19 15:59 11/27/19 17:05 Nystatin (Nystatin) 5 ml TID ORAL 11/23/19 13:00 11/30/19 12:59 11/27/19 17:04 Ondansetron HCl (Zofran) 4 mg Q4H PRN IVP Nausea & Vomiting 11/21/19 13:30 12/12/19 21:29 11/24/19 04:21 Phytonadione (Vitamin K) 10 mg ONCE A WEEK SUBQ 11/27/19 09:00 12/20/19 08:59 11/27/19 09:48 Temazepam (RestoriL) 7.5 mg HSPRN PRN ORAL Insomnia 11/25/19 10:00 12/02/19 09:59 Lyndon Elias MD Nov 27, 2019 17:51
--- NOTE | 2019-11-27 18:31 | NUR ---
NURSE NOTES: PATIENT DOING VERY WELL TODAY. UP TO CHAIR MOST OF THE DAY. ILEOSTOMY INTACT AND SECURED. VOIDING WITHOUT DIFFICULTY. NOTIFIED DR. PALACIO OF RED PICC LINE NOT FLUSHING. ORDER OBTAINED FOR CATH-KATHY AND INFUSED ORDERED. EXPLAINED RATIONALE TO PATIENT AND SPOUSE. WILL ALLOW CATH-KATHY TO DWELL INSTRUCTED.
--- NOTE | 2019-11-27 18:47 | Nephrology Progress Note ---
Assessment/Plan Problem List: (1) Malnutrition of moderate degree (2) Diabetes (3) Hypopotassemia (4) Hypophosphatemia (5) Metabolic acidosis (6) Dehydration (7) ARIK (acute kidney injury) (8) Ulcerative colitis (9) Malfunction of tovar continent ileostomy (10) CHF (congestive heart failure) Plan tpn reviewed serial lab, lasix for chf,had good diuresis , close monitoring, creatinine trending lower tpn to cycle over 18hr/day, mobilize, gradual neg fluid balance, low K corrected , now mild high stop aldactone, clears restarting increased Mg in tpn , ileus d/w dr plaza, pleural effusions from low albumin likely will slowly resolve Subjective Constitutional: Reports: weakness HEENT: Reports: no symptoms Genitourinary: Reports: no symptoms Neurologic/Psychiatric: Reports: no symptoms Subjective no dyspnea, less postop pain Objective Objective Last 24 Hour Vital Signs Date Time Temp Pulse Resp B/P (MAP) Pulse Ox O2 Delivery O2 Flow Rate FiO2 11/27/19 17:05 145/88 11/27/19 16:00 98.6 116 15 145/88 (107) 96 11/27/19 12:00 98.7 119 16 137/81 (99) 94 11/27/19 09:00 Room Air 11/27/19 08:00 98.4 115 15 131/85 (100) 94 11/27/19 07:30 94 Room Air 21 11/27/19 04:00 98.1 108 20 143/90 (107) 93 11/27/19 01:28 97 Room Air 21 11/27/19 00:00 99.0 109 20 102/69 (80) 94 11/26/19 21:00 117 106/71 11/26/19 21:00 Room Air 11/26/19 20:00 98.3 117 16 106/71 (83) 94 Intake and Output 11/26/19 11/27/19 19:00 07:00 Intake Total 740.4 ml 1459.2 ml Output Total 1200 ml 1260 ml Balance -459.6 ml 199.2 ml Intake Oral 300 ml IV Total 740.4 ml 1159.2 ml Output Urine Total 1050 ml 875 ml Other 150 ml 385 ml Laboratory Tests 11/27/19 05:30: White Blood Count 9.9, Red Blood Count 3.65L, Hemoglobin 9.2L, Hematocrit 29.0L , Mean Corpuscular Volume 80, Mean Corpuscular Hemoglobin 25.3L, Mean Corpuscular Hemoglobin Concent 31.7L, Red Cell Distribution Width 20.7H, Platelet Count 377, Mean Platelet Volume 8.9, Neutrophils (%) (Auto) 79.3H, Lymphocytes (%) (Auto) 10.2L, Monocytes (%) (Auto) 8.4, Eosinophils (%) (Auto) 1.6, Basophils (%) (Auto) 0.5, Sodium Level 139, Potassium Level 5.2H, Chloride Level 105, Carbon Dioxide Level 22, Anion Gap 12, Blood Urea Nitrogen 56H, Creatinine 1.9H, Estimat Glomerular Filtration Rate 27.5, Glucose Level 85, Calcium Level 8.1L, Phosphorus Level 5.8H, Magnesium Level 2.2, Total Bilirubin 0.7, Aspartate Amino Transf (AST/SGOT) 54H, Alanine Aminotransferase (ALT/SGPT) 48, Alkaline Phosphatase 142H, Total Protein 7.5, Albumin 2.2L, Globulin 5.3, Albumin/Globulin Ratio 0.4L Height (Feet): 5 Height (Inches): 1.00 Weight (Pounds): 85 General Appearance: no apparent distress, alert EENT: normal ENT inspection Neck: normal alignment Cardiovascular: regular rhythm, tachycardia Respiratory/Chest: lungs clear Abdomen: soft Extremities: no edema 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
--- NOTE | 2019-11-27 18:49 | NUR ---
NURSE NOTES: CATH-KATHY DE-CLOGGED RED PICC PORT. NO RESISTANCE MET. ABLE TO ASPIRATE BLOOD WITHOUT DIFFICULTY.
--- NOTE | 2019-11-27 18:55 | NUR ---
HAND-OFF: Report given to ENMANUEL HERMOSILLO RN.
--- NOTE | 2019-11-27 19:05 | NUR ---
NURSE NOTES: Received report from CHUCK Santiago. Pt is awake, lying high figueroa's; comfortably resting. at bedside. No signs of acute distress noted. Pt denies any pain at this time. AOx4; able to make needs known. Checked IV site, lines, and rate; patent and running. Ileo bag intact and noted. Bed at lowest position. Brakes on. Siderails up x2. Call light within reach. Will continue to monitor.
--- NOTE | 2019-11-27 19:24 | NUR ---
HAND-OFF: Report given to ENMANUEL HERMOSILLO RN.
[2019-11-27 20:00] VITALS: BP 140/95
[2019-11-27] MEDS: TPN IV SCH (20:51)
[2019-11-27] MEDS: FAT EMULSION 20% IV SCH (20:51)
[2019-11-27] MEDS: Dyna-Hex 2% Top Sol 2oz TOPIC SCH (20:52)
[2019-11-27] MEDS: Iron Sucrose 100 MG in NS 55 ML IV SCH (21:02)
[2019-11-27] MEDS: Metoprolol Succinate XL 50mg tab ORAL SCH (23:42)
[2019-11-28] VITALS: BP 157/90
[2019-11-28] MEDS: Albuterol/Ipratropium 3ml neb HHN SCH ×2 (01:00→07:45)
[2019-11-28] MEDS: Acetylcysteine 20% Soln 4ml HHN SCH ×2 (01:00→07:45)
[2019-11-28 04:00] VITALS: BP 134/86
[2019-11-28] MEDS: NovoLOG Insulin Flexpen SUBQ SCH ×3 (06:00→17:48)
--- NOTE | 2019-11-28 07:00 | NUR ---
NURSE NOTES: Total ileo output = 400 mL Total urine output = 650 mL
--- NOTE | 2019-11-28 07:20 | NUR ---
HAND-OFF: Report given to CHUCK Mcclellan. Pt is awake and in stable condition. Plan of care endorsed.
--- NOTE | 2019-11-28 07:30 | NUR ---
NURSE NOTES: Patient is in bed awake and able to verbalize needs. Stable. Denies pain or SOB. Patient instructed to use call light for assistance, verbalized understanding. PICC dressing clean, dry, and intact. Running TPN as ordered. PICC site is clean and dry. Ileo bag in place, will monitor I&O as ordered. Patient instructed to call RN after voiding to monitor urine output. Patient encouraged to ambulate. Patient is in bed in locked and lowest position with call light within reach. all needs met at this time. Plan of care discussed with patient. Will continue to monitor.
[2019-11-28 07:53] LABS: ANION GAP 11 mmol/L (5-15); BLOOD UREA NITROGEN 48 mg/dL (7-18); CALCIUM 8.2 MG/DL (8.5-10.1); CARBON DIOXIDE 23 MMOL/L (21-32); CHLORIDE 105 MMOL/L (98-107); CREATININE 1.6 MG/DL (0.55-1.30); PHOSPHORUS 5.1 MG/DL (2.5-4.9); POTASSIUM 4.6 MMOL/L (3.5-5.1); SODIUM 139 MMOL/L (136-145)
[2019-11-28 08:14] VITALS: BP 128/77
[2019-11-28] MEDS: Nystatin Susp 500,000 units/5ml ORAL SCH ×3 (08:19→17:48)
--- NOTE | 2019-11-28 09:25 | NUR ---
PT NOTE Skilled inpatient PT intervention no longer indicated as patient is independent/supervised with all functional mobility without assistive device. Patient discharged from PT, Vy WOODS notified. Addendum: 11/28/19 at 1015 by JENNIFER CHARLES PT Amended: Links added.
[2019-11-28] MEDS ORDERED: Albuterol/Ipratropium 3ml neb HHN PRN (10:15)
[2019-11-28] MEDS ORDERED: Acetylcysteine 20% Soln 4ml HHN PRN (10:15)
--- NOTE | 2019-11-28 10:20 | General Progress Note ---
Progress Note Progress Note AVSS Ambulates in hallways. Voiding without Erazo Abdomen soft, incisions clean, stoma pink Urine 1600 ileostomy 775 BUN down 48 Cr down 1.6 Imp: Improved Plan: BCIR low residue diet 6 small meals daily continue TPN until po intake sufficient to meet her nutritional needs Imtiaz Mcconnell MD Nov 28, 2019 10:20
[2019-11-28 12:00] VITALS: BP 145/85
--- NOTE | 2019-11-28 12:27 | NUR ---
CASE MANAGEMENT: REVIEW 11/28/2019 SI: POD# 11 RESECTION NLESON CONTINENT ILEOSTOMY AND CREATION OF QUINN ILEOSTOMY MALFUNCTION OF NELSON ILEOSTOMY AND BLEEDING FROM STOMA 98.4 106 19 145/85 98% ON RA PHOS 5.1 BUN 48 CREAT 1.6 CA+ 8.2 IS: IVF D5@30ML/HR TPN Q24HR NTG TD Q24HR TOPROL XL PO QHS NYSTATIN PO TID NOVOLOG SQ Q6HR NATY-HEX TP QD ALBUTEROL HHN Q6HR MUCOMYST [id number] VIT K SQ QWK \: 3E MED SURG UNIT PLAN: START BCIR LOW RESIDUAL DIET-6 SMALL MEALS CONT TPN UNTIL TOLERATING DIET WELL
--- NOTE | 2019-11-28 13:00 | NUR ---
NURSE NOTES: Patient tolerated BCIR diet. No c/o abdominal pain or discomfort.
--- NOTE | 2019-11-28 15:30 | Pulmonology Progress Note ---
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 Subjective ROS Limited/Unobtainable: No Interval Events: tolerating PO diet, small amounts. Abdomen comfortable. No sob. Allergies: Coded Allergies: CEFACLOR (Verified Allergy, Unknown, 11/12/19) OFLOXACIN (Verified Allergy, Unknown, 11/12/19) SULFA (SULFONAMIDE ANTIBIOTICS) (Verified Allergy, Unknown, 11/12/19) Uncoded Allergies: sodium pentothal (Allergy, Unknown, 11/12/19) All Systems: reviewed and negative except above Objective Last 24 Hour Vital Signs Date Time Temp Pulse Resp B/P (MAP) Pulse Ox O2 Delivery O2 Flow Rate FiO2 11/28/19 12:00 98.4 106 19 145/85 (105) 98 11/28/19 09:00 Room Air 11/28/19 08:14 98.5 103 19 128/77 (94) 97 106 11/28/19 07:45 97 Room Air 21 11/28/19 04:00 99.1 112 17 134/86 (102) 95 11/28/19 00:00 98.8 109 17 157/90 (112) 95 11/27/19 23:42 100 147/90 11/27/19 21:00 Room Air 11/27/19 20:00 98.6 111 18 140/95 (110) 94 11/27/19 19:52 98 Room Air 21 11/27/19 17:05 145/88 11/27/19 16:00 98.6 116 15 145/88 (107) 96 Intake and Output 11/27/19 11/28/19 19:00 07:00 Intake Total 1607.6 ml 972.0 ml Output Total 1775 ml Balance -167.4 ml 972.0 ml Intake Oral 680 ml IV Total 927.6 ml 972.0 ml Output Urine Total 1400 ml Other 375 ml General Appearance: no acute distress HEENT: mucous membranes moist Respiratory/Chest: lungs clear Cardiovascular: normal rate Abdomen: soft, non tender Extremities: no edema Neurologic/Psychiatric: oriented x 3 Laboratory Tests 11/28/19 05:50: Sodium Level 139, Potassium Level 4.6, Chloride Level 105, Carbon Dioxide Level 23, Anion Gap 11, Blood Urea Nitrogen 48H, Creatinine 1.6H, Estimat Glomerular Filtration Rate 33.5, Glucose Level 89, Calcium Level 8.2L, Phosphorus Level 5.1H Current Medications Medications (Trade) Dose Ordered Sig/Jose Rafael Route PRN Reason Start Time Stop Time Status Last Admin Dose Admin Acetaminophen (Tylenol) 650 mg Q4H PRN ORAL Mild Pain/Temp > 100.2 11/26/19 15:15 12/26/19 15:14 11/28/19 13:14 Acetaminophen/ Hydrocodone Bitart ([place] 5/325) 1 tab Q4H PRN ORAL Moderate Pain (Pain Scale 4-6) 11/26/19 15:10 12/03/19 15:09 11/26/19 20:14 Acetylcysteine (Mucomyst) 200 mg Q6H PRN HHN Shortness of Breath 11/28/19 10:15 12/28/19 10:14 Albuterol/ Ipratropium (Albuterol/ Ipratropium) 3 ml Q6H PRN HHN Shortness of Breath 11/28/19 10:15 12/03/19 10:14 Chlorhexidine Gluconate ([place]-Hex 2%) 1 applic DAILY@2000 TOPIC 11/21/19 20:00 12/12/19 19:59 11/27/19 20:52 Dextrose 180 ml @ 30 mls/hr Q24H IV 11/27/19 14:00 12/27/19 13:59 11/27/19 14:03 Dextrose 1,000 ml @ 100 mls/hr Q10H PRN IV TPN interrupted or not availab 11/21/19 10:15 12/16/19 00:14 Dextrose (Dextrose 50%) 25 ml Q30M PRN IV Hypoglycemia 11/21/19 10:30 12/13/19 09:29 Dextrose (Dextrose 50%) 50 ml Q30M PRN IV Hypoglycemia 11/21/19 10:30 12/20/19 19:29 Fat Emulsion Intravenous 250 ml/Amino Acids/ Electrolytes/ Dextrose 1,750 ml @ 97.2 mls/hr Q24H IV 11/27/19 20:00 12/27/19 19:59 11/27/19 20:51 Hydromorphone HCl (Dilaudid) 1 mg Q4H PRN SUBQ Severe Breakthru Pain (>7) 11/26/19 15:00 12/03/19 14:59 Insulin Aspart (NovoLOG) EVERY 6 HOURS SUBQ 11/21/19 12:00 12/16/19 20:59 11/28/19 12:10 Metoprolol Succinate (Toprol XL) 50 mg BEDTIME ORAL 11/21/19 21:00 12/15/19 20:59 11/27/19 23:42 Nitroglycerin (Ntg) 1 patch Q24H TDERMAL 11/21/19 16:00 12/18/19 15:59 11/27/19 17:05 Nystatin (Nystatin) 5 ml TID ORAL 11/23/19 13:00 11/30/19 12:59 11/28/19 13:13 Ondansetron HCl (Zofran) 4 mg Q4H PRN IVP Nausea & Vomiting 11/21/19 13:30 12/12/19 21:29 11/24/19 04:21 Phytonadione (Vitamin K) 10 mg ONCE A WEEK SUBQ 11/27/19 09:00 12/20/19 08:59 11/27/19 09:48 Temazepam (RestoriL) 7.5 mg HSPRN PRN ORAL Insomnia 11/25/19 10:00 12/02/19 09:59 Lyndon Elias MD Nov 28, 2019 15:30
--- NOTE | 2019-11-28 15:59 | NUR ---
*-* INSURANCE *-* ALL CLINICALS AND REVIEWS HAVE BEEN FAXED TO: [employer] REF# [id number] MARLEN:CARYL FX: [phone] P; [phone]
[2019-11-28 16:02] VITALS: BP 137/80
[2019-11-28] MEDS: DEXTROSE IV SCH (16:30)
[2019-11-28] MEDS: Nitroglycerin Patch 0.2mg/hr TDERMAL SCH (16:30)
--- NOTE | 2019-11-28 18:57 | NUR ---
NURSE NOTES: ileo: 925cc brownish liquid output. UO: 1300cc yellow urine. No n/v during shift. Pain controlled by tylenol. Patient ambulated throughout shift.
[2019-11-28] MEDS: FAT EMULSION 20% IV SCH (19:41)
[2019-11-28] MEDS: TPN IV SCH (19:41)
[2019-11-28] MEDS: Dyna-Hex 2% Top Sol 2oz TOPIC SCH (19:41)
--- NOTE | 2019-11-28 19:50 | NUR ---
HAND-OFF: Report given to Carol WOODS. patient is stable.
[2019-11-28 20:00] VITALS: BP 138/71
--- NOTE | 2019-11-28 20:07 | NUR ---
NURSES NOTE: Met pt in bed, A/OX4, denies pain currently. No outward s/s of distress noted. Breathing pattern is even and unlabored on RA. Ileo bag, R lower quadrant intact. PICC line AME patent, flushing well. All due medications will be given. Bed at lowest level, call light within reach. Pt will continue to be monitored.
[2019-11-28] MEDS: Metoprolol Succinate XL 50mg tab ORAL SCH (21:05)
--- NOTE | 2019-11-28 21:34 | Nephrology Progress Note ---
Assessment/Plan Problem List: (1) Malnutrition of moderate degree (2) Diabetes (3) Hypopotassemia (4) Hypophosphatemia (5) Metabolic acidosis (6) Dehydration (7) ARIK (acute kidney injury) (8) Ulcerative colitis (9) Malfunction of tovar continent ileostomy (10) CHF (congestive heart failure) Plan tpn reviewed serial lab, lasix for chf,had good diuresis , close monitoring, creatinine trending lower tpn to cycle over 18hr/day, mobilize, gradual neg fluid balance, low K corrected , now mild high stop aldactone, clears restarting increased Mg in tpn , ileus d/w dr plaza, pleural effusions from low albumin likely will slowly resolve, diet advanced, observe tolerance Subjective Constitutional: Reports: weakness HEENT: Reports: no symptoms Genitourinary: Reports: no symptoms Neurologic/Psychiatric: Reports: no symptoms Subjective no dyspnea, less postop pain Objective Objective Last 24 Hour Vital Signs Date Time Temp Pulse Resp B/P (MAP) Pulse Ox O2 Delivery O2 Flow Rate FiO2 11/28/19 21:05 108 137/90 11/28/19 20:43 97 Room Air 21 11/28/19 20:43 101 20 97 Room Air 11/28/19 16:30 137/80 11/28/19 16:02 97.8 70 19 137/80 (99) 97 70 11/28/19 12:00 98.4 106 19 145/85 (105) 98 11/28/19 09:00 Room Air 11/28/19 08:14 98.5 103 19 128/77 (94) 97 106 11/28/19 07:45 97 Room Air 21 11/28/19 04:00 99.1 112 17 134/86 (102) 95 11/28/19 00:00 98.8 109 17 157/90 (112) 95 11/27/19 23:42 100 147/90 Intake and Output 11/27/19 11/28/19 19:00 07:00 Intake Total 1607.6 ml 972.0 ml Output Total 1775 ml Balance -167.4 ml 972.0 ml Intake Oral 680 ml IV Total 927.6 ml 972.0 ml Output Urine Total 1400 ml Other 375 ml Laboratory Tests 11/28/19 05:50: Sodium Level 139, Potassium Level 4.6, Chloride Level 105, Carbon Dioxide Level 23, Anion Gap 11, Blood Urea Nitrogen 48H, Creatinine 1.6H, Estimat Glomerular Filtration Rate 33.5, Glucose Level 89, Calcium Level 8.2L, Phosphorus Level 5.1H Height (Feet): 5 Height (Inches): 1.00 Weight (Pounds): 85 General Appearance: no apparent distress, alert EENT: normal ENT inspection Neck: non-tender Cardiovascular: normal rate Respiratory/Chest: lungs clear Abdomen: non tender Extremities: no edema Neurologic: sfdc 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
[2019-11-29 00:33] LABS: APPEARANCE,URINE CLEAR; BILIRUBIN, URINE NEGATIVE (NEGATIVE); COLOR,URINE PALE YELLOW; GLUCOSE, URINE (UA) NEGATIVE (NEGATIVE); KETONES,URINE NEGATIVE (NEGATIVE); LEUKOCYTE ESTERASE ,URINE NEGATIVE (NEGATIVE); NITRITE,URINE NEGATIVE (NEGATIVE); PH,URINE 5 (4.5-8.0); UROBILINOGEN,URINE NORMAL MG/DL (0.0-1.0)
[2019-11-29 00:48] LABS: PROTEIN,URINE NEGATIVE (NEGATIVE)
[2019-11-29 04:00] VITALS: BP 116/74
[2019-11-29] MEDS: NovoLOG Insulin Flexpen SUBQ SCH ×5 (06:00→23:41)
[2019-11-29 07:12] LABS: ANION GAP 9 mmol/L (5-15); BLOOD UREA NITROGEN 47 mg/dL (7-18); CARBON DIOXIDE 23 MMOL/L (21-32); CHLORIDE 105 MMOL/L (98-107); CREATININE 1.6 MG/DL (0.55-1.30); PHOSPHORUS 4.7 MG/DL (2.5-4.9); POTASSIUM 4.6 MMOL/L (3.5-5.1); SODIUM 137 MMOL/L (136-145)
--- NOTE | 2019-11-29 07:40 | NUR ---
NURSE NOTES: Report received from Mariella WOODS, rounds made. Patient resting in semi-fowlers position in bed, spouse at bedside. No distress on RA, denies pain, no NV. Ana ileostomy intact, yellow output noted in bag, Abdominal dressing CDI. AME PICC dressing intact, infusing TPN 97.2 ml/hr. Call light in reach, bed in lowest position, will continue to monitor.
[2019-11-29 08:00] VITALS: BP 132/79
--- NOTE | 2019-11-29 08:14 | NUR ---
HAND OFF: Report given to oli Arreguin.
--- NOTE | 2019-11-29 09:37 | Pulmonology Progress Note ---
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 Walking. Allergies: Coded Allergies: CEFACLOR (Verified Allergy, Unknown, 11/12/19) OFLOXACIN (Verified Allergy, Unknown, 11/12/19) SULFA (SULFONAMIDE ANTIBIOTICS) (Verified Allergy, Unknown, 11/12/19) Uncoded Allergies: sodium pentothal (Allergy, Unknown, 11/12/19) All Systems: reviewed and negative except above Objective Last 24 Hour Vital Signs Date Time Temp Pulse Resp B/P (MAP) Pulse Ox O2 Delivery O2 Flow Rate FiO2 11/29/19 04:00 99.0 110 14 116/74 (88) 96 110 11/28/19 21:05 108 137/90 11/28/19 21:00 Room Air 11/28/19 21:00 Room Air 11/28/19 20:43 97 Room Air 21 11/28/19 20:43 101 20 97 Room Air 11/28/19 20:00 98.5 108 19 138/71 (93) 95 108 11/28/19 16:30 137/80 11/28/19 16:02 97.8 70 19 137/80 (99) 97 70 11/28/19 12:00 98.4 106 19 145/85 (105) 98 Intake and Output 11/28/19 11/29/19 19:00 07:00 Intake Total 837.6 ml 1509.2 ml Output Total 1300 ml Balance 837.6 ml 209.2 ml Intake Oral 350 ml IV Total 837.6 ml 1159.2 ml Output Urine Total 750 ml Other 550 ml # Voids 3 General Appearance: no acute distress HEENT: atraumatic, mucous membranes moist Respiratory/Chest: lungs clear Cardiovascular: normal rate, regular rhythm Abdomen: soft, non tender Extremities: no edema Neurologic/Psychiatric: oriented x 3 Laboratory Tests 11/28/19 23:00: Urine Color Pale yellow, Urine Appearance Clear, Urine pH 5, Urine Specific [place] 1.015, Urine Protein Negative, Urine Glucose (UA) Negative, Urine Ketones Negative, Urine Blood Negative, Urine Nitrite Negative, Urine Bilirubin Negative, Urine Urobilinogen Normal, Urine Leukocyte Esterase Negative, Urine RBC 0-2, Urine WBC 0, Urine Squamous Epithelial Cells Few, Urine Bacteria None 11/29/19 05:15: Sodium Level 137, Potassium Level 4.6, Chloride Level 105, Carbon Dioxide Level 23, Anion Gap 9, Blood Urea Nitrogen 47H, Creatinine 1.6H, Estimat Glomerular Filtration Rate 33.5, Glucose Level 115H, Calcium Level 8.0L, Phosphorus Level 4.7 Current Medications Medications (Trade) Dose Ordered Sig/Jose Rafael Route PRN Reason Start Time Stop Time Status Last Admin Dose Admin Acetaminophen (Tylenol) 650 mg Q4H PRN ORAL Mild Pain/Temp > 100.2 11/26/19 15:15 12/26/19 15:14 11/28/19 21:04 Acetaminophen/ Hydrocodone Bitart ([place] 5/325) 1 tab Q4H PRN ORAL Moderate Pain (Pain Scale 4-6) 11/26/19 15:10 12/03/19 15:09 11/26/19 20:14 Acetylcysteine (Mucomyst) 200 mg Q6H PRN HHN Shortness of Breath 11/28/19 10:15 12/28/19 10:14 Albuterol/ Ipratropium (Albuterol/ Ipratropium) 3 ml Q6H PRN HHN Shortness of Breath 11/28/19 10:15 12/03/19 10:14 Chlorhexidine Gluconate ([place]-Hex 2%) 1 applic DAILY@2000 TOPIC 11/21/19 20:00 12/12/19 19:59 11/28/19 19:41 Dextrose 180 ml @ 30 mls/hr Q24H IV 11/27/19 14:00 12/27/19 13:59 11/28/19 16:30 Dextrose 1,000 ml @ 100 mls/hr Q10H PRN IV TPN interrupted or not availab 11/21/19 10:15 12/16/19 00:14 Dextrose (Dextrose 50%) 25 ml Q30M PRN IV Hypoglycemia 11/21/19 10:30 12/13/19 09:29 Dextrose (Dextrose 50%) 50 ml Q30M PRN IV Hypoglycemia 11/21/19 10:30 12/20/19 19:29 Fat Emulsion Intravenous 250 ml/Amino Acids/ Electrolytes/ Dextrose 1,750 ml @ 97.2 mls/hr Q24H IV 11/27/19 20:00 12/27/19 19:59 11/28/19 19:41 Hydromorphone HCl (Dilaudid) 1 mg Q4H PRN SUBQ Severe Breakthru Pain (>7) 11/26/19 15:00 12/03/19 14:59 Insulin Aspart (NovoLOG) EVERY 6 HOURS SUBQ 11/21/19 12:00 12/16/19 20:59 11/29/19 00:00 Metoprolol Succinate (Toprol XL) 50 mg BEDTIME ORAL 11/21/19 21:00 12/15/19 20:59 11/28/19 21:05 Nitroglycerin (Ntg) 1 patch Q24H TDERMAL 11/21/19 16:00 12/18/19 15:59 11/28/19 16:30 Nystatin (Nystatin) 5 ml TID ORAL 11/23/19 13:00 11/30/19 12:59 11/28/19 17:48 Ondansetron HCl (Zofran) 4 mg Q4H PRN IVP Nausea & Vomiting 11/21/19 13:30 12/12/19 21:29 11/24/19 04:21 Phytonadione (Vitamin K) 10 mg ONCE A WEEK SUBQ 11/27/19 09:00 12/20/19 08:59 11/27/19 09:48 Temazepam (RestoriL) 7.5 mg HSPRN PRN ORAL Insomnia 11/25/19 10:00 12/02/19 09:59 Lyndon Elias MD Nov 29, 2019 09:37
[2019-11-29] MEDS: Nystatin Susp 500,000 units/5ml ORAL SCH ×3 (09:39→18:32)
[2019-11-29 12:00] VITALS: BP 129/81
--- NOTE | 2019-11-29 13:42 | General Progress Note ---
Progress Note Progress Note AVSS with intermittent tachycardia Tolerating 25-50% of diet + TPN Ambulating freely now Abdomen soft, incisions and stoma healing nicely, matthew still in place due to depleted condition Urine 2049 Ileostomy 1475 BUN 47 Cr 1.6 other labs stable with low albumin Imp: Gradually improving Plan: TPN and IV fluids per Dr. Munguia Needs stoma teaching by Imtiaz Quinn MD Nov 29, 2019 13:42
[2019-11-29] MEDS: DEXTROSE IV SCH (14:16)
--- NOTE | 2019-11-29 14:58 | NUR ---
RADIOLOGY DEPT., CHEST X-RAY COMPLETED.-P.DYE
--- NOTE | 2019-11-29 15:10 | Nephrology Progress Note ---
Assessment/Plan Problem List: (1) Malnutrition of moderate degree (2) Diabetes (3) Hypopotassemia (4) Hypophosphatemia (5) Metabolic acidosis (6) Dehydration (7) ARIK (acute kidney injury) (8) Ulcerative colitis (9) Malfunction of tovar continent ileostomy (10) CHF (congestive heart failure) Plan taking solids, tpn to stop after todays bottle, observe intake, trend lab Subjective Constitutional: Reports: weakness HEENT: Reports: no symptoms Genitourinary: Reports: no symptoms Neurologic/Psychiatric: Reports: no symptoms Subjective no dyspnea, less postop pain Objective Objective Last 24 Hour Vital Signs Date Time Temp Pulse Resp B/P (MAP) Pulse Ox O2 Delivery O2 Flow Rate FiO2 11/29/19 08:00 99.0 115 16 132/79 (96) 96 11/29/19 04:00 99.0 110 14 116/74 (88) 96 110 11/28/19 21:05 108 137/90 11/28/19 21:00 Room Air 11/28/19 21:00 Room Air 11/28/19 20:43 97 Room Air 21 11/28/19 20:43 101 20 97 Room Air 11/28/19 20:00 98.5 108 19 138/71 (93) 95 108 11/28/19 16:30 137/80 11/28/19 16:02 97.8 70 19 137/80 (99) 97 70 Intake and Output 11/28/19 11/29/19 19:00 07:00 Intake Total 837.6 ml 1509.2 ml Output Total 1300 ml Balance 837.6 ml 209.2 ml Intake Oral 350 ml IV Total 837.6 ml 1159.2 ml Output Urine Total 750 ml Other 550 ml # Voids 3 Laboratory Tests 11/28/19 23:00: Urine Color Pale yellow, Urine Appearance Clear, Urine pH 5, Urine Specific [place] 1.015, Urine Protein Negative, Urine Glucose (UA) Negative, Urine Ketones Negative, Urine Blood Negative, Urine Nitrite Negative, Urine Bilirubin Negative, Urine Urobilinogen Normal, Urine Leukocyte Esterase Negative, Urine RBC 0-2, Urine WBC 0, Urine Squamous Epithelial Cells Few, Urine Bacteria None 11/29/19 05:15: Sodium Level 137, Potassium Level 4.6, Chloride Level 105, Carbon Dioxide Level 23, Anion Gap 9, Blood Urea Nitrogen 47H, Creatinine 1.6H, Estimat Glomerular Filtration Rate 33.5, Glucose Level 115H, Calcium Level 8.0L, Phosphorus Level 4.7 Height (Feet): 5 Height (Inches): 1.00 Weight (Pounds): 85 General Appearance: no apparent distress, thin EENT: PERRL/EOMI Neck: normal alignment Cardiovascular: normal rate Respiratory/Chest: lungs clear Abdomen: non tender, soft Extremities: no edema 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
--- NOTE | 2019-11-29 15:26 | Diagnostic Imaging Report ---
Indication: Shortness of breath Technique: 2 views of the chest Comparison: 11/23/2019 Findings: Previously demonstrated right basilar infiltrate has resolved. Lungs pleural spaces are currently clear. Left arm PICC again demonstrated. Impression: No acute process
[2019-11-29 16:00] VITALS: BP 135/82
--- NOTE | 2019-11-29 16:00 | NUR ---
NURSE NOTES: Patient sent down for CXR via WC at 1415, returned at 1440, in stable condition. Patient up ambulating in halls x2 with spouse, gait steady, moderate pace.
[2019-11-29] MEDS: Nitroglycerin Patch 0.2mg/hr TDERMAL SCH (16:56)
--- NOTE | 2019-11-29 17:00 | NUR ---
NURSE NOTES: Yumiko Wound Nurse, notified of new orders for patient teaching on Ana Ileostomy teaching with appliance and supplies. Patient seen by wound nurse, appliance changed, supplies provided.
--- NOTE | 2019-11-29 17:05 | NUR ---
*-* INSURANCE *-* ALL CLINICALS AND REVIEWS HAVE BEEN FAXED TO: [facility] REF# [id number] MARLEN:CARYL FX: [phone] P; [phone]
--- NOTE | 2019-11-29 19:24 | NUR ---
HAND-OFF: Report given to Guillermina RN, rounds made. Outputs: Urine: 850 ml Ileostomy: 725 ml
--- NOTE | 2019-11-29 19:30 | NUR ---
NURSE NOTES: Received report & pt from CHUCK Muniz. Pt lying in bed, a&ox4, in room air, at bedside. No s/s of acute distress & no c/o pain at this time. Ana ileostomy appliance intact. PICC line intact with IVF running as ordered. Bed in lowest position, call light within reach. Will continue to monitor.
[2019-11-29 20:00] VITALS: BP 136/90
[2019-11-29] MEDS: Metoprolol Succinate XL 50mg tab ORAL SCH (20:12)
[2019-11-29] MEDS: Dyna-Hex 2% Top Sol 2oz TOPIC SCH (20:12)
--- NOTE | 2019-11-29 22:45 | NUR ---
NURSE NOTES: Ambulating in hallway with 's assist. Steady gait. In no acute distress.
[2019-11-29 23:54] VITALS: BP 121/74
[2019-11-30 04:00] VITALS: BP 108/68
[2019-11-30] MEDS: NovoLOG Insulin Flexpen SUBQ SCH ×3 (05:36→18:00)
--- NOTE | 2019-11-30 07:04 | NUR ---
NURSE NOTES: Report received from Guillermina RN, rounds made. Patient sleeping, easily arousable. No distress on RA, denies pain/NV. Ana Ileostomy (right abdomen) intact, no redness/swelling surrounding skin. AME PICC (dressing CDI) with NS at 10 ml/hr double lumen. Spouse at bedside. Call light reach, bed in lowest position, will continue to monitor.
--- NOTE | 2019-11-30 07:12 | NUR ---
HAND-OFF: Report given to CHUCK Muniz. Rounds done.
[2019-11-30 07:26] LABS: ALANINE AMINOTRANSFERASE 68 U/L (12-78); ALBUMIN 2.3 G/DL (3.4-5.0); ALBUMIN/GLOBULIN RATIO 0.4 (1.0-2.7); ALKALINE PHOSPHATASE 186 U/L (46-116); ANION GAP 12 mmol/L (5-15); ASPARTATE AMINO TRANSFERASE 69 U/L (15-37); BLOOD UREA NITROGEN 41 mg/dL (7-18); CALCIUM 8.5 MG/DL (8.5-10.1); CARBON DIOXIDE 22 MMOL/L (21-32); CHLORIDE 104 MMOL/L (98-107); CREATININE 1.7 MG/DL (0.55-1.30); PHOSPHORUS 4.5 MG/DL (2.5-4.9); POTASSIUM 3.8 MMOL/L (3.5-5.1); SODIUM 137 MMOL/L (136-145)
[2019-11-30 07:34] LABS: BASOPHILS % (AUTO) 0.8 % (0.0-2.0); EOSINOPHILS % (AUTO) 0.4 % (0.0-3.0); HEMATOCRIT 27.2 % (37.0-47.0); HEMOGLOBIN 8.8 G/DL (12.0-16.0); MEAN CORPUSCULAR VOLUME 80 FL (80-99); MONOCYTES % (AUTO) 7.6 % (1.0-10.0); NEUTROPHILS % (AUTO) 75.3 % (45.0-75.0); PLATELET COUNT 374 K/UL (150-450); RED CELL DISTRIBUTION WIDTH 22.6 % (11.6-14.8); WHITE BLOOD COUNT 9.7 K/UL (4.8-10.8)
[2019-11-30 08:24] VITALS: BP 111/72
[2019-11-30] MEDS: Nystatin Susp 500,000 units/5ml ORAL SCH (08:29)
--- NOTE | 2019-11-30 09:08 | Pulmonology Progress Note ---
Assessment/Plan Assessment/Plan Problem List: * Acute respiratory failure * intubated 11/15 for OR; extubated, reintubated * Metabolic acidosis * ARKI on CKD * Electrolyte abnormalities * Leukocytosis * Malfunctioning tovar ileostomy s/p conversion to brook ileostomy 11/15/19 Plan: * Monitor on room air * Electrolyte repletion, renal consult appreciated * Monitor renal function * Monitor H/H * Cont TPN, wean as PO intake improves and adequate * diet as tolerated Subjective ROS Limited/Unobtainable: No Interval Events: no acute events, tolerating diet Allergies: Coded Allergies: CEFACLOR (Verified Allergy, Unknown, 11/12/19) OFLOXACIN (Verified Allergy, Unknown, 11/12/19) SULFA (SULFONAMIDE ANTIBIOTICS) (Verified Allergy, Unknown, 11/12/19) Uncoded Allergies: sodium pentothal (Allergy, Unknown, 11/12/19) All Systems: reviewed and negative except above Objective Last 24 Hour Vital Signs Date Time Temp Pulse Resp B/P (MAP) Pulse Ox O2 Delivery O2 Flow Rate FiO2 11/30/19 08:24 98.7 98 16 111/72 (85) 93 11/30/19 04:00 98.9 89 18 108/68 (81) 91 11/29/19 23:54 99.0 110 17 121/74 (90) 93 11/29/19 21:00 Room Air 11/29/19 20:12 120 136/90 11/29/19 20:00 99.9 120 16 136/90 (105) 93 11/29/19 19:50 95 Room Air 21 11/29/19 16:56 135/82 11/29/19 16:00 99.4 104 18 135/82 (99) 93 11/29/19 12:00 98.8 112 18 129/81 (97) 97 Intake and Output 11/29/19 11/30/19 19:00 07:00 Intake Total 1768.2 ml 700 ml Output Total 1575 ml 1725 ml Balance 193.2 ml -1025 ml Intake Oral 1065 ml 640 ml IV Total 703.2 ml 60 ml Output Urine Total 850 ml 700 ml Other 725 ml 1025 ml # Voids 4 General Appearance: no acute distress HEENT: mucous membranes moist Respiratory/Chest: lungs clear Cardiovascular: normal rate Abdomen: soft, non tender Extremities: no edema Laboratory Tests 11/30/19 04:45: White Blood Count 9.7, Red Blood Count 3.40L, Hemoglobin 8.8L, Hematocrit 27.2L , Mean Corpuscular Volume 80, Mean Corpuscular Hemoglobin 25.9L, Mean Corpuscular Hemoglobin Concent 32.4, Red Cell Distribution Width 22.6H, Platelet Count 374, Mean Platelet Volume 8.2, Neutrophils (%) (Auto) 75.3H, Lymphocytes (%) (Auto) 16.0L, Monocytes (%) (Auto) 7.6, Eosinophils (%) (Auto) 0.4, Basophils (%) (Auto) 0.8, Sodium Level 137, Potassium Level 3.8, Chloride Level 104, Carbon Dioxide Level 22, Anion Gap 12, Blood Urea Nitrogen 41H, Creatinine 1.7H, Estimat Glomerular Filtration Rate 31.2, Glucose Level 83, Calcium Level 8.5, Phosphorus Level 4.5, Magnesium Level 1.9, Total Bilirubin 1.0, Aspartate Amino Transf (AST/SGOT) 69H, Alanine Aminotransferase (ALT/SGPT) 68, Alkaline Phosphatase 186H, Total Protein 7.8, Albumin 2.3L, Globulin 5.5, Albumin/Globulin Ratio 0.4L Current Medications Medications (Trade) Dose Ordered Sig/Jose Rafael Route PRN Reason Start Time Stop Time Status Last Admin Dose Admin Acetaminophen (Tylenol) 650 mg Q4H PRN ORAL Mild Pain/Temp > 100.2 11/26/19 15:15 12/26/19 15:14 11/28/19 21:04 Acetaminophen/ Hydrocodone Bitart ([place] 5/325) 1 tab Q4H PRN ORAL Moderate Pain (Pain Scale 4-6) 11/26/19 15:10 12/03/19 15:09 11/26/19 20:14 Acetylcysteine (Mucomyst) 200 mg Q6H PRN HHN Shortness of Breath 11/28/19 10:15 12/28/19 10:14 Albuterol/ Ipratropium (Albuterol/ Ipratropium) 3 ml Q6H PRN HHN Shortness of Breath 11/28/19 10:15 12/03/19 10:14 Chlorhexidine Gluconate ([place]-Hex 2%) 1 applic DAILY@2000 TOPIC 11/21/19 20:00 12/12/19 19:59 11/29/19 20:12 Dextrose 1,000 ml @ 100 mls/hr Q10H PRN IV TPN interrupted or not availab 11/21/19 10:15 12/16/19 00:14 Dextrose (Dextrose 50%) 25 ml Q30M PRN IV Hypoglycemia 11/21/19 10:30 12/13/19 09:29 Dextrose (Dextrose 50%) 50 ml Q30M PRN IV Hypoglycemia 11/21/19 10:30 12/20/19 19:29 Hydromorphone HCl (Dilaudid) 1 mg Q4H PRN SUBQ Severe Breakthru Pain (>7) 11/26/19 15:00 12/03/19 14:59 Insulin Aspart (NovoLOG) EVERY 6 HOURS SUBQ 11/21/19 12:00 12/16/19 20:59 11/29/19 12:59 Metoprolol Succinate (Toprol XL) 50 mg BEDTIME ORAL 11/21/19 21:00 12/15/19 20:59 11/29/19 20:12 Nitroglycerin (Ntg) 1 patch Q24H TDERMAL 11/21/19 16:00 12/18/19 15:59 11/29/19 16:56 Nystatin (Nystatin) 5 ml TID ORAL 11/23/19 13:00 11/30/19 12:59 11/30/19 08:29 Ondansetron HCl (Zofran) 4 mg Q4H PRN IVP Nausea & Vomiting 11/21/19 13:30 12/12/19 21:29 11/24/19 04:21 Phytonadione (Vitamin K) 10 mg ONCE A WEEK SUBQ 11/27/19 09:00 12/20/19 08:59 11/27/19 09:48 Temazepam (RestoriL) 7.5 mg HSPRN PRN ORAL Insomnia 11/25/19 10:00 12/02/19 09:59 Lyndon Elias MD Nov 30, 2019 09:08
--- NOTE | 2019-11-30 10:53 | Surgery Progress Note ---
Surgery Progress Note Subjective Symptoms: improved, pain decreased Additional Comments off tpn ostomy good / viable states she is not a big eater Objective Last 24 Hour Vital Signs Date Time Temp Pulse Resp B/P (MAP) Pulse Ox O2 Delivery O2 Flow Rate FiO2 11/30/19 08:24 98.7 98 16 111/72 (85) 93 11/30/19 07:40 96 Room Air 21 11/30/19 04:00 98.9 89 18 108/68 (81) 91 11/29/19 23:54 99.0 110 17 121/74 (90) 93 11/29/19 21:00 Room Air 11/29/19 20:12 120 136/90 11/29/19 20:00 99.9 120 16 136/90 (105) 93 11/29/19 19:50 95 Room Air 21 11/29/19 16:56 135/82 11/29/19 16:00 99.4 104 18 135/82 (99) 93 11/29/19 12:00 98.8 112 18 129/81 (97) 97 I&O Intake and Output 11/29/19 11/30/19 19:00 07:00 Intake Total 1768.2 ml 700 ml Output Total 1575 ml 1725 ml Balance 193.2 ml -1025 ml Intake Oral 1065 ml 640 ml IV Total 703.2 ml 60 ml Output Urine Total 850 ml 700 ml Other 725 ml 1025 ml # Voids 4 Dressing: dry Wound: clean Cardiovascular: RSR Respiratory: clear Abdomen: soft, non-tender, present bowel sounds, other, non-distended Extremities: no edema, no tenderness, no cyanosis Laboratory Tests Test 11/30/19 04:45 White Blood Count 9.7 K/UL (4.8-10.8) Red Blood Count 3.40 M/UL (4.20-5.40) L Hemoglobin 8.8 G/DL (12.0-16.0) L Hematocrit 27.2 % (37.0-47.0) L Mean Corpuscular Volume 80 FL (80-99) Mean Corpuscular Hemoglobin 25.9 PG (27.0-31.0) L Mean Corpuscular Hemoglobin Concent 32.4 G/DL (32.0-36.0) Red Cell Distribution Width 22.6 % (11.6-14.8) H Platelet Count 374 K/UL (150-450) Mean Platelet Volume 8.2 FL (6.5-10.1) Neutrophils (%) (Auto) 75.3 % (45.0-75.0) H Lymphocytes (%) (Auto) 16.0 % (20.0-45.0) L Monocytes (%) (Auto) 7.6 % (1.0-10.0) Eosinophils (%) (Auto) 0.4 % (0.0-3.0) Basophils (%) (Auto) 0.8 % (0.0-2.0) Sodium Level 137 MMOL/L (136-145) Potassium Level 3.8 MMOL/L (3.5-5.1) Chloride Level 104 MMOL/L (98-107) Carbon Dioxide Level 22 MMOL/L (21-32) Anion Gap 12 mmol/L (5-15) Blood Urea Nitrogen 41 mg/dL (7-18) H Creatinine 1.7 MG/DL (0.55-1.30) H Estimat Glomerular Filtration Rate 31.2 mL/min (>60) Glucose Level 83 MG/DL (74-106) Calcium Level 8.5 MG/DL (8.5-10.1) Phosphorus Level 4.5 MG/DL (2.5-4.9) Magnesium Level 1.9 MG/DL (1.8-2.4) Total Bilirubin 1.0 MG/DL (0.2-1.0) Aspartate Amino Transf (AST/SGOT) 69 U/L (15-37) H Alanine Aminotransferase (ALT/SGPT) 68 U/L (12-78) Alkaline Phosphatase 186 U/L (46-116) H Total Protein 7.8 G/DL (6.4-8.2) Albumin 2.3 G/DL (3.4-5.0) L Globulin 5.5 g/dL Albumin/Globulin Ratio 0.4 (1.0-2.7) L Plan Problems: (1) Malfunction of tovar continent ileostomy Assessment & Plan: doing well with joão comfortable no n/v/f/c tolerating diet ambulatory some matthew removed ostomy teaching off tpn now AM labs d/c planning for early this week Heber Bustillo Nov 30, 2019 10:53
[2019-11-30 12:00] VITALS: BP 120/74
--- NOTE | 2019-11-30 13:12 | NUR ---
RD ASSESSMENT & RECOMMENDATIONS SEE CARE ACTIVITY FOR COMPLETE ASSESSMENT DAILY ESTIMATED NEEDS: Needs based on Underweight, pending surgery, CKD/ 44kg 30-35 kcals/kg 0391-8162 total kcals 1-2 g protein/kg 44-88 g total protein 30-35 mL/kg 5114-9641 total fluid mLs NUTRITION DIAGNOSIS: * Altered GI function R/T h/o UC, BCIR as evidenced by admitted w/ malfunctioning BICR w/ incontinence and stoma bleeding, s/p BCIR takedown w/ creation of conventional Ana ileo, intubated now s/p extubation, TPN now dc'ed, diet advanced to regular. CURRENT DIET:CLD-> BCIR LOW RESIDUE -> REGULAR PO DIET RECOMMENDATIONS: SOFT diet/ low fiber ADDITIONAL RECOMMENDATIONS: * Standing wt for accurate CBW, weekly wt monitoring * Monitor PO tolerance and acceptance * Consider Ensure Enlive TID w/ meals w/ continued variable PO intake * Rec to DC SSI: now off TPN . .
--- NOTE | 2019-11-30 15:30 | NUR ---
NURSE NOTES: Yumiko, wound nurse, removed every other staple from abdominal surgical site.
--- NOTE | 2019-11-30 15:30 | NUR ---
NURSE NOTES:OSTOMY CARE:Individual matthew in close proximity to stoma removed as instructed by surgeon. Incision well approximated and dry. Area around incision julio pink without elevation in skin temp. Pt denied tenderness at site. Stoma is round,beefy red and moderately protrudes. Measured at 1 3/8 8inch today.Education on care of ostomy continued.Pt is adjusting to ileostomy and is more motivated. Pt requested two piece system. Instructions on use of measuring tool to cut Flange provided.Step by step instructions on Peristomal cleansing, application of barrier ring and applying flange and pouch provided during Ostomy care.All questions and concerns addressed with pt and spouse.Pt stated she feels more confident at attempting next ileostomy care.
[2019-11-30 16:00] VITALS: BP 135/81
--- NOTE | 2019-11-30 16:09 | Nephrology Progress Note ---
Assessment/Plan Assessment/Plan: A/P (1) Malnutrition of moderate degree - monitor off TPN (2) Hypopotassemia, Hypophosphatemia - replace prn (3) Dehydration- IVFs if Cr worsens (4) ARIK (acute kidney injury)- Cr at 1.7. Monitor off IVFs and TPN (5) Ulcerative colitis Malfunction of tovar continent ileostomy -corrected taking solids, tpn stopped Subjective Date patient seen: Nov 30, 2019 Time patient seen: 16:06 ROS Limited/Unobtainable: No Allergies: Coded Allergies: CEFACLOR (Verified Allergy, Unknown, 11/12/19) OFLOXACIN (Verified Allergy, Unknown, 11/12/19) SULFA (SULFONAMIDE ANTIBIOTICS) (Verified Allergy, Unknown, 11/12/19) Uncoded Allergies: sodium pentothal (Allergy, Unknown, 11/12/19) Subjective Patient eating well. No distress Objective Last 24 Hour Vital Signs Date Time Temp Pulse Resp B/P (MAP) Pulse Ox O2 Delivery O2 Flow Rate FiO2 11/30/19 12:00 99.1 107 16 120/74 (89) 94 11/30/19 09:00 Room Air 11/30/19 08:24 98.7 98 16 111/72 (85) 93 11/30/19 07:40 96 Room Air 21 11/30/19 04:00 98.9 89 18 108/68 (81) 91 11/29/19 23:54 99.0 110 17 121/74 (90) 93 11/29/19 21:00 Room Air 11/29/19 20:12 120 136/90 11/29/19 20:00 99.9 120 16 136/90 (105) 93 11/29/19 19:50 95 Room Air 21 11/29/19 16:56 135/82 Intake and Output 11/29/19 11/30/19 19:00 07:00 Intake Total 1768.2 ml 700 ml Output Total 1575 ml 1725 ml Balance 193.2 ml -1025 ml Intake Oral 1065 ml 640 ml IV Total 703.2 ml 60 ml Output Urine Total 850 ml 700 ml Other 725 ml 1025 ml # Voids 4 Laboratory Tests 11/30/19 04:45: White Blood Count 9.7, Red Blood Count 3.40L, Hemoglobin 8.8L, Hematocrit 27.2L , Mean Corpuscular Volume 80, Mean Corpuscular Hemoglobin 25.9L, Mean Corpuscular Hemoglobin Concent 32.4, Red Cell Distribution Width 22.6H, Platelet Count 374, Mean Platelet Volume 8.2, Neutrophils (%) (Auto) 75.3H, Lymphocytes (%) (Auto) 16.0L, Monocytes (%) (Auto) 7.6, Eosinophils (%) (Auto) 0.4, Basophils (%) (Auto) 0.8, Sodium Level 137, Potassium Level 3.8, Chloride Level 104, Carbon Dioxide Level 22, Anion Gap 12, Blood Urea Nitrogen 41H, Creatinine 1.7H, Estimat Glomerular Filtration Rate 31.2, Glucose Level 83, Calcium Level 8.5, Phosphorus Level 4.5, Magnesium Level 1.9, Total Bilirubin 1.0, Aspartate Amino Transf (AST/SGOT) 69H, Alanine Aminotransferase (ALT/SGPT) 68, Alkaline Phosphatase 186H, Total Protein 7.8, Albumin 2.3L, Globulin 5.5, Albumin/Globulin Ratio 0.4L Height (Feet): 5 Height (Inches): 1.00 Weight (Pounds): 85 General Appearance: no apparent distress, alert Neck: normal alignment, supple Cardiovascular: normal rate, regular rhythm Respiratory/Chest: lungs clear, normal breath sounds Abdomen: non tender, soft Edema: no edema noted Arm (L), no edema noted Arm (R), no edema noted Leg (L), no edema noted Leg (R), no edema noted Pedal (L), no edema noted Pedal (R), no edema noted Generalized Freddy Navarro MD Nov 30, 2019 16:09
--- NOTE | 2019-11-30 16:33 | NUR ---
*-* INSURANCE *-* ALL CLINICALS AND REVIEWS HAVE BEEN FAXED TO: [facility] REF# [id number] MARLEN:CARYL FX: [phone] P; [phone]
[2019-11-30] MEDS: Nitroglycerin Patch 0.2mg/hr TDERMAL SCH (16:40)
--- NOTE | 2019-11-30 16:55 | NUR ---
CASE MANAGEMENT:REVIEW SI;POD# 11 RESECTION NELSON CONTINENT ILEOSTOMY AND CREATION OF QUINN ILEOSTOMY MALFUNCTION OF NELSON ILEOSTOMY AND BLEEDING FROM STOMA 99.1 111 16 135/81 93% ON RA H/H 8.8/27.2 BUN 41 CREAT 1.7 AST 69 IS;MUCOMYST HHN Q6 HRS DUO NEB HHN Q6 HRS MED SURG STATUS
--- NOTE | 2019-11-30 18:13 | NUR ---
NURSE NOTES: Blood sugar checked at 1730, patient was already eating dinner, results 69, asymptomatic. Appetite good, no NV. Rechecked at [address] Bustillo notified, ordered to hold insulin coverage for the 128 results. Will continue to monitor.
--- NOTE | 2019-11-30 18:30 | NUR ---
NURSE NOTES: Patient complains of right mid-abdomen pain 9/10 due to coughing. Lungs clear, patient has productive cough, able to expectorate clear/white secretions. Instructed patient to splint abdomen with pillow when coughing. Medicated with Tylenol 650 mg at this time (per patient request). Notified Dr. Bustillo regarding above and patient requesting Tylenol #3 and medication to expectorate cough. Order received for Tylenol #3, see order, patient and spouse updated with new order, verbalized understanding.
--- NOTE | 2019-11-30 19:15 | NUR ---
HAND-OFF: Report given to Guillermina WOODS, rounds made. Outputs: Urine:875 ml Ana Ileostomy: 900 ml
--- NOTE | 2019-11-30 19:30 | NUR ---
NURSE NOTES: Received report & pt from CHUCK Muniz. Pt lying in bed, a&ox4, in room air, at bedside. No s/s of acute distress & no c/o pain at this time. Ana ileostomy appliance intact. PICC line intact & S/L'd. Bed in lowest position, call light within reach. Will continue to monitor.
[2019-11-30] MEDS: Tylenol #3 tab (300mg/30mg) ORAL PRN (19:52)
[2019-11-30] MEDS: Dyna-Hex 2% Top Sol 2oz TOPIC SCH (19:52)
[2019-11-30 20:00] VITALS: BP 121/75
[2019-11-30] MEDS: Metoprolol Succinate XL 50mg tab ORAL SCH (20:05)
[2019-12-01] VITALS: BP 134/81
[2019-12-01] MEDS: NovoLOG Insulin Flexpen SUBQ SCH ×4 (00:30→17:39)
[2019-12-01] MEDS: Tylenol #3 tab (300mg/30mg) ORAL PRN ×2 (02:33→20:42)
[2019-12-01 04:00] VITALS: BP 103/72
[2019-12-01 05:44] LABS: BASOPHILS % (AUTO) 1.1 % (0.0-2.0); EOSINOPHILS % (AUTO) 1.9 % (0.0-3.0); HEMATOCRIT 28.7 % (37.0-47.0); HEMOGLOBIN 9.2 G/DL (12.0-16.0); LYMPHOCYTES % (AUTO) 15.5 % (20.0-45.0); MEAN CORPUSCULAR VOLUME 82 FL (80-99); MONOCYTES % (AUTO) 11.9 % (1.0-10.0); NEUTROPHILS % (AUTO) 69.6 % (45.0-75.0); PLATELET COUNT 379 K/UL (150-450); RED BLOOD COUNT 3.52 M/UL (4.20-5.40); RED CELL DISTRIBUTION WIDTH 21.5 % (11.6-14.8); WHITE BLOOD COUNT 8.9 K/UL (4.8-10.8)
[2019-12-01 06:05] LABS: ALANINE AMINOTRANSFERASE 71 U/L (12-78); ALBUMIN 2.3 G/DL (3.4-5.0); ALBUMIN/GLOBULIN RATIO 0.4 (1.0-2.7); ALKALINE PHOSPHATASE 199 U/L (46-116); ANION GAP 11 mmol/L (5-15); ASPARTATE AMINO TRANSFERASE 66 U/L (15-37); BILIRUBIN,TOTAL 1.4 MG/DL (0.2-1.0); BLOOD UREA NITROGEN 36 mg/dL (7-18); CALCIUM 8.7 MG/DL (8.5-10.1); CARBON DIOXIDE 22 MMOL/L (21-32); CHLORIDE 103 MMOL/L (98-107); CREATININE 1.6 MG/DL (0.55-1.30); POTASSIUM 3.7 MMOL/L (3.5-5.1); SODIUM 136 MMOL/L (136-145)
[2019-12-01 06:09] LABS: BILIRUBIN,DIRECT 0.7 MG/DL (0.0-0.3)
--- NOTE | 2019-12-01 07:30 | NUR ---
HAND-OFF: Report given to CHUCK Garcia. Rounds done. Informed Dr. Bustillo of pt's vaginal itching & slight pain during urination. Endorsed to Jose to f/u with MD gutierrez: the concern above.
--- NOTE | 2019-12-01 07:35 | NUR ---
NURSE NOTES: Received Pt from CHUCK Sarmiento. pt was eating comfortably no c/o pain. no acute distress. call light w/in reach.
[2019-12-01 08:00] VITALS: BP 106/69
--- NOTE | 2019-12-01 11:32 | Surgery Progress Note ---
Surgery Progress Note Subjective Symptoms: improved, voiding well, pain decreased Additional Comments few matthew removed Objective Last 24 Hour Vital Signs Date Time Temp Pulse Resp B/P (MAP) Pulse Ox O2 Delivery O2 Flow Rate FiO2 12/01/19 08:00 98.0 92 16 106/69 (81) 93 12/01/19 07:56 Room Air 12/01/19 04:00 97.7 92 16 103/72 (82) 93 12/01/19 00:00 97.8 86 17 134/81 (98) 94 11/30/19 21:00 Room Air 11/30/19 20:22 98.9 11/30/19 20:05 116 121/75 11/30/19 20:00 100.4 116 16 121/75 (90) 93 11/30/19 19:27 92 Room Air 21 11/30/19 16:40 135/81 11/30/19 16:00 98.2 111 16 135/81 (99) 96 11/30/19 12:00 99.1 107 16 120/74 (89) 94 I&O Intake and Output 11/30/19 12/01/19 19:00 07:00 Intake Total 1858 ml 1200 ml Output Total 1775 ml 900 ml Balance 83 ml 300 ml Intake Oral 1858 ml 1200 ml Output Urine Total 875 ml 750 ml Other 900 ml 150 ml # Voids 4 Dressing: dry Wound: clean Cardiovascular: RSR Respiratory: clear Abdomen: soft, flat, non-tender, present bowel sounds Extremities: no edema, no tenderness, no cyanosis Laboratory Tests Test 12/01/19 04:45 White Blood Count 8.9 K/UL (4.8-10.8) Red Blood Count 3.52 M/UL (4.20-5.40) L Hemoglobin 9.2 G/DL (12.0-16.0) L Hematocrit 28.7 % (37.0-47.0) L Mean Corpuscular Volume 82 FL (80-99) Mean Corpuscular Hemoglobin 26.2 PG (27.0-31.0) L Mean Corpuscular Hemoglobin Concent 32.1 G/DL (32.0-36.0) Red Cell Distribution Width 21.5 % (11.6-14.8) H Platelet Count 379 K/UL (150-450) Mean Platelet Volume 8.2 FL (6.5-10.1) Neutrophils (%) (Auto) 69.6 % (45.0-75.0) Lymphocytes (%) (Auto) 15.5 % (20.0-45.0) L Monocytes (%) (Auto) 11.9 % (1.0-10.0) H Eosinophils (%) (Auto) 1.9 % (0.0-3.0) Basophils (%) (Auto) 1.1 % (0.0-2.0) Sodium Level 136 MMOL/L (136-145) Potassium Level 3.7 MMOL/L (3.5-5.1) Chloride Level 103 MMOL/L (98-107) Carbon Dioxide Level 22 MMOL/L (21-32) Anion Gap 11 mmol/L (5-15) Blood Urea Nitrogen 36 mg/dL (7-18) H Creatinine 1.6 MG/DL (0.55-1.30) H Estimat Glomerular Filtration Rate 33.5 mL/min (>60) Glucose Level 91 MG/DL (74-106) Calcium Level 8.7 MG/DL (8.5-10.1) Total Bilirubin 1.4 MG/DL (0.2-1.0) H Direct Bilirubin 0.7 MG/DL (0.0-0.3) H Aspartate Amino Transf (AST/SGOT) 66 U/L (15-37) H Alanine Aminotransferase (ALT/SGPT) 71 U/L (12-78) Alkaline Phosphatase 199 U/L (46-116) H Total Protein 8.0 G/DL (6.4-8.2) Albumin 2.3 G/DL (3.4-5.0) L Globulin 5.7 g/dL Albumin/Globulin Ratio 0.4 (1.0-2.7) L Plan Problems: (1) Malfunction of tovar continent ileostomy Assessment & Plan: doing well with Ana galeas no n/v/f/c tolerating diet ambulatory some matthew removed ostomy teaching off tpn now AM labs d/c planning for early this week Heber Bustillo Dec 01, 2019 11:32
[2019-12-01 11:52] VITALS: BP 110/77
--- NOTE | 2019-12-01 13:33 | Nephrology Progress Note ---
Assessment/Plan Assessment/Plan: A/P (1) Malnutrition of moderate degree - eating well off TPN (2) Hypopotassemia, Hypophosphatemia - replace prn (3) Dehydration- resolved, Cr down to 1.6 (4) ARIK (acute kidney injury)- Cr 1.6, resolved (5) Ulcerative colitis Malfunction of tovar continent ileostomy -corrected Subjective Date patient seen: Dec 01, 2019 Time patient seen: 13:32 ROS Limited/Unobtainable: No Allergies: Coded Allergies: CEFACLOR (Verified Allergy, Unknown, 11/12/19) OFLOXACIN (Verified Allergy, Unknown, 11/12/19) SULFA (SULFONAMIDE ANTIBIOTICS) (Verified Allergy, Unknown, 11/12/19) Uncoded Allergies: sodium pentothal (Allergy, Unknown, 11/12/19) Subjective Patient feeling better Objective Last 24 Hour Vital Signs Date Time Temp Pulse Resp B/P (MAP) Pulse Ox O2 Delivery O2 Flow Rate FiO2 12/01/19 11:52 98.5 94 18 110/77 (88) 94 12/01/19 08:00 98.0 92 16 106/69 (81) 93 12/01/19 07:56 Room Air 12/01/19 04:00 97.7 92 16 103/72 (82) 93 12/01/19 00:00 97.8 86 17 134/81 (98) 94 11/30/19 21:00 Room Air 11/30/19 20:22 98.9 11/30/19 20:05 116 121/75 11/30/19 20:00 100.4 116 16 121/75 (90) 93 11/30/19 19:27 92 Room Air 21 11/30/19 16:40 135/81 11/30/19 16:00 98.2 111 16 135/81 (99) 96 Intake and Output 11/30/19 12/01/19 19:00 07:00 Intake Total 1858 ml 1200 ml Output Total 1775 ml 900 ml Balance 83 ml 300 ml Intake Oral 1858 ml 1200 ml Output Urine Total 875 ml 750 ml Other 900 ml 150 ml # Voids 4 Laboratory Tests 12/01/19 04:45: White Blood Count 8.9, Red Blood Count 3.52L, Hemoglobin 9.2L, Hematocrit 28.7L , Mean Corpuscular Volume 82, Mean Corpuscular Hemoglobin 26.2L, Mean Corpuscular Hemoglobin Concent 32.1, Red Cell Distribution Width 21.5H, Platelet Count 379, Mean Platelet Volume 8.2, Neutrophils (%) (Auto) 69.6, Lymphocytes (%) (Auto) 15.5L, Monocytes (%) (Auto) 11.9H, Eosinophils (%) (Auto ) 1.9, Basophils (%) (Auto) 1.1, Sodium Level 136, Potassium Level 3.7, Chloride Level 103, Carbon Dioxide Level 22, Anion Gap 11, Blood Urea Nitrogen 36H, Creatinine 1.6H, Estimat Glomerular Filtration Rate 33.5, Glucose Level 91 , Calcium Level 8.7, Total Bilirubin 1.4H, Direct Bilirubin 0.7H, Aspartate Amino Transf (AST/SGOT) 66H, Alanine Aminotransferase (ALT/SGPT) 71, Alkaline Phosphatase 199H, Total Protein 8.0, Albumin 2.3L, Globulin 5.7, Albumin/ Globulin Ratio 0.4L Height (Feet): 5 Height (Inches): 1.00 Weight (Pounds): 85 General Appearance: no apparent distress EENT: normal ENT inspection Neck: normal alignment, supple Cardiovascular: normal rate, regular rhythm Respiratory/Chest: lungs clear, normal breath sounds Abdomen: non tender, soft Edema: no edema noted Arm (L), no edema noted Arm (R), no edema noted Leg (L), no edema noted Leg (R), no edema noted Pedal (L), no edema noted Pedal (R), no edema noted Generalized Freddy Navarro MD Dec 01, 2019 13:33
[2019-12-01 16:00] VITALS: BP 115/77
[2019-12-01] MEDS: Nitroglycerin Patch 0.2mg/hr TDERMAL SCH (16:31)
--- NOTE | 2019-12-01 19:35 | NUR ---
HAND-OFF: Report given to CHUCK Zabala. pt is stable condition.
--- NOTE | 2019-12-01 19:40 | NUR ---
NURSE NOTES: Received report from CHUCK Garcia. Received pt lying in bed, AOx4, denies pain at this time. Respiration even and unlabored. No distress noted. Surgical site with matthew. Ana ileostomy intact with good output. Piccline L UA patent, c/d/i. Bed in lowest position and locked, side rails up x 2, call light within reach. at bedside. Will continue to monitor.
[2019-12-01 20:00] VITALS: BP 111/73
[2019-12-01] MEDS: Metoprolol Succinate XL 50mg tab ORAL SCH (20:41)
[2019-12-01] MEDS: Dyna-Hex 2% Top Sol 2oz TOPIC SCH (20:43)
--- NOTE | 2019-12-01 21:44 | Pulmonology Progress Note ---
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 Plan: * Monitor on room air * Electrolyte repletion, renal consult appreciated * Monitor renal function * Monitor H/H * Cont TPN, wean as PO intake improves and adequate * diet as tolerated * dc planning Subjective Constitutional: Reports: no symptoms HEENT: Repors: no symptoms Respiratory: Reports: no symptoms Gastrointestinal/Abdominal: Reports: no symptoms Allergies: Coded Allergies: CEFACLOR (Verified Allergy, Unknown, 11/12/19) OFLOXACIN (Verified Allergy, Unknown, 11/12/19) SULFA (SULFONAMIDE ANTIBIOTICS) (Verified Allergy, Unknown, 11/12/19) Uncoded Allergies: sodium pentothal (Allergy, Unknown, 11/12/19) Subjective doing well toelrating po no pc nv or bleeding ostomy pink positive uop Objective Last 24 Hour Vital Signs Date Time Temp Pulse Resp B/P (MAP) Pulse Ox O2 Delivery O2 Flow Rate FiO2 12/01/19 21:00 Room Air 12/01/19 20:41 107 111/73 12/01/19 20:33 94 Room Air 21 12/01/19 20:00 98.6 107 20 111/73 (86) 96 12/01/19 16:31 115/77 12/01/19 16:00 97.9 104 20 115/77 (90) 95 12/01/19 11:52 98.5 94 18 110/77 (88) 94 12/01/19 08:00 98.0 92 16 106/69 (81) 93 12/01/19 07:56 Room Air 12/01/19 07:00 95 Room Air 21 12/01/19 04:00 97.7 92 16 103/72 (82) 93 12/01/19 00:00 97.8 86 17 134/81 (98) 94 Intake and Output 11/30/19 12/01/19 19:00 07:00 Intake Total 1858 ml 1200 ml Output Total 1775 ml 900 ml Balance 83 ml 300 ml Intake Oral 1858 ml 1200 ml Output Urine Total 875 ml 750 ml Other 900 ml 150 ml # Voids 4 General Appearance: cachetic HEENT: atraumatic, anicteric Respiratory/Chest: lungs clear, normal breath sounds Cardiovascular: normal rate, regular rhythm Abdomen: soft, non tender, non distended, no mass Extremities: no cyanosis Skin: no rash, no lesions Neurologic/Psychiatric: abnormal gait, alert, oriented x 3 Lymphatic: no groin adenopathy Musculoskeletal: no effusion Laboratory Tests 12/01/19 04:45: White Blood Count 8.9, Red Blood Count 3.52L, Hemoglobin 9.2L, Hematocrit 28.7L , Mean Corpuscular Volume 82, Mean Corpuscular Hemoglobin 26.2L, Mean Corpuscular Hemoglobin Concent 32.1, Red Cell Distribution Width 21.5H, Platelet Count 379, Mean Platelet Volume 8.2, Neutrophils (%) (Auto) 69.6, Lymphocytes (%) (Auto) 15.5L, Monocytes (%) (Auto) 11.9H, Eosinophils (%) (Auto ) 1.9, Basophils (%) (Auto) 1.1, Sodium Level 136, Potassium Level 3.7, Chloride Level 103, Carbon Dioxide Level 22, Anion Gap 11, Blood Urea Nitrogen 36H, Creatinine 1.6H, Estimat Glomerular Filtration Rate 33.5, Glucose Level 91 , Calcium Level 8.7, Total Bilirubin 1.4H, Direct Bilirubin 0.7H, Aspartate Amino Transf (AST/SGOT) 66H, Alanine Aminotransferase (ALT/SGPT) 71, Alkaline Phosphatase 199H, Total Protein 8.0, Albumin 2.3L, Globulin 5.7, Albumin/ Globulin Ratio 0.4L Current Medications Medications (Trade) Dose Ordered Sig/Jose Rafael Route PRN Reason Start Time Stop Time Status Last Admin Dose Admin Acetaminophen (Tylenol) 650 mg Q4H PRN ORAL Mild Pain/Temp > 100.2 11/26/19 15:15 12/26/19 15:14 11/30/19 18:28 Acetaminophen/ Codeine Phosphate (Tylenol #3) 1 tab Q6H PRN ORAL For Pain 11/30/19 19:15 12/07/19 19:14 12/01/19 20:42 Acetaminophen/ Hydrocodone Bitart ([place] 5/325) 1 tab Q4H PRN ORAL Moderate Pain (Pain Scale 4-6) 11/26/19 15:10 12/03/19 15:09 11/26/19 20:14 Acetylcysteine (Mucomyst) 200 mg Q6H PRN HHN Shortness of Breath 11/28/19 10:15 12/28/19 10:14 Albuterol/ Ipratropium (Albuterol/ Ipratropium) 3 ml Q6H PRN HHN Shortness of Breath 11/28/19 10:15 12/03/19 10:14 Chlorhexidine Gluconate ([place]-Hex 2%) 1 applic DAILY@2000 TOPIC 11/21/19 20:00 12/12/19 19:59 12/01/19 20:43 Hydromorphone HCl (Dilaudid) 1 mg Q4H PRN SUBQ Severe Breakthru Pain (>7) 11/26/19 15:00 12/03/19 14:59 Metoprolol Succinate (Toprol XL) 50 mg BEDTIME ORAL 11/21/19 21:00 12/15/19 20:59 12/01/19 20:41 Nitroglycerin (Ntg) 1 patch Q24H TDERMAL 11/21/19 16:00 12/18/19 15:59 12/01/19 16:31 Ondansetron HCl (Zofran) 4 mg Q4H PRN IVP Nausea & Vomiting 11/21/19 13:30 12/12/19 21:29 11/24/19 04:21 Temazepam (RestoriL) 7.5 mg HSPRN PRN ORAL Insomnia 11/25/19 10:00 12/02/19 09:59 Loida Neri DO Dec 01, 2019 21:44
[2019-12-02] VITALS: BP 103/69
[2019-12-02 04:00] VITALS: BP 113/68
[2019-12-02 05:53] LABS: BASOPHILS % (AUTO) 1.3 % (0.0-2.0); EOSINOPHILS % (AUTO) 2.6 % (0.0-3.0); HEMATOCRIT 28.7 % (37.0-47.0); HEMOGLOBIN 9.2 G/DL (12.0-16.0); LYMPHOCYTES % (AUTO) 17.7 % (20.0-45.0); MEAN CORPUSCULAR VOLUME 82 FL (80-99); MONOCYTES % (AUTO) 10.2 % (1.0-10.0); NEUTROPHILS % (AUTO) 68.3 % (45.0-75.0); PLATELET COUNT 373 K/UL (150-450); RED CELL DISTRIBUTION WIDTH 21.9 % (11.6-14.8); WHITE BLOOD COUNT 8.4 K/UL (4.8-10.8)
[2019-12-02 06:08] LABS: ALANINE AMINOTRANSFERASE 67 U/L (12-78); ALBUMIN 2.3 G/DL (3.4-5.0); ALBUMIN/GLOBULIN RATIO 0.4 (1.0-2.7); ALKALINE PHOSPHATASE 187 U/L (46-116); ANION GAP 11 mmol/L (5-15); ASPARTATE AMINO TRANSFERASE 52 U/L (15-37); BILIRUBIN,TOTAL 0.8 MG/DL (0.2-1.0); BLOOD UREA NITROGEN 30 mg/dL (7-18); CALCIUM 8.7 MG/DL (8.5-10.1); CARBON DIOXIDE 22 MMOL/L (21-32); CHLORIDE 105 MMOL/L (98-107); CREATININE 1.5 MG/DL (0.55-1.30); POTASSIUM 3.8 MMOL/L (3.5-5.1); SODIUM 138 MMOL/L (136-145)
[2019-12-02 08:00] VITALS: BP 122/65
--- NOTE | 2019-12-02 08:31 | NUR ---
NURSE NOTES: Received report from Vj Plummer pt a/a/o x4 laying in bed with no signs of distress or other issues at this time. Ana ileostomy in place draining well, rn shift mgr out put: 120ml. pt is able to ambulate to the bathroom with steady gait. pts over night out put: 700ml. PICC line in place heplock. alex light within reach bed in lowest position. side rales up x2. I will f/u as needed.
[2019-12-02] MEDS ORDERED: HYDROcodone/Acetamin 5/325 tab ORAL PRN (09:48)
[2019-12-02] MEDS ORDERED: Albuterol/Ipratropium 3ml neb HHN PRN (10:15)
--- NOTE | 2019-12-02 11:37 | Surgery Progress Note ---
Surgery Progress Note Subjective Symptoms: improved, tolerating diet, voiding well, pain decreased Objective Last 24 Hour Vital Signs Date Time Temp Pulse Resp B/P (MAP) Pulse Ox O2 Delivery O2 Flow Rate FiO2 12/02/19 10:01 96 Room Air 21 12/02/19 09:00 Room Air 12/02/19 08:00 98.1 97 20 122/65 (84) 93 12/02/19 04:00 98.1 93 20 113/68 (83) 96 12/02/19 00:00 98.2 100 20 103/69 (80) 95 12/01/19 21:00 Room Air 12/01/19 20:41 107 111/73 12/01/19 20:33 94 Room Air 21 12/01/19 20:00 98.6 107 20 111/73 (86) 96 12/01/19 16:31 115/77 12/01/19 16:00 97.9 104 20 115/77 (90) 95 12/01/19 11:52 98.5 94 18 110/77 (88) 94 I&O Intake and Output 12/01/19 12/02/19 18:59 06:59 Intake Total 1000 ml 220 ml Output Total 760 ml 820 ml Balance 240 ml -600 ml Intake Oral 1000 ml 220 ml Output Urine Total 640 ml 700 ml Other 120 ml 120 ml Dressing: dry Wound: clean Cardiovascular: RSR Respiratory: clear Abdomen: soft, flat, non-tender, present bowel sounds, other Extremities: no edema, no tenderness, no cyanosis Laboratory Tests Test 12/02/19 05:30 White Blood Count 8.4 K/UL (4.8-10.8) Red Blood Count 3.50 M/UL (4.20-5.40) L Hemoglobin 9.2 G/DL (12.0-16.0) L Hematocrit 28.7 % (37.0-47.0) L Mean Corpuscular Volume 82 FL (80-99) Mean Corpuscular Hemoglobin 26.3 PG (27.0-31.0) L Mean Corpuscular Hemoglobin Concent 32.0 G/DL (32.0-36.0) Red Cell Distribution Width 21.9 % (11.6-14.8) H Platelet Count 373 K/UL (150-450) Mean Platelet Volume 8.4 FL (6.5-10.1) Neutrophils (%) (Auto) 68.3 % (45.0-75.0) Lymphocytes (%) (Auto) 17.7 % (20.0-45.0) L Monocytes (%) (Auto) 10.2 % (1.0-10.0) H Eosinophils (%) (Auto) 2.6 % (0.0-3.0) Basophils (%) (Auto) 1.3 % (0.0-2.0) Sodium Level 138 MMOL/L (136-145) Potassium Level 3.8 MMOL/L (3.5-5.1) Chloride Level 105 MMOL/L (98-107) Carbon Dioxide Level 22 MMOL/L (21-32) Anion Gap 11 mmol/L (5-15) Blood Urea Nitrogen 30 mg/dL (7-18) H Creatinine 1.5 MG/DL (0.55-1.30) H Estimat Glomerular Filtration Rate 36.1 mL/min (>60) Glucose Level 96 MG/DL (74-106) Calcium Level 8.7 MG/DL (8.5-10.1) Total Bilirubin 0.8 MG/DL (0.2-1.0) Aspartate Amino Transf (AST/SGOT) 52 U/L (15-37) H Alanine Aminotransferase (ALT/SGPT) 67 U/L (12-78) Alkaline Phosphatase 187 U/L (46-116) H Total Protein 8.0 G/DL (6.4-8.2) Albumin 2.3 G/DL (3.4-5.0) L Globulin 5.7 g/dL Albumin/Globulin Ratio 0.4 (1.0-2.7) L Plan Problems: (1) Malfunction of tovar continent ileostomy Assessment & Plan: doing well with Ana comfortable no n/v/f/c tolerating diet ambulatory few more matthew removed today diet as tolerated ostomy teaching AM labs d/c planning for Tuesday Heber Bustillo Dec 02, 2019 11:37
[2019-12-02 12:00] VITALS: BP 125/79
[2019-12-02] MEDS ORDERED: NS 275ml ONE (13:16)
--- NOTE | 2019-12-02 13:43 | Nephrology Progress Note ---
Assessment/Plan Assessment/Plan: A/P (1) Malnutrition of moderate degree - improving eating well (2) Hypopotassemia, Hypophosphatemia - replace prn (3) Dehydration- resolved (4) ARIK - Cr 1.5 and stable (5) Ulcerative colitis Malfunction of tovar continent ileostomy -corrected Subjective Date patient seen: Dec 02, 2019 Time patient seen: 13:36 ROS Limited/Unobtainable: No Allergies: Coded Allergies: CEFACLOR (Verified Allergy, Unknown, 11/12/19) OFLOXACIN (Verified Allergy, Unknown, 11/12/19) SULFA (SULFONAMIDE ANTIBIOTICS) (Verified Allergy, Unknown, 11/12/19) Uncoded Allergies: sodium pentothal (Allergy, Unknown, 11/12/19) Subjective Patient feeling better eating well Objective Last 24 Hour Vital Signs Date Time Temp Pulse Resp B/P (MAP) Pulse Ox O2 Delivery O2 Flow Rate FiO2 12/02/19 12:00 98.6 107 18 125/79 (94) 94 12/02/19 10:01 96 Room Air 21 12/02/19 09:00 Room Air 12/02/19 08:00 98.1 97 20 122/65 (84) 93 12/02/19 04:00 98.1 93 20 113/68 (83) 96 12/02/19 00:00 98.2 100 20 103/69 (80) 95 12/01/19 21:00 Room Air 12/01/19 20:41 107 111/73 12/01/19 20:33 94 Room Air 21 12/01/19 20:00 98.6 107 20 111/73 (86) 96 12/01/19 16:31 115/77 12/01/19 16:00 97.9 104 20 115/77 (90) 95 Intake and Output 12/01/19 12/02/19 19:00 07:00 Intake Total 1000 ml 220 ml Output Total 760 ml 820 ml Balance 240 ml -600 ml Intake Oral 1000 ml 220 ml Output Urine Total 640 ml 700 ml Other 120 ml 120 ml Laboratory Tests 12/02/19 05:30: White Blood Count 8.4, Red Blood Count 3.50L, Hemoglobin 9.2L, Hematocrit 28.7L , Mean Corpuscular Volume 82, Mean Corpuscular Hemoglobin 26.3L, Mean Corpuscular Hemoglobin Concent 32.0, Red Cell Distribution Width 21.9H, Platelet Count 373, Mean Platelet Volume 8.4, Neutrophils (%) (Auto) 68.3, Lymphocytes (%) (Auto) 17.7L, Monocytes (%) (Auto) 10.2H, Eosinophils (%) (Auto ) 2.6, Basophils (%) (Auto) 1.3, Sodium Level 138, Potassium Level 3.8, Chloride Level 105, Carbon Dioxide Level 22, Anion Gap 11, Blood Urea Nitrogen 30H, Creatinine 1.5H, Estimat Glomerular Filtration Rate 36.1, Glucose Level 96 , Calcium Level 8.7, Total Bilirubin 0.8, Aspartate Amino Transf (AST/SGOT) 52H , Alanine Aminotransferase (ALT/SGPT) 67, Alkaline Phosphatase 187H, Total Protein 8.0, Albumin 2.3L, Globulin 5.7, Albumin/Globulin Ratio 0.4L Height (Feet): 5 Height (Inches): 1.00 Weight (Pounds): 85 General Appearance: no apparent distress, alert EENT: normal ENT inspection Neck: normal alignment, supple Cardiovascular: normal rate, regular rhythm Respiratory/Chest: lungs clear, normal breath sounds Abdomen: non tender, soft Edema: no edema noted Arm (L), no edema noted Arm (R), no edema noted Leg (L), no edema noted Leg (R), no edema noted Pedal (L), no edema noted Pedal (R), no edema noted Generalized Freddy Navarro MD Dec 02, 2019 13:43
[2019-12-02] MEDS: Nitroglycerin Patch 0.2mg/hr TDERMAL SCH (15:42)
[2019-12-02 16:00] VITALS: BP 128/84
--- NOTE | 2019-12-02 19:11 | NUR ---
HAND-OFF: Report given to Nahed RN, pt in stable condition. - During my shift patient was able to ambulate around the unit with steady gait. I&O's ileostomy: 525ml Urine: 925ml Blood sugar: 109, 109 (no coverage)
--- NOTE | 2019-12-02 19:35 | NUR ---
NURSE NOTES: Received report from CHUCK Roper. Pt is awake, lying high figueroa's; comfortably resting. No signs of acute distress noted. Pt denies any pain at this time. AOx4; able to make needs known. Checked IV site; patent and flushed. No erythema, bleeding, or infiltration. Bed at lowest position. Brakes on. Siderails up x2. Call light within reach. Will continue to monitor.
[2019-12-02 20:00] VITALS: BP 132/77
--- NOTE | 2019-12-02 20:13 | Pulmonology Progress Note ---
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 Plan: * Monitor on room air * Electrolyte repletion, renal consult appreciated * Monitor renal function * Monitor H/H * Cont TPN, wean as PO intake improves and adequate * diet as tolerated * cxr prn 11/29 negative * dc planning Subjective Constitutional: Reports: no symptoms HEENT: Repors: no symptoms Respiratory: Reports: no symptoms Cardiovascular: Reports: no symptoms Gastrointestinal/Abdominal: Reports: no symptoms Genitourinary: Reports: no symptoms Neurologic: Reports: no symptoms Allergies: Coded Allergies: CEFACLOR (Verified Allergy, Unknown, 11/12/19) OFLOXACIN (Verified Allergy, Unknown, 11/12/19) SULFA (SULFONAMIDE ANTIBIOTICS) (Verified Allergy, Unknown, 11/12/19) Uncoded Allergies: sodium pentothal (Allergy, Unknown, 11/12/19) Subjective continues to be doing well toelrating po no pc nv or bleeding ostomy pink positive uop no fever no forrester Objective Last 24 Hour Vital Signs Date Time Temp Pulse Resp B/P (MAP) Pulse Ox O2 Delivery O2 Flow Rate FiO2 12/02/19 19:41 99 Room Air 21 12/02/19 16:00 99.0 93 18 128/84 (99) 95 12/02/19 15:42 125/79 12/02/19 12:00 98.6 107 18 125/79 (94) 94 12/02/19 10:01 96 Room Air 21 12/02/19 09:00 Room Air 12/02/19 08:00 98.1 97 20 122/65 (84) 93 12/02/19 04:00 98.1 93 20 113/68 (83) 96 12/02/19 00:00 98.2 100 20 103/69 (80) 95 12/01/19 21:00 Room Air 12/01/19 20:41 107 111/73 12/01/19 20:33 94 Room Air 21 Intake and Output 12/01/19 12/02/19 19:00 07:00 Intake Total 1000 ml 220 ml Output Total 760 ml 820 ml Balance 240 ml -600 ml Intake Oral 1000 ml 220 ml Output Urine Total 640 ml 700 ml Other 120 ml 120 ml General Appearance: cachetic Respiratory/Chest: lungs clear, normal breath sounds Cardiovascular: normal rate, regular rhythm Abdomen: soft, non tender, no organomegaly Extremities: no cyanosis Skin: no lesions, no ulcers Neurologic/Psychiatric: alert, oriented x 3, responsive Laboratory Tests 12/02/19 05:30: White Blood Count 8.4, Red Blood Count 3.50L, Hemoglobin 9.2L, Hematocrit 28.7L , Mean Corpuscular Volume 82, Mean Corpuscular Hemoglobin 26.3L, Mean Corpuscular Hemoglobin Concent 32.0, Red Cell Distribution Width 21.9H, Platelet Count 373, Mean Platelet Volume 8.4, Neutrophils (%) (Auto) 68.3, Lymphocytes (%) (Auto) 17.7L, Monocytes (%) (Auto) 10.2H, Eosinophils (%) (Auto ) 2.6, Basophils (%) (Auto) 1.3, Sodium Level 138, Potassium Level 3.8, Chloride Level 105, Carbon Dioxide Level 22, Anion Gap 11, Blood Urea Nitrogen 30H, Creatinine 1.5H, Estimat Glomerular Filtration Rate 36.1, Glucose Level 96 , Calcium Level 8.7, Total Bilirubin 0.8, Aspartate Amino Transf (AST/SGOT) 52H , Alanine Aminotransferase (ALT/SGPT) 67, Alkaline Phosphatase 187H, Total Protein 8.0, Albumin 2.3L, Globulin 5.7, Albumin/Globulin Ratio 0.4L Current Medications Medications (Trade) Dose Ordered Sig/Jose Rafael Route PRN Reason Start Time Stop Time Status Last Admin Dose Admin Acetaminophen (Tylenol) 650 mg Q4H PRN ORAL Mild Pain/Temp > 100.2 11/26/19 15:15 12/26/19 15:14 11/30/19 18:28 Acetaminophen/ Codeine Phosphate (Tylenol #3) 1 tab Q6H PRN ORAL For Pain 11/30/19 19:15 12/07/19 19:14 12/01/19 20:42 Acetaminophen/ Hydrocodone Bitart ([place] 5/325) 1 tab Q4H PRN ORAL Moderate Pain (Pain Scale 4-6) 12/02/19 09:48 12/09/19 09:47 Acetylcysteine (Mucomyst) 200 mg Q6H PRN HHN Shortness of Breath 11/28/19 10:15 12/28/19 10:14 Albuterol/ Ipratropium (Albuterol/ Ipratropium) 3 ml Q6H PRN HHN Shortness of Breath 12/02/19 10:15 12/07/19 10:14 Chlorhexidine Gluconate ([place]-Hex 2%) 1 applic DAILY@2000 TOPIC 11/21/19 20:00 12/12/19 19:59 12/01/19 20:43 Hydromorphone HCl (Dilaudid) 1 mg Q4H PRN SUBQ Severe Breakthru Pain (>7) 11/26/19 15:00 12/03/19 14:59 Metoprolol Succinate (Toprol XL) 50 mg BEDTIME ORAL 11/21/19 21:00 12/15/19 20:59 12/01/19 20:41 Nitroglycerin (Ntg) 1 patch Q24H TDERMAL 11/21/19 16:00 12/18/19 15:59 12/02/19 15:42 Ondansetron HCl (Zofran) 4 mg Q4H PRN IVP Nausea & Vomiting 11/21/19 13:30 12/12/19 21:29 11/24/19 04:21 Temazepam (RestoriL) 7.5 mg HSPRN PRN ORAL Insomnia 12/02/19 09:45 12/09/19 09:44 Loida Neri DO Dec 02, 2019 20:13
[2019-12-02] MEDS: Dyna-Hex 2% Top Sol 2oz TOPIC SCH (20:25)
[2019-12-02] MEDS: Metoprolol Succinate XL 50mg tab ORAL SCH (20:26)
[2019-12-03] VITALS: BP 115/77
[2019-12-03 04:00] VITALS: BP 108/71
[2019-12-03 06:38] LABS: EOSINOPHILS % (AUTO) 1.2 % (0.0-3.0); HEMATOCRIT 29.7 % (37.0-47.0); HEMOGLOBIN 9.4 G/DL (12.0-16.0); LYMPHOCYTES % (AUTO) 18.8 % (20.0-45.0); MEAN CORPUSCULAR VOLUME 82 FL (80-99); MONOCYTES % (AUTO) 8.2 % (1.0-10.0); NEUTROPHILS % (AUTO) 70.9 % (45.0-75.0); PLATELET COUNT 381 K/UL (150-450); RED CELL DISTRIBUTION WIDTH 21.5 % (11.6-14.8); WHITE BLOOD COUNT 10.6 K/UL (4.8-10.8)
[2019-12-03 06:59] LABS: ALANINE AMINOTRANSFERASE 70 U/L (12-78); ALBUMIN 2.3 G/DL (3.4-5.0); ALBUMIN/GLOBULIN RATIO 0.4 (1.0-2.7); ALKALINE PHOSPHATASE 208 U/L (46-116); ANION GAP 10 mmol/L (5-15); ASPARTATE AMINO TRANSFERASE 59 U/L (15-37); BILIRUBIN,TOTAL 0.8 MG/DL (0.2-1.0); BLOOD UREA NITROGEN 29 mg/dL (7-18); CALCIUM 8.8 MG/DL (8.5-10.1); CARBON DIOXIDE 21 MMOL/L (21-32); CHLORIDE 104 MMOL/L (98-107); CREATININE 1.7 MG/DL (0.55-1.30); POTASSIUM 3.8 MMOL/L (3.5-5.1); SODIUM 135 MMOL/L (136-145)
--- NOTE | 2019-12-03 07:27 | NUR ---
HAND-OFF: Report given to Julia Villagomez RN. Pt is awake and in stable condition. Plan of care endorsed.
--- NOTE | 2019-12-03 07:46 | Nephrology Progress Note ---
Assessment/Plan Assessment/Plan: A/P (1) Malnutrition of moderate degree - improved eating well - anticipate DC Tues (2) Hypopotassemia, Hypophosphatemia - replace prn (3) Dehydration- resolved (4) ARIK - Cr 1.7. Monitor (5) Ulcerative colitis Malfunction of tovar continent ileostomy -corrected Subjective Date patient seen: Dec 03, 2019 Time patient seen: 07:45 Allergies: Coded Allergies: CEFACLOR (Verified Allergy, Unknown, 11/12/19) OFLOXACIN (Verified Allergy, Unknown, 11/12/19) SULFA (SULFONAMIDE ANTIBIOTICS) (Verified Allergy, Unknown, 11/12/19) Uncoded Allergies: sodium pentothal (Allergy, Unknown, 11/12/19) Subjective Patient ambulating in room going to bathroom Objective Last 24 Hour Vital Signs Date Time Temp Pulse Resp B/P (MAP) Pulse Ox O2 Delivery O2 Flow Rate FiO2 12/03/19 04:00 97.9 95 20 108/71 (83) 91 12/03/19 00:00 98.2 102 18 115/77 (90) 98 12/02/19 21:00 Room Air 12/02/19 20:26 119 132/77 12/02/19 20:00 99.9 119 20 132/77 (95) 92 12/02/19 19:41 99 Room Air 21 12/02/19 16:00 99.0 93 18 128/84 (99) 95 12/02/19 15:42 125/79 12/02/19 12:00 98.6 107 18 125/79 (94) 94 12/02/19 10:01 96 Room Air 21 12/02/19 09:00 Room Air 12/02/19 08:00 98.1 97 20 122/65 (84) 93 Intake and Output 12/02/19 12/03/19 19:00 07:00 Intake Total 708 ml 1298 ml Output Total 1450 ml 1125 ml Balance -742 ml 173 ml Intake Oral 708 ml 1298 ml Output Urine Total 925 ml 600 ml Other 525 ml 525 ml Laboratory Tests 12/03/19 05:00: White Blood Count 10.6, Red Blood Count 3.60L, Hemoglobin 9.4L, Hematocrit 29.7L , Mean Corpuscular Volume 82, Mean Corpuscular Hemoglobin 26.1L, Mean Corpuscular Hemoglobin Concent 31.7L, Red Cell Distribution Width 21.5H, Platelet Count 381, Mean Platelet Volume 8.2, Neutrophils (%) (Auto) 70.9, Lymphocytes (%) (Auto) 18.8L, Monocytes (%) (Auto) 8.2, Eosinophils (%) (Auto) 1.2, Basophils (%) (Auto) 1.0, Sodium Level 135L, Potassium Level 3.8, Chloride Level 104, Carbon Dioxide Level 21, Anion Gap 10, Blood Urea Nitrogen 29H, Creatinine 1.7H, Estimat Glomerular Filtration Rate 31.2, Glucose Level 94, Calcium Level 8.8, Total Bilirubin 0.8, Aspartate Amino Transf (AST/SGOT) 59H, Alanine Aminotransferase (ALT/SGPT) 70, Alkaline Phosphatase 208H, Total Protein 8.3H, Albumin 2.3L, Globulin 6.0, Albumin/Globulin Ratio 0.4L Height (Feet): 5 Height (Inches): 1.00 Weight (Pounds): 85 General Appearance: no apparent distress EENT: normal ENT inspection Neck: normal alignment Cardiovascular: normal rate, regular rhythm Respiratory/Chest: lungs clear, normal breath sounds Abdomen: non tender, soft Edema: no edema noted Arm (L), no edema noted Arm (R), no edema noted Leg (L), no edema noted Leg (R), no edema noted Pedal (L), no edema noted Pedal (R), no edema noted Generalized Freddy Navarro MD Dec 03, 2019 07:46
--- NOTE | 2019-12-03 11:38 | General Progress Note ---
Progress Note Progress Note AVSS doing well eating small amounts but tolerating well. Abdomen soft, matthew and sutures removed, ileostomy education has gone well with patient and WBC 10,600 Hgb 9.4 BUN down 29 Cr 1.7 Albumin 2.3 Urine 1525 Ileostomy 1050 Imp: Stable Plan: discharge in AM Supplies/instructions/limitations provided/discussed Rx none f/u 12/07 and prn Instructed re monitoring ileostomy and urine outputs and daily weight Imtiaz Mcconnell MD Dec 03, 2019 11:38
[2019-12-03 12:00] VITALS: BP 131/86
--- NOTE | 2019-12-03 12:33 | Pulmonology Progress Note ---
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 Mcconnell Subjective Interval Events: TPN off. tolerating PO. Breathing stable Allergies: Coded Allergies: CEFACLOR (Verified Allergy, Unknown, 11/12/19) OFLOXACIN (Verified Allergy, Unknown, 11/12/19) SULFA (SULFONAMIDE ANTIBIOTICS) (Verified Allergy, Unknown, 11/12/19) Uncoded Allergies: sodium pentothal (Allergy, Unknown, 11/12/19) All Systems: reviewed and negative except above Objective Last 24 Hour Vital Signs Date Time Temp Pulse Resp B/P (MAP) Pulse Ox O2 Delivery O2 Flow Rate FiO2 12/03/19 09:00 Room Air 12/03/19 04:00 97.9 95 20 108/71 (83) 91 12/03/19 00:00 98.2 102 18 115/77 (90) 98 12/02/19 21:00 Room Air 12/02/19 20:26 119 132/77 12/02/19 20:00 99.9 119 20 132/77 (95) 92 12/02/19 19:41 99 Room Air 21 12/02/19 16:00 99.0 93 18 128/84 (99) 95 12/02/19 15:42 125/79 Intake and Output 12/02/19 12/03/19 19:00 07:00 Intake Total 708 ml 1298 ml Output Total 1450 ml 1125 ml Balance -742 ml 173 ml Intake Oral 708 ml 1298 ml Output Urine Total 925 ml 600 ml Other 525 ml 525 ml General Appearance: no acute distress HEENT: mucous membranes moist Respiratory/Chest: lungs clear Cardiovascular: normal rate Abdomen: soft, non tender Extremities: no edema Neurologic/Psychiatric: oriented x 3 Laboratory Tests 12/03/19 05:00: White Blood Count 10.6, Red Blood Count 3.60L, Hemoglobin 9.4L, Hematocrit 29.7L , Mean Corpuscular Volume 82, Mean Corpuscular Hemoglobin 26.1L, Mean Corpuscular Hemoglobin Concent 31.7L, Red Cell Distribution Width 21.5H, Platelet Count 381, Mean Platelet Volume 8.2, Neutrophils (%) (Auto) 70.9, Lymphocytes (%) (Auto) 18.8L, Monocytes (%) (Auto) 8.2, Eosinophils (%) (Auto) 1.2, Basophils (%) (Auto) 1.0, Sodium Level 135L, Potassium Level 3.8, Chloride Level 104, Carbon Dioxide Level 21, Anion Gap 10, Blood Urea Nitrogen 29H, Creatinine 1.7H, Estimat Glomerular Filtration Rate 31.2, Glucose Level 94, Calcium Level 8.8, Total Bilirubin 0.8, Aspartate Amino Transf (AST/SGOT) 59H, Alanine Aminotransferase (ALT/SGPT) 70, Alkaline Phosphatase 208H, Total Protein 8.3H, Albumin 2.3L, Globulin 6.0, Albumin/Globulin Ratio 0.4L Current Medications Medications (Trade) Dose Ordered Sig/Jose Rafael Route PRN Reason Start Time Stop Time Status Last Admin Dose Admin Acetaminophen (Tylenol) 650 mg Q4H PRN ORAL Mild Pain/Temp > 100.2 11/26/19 15:15 12/26/19 15:14 11/30/19 18:28 Acetaminophen/ Codeine Phosphate (Tylenol #3) 1 tab Q6H PRN ORAL For Pain 11/30/19 19:15 12/07/19 19:14 12/01/19 20:42 Acetaminophen/ Hydrocodone Bitart ([place]ney 5/325) 1 tab Q4H PRN ORAL Moderate Pain (Pain Scale 4-6) 12/02/19 09:48 12/09/19 09:47 Acetylcysteine (Mucomyst) 200 mg Q6H PRN HHN Shortness of Breath 11/28/19 10:15 12/28/19 10:14 Albuterol/ Ipratropium (Albuterol/ Ipratropium) 3 ml Q6H PRN HHN Shortness of Breath 12/02/19 10:15 12/07/19 10:14 Chlorhexidine Gluconate ([place]-Hex 2%) 1 applic DAILY@2000 TOPIC 11/21/19 20:00 12/12/19 19:59 12/02/19 20:25 Hydromorphone HCl (Dilaudid) 1 mg Q4H PRN SUBQ Severe Breakthru Pain (>7) 11/26/19 15:00 12/03/19 14:59 Metoprolol Succinate (Toprol XL) 50 mg BEDTIME ORAL 11/21/19 21:00 12/15/19 20:59 12/02/19 20:26 Nitroglycerin (Ntg) 1 patch Q24H TDERMAL 11/21/19 16:00 12/18/19 15:59 12/02/19 15:42 Ondansetron HCl (Zofran) 4 mg Q4H PRN IVP Nausea & Vomiting 11/21/19 13:30 12/12/19 21:29 11/24/19 04:21 Temazepam (RestoriL) 7.5 mg HSPRN PRN ORAL Insomnia 12/02/19 09:45 12/09/19 09:44 Lyndon Elias MD Dec 03, 2019 12:33
--- NOTE | 2019-12-03 15:01 | NUR ---
CASE MANAGEMENT: REVIEW 12/01/2019 SI: POD#14 RESECTION NELSON CONTINENT ILEOSTOMY AND CREATION OF QUINN ILEOSTOMY MALFUNCTION OF NELSON ILEOSTOMY AND BLEEDING FROM STOMA 98.0 92 16 106/69 93% ON RA H/H 9.2/28.7 BUN 36 CREAT 1.6 TBIL/DBIL 1.4/ 0.7 AST 66 ASL-PHOS 199 IS: TOPROL XL PO QHS NATY-HEX TP QD NTG TD Q24HR TYLENOL PO Q6HR/PRN \: 3E MED SURG UNIT CASE MANAGEMENT: REVIEW 12/02/2019 SI: POD# 15 RESECTION NELSON CONTINENT ILEOSTOMY AND CREATION OF QUINN ILEOSTOMY MALFUNCTION OF NELSON ILEOSTOMY AND BLEEDING FROM STOMA 99.9 119 20 132/77 92% ON RA BUN 30 CREAT 1.5 H/H 9.2/28.7 IS: TOPROL XL PO QHS NATY-HEX TP QD NTG TD Q24HR TYLENOL PO Q6HR/PRN \: 3E MED SURG UNIT PLAN: CONT TPN DC IN AM
[2019-12-03 16:00] VITALS: BP 138/86
[2019-12-03] MEDS: Nitroglycerin Patch 0.2mg/hr TDERMAL SCH (16:26)
--- NOTE | 2019-12-03 19:35 | NUR ---
NURSE NOTES: Received order from Dr. Mcconnell to allow patient to shower. Order noted, read back, and carried out. See orders for details.
--- NOTE | 2019-12-03 19:35 | NUR ---
NURSE NOTES: Received report from Julia Villagomez RN. Pt is awake, lying high figueroa's; comfortably resting. No signs of acute distress noted. Pt denies any pain at this time. AOx4; able to make needs known. No erythema, bleeding, or infiltration noted. Bed at lowest position. Brakes on. Siderails up x2. Call light within reach. Will continue to monitor.
--- NOTE | 2019-12-03 19:37 | NUR ---
HAND-OFF: Report given to CHUCK Chan. Pt is stable.
[2019-12-03 20:00] VITALS: BP 123/89
[2019-12-03] MEDS: Dyna-Hex 2% Top Sol 2oz TOPIC SCH (20:00)
[2019-12-03] MEDS: Metoprolol Succinate XL 50mg tab ORAL SCH (20:51)
[2019-12-04] VITALS: BP 117/79
[2019-12-04 04:00] VITALS: BP 104/66
[2019-12-04] MEDS: Tylenol #3 tab (300mg/30mg) ORAL PRN (07:20)
--- NOTE | 2019-12-04 07:41 | NUR ---
HAND-OFF: Report given to CHUCK Ya. Pt is awake and in stable condition. Pt is getting discharged at 0800 today. Plan of care endorsed.
--- NOTE | 2019-12-04 07:44 | NUR ---
NURSE NOTES: AWAKE/ALERT. IN NO APPARENT DISTRESS. ALL DRESSED UP FOR DISCHARGE.WAITING FOR TRANSPORTATION.
--- NOTE | 2019-12-04 07:50 | NUR ---
NURSE NOTES: DISCHARGED HOME PER WHEELCHAIR [facility]PD BY IN STABLE CONDITION.DC INSTRUCTIONS GIVEN.
[2019-12-04] MEDS ORDERED: D5W 275ml ONE (08:17)
--- NOTE | 2019-12-04 16:57 | NUR ---
*-* INSURANCE *-* ALL CLINICALS AND REVIEWS HAVE BEEN FAXED TO: [facility] REF# [id number] MARLEN:CARYL FX: [phone] P; [phone]
--- NOTE | 2019-12-06 10:43 | NUR ---
*-* INSURANCE *-* DISCHARGE SUMMARY HAS BEEN FAXED TO: [facility] REF# [id number] MARLEN:CARYL FX: [phone] P; [phone]
--- NOTE | 2019-12-06 10:54 | Discharge Summary ---
Discharge Summary Hospital Course Date of Admission Nov 12, 2019 at 05:15 Date of Discharge Dec 04, 2019 at 07:50 Admitting Diagnosis Malfunctioning continent Mullen ileostomy Reason for Hospitalization: Elective surgery HPI Kylah Neville is a 54 year old female who was admitted on Nov 12, 2019 at 05: 15 for Malfunctioning Mullen Continent Ileostomy. 54-year-old female in overall stable health with a malfunctioning Mullen continent ileostomy with incontinence of stool and gas and bleeding from the pouch with intubation and anemia. The patient with a past history of ulcerative colitis in 1986. She underwent a total abdominal colectomy with a pull-through procedure. In 1989, she underwent creation of a Mullen Continent Intestinal [place] as well as abdominal-perineal proctectomy. She developed recurrent fistulas and in 1998 underwent resection of her Mullen pouch with creation of a new Mullen continent ileostomy. In 2006, the Mullen pouch was repaired because of fistula involving the access segment and the pouch. The patient in recent years intubated 10 to 12 times a day, but had incontinence despite the frequent intubations. She had no difficulty inserting her 30-Scottish Medena catheter. Last year, she had bleeding from the pouch with intubation, blood and clots and hemoglobin of 5.0. She was transfused. She underwent a pouch endoscopy in September 2018, revealing no inflammation, but there was no evidence of a nipple valve. The patient underwent upper GI endoscopy in June 2019 revealing gastritis, but she was placed on no medications. The most recent hemoglobin was 7.9 in July 2019 with iron of 16 and ferritin of 5. Her local doctors were not able to care for her , because of her Mullen Continent ileostomy. Patient was admitted for elective surgery. Consultations Dr. Cole -ID specialist Dr. Mugnuia -carpenter supervisor wooden ship Dr Elias - electric motor fitter Procedures s/p 11/12/[address] Mcconnell Mullen continent ileostomy pouch endoscopy s/p 11/15/[address] Mcconnell Laparotomy with resection of failed Mullen continent ileostomy and creation of Ana ileostomy. Hospital Course patient admitted patient undergone bowel preparation and insertion of dual-lumen PICC line patient started on IV hydration patient undergone pouch endoscopy with continued drainage of her Mullen pouch the endoscope was seen to enter the pouch adjacent to the base of the nipple valve, indicating likely that there was a large fistula from the access segment directly into the pouch the pouch itself was distensible and had no signs of inflammation 28 Scottish Erazo catheter was inserted into the pouch , confirmed by irrigation and connected to gravity drainage bag pstient tolerated endoscopy well hemoglobin 8.7 preoperatively patient received 1 unit of packed red blood cells on 11/12, however hemoglobin lower the next day - 8.4 patient received another unit of packed red blood cell anemia work-up revealed ferritin 8 , B12 389, folic acid stable , serum iron 29 patient started on Venofer and B12 x1 was given surgery was postponed to 11 15 patient started on TPN. patient started on clear liquid diet. patient consented for surgery. patient subsequently undergone on 11/15 laparotomy with resection of failed Mullen continent ileostomy and creation of Ana ileostomy for surgery patient was intubated and then extubated however , patient required reintubation again electric motor fitter closely followed patient started on weaning protocol, and was able to be extubated later on electrolytes were repleted ; 1 ampule of bicarbonate given patient was followed -up with ABG and chest X-Ray after extubation patient was placed on the BiPAP supplemental oxygen further titrated to keep pulse oximetry above 92% pulmonary toilet with bronchodilator provided. carpenter supervisor wooden ship followed IV fluids stopped patient was follow-up closely with labs patient received diuresis for CHF with close monitoring of volumes electrolytes corrected as needed hyperkalemia resolved renal parameters and electrolytes were closely monitored creatinine increased to the highest - 3.7 and then started steadily to go down prior to discharge creatinine back to baseline 1.7 electrolytes further corrected as needed and nephrotoxins were avoided all electrolytes stable prior to discharge patient was continued to be n.p.o. pain management with Dilaudid SENIOR MORTGAGE LOAN PROCESSOR provided; no basal infusion TPN was continued as per carpenter supervisor wooden ship patient was on empiric antibiotics which started perioperatively patient had leukocytosis CXR revealed increased bilateral pleural effusions and pulmonary edema; component of infectious process was not excluded intake and output were closely monitored patient had a good volume urine output metabolic acidosis improved abdomen still distended but appeared softer, less erythema , incision with a scant drainage patient was slowly stabilizing n.p.o. status continued leukocytosis resolved, antibiotics stopped on 11/21 patient was transferred to medical surgical floor and started on clear liquid Erazo catheter was continued wound ostomy nurse consult was requested due to new ileostomy for education regarding care patient was mobilized out of bed as tolerated with the help of physical therapy ileus was resolving, TPN was continued patient noted to have intermittent fevers ID specialist consult was requested KUB revealed dilated small bowel loops , most likely postoperative ileus, given history of recent surgery patient was mobilized as tolerated, incentive spiroemtry encouraged, postoperative fever and leukocytosis resolved chest x-ray was negative blood and urine culture negative ID specialist doubted sepsis and recommended to keep off antibiotic with close observation patient had episode of emesis which self resolved antiemetics were on board as needed patient made NPO again ileus was slowly resolving on 11/26 patient started again on clear liquid diet SENIOR MORTGAGE LOAN PROCESSOR was discontinued patient remained afebrile, no leukocytosis TPN continued Erazo catheter was discontinued on 11/27 on 11/28 patient was started on BCIR low residue diet, 6 small meals a daily TPN was continued until oral intake was sufficient to meet her nutritional needs incision and stoma were healing nicely patient remained afebrile , no leukocytosis acute renal failure resolved patient tolerated diet instructions regarding stoma care were discussed with patient and her discharge supplies, instruction/limitation provided /discussed patient to follow-up in the office on 12/07 and as needed. patient was instructed to monitor ileostomy and urine output daily patient clinically stabilized and was ready for discharge FINAL DIAGNOSES 1. Malfunctioning Mullen continent intestinal reservoir continent ileostomy with incontinence and stoma bleeding. 2. History of ulcerative colitis. 3. Hypertension. 4. Mild chronic renal failure. 5. History of gastritis. 6. STATUS POST MULTIPLE ABDOMINAL OPERATIONS: 6.1. Total colectomy with pull-through procedure in 1986. 6.2. Creation of Mullen continent ileostomy and abdominal-perineal proctectomy in 1989. 6.3. Resection of Mullen pouch due to recurring fistula with creation of a new Mullen continent ileostomy pouch in 1998. 6.4. Repair of Mullen continent ileostomy fistula involving the pouch and access segment in 2006. 7. s/p Mullen continent ileostomy pouch endoscopy 11/12/19 with finding of fistula 8. s/p Laparotomy with resection of failed Mullen continent ileostomy and creation of Ana ileostomy 11/15/19 9. Severe anemia with severe iron deficiency with history of recurrent stomal bleeding 10. Malnutrition of moderate degree 11. Acute respiratory failure requiring intubation, status post extubation, reintubation and later extubation 12. Metabolic acidosis 13. ARIK on CKD 14. Electrolyte abnormalities 15. Diabetes mellitus 16. Dehydration 17. Ileus -resolved 18. Leukocytosis and fever -resolved Discharge Medications Continued Medications: Calcitriol (Calcitriol) 0.25 Mcg Capsule 0.25 MCG PO DAILY, CAP (This prescription has been renewed) Metoprolol Succinate* (Metoprolol Succinate*) 50 Mg Tab.er.24h 50 MG ORAL BEDTIME, TAB (This prescription has been renewed) Discharge Condition Upon Discharge: stable Discharge Disposition Patient was discharged to Discharge Instructions Discharge Instructions Special Instructions I have been assigned to complete a D/C Summary on this account. I was not involved in the patient management Leslie Galan NP Dec 06, 2019 10:54
--- NOTE | 2019-12-13 10:39 | NUR ---
*-* INSURANCE *-* ALL CLINICALS AND REVIEWS HAVE BEEN FAXED TO: [facility] REF# [id number] MARLEN:CARYL FX: [phone] P; [phone]
== END 2019-12-04 07:50 | disposition home or self-care (01) | DRG 329 ==
LOC: 3E 11-12 05:15 → ICU 11-15 21:00 → 3E 11-21 11:00
PROC: 02HV33Z Insertion of Infusion Device into Superior Vena Cava, Percutaneous Approach (ICD-10-PCS; principal; 2019-11-12 13:02)
PROC: 0DJD8ZZ Inspection of Lower Intestinal Tract, Via Natural or Artificial Opening Endoscopic (ICD-10-PCS; principal; 2019-11-12 13:02)
PROC: B518ZZA Fluoroscopy of Superior Vena Cava, Guidance (ICD-10-PCS; principal; 2019-11-12 13:02)
PROC: 0D1B0Z4 Bypass Ileum to Cutaneous, Open Approach (ICD-10-PCS; 2019-11-15)
PROC: 0DBB0ZZ Excision of Ileum, Open Approach (ICD-10-PCS; 2019-11-15)
PROC: 5A1935Z Respiratory Ventilation, Less than 24 Consecutive Hours (ICD-10-PCS; 2019-11-16)
PROC: 0BH17EZ Insertion of Endotracheal Airway into Trachea, Via Natural or Artificial Opening (ICD-10-PCS; 2019-11-16)
DX: K94.13 Enterostomy malfunction (principal); J96.00 Acute respiratory failure, unspecified whether with hypoxia or hypercapnia; K63.2 Fistula of intestine; E44.0 Moderate protein-calorie malnutrition; Z68.1 Body mass index [BMI] 19.9 or less, adult; N17.9 Acute kidney failure, unspecified; E87.2 Acidosis; K56.7 Ileus, unspecified; I13.0 Hypertensive heart and chronic kidney disease with heart failure and stage 1 through stage 4 chronic kidney disease, or unspecified chronic kidney disease; K51.90 Ulcerative colitis, unspecified, without complications; N18.9 Chronic kidney disease, unspecified; D50.0 Iron deficiency anemia secondary to blood loss (chronic); I50.9 Heart failure, unspecified; E86.0 Dehydration; D50.9 Iron deficiency anemia, unspecified; R50.82 Postprocedural fever; D72.829 Elevated white blood cell count, unspecified; E87.6 Hypokalemia; E83.39 Other disorders of phosphorus metabolism; K43.5 Parastomal hernia without obstruction or gangrene
CPT/HCPCS: 36415; 36569; 36600; 71045; 71046; 74018; 76937; 80048; 80053; 81001; 81003; 82248; 82550; 82570; 82607; 82728; 82746; 82803; 82962; 83540; 83605; 83735; 84100; 84300; 84478; 84484; 84540; 84550; 85007; 85025; 85610; 85730; 86850; 86900; 86901; 86920; 87040; 87086; 93005; 93306; 94002; 94003; 94150; 94640; 94660; 94664; J1815; J2250; J2405; J2710; J7030; J7620; J8499